=== PATIENT | male | born 1965 | race Caucasian/White ===

== ENCOUNTER → 2018-01-21 07:54 | Outpatient (CLI) | payer MEDICAID, SELFPAY ==
[2018-01-21 09:21] LABS: AST(SGOT) 16 U/L (15-37); Alanine Aminotransfer ALT/SGPT 36 U/L (16-61); Albumin, Serum 3.8 g/dL (3.2-5.0); Alkaline Phosphatase 75 U/L (45-117); Bilirubin, Direct 0.13 mg/dL (0.00-0.30); Globulin 2.8 g/dL (2.2-4.2); PSA,Total - Annual Screen 4.11 ng/mL (0.00-4.00); Protein, Total 6.6 g/dL (6.4-8.2)
== END ==
PROVIDERS: Family Provider Family Medicine; PCP Family Medicine; Visit Provider Family Medicine
DX: N40.0 Benign prostatic hyperplasia without lower urinary tract symptoms (principal); B35.1 Tinea unguium; Z12.5 Encounter for screening for malignant neoplasm of prostate
CPT/HCPCS: 36415; 80076; 84153; G0103

== ENCOUNTER → 2018-10-16 06:02 | Outpatient (CLI) | payer MEDICAID, SELFPAY ==
[2018-10-16 07:51] LABS: Absolute Lymphocyte Count 2.22 X10^3/ul (0.83-4.51); Absolute Neutrophil Count 4.8 X10^3/uL (2.0-7.7); Basophil# 0.03 X10^3/uL; Basophil% 0.4 % (0-1); Eosinophil# 0.17 X10^3/uL; Eosinophils% 2.1 % (0-5); Hematocrit 47.6 % (40-54); Hemoglobin 15.8 g/dl (13.0-16.5); Lymphocyte # 2.22 X10^3/ul (4.0); Lymphocyte % 27.9 % (19-41); Mean Corp Hgb Conc 33.2 g/gl (32-36); Mean Corpuscular Hgb 30.7 pg (27.0-32.0); Mean Corpuscular Volume 92.4 fL (80-94); Mean Platelet Vol. 9.1 fl (6.2-12.0); Monocyte# 0.76 X10^3/uL; Monocyte% 9.6 % (0-10); Neutrophil # 4.76 X10^3/uL (2.7-7.7); Neutrophil % 59.9 % (47-70); Platelet Count 217 K/mm3 (150-450); RBC Distribution Width CV 12.5 % (11.6-14.6); RBC Distribution Width SD 41.9 fl (35.1-43.9); Red Blood Count 5.15 M/mm3 (4.6-6.2)
[2018-10-16 07:53] LABS: POSITIVE COUNT NO; POSITIVE DIFFERENTIAL NO; POSITIVE MORPHOLOGY NO
[2018-10-16 08:05] LABS: Erythrocyte Sedimentation Rate < 1 mm/hr (0-20)
[2018-10-16 08:22] LABS: ALB/GLOB Ratio 1.3 RATIO (0.9-2.4); AST(SGOT) 16 U/L (15-37); Alanine Aminotransfer ALT/SGPT 35 U/L (16-61); Albumin, Serum 4.2 g/dL (3.2-5.0); Alkaline Phosphatase 76 U/L (45-117); Anion Gap 8 (5-15); BUN 14 mg/dL (7-18); BUN/Creat Ratio 18.5 RATIO (10-20); Calcium,Total 8.6 mg/dL (8.5-10.1); Chloride 105 mmol/L (98-107); Cholesterol 172 mg/dL (200); Creatinine, Serum 0.76 mg/dL (0.70-1.30); EST Glomerular Filtration Rate 114 mL/min (>60); Est Glom Filt Rate - Afr Amer 138 mL/min (>60); Globulin 3.3 g/dL (2.2-4.2); Glucose 82 mg/dL (74-106); High Density Lipoprotein 50 mg/dL; Iron 83 ug/dL (65-175); Protein, Total 7.5 g/dL (6.4-8.2); Sodium Level 143 mmol/L (136-145); Thyroid Stim Hormone (TSH) 1.58 uIU/mL (0.358-3.74); Triglycerides 206 mg/dL; Very Low Density Lipoprotein 41 mg/dL (5-40)
[2018-10-16 10:29] LABS: Vitamin B12 486 pg/mL (211-911); Vitamin D,25 Hydroxy 46.6 ng/mL (29.95-100.01)
[2018-10-18 16:36] LABS: PSA, Free 0.59 ng/mL; PSA, Free % 11.8 % (.)
--- OUTSIDE RECORDS SUMMARY | 2018-12-18 14:19 | XMS RPT_ITS ---
:1965 Author Organization OHIP Care Team Providers Name Role Phone Cloby Watkins Attending Unavailable Colby Watkins Referring Unavailable Colby Watkins Primary Care Unavailable Colby Watkins Attending Unavailable Colby Watkins Referring Unavailable Colby Watkins Primary Care Unavailable Jorge Bermudez Attending Unavailable Jorge Bermudez Attending Unavailable Jorge Bermudez Attending Unavailable Colby Watkins Kaylee Primary Care Unavailable Bernabe Harrison Attending Unavailable [facility] PROBLEMS PROBLEMS DATE TYPE CONDITION / CODE ATTENDING STATUS SOURCE 01/21/2018 Unknown N40.0 - Benign Sona Waktins prostatic [facility] without lower Repository urinary tract symptoms / N40.0(ICD-10) 01/12/2018 Admitting Raine / Jorge Bermudez Active [facility] Medical diagnosis UNK(Unknown) [facility] Repository PROCEDURES PROCEDURES No Procedure Records FoundRESULTS RESULTS CBC W/DIFF, AUTOMATED Collected: 10/16/2018 Status: F Source: [place] 6[place] [place] [facility] [place] CODE TESTS RESULT OUT OF RANGE REFERENCE UNITS LAB L100.1000 4.4-11.0 K/mm3 Normal WBC 8.0 LAB L100.1200 4.6-6.2 M/mm3 Normal RBC 5.15 LAB L100.1300 13.0-16.5 g/dl Normal HGB 15.8 LAB L100.1400 40-54 % Normal HCT 47.6 LAB L100.1500 80-94 fL Normal MCV 92.4 LAB L100.1600 27.0-32.0 pg Normal MCH 30.7 LAB L100.1700 32-36 g/gl Normal MCHC 33.2 LAB L100.1810 11.6-14.6 % Normal RDW CV 12.5 LAB L100.1820 35.1-43.9 fl Normal RDW SD 41.9 LAB L100.1900 150-450 K/mm3 Normal PLT 217 LAB L100.2000 6.2-12.0 fl Normal MPV 9.1 LAB L100.2100 47-70 % Normal NEUT% 59.9 LAB L100.2200 19-41 % Normal LY% 27.9 LAB L100.2300 0-10 % Normal MONO% 9.6 LAB L100.2400 0-5 % Normal EO% 2.1 LAB L100.2500 0-1 % Normal BASO% 0.4 LAB L100.2550 0.0-0.9 % Normal IM GRAN % 0.100 Result Comment: IG% - Immature Granulocytes (promyelocytes, myelocytes and metamyelocytes) > 1% indicates that a LEFT SHIFT is Present. LAB L100.2620 2.0-7.7 X10 3/uL Normal Absolute Neut 4.8 LAB L100.2720 0.83-4.51 X10 3/ul Normal Absolute Lymph 2.22 Performed By: #### L100.0100, L101.9900, L500.4050, L500.4100, L501.9520, L503.6150, L503.0105, L506.1000, L509.3000 #### [facility] [address] [place] [address]. [place], [address] #### L3110.0500 #### [facility] (refer to report for specific site) refer to report for address and phone number ERYTHROCYTE SED RATE Collected: 10/16/2018 Status: F Source: [place] 6:06 [place] [facility] [place] CODE TESTS RESULT OUT OF RANGE REFERENCE UNITS LAB L102.0000 0-20 mm/hr Normal SED RATE < 1 Performed By: #### L100.0100, L101.9900, L500.4050, L500.4100, L501.9520, L503.6150, L503.0105, L506.1000, L509.3000 #### [facility] [address] [place], [address] #### L3110.0500 #### [facility] (refer to report for specific site) refer to report for address and phone number COMPREHENSIVE METABOLIC Collected: 10/16/2018 Status: F Source: [facility] 6:06 [place] [facility] [place] CODE TESTS RESULT OUT OF RANGE REFERENCE UNITS LAB L501.0100 74-106 mg/dL Normal GLU 82 Result Comment: Please note revised GLUCOSE reference range effective 2017. LAB L501.1000 7-18 mg/dL Normal BUN 14 LAB L501.1100 0.70-1.30 mg/dL Normal CREAT,SERUM 0.76 Result Comment: The validity of the calculated GFR AND GFRAA in patients over 70 years has not been determined. Clinical correlation is essential. LAB L501.1110 >60 mL/min Normal EST GFR 114 Result Comment: Non- GFR Calc LAB L501.1115 >60 mL/min Normal EST GFR - AA 138 Result Comment: GFR Calc LAB L501.1300 10-20 RATIO Normal BUN/CRE 18.5 LAB L501.1500 6.4-8.2 g/dL T Normal PROT 7.5 LAB L501.1800 3.2-5.0 g/dL Normal ALB 4.2 LAB L501.1950 2.2-4.2 g/dL Normal GLOB 3.3 LAB L501.2000 0.9-2.4 RATIO Normal A/G 1.3 LAB L501.2200 8.5-10.1 mg/dL CA Normal 8.6 LAB L501.4100 15-37 U/L Normal AST 16 LAB L501.4305 45-117 U/L Normal ALK P 76 LAB L501.4405 16-61 U/L Normal ALT 35 LAB L501.4600 0.20-1.00 mg/dL T Normal BILI 0.50 LAB L501.5300 136-145 mmol/L NA Normal 143 LAB L501.5600 3.5-5.1 mmol/L K Normal 4.0 LAB L501.5900 98-107 mmol/L CL Normal 105 LAB L501.6100 21.0-32.0 mmol/L Normal CO2 30.0 LAB L501.6200 5-15 Normal GAP 8 Performed By: #### L100.0100, L101.9900, L500.4050, L500.4100, L501.9520, L503.6150, L503.0105, L506.1000, L509.3000 #### [facility] [address] [place], [address] #### L3110.0500 #### [facility] (refer to report for specific site) refer to report for address and phone number LIPID PROFILE Collected: 10/16/2018 Status: F Source: [place] 6:[facility] [place] [facility] [place] CODE TESTS RESULT OUT OF RANGE REFERENCE UNITS LAB L501.4900 200 mg/dL Normal CHOL 172 Result Comment: <200 mg/dL Desirable 200-240 mg/dL Borderline >240 mg/dL High Risk LAB L501.5000 mg/dL High TRIG 206 Result Comment: The drugs N-Acetylcysteine and Metamizole may falsely depress this assay. Serum Triglycerides Reference Interval Normal <150 mg/dL Borderline high 150 - 199 mg/dL High 200 - 499 mg/dL Very High > or = 500 mg/dL LAB L501.6400 mg/dL Normal HDL 50 Result Comment: The drugs N-Acetylcysteine and Metamizole may falsely depress this assay. Reference Range HDL <40 mg/dL Low HDL Cholesterol HDL >or= 60 mg/dL High HDL Cholesterol LAB L501.6500 0-130 mg/dL Normal LDL 81 LAB L501.6600 5-40 mg/dL High VLDL 41 Performed By: #### L100.0100, L101.9900, L500.4050, L500.4100, L501.9520, L503.6150, L503.0105, L506.1000, L509.3000 #### [facility] [address] [place], [address] #### L3110.0500 #### [facility] (refer to report for specific site) refer to report for address and phone number THYROID STIM HORMONE Collected: 10/16/2018 Status: F Source: [place] ([facility]) 6:06 AM [facility] [place] CODE TESTS RESULT OUT OF RANGE REFERENCE UNITS LAB L501.9520 0.358-3.74 uIU/mL Normal TSH 1.58 Performed By: #### L100.0100, L101.9900, L500.4050, L500.4100, L501.9520, L503.6150, L503.0105, L506.1000, L509.3000 #### [facility] [address] [place], [place], [id number] #### L3110.0500 #### [facility] (refer to report for specific site) refer to report for address and phone number IRON Collected: 10/16/2018 Status: F Source: [place] 6:06 AM [facility] [place] CODE TESTS RESULT OUT OF RANGE REFERENCE UNITS LAB L503.6150 65-175 ug/dL Normal IRON 83 Performed By: #### L100.0100, L101.9900, L500.4050, L500.4100, L501.9520, L503.6150, L503.0105, L506.1000, L509.3000 #### [facility] [place], [place], [id number] #### L3110.0500 #### [facility] (refer to report for specific site) refer to report for address and phone number VITAMIN B12 Collected: 10/16/2018 Status: F Source: [place] 6:06 AM [facility] [place] CODE TESTS RESULT OUT OF RANGE REFERENCE UNITS LAB L503.0105 211-911 pg/mL Normal Vitamin B12 486 Performed By: #### L100.0100, L101.9900, L500.4050, L500.4100, L501.9520, L503.6150, L503.0105, L506.1000, L509.3000 #### [facility] [place], [place], [id number] #### L3110.0500 #### [facility] (refer to report for specific site) refer to report for address and phone number VITAMIN D,25 HYDROXY Collected: 10/16/2018 Status: F Source: [place] 6:06 AM [facility] [place] CODE TESTS RESULT OUT OF RANGE REFERENCE UNITS LAB L506.1000 29.95-100.01 ng/mL Normal Vitamin D 46.6 25-OH Result Comment: Vitamin D 25(OH) Status Range Deficiency <20 ng/mL (50nmol/L) Insuffciency 20 - 30 ng/mL (50 - 75 nmol/L) Sufficiency 30 - 100 ng/mL (75 - 250 nmol/L) Toxicity >100 ng/mL (>250 nmol/L) Performed By: #### L100.0100, L101.9900, L500.4050, L500.4100, L501.9520, L503.6150, L503.0105, L506.1000, L509.3000 #### [facility] [address] [facility]. [place], [place], [id number] #### L3110.0500 #### [facility] (refer to report for specific site) refer to report for address and phone number TESTOSTERONE, SERUM TOTAL Collected: 10/16/2018 Status: F Source: [place] 6:06 AM [facility] [place] CODE TESTS RESULT OUT OF REFERENCE UNITS RANGE LAB L509.3000 ng/dL Testosterone Normal 360.14 Result Comment: NORMAL REFERENCE RANGES MALE AGE <50 123.06 - 813.86 ng/dL MALE AGE >50 89.98 - 780.10 ng/dL FEMALE PREMENOPAUSE AGE 21 - 60 9.01 - 47.94 ng/dL FEMALE POSTMENOPAUSE AGE 45 - 89 <7.00 - 45.62 ng/dL REFERENCE RANGE AND METHODOLOGY CHANGED 09/14/2017 Performed By: #### L100.0100, L101.9900, L500.4050, L500.4100, L501.9520, L503.6150, L503.0105, L506.1000, L509.3000 #### [facility] [address] [facility]. [place], [place], [id number] #### L3110.0500 #### [facility] (refer to report for specific site) refer to report for address and phone number PSA TOTAL+%FREE Collected: 10/16/2018 Status: F Source: [place] 6:06 AM [facility] [place] CODE TESTS RESULT OUT OF RANGE REFERENCE UNITS LAB L3110.0700 0.0-4.0 ng/mL High PSA, 5.0 TOTAL Result Comment: Olga ECLIA methodology. According to the [place] [employer], Serum PSA should decrease and remain at undetectable levels after radical prostatectomy. The AUA defines biochemical recurrence as an initial PSA value 0.2 ng/mL or greater followed by a subsequent confirmatory PSA value 0.2 ng/mL or greater. Values obtained with different assay methods or kits cannot be used interchangeably. Results cannot be interpreted as absolute evidence of the presence or absence of malignant disease. LAB L3110.0800 N/A ng/mL Normal PSA, 0.59 FREE Result Comment: Olga ECLIA methodology. LAB L3110.0900 . % Normal PSA, FREE 11.8 % Result Comment: The table below lists the probability of prostate cancer for men with non-suspicious LYDIA results and total PSA between 4 and 10 ng/mL, by patient age (Ernesto et al, RAMÍREZ 1998, 279:1542). % Free PSA 50-64 yr 65-75 yr 0.00-10.00% 56% 55% 10.01-15.00% 24% 35% 15.01-20.00% 17% 23% 20.01-25.00% 10% 20% >25.00% 5% 9% Please note: Ernesto et al did not make specific recommendations regarding the use of percent free PSA for any other population of men. Performed at: - [facility] [address] [id number] Client Services Representative: Hever Lake PhD, Phone: [phone] Performed By: #### L100.0100, L101.9900, L500.4050, L500.4100, L501.9520, L503.6150, L503.0105, L506.1000, L509.3000 #### [facility] [address] [place], [address] #### L3110.0500 #### [facility] (refer to report for specific site) refer to report for address and phone number JINMARGARETTEANNETTA ESTEPHANIE Collected: 10/04/2018 Status: F Source: [facility] 3:35 [facility] [place] REPOSITORY TYPE CODE TESTS RESULT OUT OF RANGE REFERENCE UNITS LAB L600.46411 () Normal TOXASSURE COMPR FINAL Result Comment: TOXASSURE COMP DRUG ANALYSIS,UR Test Result Flag Units Drug Present and Declared for Prescription Verification Oxycodone 1376 EXPECTED ng/mg creat Oxymorphone 573 EXPECTED ng/mg creat Noroxycodone 1822 EXPECTED ng/mg creat Noroxymorphone 133 EXPECTED ng/mg creat Sources of oxycodone are scheduled prescription medications. Oxymorphone, noroxycodone, and noroxymorphone are expected metabolites of oxycodone. Oxymorphone is also available as a scheduled prescription medication. Gabapentin PRESENT EXPECTED Acetaminophen PRESENT EXPECTED Drug Present not Declared for Prescription Verification Ephedrine/Pseudoephedrine PRESENT UNEXPECTED Phenylpropanolamine PRESENT UNEXPECTED Source of ephedrine/pseudoephedrine is most commonly pseudoephedrine in [id number] or prescription cold and allergy medications. Phenylpropanolamine is an expected metabolite of ephedrine/pseudoephedrine. Drug Absent but Declared for Prescription Verification Cyclobenzaprine Not Detected UNEXPECTED Test Result Flag Units Ref Range Creatinine 45 mg/dL >=20 Declared Medications: The flagging and interpretation on this report are based on the following declared medications. Unexpected results may arise from inaccuracies in the declared medications. Note: The testing scope of this panel includes these medications: Cyclobenzaprine Gabapentin Oxycodone (Percocet) Note: The testing scope of this panel does not include small to moderate amounts of these reported medications: Acetaminophen (Percocet) For clinical consultation, please call . Performed At: [facility] [address] [place] [id number] Rod Palacios [id number] Performed By: #### L600.43574 #### [facility] [address] [place] [id number] # [phone] LIVER PROFILE Collected: 01/21/2018 Status: F Source: [place] 8:[facility] [place] Order Comment: Order Date: 01/17/18 Order Info: 0788-1 - LIVER TYPE CODE TESTS RESULT OUT OF RANGE REFERENCE UNITS LAB L501.1500 6.4-8.2 g/dL Normal T PROT 6.6 LAB L501.1800 3.2-5.0 g/dL Normal ALB 3.8 LAB L501.1950 2.2-4.2 g/dL Normal GLOB 2.8 LAB L501.4100 15-37 U/L Normal AST 16 LAB L501.4305 45-117 U/L Normal ALK P 75 LAB L501.4405 16-61 U/L Normal ALT 36 LAB L501.4600 0.20-1.00 mg/dL Normal T BILI 0.40 LAB L501.4700 0.00-0.30 mg/dL Normal D BILI 0.13 Performed By: #### L500.3400 #### [facility] [address] [place], [address] PSA,TOTAL - ANNUAL Collected: 01/21/2018 Status: F Source: [place] S[place] 8:30 AM [facility] [place] Order Comment: Order Date: 01/17/18 Order Info: 0788-1 - LIVER TYPE CODE TESTS RESULT OUT OF REFERENCE UNITS RANGE LAB L501.9910 0.00-4.00 ng/mL High PSA,TOT 4.11 SCREEN Result Comment: This test was performed using the TPSA assay method for the Callision chemistry system. Values obtained with different assay methods cannot be used interchangably. When changing PSA assays in the course of monitoring a patient, additional sequential testing should be carried out to confirm baseline values. Performed By: #### L501.9910 #### [facility] [address] [place], [address] ALLERGIES ALLERGIES DATE TYPE / CODE NAME / CODE REACTION SEVERITY SOURCE 07/29/2016 Drug Tetracyclines/F00 Rash Unknown Duncan Allergy/284 5919958(RXNORM) [facility] 004919([facility] ED CT) Repository 11/12/2014 Drug cephalexin Rash Unknown Lissa Allergy/416 monohydrate/F0000 [facility] 183171([facility] 35136(RXNO) [facility] ED CT) Repository 11/12/2014 Drug Penicillins/F0010 Rash Unknown Duncan Allergy/416 75039(RXNORM) [facility] 141291([facility] ED CT) Repository ENCOUNTERS ENCOUNTERS ADMIT/DISCHARGE ACCOUNT ADMITTING ENCOUNTER LOCATION SOURCE NUMBER CLASS 10/16/[id number] ing:LAB Repository 10/04/[id number] [place] g:H.PMJ Repository 07/10/2018 [id number] [facility] [place] [facility] Repository 04/10/2018 [id number] [facility] Repository 01/21/2018 [id number] Ambulatory Duncan Lissa 7 [facility] ing:LAB.FUTUR Repository E 01/12/2018 [id number] Ambulatory [facility] 9 [facility] g:H.PMJ Repository PAYERS PAYERS ENCOUNTER GUARANTOR PAYER SUBSCRIBER SOURCE 10/16/2018 ALBINO Smith Primary ALBINO [id number] E [facility] Number: [id number] [id number] Repository [address]Tne: [phone]) Date:2018-10-16P O [phone] (HP) [address]ATTN: [place] [address]NZ: 10/16/2018 Secondary NOT GIVENUNK Duncan Insurance:SELF PAY [facility] Number: Effective Repository Date:2018-10-16 10/04/2018 ALBINO LAST [place] [address] Insurance:[facility] Number: Repository [place], [place] [id number] [phone]: [phone]) Date:[phone] (HP) [address], [place] [address]PD: 07/10/2018 ALBINO Primary ALBINO LAST [place] [address] Insurance:SELF PAY [place], [place] Number: Effective [id number]: (248) Date:SEE [phone] (HP) PATIENT/GUARANTORSEE PT/[place], [place] [address]RP: 04/10/2018 ALBINO LAST [place] [address] Insurance:SELF PAY [place] Number: Effective [id number]: (248) Date:SEE [phone] (HP) [place] [address]ZV: 01/21/2018 Albino Smith Primary Albino Saenz[address] E Insurance[facility] Number: [id number] [id number] Repository [address]Fca: (248) Date:2017-10-28P O [phone] () [address]ATTN: [place] [address]JT: 01/21/2018 Secondary NOT GIVENSALEEM Alcaraz Insurance:SELF PAY [facility] Number: Effective Repository Date:2017-10-28 01/12/2018 ALBINO LAST [facility] [id number] Insurance:[facility] Number: Repository [place], [place] [id number] [address]Ykf: (248) Date:[phone] () [address], [place] [address]TD:
== END ==
PROVIDERS: Family Provider Family Medicine; PCP Family Medicine; Referring Provider Family Medicine; Visit Provider Family Medicine
DX: Z00.00 Encounter for general adult medical examination without abnormal findings (principal); R53.83 Other fatigue; E53.8 Deficiency of other specified B group vitamins; R97.20 Elevated prostate specific antigen [PSA]
CPT/HCPCS: 36415; 80053; 80061; 82306; 82607; 83540; 84153; 84154; 84403; 84443; 85025; 85652

== ENCOUNTER → 2019-02-16 | Outpatient (CLI) | payer MEDICAID, SELFPAY ==
--- NOTE | 2019-02-16 10:58 | RAD_ITS ---
HISTORY: PBack PainRAD Spine EXAM/TECHNIQUE: XR Spine Lumbar Min 4 Views: COMPARISON: 06/25/14 radiographs. FINDINGS: # of images incl. paperwork: 5 No fracture or dislocation or osseous destruction. Alignment anatomic. Posterior fusion and discectomy L4-5, implanted device with a lead extending into the thoracic spinal canal, partially visible, intact hardware all similar to prior. Prominent facet degeneration lower lumbar spine. No acute findings in the soft tissues. RAD/L/S Spine Min 4 Views IMPRESSION: No acute findings. Postsurgical and degenerative changes similar to prior. at 1108 Reported and signed by: Junior Rodas MD Electronically Signed: Junior Rodas, at 23:17 EDT Tel , Service support ,
== END | disposition home or self-care (01) ==
LOC: HPRAD 10:53
PROVIDERS: Family Provider Family Medicine; PCP Family Medicine; Referring Provider Physician Assistant; Visit Provider Physician Assistant
DX: M96.1 Postlaminectomy syndrome, not elsewhere classified (principal)
CPT/HCPCS: 72110

== ENCOUNTER 2019-03-21 13:00 | Outpatient (RCR) | payer MEDICAID, SELFPAY ==
--- NOTE | 2019-02-27 10:33 | HP.PTEVAL_ITS ---
Patient's Visit Information ELENA SAENZ is a 54 year old M referred to Physical Therapy by FLORY Floyd with a diagnosis of POST LUMBAR LAMINECTOMY SYNDROME, MYOFASCIAL PAIN SYNDROME, LEFT KNEE PAIN.. Date of Evaluation: 02/27/19 Physical Therapist: Marisela Jerry PT, Cert MDT - Visit Plan Frequency: 2-3x /Week Duration: 4-6 Weeks Plan: AQUATIC THERAPY FOR PAIN RELEIF, POSTURE CORRECTION/STRENGTHENING, INSTRUCTION IN APPROPRIATE BODY MECHANICS AND ACTIVITY MODIFICATIONS. DLS STARTING WITH A NEUTRAL SPINE PROGRESSING ROM TOLERATED. KEVIN LE ROM, STRETCHING AND STRENGTHENING. HEP INSTRUCTION. - Subjective Findings: Work/Leisure: SELF EMPLOYEED - [employer]. HOURS ARE SPORATIC - LAST WEEK 30 HOURS. 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 HAS BEEN GOING TO [employer] TO WORK SOME. HAS BEEN WORKING AROUND THE HOUSE. TILED THE KITCHEN FLOOR. Disability: NO. Present symptoms: PATIENT REPORTS THAT HE IS MAILY HERE FOR THE LOW BACK. PATIENT REPORTS HE REALLY IS HERE TO HAVE HIS LOW BACK ADDRESSED. HE STATES HE DOES STILL HAVE MID BACK PAIN AND HIS LEFT KNEE IS GIVING HIM SOME TROUBLE BUT WANTS HIS LOW BACK LOOKED AT. KEVIN LE PAIN, NUMBNESS AND TINGLING TO THE TOPS OF THE FEET. SOMETIMES RIGHT > LEFT. PATIENT REPORTS THAT HIS SPINE TOP TO BOTTOM ALWAYS HURTS. Present since: PATIENT STATES HE CAN'T REMEMBER WHEN HE HAD SURGERY BUT IT HAS HURT SINCE BEFORE THE SURGERY. PATIENT REPORTS MUCH WORSE PAIN SINCE SURGERY THAN BEFORE SURGERY. Pain Scale: WORST 9/10, LEAST 4/10. Currently: 5/10. Commenced as a result of: NO APPARENT REASON. Symptoms at onset: LOW BACK. BEFORE LOW BACK STARTED HURTING WAS HIT IN THE BACK BY A TREE IN APPROX 1999 AND HURT MID BACK. Worse: STANDING, BENDING AND LIFTING. PHYSICALLY WORKING. Better: PAIN MEDICINE AND RECLINER. Disturbed sleep: YES. Previous history/Previous treatment: PHYSICAL THERAPY - MADE IT WORSE/ DIDN'T HELP. TENS UNIT - DOESN'T HELP, LUMBAR SX, PRESCRIPTION PAIN MEDS, 2 SAM'S - HELPED A LITTLE BIT IN THE LAST FEW MONTHS - [facility]. CONSULT WITH DR. LEMUS 2 MONTHS AGO AND RECOMMENDED MRI BUT INSURANCE DENIED DUE TO NOT HAVING PHYSICAL THERAPY AND INJECTIONS. Coughing/sneezing/straining: POSITIVE. Gait: DIFFICULTY INITIATING GAIT. HURTS TO WALK. CAN'T WALK VERY FAR. SHOOTING PAINS DOWN LEGS. Difficulty initiating urinatin: YES - SEEING DR. RIVAS. Accidents: HIT BY A TREE IIN MID BACK 1999. Unexplained weight loss: NO. Imaging: LUMBAR X-RAYS RECENTLY - MPRESSION: No acute findings. Postsurgical and degenerative changes similar to prior in 2014. PMH: UNREMARKABLE OTHER THAN BLADDER ISSUES. - Objective Sitting/Standing Posture: POOR. IN STANDING LEFT SHOULDER IS SIGNIFICANTLY HIGHER THAN RIGHT. Lordosis: REDUCED. Lateral shift: LEFT. Relevant shift: YES. Active Correction of posture: WORSE. Other Observations: INDEP GAIT INTO PT WITHOUT ANY ASSISTIVE DEVICES OR LOSS OF BALANCE. GAIT IS SLOW AND ANTALGIC WITH LEFT SHIFT. Motor deficit: POOR BACK AND HIP STRENGTH AND TESTING IS DIFFICULT DUE TO PAIN. HOWEVER KEVIN KNEE EXT, KNEE FLEX AND ANKLES ARE STRONG 5/5. Sensory deficit: DECREASED RIGHT LE LIGHT TOUCH SENSATION COMPARED TO THE LEFT. ROM deficit: TIGHT KEVIN FLEXORS, HIP ROTATORS, HAMSTRINGS AND GASTROC SOLEUS COMPLEX'S RIGHT > LEFT. Reflexes: UNABLE TO ELICIT KEVIN LE DTR'S. Dural Signs: POSITIVE KEVIN LE'S. Lumbar mvmt loss: flex - MIN. ext - MAGY. R SG - MAGY. L SG - MOD TO MAGY. PATIENT C/O INCREASED BACK PAIN WITH LUMBAR ROM TESTING ALL PLANES. Core strength: POOR. Palpation: NO ACUTE THORACIC OR LUMBAR TENDERNESS WITH LIGHT PALPATION - Goals Goal 1:: DECREASE C/O BACK AND KEVIN LE SX'S. Goal Time Frame: 4-6 Weeks Goal 2:: IMPROVE PERSONAL CARE, LIFTING, WALKING, SITTING, STANDING, SLEEP, SOCIAL LIFE, TRAVEL AND WORK/HOMEMAKING FUNCTION Goal Time Frame: 4-6 Weeks Goal 3:: INSTRUCT IN PROPHYLAXIS Goal Time Frame: 4-6 Weeks - Rehabilitation Potential Rehabilitation Potential: Fair - Anticipated Interventions Patient/Client Instruction: Educate patient on: Condition, Plan of Care, Risk Factors, Benefits of Fitness Program For the Purpose of:: To improve self management Therapeutic Exercise to Include: Strength training, Body mechanics, Postural training, Flexibilty training, In an aquatic setting, Active ROM, Dynamic Lumbar Stabilization For the Purpose of:: To decrease pain, To increase ROM, To improve muscle performance and motor function, To increase tolerance to activity/condition/position, To improve ability of physical actions for home/community/work/leisure, To improve gait and locomotor functions Thank you for the opportunity to evaluate your patient. For Medicare and Medicare HMO plans, please review the plan of care and approve it. It will need to be FAXED BACK to us at [phone] for Medicare purposes. For Medicare only, by signing this I certify the plan of care. Please let me know if there are questions or concerns regarding this plan of care. Physician Signature: Date:
--- NOTE | 2019-03-21 13:37 | HP.PTDCSUM ---
HP - PT D/C Summary It has been my pleasure to treat ELENA SAENZ under orders from FLORY Floyd, for the diagnosis of POST LUMBAR LAMINECTOMY SYNDROME, MYOFASCIAL PAIN SYNDROME, LEFT KNEE PAIN. for a total of 10 visit(s). Discharge Date: Please see the following information for a summary of their discharge status. - Subjective Subjective: PATIENT REPORTS HE IS THE SAME. PATIENT REPORTS THAT THE PAIN IS THE SAME BUT OVER-ALL PHYSICALLY HE FEELS A LITTLE STRONGER BUT TEMPORARY INCREASED PAIN AFTER THE POOL SESSIONS. - Pain Lumbar Spine Pain Intensity (Out of 10): 6 - Objective Objective/Function: PATIENT IS NOT SHOWING SIGNIFICANT IMRPOVEMENT. INDEP GAIT INTO PT WITHOUT ANY ASSISTIVE DEVICES OR LOSS OF BALANCE. GAIT IS SLOW AND ANTALGIC WITH LEFT SHIFT. Motor deficit: LE STRENGTH TESTING IS EASIER TODAY - RIGHT HIP 4-/5, LEFT HIP 4/5. KEVIN KNEE EXT, KNEE FLEX AND ANKLES ARE STRONG 5/5. Sensory deficit: DECREASED RIGHT LE LIGHT TOUCH SENSATION COMPARED TO THE LEFT. ROM deficit: TIGHT KEVIN FLEXORS, HIP ROTATORS, HAMSTRINGS AND GASTROC SOLEUS COMPLEX'S RIGHT > LEFT. Dural Signs: POSITIVE KEVIN LE'S. Lumbar mvmt loss: flex - MIN. ext - MAGY. R SG - MAGY. L SG - MOD TO MAGY. PATIENT C/O INCREASED BACK PAIN WITH LUMBAR ROM TESTING ALL PLANES. Palpation: NO ACUTE THORACIC OR LUMBAR TENDERNESS WITH LIGHT PALPATION. LUMBAR OSWESTRY SCORE HAS WORSENED FROM 25 TO 29. - Goals Goal 1:: DECREASE C/O BACK AND KEVIN LE SX'S. Goal 2:: IMPROVE PERSONAL CARE, LIFTING, WALKING, SITTING, STANDING, SLEEP, SOCIAL LIFE, TRAVEL AND WORK/HOMEMAKING FUNCTION Goal 3:: INSTRUCT IN PROPHYLAXIS - Plan Plan: D/C DUE TO LACK OF PROGRESS. PATIENT IS INDEP WITH A Water EX PROGRAM NOW AND CAN CONTINUE AT FACILITY OF HIS CHOICE. - D/C Information If there are questions or concerns regarding this patient's physical therapy, please feel free to call me at [phone]. Thank you for the referral of this patient. Sincerely, Marisela Jerry, PT, Cert MDT
== END 2019-03-21 19:00 | disposition home or self-care (01) ==
LOC: PT 13:00
PROVIDERS: Family Provider Family Medicine; PCP Family Medicine; Referring Provider Physician Assistant; Visit Provider Physician Assistant
DX: M25.562 Pain in left knee (principal); M79.10 Myalgia, unspecified site; M96.1 Postlaminectomy syndrome, not elsewhere classified
CPT/HCPCS: 97113; 97162; 97530

== ENCOUNTER → 2019-05-07 | Outpatient (CLI) | payer MEDICAID, SELFPAY ==
[2019-05-07 15:17] LABS: Absolute Lymphocyte Count 2.28 X10^3/uL (0.83-4.51); Absolute Neutrophil Count 4.5 X10^3/uL (2.0-7.7); Basophil# 0.03 X10^3/uL; Basophil% 0.4 % (0-1); Eosinophils% 1.3 % (0-5); Hematocrit 42.5 % (40-54); Hemoglobin 14.6 g/dL (13.0-16.5); Lymphocyte # 2.28 X10^3/ul (4.0); Mean Corp Hgb Conc 34.4 g/dL (32-36); Mean Corpuscular Hgb 30.9 pg (27.0-32.0); Mean Corpuscular Volume 89.9 fL (80-94); Mean Platelet Vol. 9.1 fl (6.2-12.0); Monocyte% 9.2 % (0-10); NRBC Flagged by Analyzer 0 % (0-5); Neutrophil # 4.49 X10^3/uL (2.7-7.7); Platelet Count 215 K/mm3 (150-450); RBC Distribution Width CV 12.3 % (11.6-14.6); RBC Distribution Width SD 40.2 fl (35.1-43.9); Red Blood Count 4.73 M/mm3 (4.6-6.2); White Blood Count 7.6 K/mm3 (4.4-11.0)
[2019-05-07 15:43] LABS: ALB/GLOB Ratio 1.5 RATIO (0.9-2.4); AST(SGOT) 14 U/L (15-37); Alanine Aminotransfer ALT/SGPT 28 U/L (16-61); Albumin, Serum 4.2 g/dL (3.2-5.0); Alkaline Phosphatase 72 U/L (45-117); Anion Gap 4 (5-15); BUN 19 mg/dL (7-18); BUN/Creat Ratio 21.8 RATIO (10-20); Calcium,Total 8.6 mg/dL (8.5-10.1); Chloride 103 mmol/L (98-107); Creatinine, Serum 0.87 mg/dL (0.70-1.30); EST Glomerular Filtration Rate 96 mL/min (>60); Est Glom Filt Rate - Afr Amer 117 mL/min (>60); Globulin 2.8 g/dL (2.2-4.2); Glucose 79 mg/dL (74-106); Potassium 3.7 mmol/L (3.5-5.1); Sodium Level 139 mmol/L (136-145)
[2019-05-07 15:48] LABS: Vitamin B12 542 pg/mL (211-911)
[2019-05-09 15:07] LABS: H. Pylori Antibody (IgG) 0.76 (0.00-0.79)
== END | disposition home or self-care (01) ==
LOC: MFPLAB 14:24
PROVIDERS: Family Provider Family Medicine; PCP Family Medicine; Visit Provider Family Medicine
DX: E34.9 Endocrine disorder, unspecified (principal); E53.8 Deficiency of other specified B group vitamins; K21.9 Gastro-esophageal reflux disease without esophagitis
CPT/HCPCS: 36415; 80053; 82607; 84403; 85025; 86677

== ENCOUNTER → 2019-05-15 | Outpatient (CLI) | payer MEDICAID, SELFPAY ==
--- NOTE | 2019-05-15 07:12 | MRI_ITS ---
STUDY: MRI THORACIC SPINE WITH AND WITHOUT CONTRAST REASON FOR EXAM: Male, 54 years old. Back pain, prior surgery. TECHNIQUE: 17 IV Dotarem was administered for the contrast portion of the examination. COMPARISON: None. FINDINGS: Normal kyphosis of the thoracic spine. There is no substantial scoliosis. T1-2, T2-3, T3-4, T4-5, T5-6, T6-7, T7-8, T8-9, T9-10, T10-11, T11-12: Normal endplates. Normal disc hydration, heights and morphology of the corresponding intervertebral discs. Normal central canal and intervertebral neural foramina at the corresponding levels. Chronic moderate compression fracture of T9 with kyphosis but no retropulsion into the spinal canal. Chronic mild compression fracture of T11 without retropulsion in the spinal canal. Normal visualized thoracic cord. Normal conus medullaris that terminates at the L1.. Metallic susceptibility artifact consistent with dorsal column spinal stimulator. There is no enhancing abnormality. MRI/Spine Thoracic W/WO Contrast IMPRESSION: 1. Dorsal column spinal stimulator. 2. Chronic moderate wedge compression fracture of T9 with kyphosis and chronic mild compression fracture of T11. No retropulsion into the spinal canal. 3. No spinal stenosis or neural foraminal stenosis. Electronically Signed: Edwar Cruz MD at 12:03 EDT Tel , Service support ,
--- NOTE | 2019-05-15 07:12 | MRI_ITS ---
STUDY: MRI LUMBAR SPINE WITH AND WITHOUT CONTRAST REASON FOR EXAM: Male, 54 years old. Back pain, history of prior surgery. TECHNIQUE: Standardized fat and water weighted pulse sequences were obtained in the sagittal and axial planes. 17 IV Dotarem was administered for the contrast portion of the examination. COMPARISON: X-ray 02/16/2019 FINDINGS: T12-L1: Normal endplates. Normal disc height, hydration and morphology. Normal bilateral facet joints. Normal central canal and bilateral lateral recesses. Normal bilateral intervertebral neural foramina. Normal lumbar lordosis. There is no substantial scoliosis. Normal conus medullaris that terminates at the L1/L2. L1-2: Disc desiccation with loss of disc height but no disc protrusion, spinal stenosis, or neural foraminal stenosis. L2-3: Normal endplates. Normal disc height, hydration and morphology. Normal bilateral facet joints. Normal central canal and bilateral lateral recesses. Normal bilateral intervertebral neural foramina. L3-4: Normal endplates. Normal disc height, hydration and morphology. Normal bilateral facet joints. Normal central canal and bilateral lateral recesses. Normal bilateral intervertebral neural foramina. L4-5: Disc desiccation with a mild broad disc protrusion produces mild spinal stenosis with mild bilateral lateral recess stenosis but no neural foraminal stenosis. L5-S1: Status post transpedicular fixation with anatomic alignment and no spinal stenosis or neural foraminal stenosis. Normal visualized sacral ala. Normal visualized paraspinous soft tissue structures. There is no demonstrated abnormal enhancement. MRI/Spine Lumbar W/WO Contrast IMPRESSION: Postsurgical changes at L5/S1 with mild degenerative disc disease at L4/L5. Electronically Signed: Edwar Cruz MD at 12:50 EDT Tel , Service support ,
== END | disposition home or self-care (01) ==
LOC: MRI 07:07
PROVIDERS: Family Provider Family Medicine; PCP Family Medicine; Visit Provider Physician Assistant
DX: M96.1 Postlaminectomy syndrome, not elsewhere classified (principal)
CPT/HCPCS: 72157; 72158; A9575

== ENCOUNTER → 2019-05-18 | Outpatient (CLI) | payer MEDICAID, SELFPAY ==
--- NOTE | 2019-05-18 12:16 | RAD_ITS ---
STUDY: X-RAY - LEFT HAND REASON FOR EXAM: Male, 54 years old. Pain 3rd metacarpophalangeal joint, radiating into the 3rd digit. No injury. TECHNIQUE: 3 view(s) of the hand. COMPARISON: None. FINDINGS: Minimal DJD interphalangeal joints. No apparent DJD of the wrist. 3rd digit unremarkable. Soft tissues unremarkable. RAD/Hand Min 3 Views IMPRESSION: No acute radiographic abnormality. Electronically Signed: Edawr Castrejon MD at 14:12 EDT Tel , Service support ,
[2019-05-18 14:30] LABS: Uric Acid 3.9 mg/dL (3.5-7.2)
== END | disposition home or self-care (01) ==
LOC: MTRAD 12:09
PROVIDERS: Family Provider Family Medicine; PCP Family Medicine; Referring Provider Family Medicine; Visit Provider Family Medicine
DX: M79.645 Pain in left finger(s) (principal)
CPT/HCPCS: 36415; 73130; 84550

== ENCOUNTER → 2019-08-06 11:57 | Outpatient (CLI) | payer MEDICAID, SELFPAY ==
[2019-08-06 15:21] LABS: Vitamin B12 320 pg/mL (211-911)
[2019-08-08 11:41] LABS: PSA, Free % 8.9 % (.); PSA, Total Ultrasensitive 4.5 ng/mL (0.0-4.0)
== END ==
PROVIDERS: Family Provider Family Medicine; PCP Family Medicine; Referring Provider Family Medicine; Visit Provider Family Medicine
DX: E53.8 Deficiency of other specified B group vitamins (principal); R97.20 Elevated prostate specific antigen [PSA]
CPT/HCPCS: 36415; 82607; 84153; 84154

== ENCOUNTER → 2019-11-29 11:55 | Outpatient (CLI) | payer OTHER, MEDICAID, SELFPAY ==
[2019-12-03 06:16] LABS: Testosterone, Free 2.91 ng/dL (5.00-21.00)
[2019-12-03 11:52] LABS: Testosterone, % Free 2.09 % (1.50-4.20); Testosterone, Total 139 ng/dL (264-916)
== END ==
PROVIDERS: PCP Family Medicine; Referring Provider Urology; Visit Provider Urology
DX: E29.1 Testicular hypofunction (principal)
CPT/HCPCS: 36415; 84402; 84403

== ENCOUNTER → 2019-12-20 06:03 | Outpatient (CLI) | payer OTHER, MEDICAID, SELFPAY ==
[2019-12-20 07:51] LABS: ALB/GLOB Ratio 1.4 RATIO (0.9-2.4); AST(SGOT) 24 U/L (15-37); Alanine Aminotransfer ALT/SGPT 34 U/L (16-61); Albumin, Serum 4.1 g/dL (3.2-5.0); Alkaline Phosphatase 70 U/L (45-117); Anion Gap 6 (5-15); BUN 20 mg/dL (7-18); Calcium,Total 8.7 mg/dL (8.5-10.1); Chloride 107 mmol/L (98-107); Cholesterol 157 mg/dL (200); Creatinine, Serum 0.74 mg/dL (0.70-1.30); EST Glomerular Filtration Rate 116 mL/min (>60); Est Glom Filt Rate - Afr Amer 140 mL/min (>60); Globulin 2.9 g/dL (2.2-4.2); Glucose 82 mg/dL (74-106); High Density Lipoprotein 42 mg/dL; Potassium 3.8 mmol/L (3.5-5.1); Sodium Level 144 mmol/L (136-145); Triglycerides 164 mg/dL; Very Low Density Lipoprotein 33 mg/dL (5-40)
[2019-12-20 08:20] LABS: Vitamin B12 1509 pg/mL (211-911)
== END ==
LOC: LAB.FUTURE 06:05 → LAB 12-21 07:07
PROVIDERS: PCP Family Medicine; Referring Provider Family Medicine; Visit Provider Family Medicine
DX: Z00.00 Encounter for general adult medical examination without abnormal findings (principal); R79.89 Other specified abnormal findings of blood chemistry; E53.8 Deficiency of other specified B group vitamins
CPT/HCPCS: 36415; 80053; 80061; 82607; 84403

== ENCOUNTER → 2020-01-23 11:35 | Outpatient (CLI) | payer OTHER, MEDICAID, SELFPAY ==
[2020-01-23 15:58] LABS: PSA,Total - Annual Screen 3.61 ng/mL (0.00-4.00)
[2020-01-29 14:21] LABS: Testosterone, Total 205
== END ==
PROVIDERS: PCP Family Medicine; Referring Provider Family Medicine; Visit Provider Family Medicine
DX: N40.0 Benign prostatic hyperplasia without lower urinary tract symptoms (principal); R79.89 Other specified abnormal findings of blood chemistry
CPT/HCPCS: 36415; 84153; 84402; 84403; G0103

== ENCOUNTER → 2020-02-06 14:58 | Outpatient (CLI) | payer OTHER, MEDICAID, SELFPAY ==
[2020-02-09 12:04] LABS: Testosterone Free 5.2 pg/mL (7.2-24.0)
== END ==
PROVIDERS: PCP Family Medicine; Visit Provider Family Medicine
DX: R79.89 Other specified abnormal findings of blood chemistry (principal)
CPT/HCPCS: 84402

== ENCOUNTER → 2020-04-22 11:00 | Outpatient (CLI) | payer OTHER, MEDICAID, SELFPAY ==
[2020-04-22 12:25] LABS: Hematocrit 42.9 % (40-54); Hemoglobin 14.6 g/dL (13.0-16.5); Mean Corpuscular Volume 91.1 fL (80-94); Mean Platelet Vol. 9.3 fl (6.2-12.0); Platelet Count 198 K/mm3 (150-450); RBC Distribution Width CV 12.1 % (11.6-14.6); Red Blood Count 4.71 M/mm3 (4.6-6.2); White Blood Count 5.8 K/mm3 (4.4-11.0)
[2020-04-22 12:27] LABS: Erythrocyte Sedimentation Rate < 1 mm/hr (0-20)
[2020-04-22 12:51] LABS: Vitamin D,25 Hydroxy 77.2 ng/mL
[2020-04-22 12:58] LABS: ALB/GLOB Ratio 1.5 RATIO (0.9-2.4); AST(SGOT) 17 U/L (15-37); Alanine Aminotransfer ALT/SGPT 29 U/L (16-61); Albumin, Serum 4.2 g/dL (3.2-5.0); Alkaline Phosphatase 63 U/L (45-117); Anion Gap 3 (5-15); BUN 23 mg/dL (7-18); CRP < 2.90 mg/L (0.0-3.0); Calcium,Total 8.7 mg/dL (8.5-10.1); Chloride 105 mmol/L (98-107); Creatinine, Serum 0.89 mg/dL (0.70-1.30); EST Glomerular Filtration Rate 94 mL/min (>60); Est Glom Filt Rate - Afr Amer 114 mL/min (>60); Globulin 2.8 g/dL (2.2-4.2); Glucose 105 mg/dL (74-106); Potassium 3.9 mmol/L (3.5-5.1); Rheumatoid Factor < 10.0 IU/mL (<15); Sodium Level 138 mmol/L (136-145)
[2020-04-23 15:22] LABS: ANTINUCLEAR ANTIBODIES DIRECT Negative (Negative)
[2020-04-25 15:31] LABS: Testosterone, % Free 3.36 % (1.50-4.20); Testosterone, Total 247 ng/dL (264-916)
== END ==
PROVIDERS: PCP Family Medicine; Referring Provider Family Medicine; Visit Provider Family Medicine
DX: R79.89 Other specified abnormal findings of blood chemistry (principal); M25.50 Pain in unspecified joint; M51.36 Other intervertebral disc degeneration, lumbar region
CPT/HCPCS: 36415; 80053; 82306; 84402; 84403; 85027; 85652; 86038; 86140; 86431

== ENCOUNTER → 2020-08-18 08:40 | Outpatient (CLI) | payer OTHER, MEDICAID, SELFPAY ==
[2020-08-18 10:28] LABS: Vitamin B12 550 pg/mL (211-911)
[2020-08-18 10:38] LABS: ALB/GLOB Ratio 1.3 RATIO (0.9-2.4); AST(SGOT) 28 U/L (15-37); Alanine Aminotransfer ALT/SGPT 51 U/L (16-61); Alkaline Phosphatase 71 U/L (45-117); Anion Gap 6 (5-15); BUN 15 mg/dL (7-18); BUN/Creat Ratio 17.2 RATIO (10-20); Calcium,Total 8.8 mg/dL (8.5-10.1); Chloride 107 mmol/L (98-107); Cholesterol 168 mg/dL (200); Creatinine, Serum 0.87 mg/dL (0.70-1.30); EST Glomerular Filtration Rate 96 mL/min (>60); Est Glom Filt Rate - Afr Amer 116 mL/min (>60); Glucose 59 mg/dL (74-106); High Density Lipoprotein 46 mg/dL; PSA,Total- Diagnostic 4.27 ng/mL (0.0-4.0); Sodium Level 141 mmol/L (136-145); Triglycerides 197 mg/dL; Very Low Density Lipoprotein 39 mg/dL (5-40)
== END ==
PROVIDERS: PCP Family Medicine; Visit Provider Family Medicine
DX: E53.8 Deficiency of other specified B group vitamins (principal); R79.89 Other specified abnormal findings of blood chemistry
CPT/HCPCS: 36415; 80053; 80061; 82607; 84153; 84403

== ENCOUNTER → 2020-11-25 12:22 | Outpatient (CLI) | payer OTHER, MEDICAID, SELFPAY | PROVIDERS: PCP Family Medicine; Referring Provider Family Medicine; Visit Provider Family Medicine | DX: R79.89 Other specified abnormal findings of blood chemistry (principal) | CPT/HCPCS: 36415; 84403 ==

== ENCOUNTER 2021-03-27 10:11 | Day surgery (SDC) | payer OTHER, MEDICAID, SELFPAY ==
[2021-03-27] VITALS (9 sets, daily range): BP systolic 124–140; BP diastolic 83–97; PULSE 86–106; RESP 16–18; TEMP 36.2–36.9; O2SAT 93–99; BMI 24.7
[2021-03-27] MEDS: Lactated Ringers 1,000 ML 100 ML IV (10:35)
[2021-03-27] MEDS: 0.9% Normal Saline (Pres. free 10 ML Vial (13:50)
--- NOTE | 2021-03-27 14:35 | RAD_ITS ---
PROCEDURE: Pain pump insertion. DATE OF EXAMINATION: 03/27/2021. INDICATION: Male, 56 years old. Chronic back pain. FLUOROSCOPY TIME (if supplied): (125 seconds) minutes/seconds. One intraoperative view was submitted. Intraoperative imaging provided for pain pump insertion. RAD/Spine 1 View Any Level IMPRESSION: Intraoperative imaging provided for epidural pain pump insertion. Electronically Signed: David Sparrow MD at 15:02 EDT , Service support ,
[2021-03-27] MEDS: Bupivacaine 0.25%-Epi/Pf 1:200,000 10 ML (15:25)
== END 2021-03-27 18:03 | disposition home or self-care (01) ==
LOC: SDC 10:11 → AC 10:12
PROVIDERS: PCP Family Medicine; Referring Provider Anesthesiology Pain Medicine; Visit Provider Anesthesiology Pain Medicine
PROC: (CPT 62362; principal; 2021-03-27 11:35)
DX: G89.4 Chronic pain syndrome (principal); M19.90 Unspecified osteoarthritis, unspecified site; K21.9 Gastro-esophageal reflux disease without esophagitis
CPT/HCPCS: 62362; 72020; 76000; 87426; J7120; J2274; J2405; J3490

== ENCOUNTER → 2021-05-01 | Outpatient (CLI) | payer OTHER, MEDICAID, SELFPAY ==
[2021-03-27 10:45] VITALS: BMI 24.7
[2021-05-01 13:48] LABS: Bacteria 0 SEEN /hpf (None Seen); Mucous, Urine 0 SEEN /hpf (<or=2+); Red Blood Cells-Urine 0 SEEN /hpf (0-5)
[2021-05-01 15:31] LABS: Color, Urine Yellow (Yellow); Glucose, Dipstick Normal (Normal); Ketone-Dipstick Negative (Negative); Leukocyte Esterase-Dipstick 25 /ul (Negative); Nitrite-Dipstick Negative (Negative); Occult Blood-Urine Negative /ul (Negative); Protein-Dipstick 15 mg/dl (Negative); Specific Gravity, Urine 1.015 (1.002-1.030); Urine Bilirubin Dipstick Negative (Negative); Urine Clarity Sl. Cloudy (Clear); Urine Urobilinogen Normal (Normal)
[2021-05-01 15:42] LABS: Squamous Epithelial Cells - UA 0-5 SEEN /hpf (0-5); White Blood Cells 0-5 SEEN /hpf (0-5)
== END | disposition home or self-care (01) ==
LOC: LABSPEC 13:40
PROVIDERS: PCP Family Medicine; Referring Provider Family Medicine; Visit Provider Family Medicine
DX: R31.9 Hematuria, unspecified (principal)
CPT/HCPCS: 81001; 87086

== ENCOUNTER → 2021-05-19 05:53 | Outpatient (CLI) | payer OTHER, MEDICAID, SELFPAY ==
[2021-05-19 07:12] LABS: Hematocrit 39.5 % (40-54); Hemoglobin 12.9 g/dL (13.0-16.5); Mean Corp Hgb Conc 32.7 g/dL (32-36); Mean Corpuscular Hgb 29.7 pg (27.0-32.0); Mean Corpuscular Volume 90.8 fL (80-94); Mean Platelet Vol. 9.1 fl (6.2-12.0); Platelet Count 177 K/mm3 (150-450); RBC Distribution Width CV 12.4 % (11.6-14.6); RBC Distribution Width SD 41.1 fl (35.1-43.9); Red Blood Count 4.35 M/mm3 (4.6-6.2)
[2021-05-19 07:48] LABS: ALB/GLOB Ratio 1.3 RATIO (0.9-2.4); AST(SGOT) 21 U/L (15-37); Alanine Aminotransfer ALT/SGPT 34 U/L (16-61); Albumin, Serum 3.7 g/dL (3.2-5.0); Alkaline Phosphatase 88 U/L (45-117); Anion Gap 2 (5-15); BUN 19 mg/dL (7-18); BUN/Creat Ratio 23.4 RATIO (10-20); Calcium,Total 8.3 mg/dL (8.5-10.1); Chloride 104 mmol/L (98-107); Cholesterol 166 mg/dL (200); Creatinine, Serum 0.81 mg/dL (0.70-1.30); EST Glomerular Filtration Rate 104 mL/min (>60); Est Glom Filt Rate - Afr Amer 125 mL/min (>60); Globulin 2.9 g/dL (2.2-4.2); Glucose 78 mg/dL (74-106); High Density Lipoprotein 38 mg/dL; Protein, Total 6.6 g/dL (6.4-8.2); Sodium Level 141 mmol/L (136-145); Triglycerides 206 mg/dL; Very Low Density Lipoprotein 41 mg/dL (5-40)
[2021-05-19 09:39] LABS: Vitamin B12 423 pg/mL (211-911); Vitamin D,25 Hydroxy 47.3 ng/mL
== END ==
PROVIDERS: PCP Family Medicine; Referring Provider Family Medicine; Visit Provider Family Medicine
DX: K21.9 Gastro-esophageal reflux disease without esophagitis (principal); E53.8 Deficiency of other specified B group vitamins; E55.9 Vitamin D deficiency, unspecified; R79.89 Other specified abnormal findings of blood chemistry
CPT/HCPCS: 36415; 80053; 80061; 82306; 82607; 84403; 85027

== ENCOUNTER → 2021-09-22 08:32 | Outpatient (CLI) | payer OTHER, MEDICAID, SELFPAY ==
[2021-09-22 09:46] LABS: Hematocrit 39.7 % (40-54); Hemoglobin 12.9 g/dL (13.0-16.5); Mean Corp Hgb Conc 32.5 g/dL (32-36); Mean Corpuscular Hgb 29.7 pg (27.0-32.0); Mean Corpuscular Volume 91.5 fL (80-94); Mean Platelet Vol. 9.4 fl (6.2-12.0); Platelet Count 238 K/mm3 (150-450); RBC Distribution Width CV 12.3 % (11.6-14.6); RBC Distribution Width SD 41.2 fl (35.1-43.9); Red Blood Count 4.34 M/mm3 (4.6-6.2); White Blood Count 5.8 K/mm3 (4.4-11.0)
[2021-09-22 10:01] LABS: Vitamin D,25 Hydroxy 37.4 ng/mL
[2021-09-22 10:22] LABS: AST(SGOT) 26 U/L (15-37); Alanine Aminotransfer ALT/SGPT 50 U/L (16-61); Albumin, Serum 3.4 g/dL (3.2-5.0); Alkaline Phosphatase 83 U/L (45-117); Anion Gap 6 (5-15); BUN 14 mg/dL (7-18); BUN/Creat Ratio 19.7 RATIO (10-20); Calcium,Total 8.7 mg/dL (8.5-10.1); Chloride 103 mmol/L (98-107); Creatinine, Serum 0.71 mg/dL (0.70-1.30); EST Glomerular Filtration Rate 121 mL/min (>60); Est Glom Filt Rate - Afr Amer 147 mL/min (>60); Globulin 3.3 g/dL (2.2-4.2); Glucose 62 mg/dL (74-106); Potassium 4.2 mmol/L (3.5-5.1); Protein, Total 6.7 g/dL (6.4-8.2); Sodium Level 140 mmol/L (136-145)
== END ==
PROVIDERS: PCP Family Medicine; Visit Provider Family Medicine
DX: K21.9 Gastro-esophageal reflux disease without esophagitis (principal); E55.9 Vitamin D deficiency, unspecified; E34.9 Endocrine disorder, unspecified; R97.20 Elevated prostate specific antigen [PSA]
CPT/HCPCS: 36415; 80053; 82306; 84153; 84403; 85027

== ENCOUNTER → 2022-02-19 | Outpatient (CLI) | payer OTHER, MEDICAID, SELFPAY ==
[2022-02-19 16:21] LABS: Absolute Lymphocyte Count 2.36 X10^3/uL (0.83-4.51); Absolute Neutrophil Count 4.3 X10^3/uL (2.0-7.7); Basophil# 0.04 X10^3/uL; Basophil% 0.5 % (0-1); Eosinophil# 0.25 X10^3/uL; Eosinophils% 3.3 % (0-5); Hemoglobin 13.1 g/dL (13.0-16.5); Lymphocyte # 2.36 X10^3/ul (0.83-4.51); Lymphocyte % 30.8 % (19-41); Mean Corp Hgb Conc 32.8 g/dL (32-36); Mean Corpuscular Hgb 29.6 pg (27.0-32.0); Mean Corpuscular Volume 90.3 fL (80-94); Mean Platelet Vol. 9.2 fl (6.2-12.0); Monocyte# 0.72 X10^3/uL; Monocyte% 9.4 % (0-10); NRBC Flagged by Analyzer 0 % (0-5); Neutrophil # 4.27 X10^3/uL (2.7-7.7); Neutrophil % 55.9 % (47-70); Platelet Count 217 K/mm3 (150-450); RBC Distribution Width CV 12.7 % (11.6-14.6); RBC Distribution Width SD 41.8 fl (35.1-43.9); Red Blood Count 4.43 M/mm3 (4.6-6.2); White Blood Count 7.7 K/mm3 (4.4-11.0)
[2022-02-19 17:40] LABS: ALB/GLOB Ratio 1.4 RATIO (0.9-2.4); AST(SGOT) 22 U/L (15-37); Alanine Aminotransfer ALT/SGPT 35 U/L (16-61); Albumin, Serum 4.2 g/dL (3.2-5.0); Alkaline Phosphatase 87 U/L (45-117); Anion Gap 6 (5-15); BUN 22 mg/dL (7-18); BUN/Creat Ratio 25.1 RATIO (10-20); CRP, High Sensitivity Cardiac 4.43 mg/L; Chloride 104 mmol/L (98-107); Creatinine, Serum 0.88 mg/dL (0.70-1.30); EST Glomerular Filtration Rate 95 mL/min (>60); Est Glom Filt Rate - Afr Amer 115 mL/min (>60); Globulin 3.1 g/dL (2.2-4.2); Glucose 93 mg/dL (74-106); Potassium 4.2 mmol/L (3.5-5.1); Protein, Total 7.3 g/dL (6.4-8.2); Rheumatoid Factor < 10.0 IU/mL (<15); Sodium Level 139 mmol/L (136-145)
[2022-02-19 23:25] LABS: Erythrocyte Sedimentation Rate < 1 mm/hr (0-20)
[2022-02-24 11:24] LABS: ANTINUCLEAR ANTIBODIES DIRECT Negative (Negative)
[2022-03-02 21:07] LABS: PROEL- A/G Ratio 1.7 (0.7-1.7); PROEL- Albumin 4.3 g/dL (2.9-4.4); PROEL- Alpha-1 Globulin 0.2 g/dL (0.0-0.4); PROEL- Alpha-2 Globulin 0.5 g/dL (0.4-1.0); PROEL- Beta Globulin 0.9 g/dL (0.7-1.3); PROEL- Globulin, Total 2.6 g/dL (2.2-3.9); PROEL- TOTAL PROTEIN 6.9 g/dL (6.0-8.5)
[2022-03-02 21:33] LABS: CCP IgG Antibodies 6 units (0-19); HLA B27 Negative (.)
== END | disposition home or self-care (01) ==
LOC: LAB 15:38
PROVIDERS: PCP Family Medicine; Referring Provider Registered Nurse; Visit Provider Registered Nurse
DX: M13.0 Polyarthritis, unspecified (principal)
CPT/HCPCS: 36415; 80053; 81374; 84165; 85025; 85652; 86038; 86141; 86200; 86431

== ENCOUNTER → 2022-02-25 | Outpatient (CLI) | payer OTHER, MEDICAID, SELFPAY ==
--- NOTE | 2022-02-25 17:26 | RAD_ITS ---
STUDY: X-RAY - CERVICAL SPINE REASON FOR EXAM: Male, 56 years old. PAIN TECHNIQUE: 8 view(s) of the cervical spine were obtained. COMPARISON: None FINDINGS: The cervical vertebrae demonstrate normal curvature and alignment. No subluxation is noted. No malalignment is noted on the flexion or extension views. Alignment at the cervicothoracic junction is anatomic. The odontoid is intact. There is degenerative narrowing of the predental distance with surrounding osteophytes. C4/5 disc space shows minimal degenerative narrowing. The remaining cervical disc spaces are preserved. Cervical facet and uncinate hypertrophy are noted with mild narrowing of both neural foramina at C3/4 and moderate narrowing of the right neural foramen at C4/5. No precervical soft tissue swelling is identified. The lung apices are clear. Visualized upper ribs are intact. Neurostimulator lead projected over the upper thoracic spine. The visualized mastoid air cells are clear. RAD/Cerv Spine Obl/Flex/Ext Comp IMPRESSION: Minimal degenerative narrowing seen of the C4/5 disc space. Cervical and uncinate hypertrophy with mid-cervical neural foraminal encroachment. No acute fracture or subluxation. Electronically Signed: Min Mcdaniel MD at 6:54 EDT ,
--- NOTE | 2022-02-25 17:26 | RAD_ITS ---
STUDY: X-RAY - RIGHT HAND REASON FOR EXAM: Male, 56 years old. NUMBNESS AND TINGLING TECHNIQUE: 3 view(s) of the right hand. COMPARISON: Right wrist radiographs of this date.. FINDINGS: Normal radiocarpal articulation. Normal distal radioulnar joint. Normal visualized carpal bones. Normal carpal articulations Normal carpometacarpal articulation of the thumb. Normal second through fifth carpometacarpal joints. Normal metacarpi. Normal metacarpophalangeal joint of the thumb. Normal interphalangeal joint of the thumb. Normal proximal and distal phalanges of the thumb. Normal metacarpophalangeal joints of the second through fifth fingers. Normal proximal and distal interphalangeal joints of the second through fifth fingers. Normal phalanges of the second through fifth fingers. The soft tissue structures are unremarkable. RAD/Hand Min 3 Views IMPRESSION: Negative x-ray examination of the hand. Electronically Signed: Min Mcdaniel MD at 6:37 EDT ,
--- NOTE | 2022-02-25 17:26 | RAD_ITS ---
STUDY: X-RAY - RIGHT WRIST REASON FOR EXAM: Male, 56 years old. NUMBNESS AND TINGLING TECHNIQUE: 3 view(s) of the wrist were obtained. COMPARISON: Right hand radiographs of this date. FINDINGS: Normal visualized distal radius and ulna. Normal radiocarpal articulation. Normal distal radioulnar articulation. Normal carpal bones. Normal carpal articulations. Normal carpometacarpal articulation of the thumb. Normal second through fifth carpometacarpal articulations. Normal visualized metacarpal bones. The soft tissue structures are unremarkable. RAD/Wrist min 3 Views IMPRESSION: Negative x-ray examination of the wrist. Electronically Signed: Min Mcdaniel MD at 6:36 EDT ,
== END | disposition home or self-care (01) ==
LOC: MTRAD 17:23
PROVIDERS: PCP Family Medicine; Referring Provider Family Medicine; Visit Provider Family Medicine
DX: R20.0 Anesthesia of skin (principal); R20.2 Paresthesia of skin
CPT/HCPCS: 72052; 73110; 73130

== ENCOUNTER → 2022-02-26 | Outpatient (CLI) | payer OTHER, MEDICAID, SELFPAY ==
[2022-02-26 12:17] LABS: Vitamin B12 428 pg/mL (211-911)
[2022-02-26 12:26] LABS: Thyroid Stim Hormone (TSH) 0.56 uIU/mL (0.358-3.74)
[2022-02-26 15:15] LABS: PSA,Total - Annual Screen 1.91 ng/mL (0.00-4.00)
[2022-02-27 07:35] LABS: H. Pylori Antibody (IgG) 0.54 (0.00-0.79)
== END | disposition home or self-care (01) ==
LOC: LAB 10:41
PROVIDERS: PCP Family Medicine; Referring Provider Family Medicine; Visit Provider Family Medicine
DX: R97.20 Elevated prostate specific antigen [PSA] (principal); R53.83 Other fatigue; K21.9 Gastro-esophageal reflux disease without esophagitis; E34.9 Endocrine disorder, unspecified; E53.8 Deficiency of other specified B group vitamins
CPT/HCPCS: 36415; 82607; 84153; 84403; 84443; 86677; G0103

== ENCOUNTER → 2022-04-02 | Outpatient (CLI) | payer OTHER, MEDICAID, SELFPAY ==
--- NOTE | 2022-04-02 13:22 | NEURO ---
NCS and/or EMG Patient Report Ordering Doctor: Yasmany Koch DATE OF SERVICE: 04/02/22 Indication: Bilateral hand, pain, numbness and weakness. Symptoms are exacerbated by typing, using tools and playing guitar. Evaluate for entrapment neuropathy. Findings: Nerve conduction studies were performed in the right and left upper extremities. The right median motor study recording the abductor pollicis brevis showed a normal amplitude, prolonged distal latency and slowed conduction velocity. The right ulnar motor study recording the abductor digiti minimi showed a normal amplitude, normal distal latency and normal conduction velocity. No conduction block or focal slowing was present across the elbow. The right median sensory response recording digit two was absent. The right ulnar sensory response recording digit five showed a normal amplitude, latency and conduction velocity. The right radial sensory response recording over the extensor snuff box showed a normal amplitude, latency and conduction velocity. The left median motor study recording the abductor pollicis brevis showed a normal amplitude, prolonged distal latency and slowed conduction velocity. The left ulnar motor study recording the abductor digiti minimi showed a normal amplitude, normal distal latency and normal conduction velocity. No conduction block or focal slowing was present across the elbow. The left median sensory response recording digit two showed a normal amplitude, prolonged latency and slowed conduction velocity. The left ulnar sensory response recording digit five showed a normal amplitude, latency and conduction velocity. The left radial sensory response recording over the extensor snuff box showed a normal amplitude, latency and conduction velocity. Needle EMG of the right upper extremity muscles was performed. Sparse active denervation was seen in the abductor pollicis brevis. Motor units in the abductor pollicis brevis were large amplitude, long duration and mildly polyphasic with slightly reduced recruitment. All other motor unit morphology, activation and recruitment patterns were normal. Needle EMG of the left abductor pollicis brevis was performed. No denervation was seen. Motor units in the abductor pollicis brevis were slightly polyphasic, but otherwise unremarkable. Impression: This is an abnormal study. There is electrophysiologic evidence of median neuropathy across the wrist on both sides (moderate on the left, moderate to severe on the right). These findings are compatible with the clinical diagnosis of carpal tunnel syndrome. In addition, there is no electrophysiologic evidence of a superimposed cervical radiculopathy or other entrapment neuropathy in the right upper extremity. Colby Wright D.O. Multi Select Codes Neurology Neurology Interp Codes: 28090-46 [facility] [place]/nerv tst [place] (interp) (59), 00792-85 [facility] [place] w/n test comp (interp) and 12025-79 Nrv cndj test 9-10 studies (interp)
== END | disposition home or self-care (01) ==
LOC: PSN 11:51
PROVIDERS: PCP Family Medicine; Referring Provider Physician Assistant; Visit Provider Physician Assistant
DX: R20.2 Paresthesia of skin (principal)
CPT/HCPCS: 95885; 95886; 95911

== ENCOUNTER 2022-09-06 06:05 | Day surgery (SDC) | payer OTHER, MEDICAID, SELFPAY ==
[2022-09-06 06:43] VITALS: BP 122/84; PULSE 83; RESP 16; TEMP 37.2; O2SAT 97; BMI 27.1
[2022-09-06] MEDS: Lactated Ringers 1,000 ML 15 ML IV (06:54)
--- NOTE | 2022-09-06 07:27 | HP.PCM_ITS ---
History and Physical Date of Admission: 09/06/22 [facility] [address] [place] [address] OFFICE VISIT Date of Service:? 08/09/22 MR#: [id number] Acct: [id number] Name:ELENA GRANT Rep #: [id number] : 1965 ? ? Provider: Dr. Memo Null, DO Age/Sex:? 57/M ? ? Location: [facility] [place] Status: Signed Intake Vital Signs ? 03/27/2110:45 Height 6 ft Intake Visit Reasons:?bilat hands Chief Complaint: BL hands Is patient in pain?: Yes Allergies cephalexin monohydrate [From Keflex] Allergy (Verified 08/09/22 13:43) RashPenicillins Allergy (Verified 08/09/22 13:43) RashTetracyclines Allergy (Verified 08/09/22 13:43) Rash Medications lansoprazole 30 mg capsule,delayed release (Prevacid) 30 mg PO BID 11/12/14 [History Confirmed 08/09/22] pregabalin 150 mg capsule (Lyrica) 100 mg PO TID 07/29/16 [History Confirmed 08/09/22] cyclobenzaprine 10 mg tablet 10 mg PO DAILY 03/25/21 [History Confirmed 08/09/22] meloxicam 15 mg tablet 15 mg PO DAILY 03/25/21 [History Confirmed 08/09/22] morphine 15 mg tablet,extended release 15 mg PO BID 03/25/21 [History Confirmed 08/09/22] pantoprazole 40 mg tablet,delayed release 40 mg PO 03/08/22 [History Confirmed 08/09/22] terbinafine HCl 250 mg tablet ea PO 03/08/22 [History Confirmed 08/09/22] PFSH Medical History?(Updated 08/09/22 @ 13:56 by Natividad Hall) Arthritis Bilateral carpal tunnel syndrome Gastric reflux Surgical History?(Updated 03/25/21 @ 14:58 by Kati Shrestha) History of back surgery Hx of shoulder surgery Social History Smoking Status:? Never smoker HPI bilat hands Details: Parts of this documentation were recorded by a scribe, this documentation accurately reflects the service provided and the decisions made by me, Dr. Memo Null, DO 08/09/22 0900. ELENA SAENZ is a 57 year old M here today for bilateral hand pain, right worse than left. Patient notes that he has had bilateral hand numbness for many years, since he was in his 20s. He states that he has been using his hands to work for his life. His symptoms have worsened over the last year. Patient is unable to make a fist. He has numbness of most of his hand, he is unable to tell where the numbness is. His numbness is from the wrist into his hand. Patient is dropping items more frequently. Patient had an EMG which is here for review. He has a referral to a plater barrel but he doesnt have an appointment scheduled.? Patient is waking up at night due to his numbness, which goes away when he dangles his hands. He is right hand dominant. He had surgery over his left elbow on his radial head. Ortho Exam General General: Yes no acute distress Neurologic: Yes alert and Yes oriented x3 Psychologic: Yes reasonable and appropriate Right Wrist/Hand Skin/Wound: Yes CDI, No Swelling and No Ecchymosis Right Wrist: Yes Tinel's and Phalen's; No Thenar Atrophy or Hypothenar Atrophy WRIST: 88 supination, flexion [id number] tip to palm index and middle finger. Left Wrist/Hand Skin/Wound: No Swelling, No Ecchymosis, Yes capillary refill normal and No erythema Left Wrist: Yes Tinel's and Yes Phalen's; No Thenar Atrophy and No Hypothenar Atrophy WRIST: 60 supination,70 pronation, 45 extension, 70 flexion Supplemental Info 04/02/2022 EMG/NCV b/l upper extremity: This is an abnormal study. There is electrophysiologic evidence of median neuropathy across the wrist on both sides (moderate on the left, moderate to severe on the right). These findings are compatible with the clinical diagnosis of carpal tunnel syndrome. In addition, there is no electrophysiologic evidence of a superimposed cervical radiculopathy or other entrapment neuropathy in the right upper extremity. Coding Level of Care Code Off vis,est,level 3 Diagnoses Bilateral carpal tunnel syndrome? G56.03 Assessment and Plan Assessment and Plan (1) Bilateral carpal tunnel syndrome: ?Status:?Acute Plan Educated the patient about the anatomy of the hand and etiology of his pain. Spoke with him about carpal tunnel syndrome. Spoke with him about his options and discussed carpal tunnel release.? Explained the surgery is to release the pressure on the nerve it is up to the body to heal and symptoms although usually improve may take a prolonged period of time or never improved completely and more severe and chronic cases. He will not be able to lift greater than half a pound for the first 2 weeks and then 2 pounds for an additional week. Spoke with the patient about the surgery procedure and recovery. Explained that the surgery will not help with the multiple joint pain and hand swelling. Spoke with the patient about possibly needing therapy post of due to his current stiffness. He should continue with the referral to a plater barrel. Reviewed the pre-operative plans with the patient. Risks and benefits of the procedure were fully explained, including but not limited to infection, neurovascular injury, continued pain/symptoms, incisional hypersensitivity and pillar pain stiffness, need for further surgery, re-injury, DVT, PE, general risks of anesthesia. The patient understands all the risks and does wish to proceed with written consent. Tentative surgery date for right carpal tunnel release September 06, 2022 Follow up for 2 week post op or sooner if pain, swelling, numbness or associated symptoms, or concerns develop.? All questions answered. Patient in agreement of plan. 08/09/22 1417 <Electronically signed by Memo Null DO> Date Memo Null DO Cosigner Signature: Date (if applicable) ? CC:? Dr. Carlos Watkins MD ~ I have examined the patient the following changes are noted:
[2022-09-06] MEDS: Clindamycin 900 MG/50 ML BAG 75 MG IV (07:31)
[2022-09-06] MEDS: Lidocaine 2% /Epi 1:100 (20ml) 20 ML VIAL (07:52)
--- NOTE | 2022-09-06 08:03 | PCM.OP.BLANK ---
Operative Report Date of Procedure: 09/06/22 Preoperative diagnosis; left carpal tunnel syndrome Postoperative diagnosis; same Procedure: Left open carpal tunnel release Anesthesia: Local with MAC Tourniquet time; 10 minutes 250 mm Hg Complications: None Indication for procedure; This is a 57-year-old male with long-standing symptoms consistent with carpal tunnel syndrome the patient did have electrodiagnostic evidence of this and has failed conservative treatment. Risks benefits and alternatives were reviewed including risks of bleeding infection nerve artery tissue damage need for further surgery and continued pain and symptoms, hypersensitivity to scar and Pillar pain. Procedure; The patient was met in the preoperative holding area the operative extremity was identified by both patient and physician and was marked the patient was met by anesthesia and brought back to the operating room and transferred to the operating table in the supine position. Anesthesia was started. A well-padded tourniquet was placed on the operative upper extremity. The patient was prepped and draped in the usual sterile fashion. A timeout was called to ensure the proper patient procedure and extremity were being contemplated. 0.5 percent lidocaine with epinephrine was injected into the incisional area. An Esmarch was used to exsanguinate the extremity. The tourniquet was inflated to 250 mmHg. A midline incision was made with a 15 blade scalpel between the thenar and hypothenar eminence. This was carried down through the skin and subcutaneous tissue. Nader retractors were then used, a deep blade scalpel was used to make a deep incision in the palmar aponeurosis. The nader retractors were then placed deep to this and the transverse carpal ligament was identified a perforation was made with a scalpel and a Littler scissors were used to complete the release of the transverse carpal ligament distally under direct visualization with the tips facing ulnarly until the perivascular fat was reached. Then turning our attention proximally using a tension slide technique the proximal extent of the transverse carpal ligament was released . There was noted to be hourglass configuration to the median nerve and hypertrophy of the transverse carpal ligament without other findings. The wound was thoroughly irrigated and was closed with 4-0 nylon vertical mattress stitches. Dressing was applied in the form of xeroform 4 x 4, web roll and an cecelia wrap. Tourniquet was let down there is no intraoperative complications patient tolerated the procedure well and was transferred to the PACU. All counts were correct.
[2022-09-06 08:05] VITALS: BP 119/82; BP 122/84; PULSE 82; RESP 18; O2SAT 99
[2022-09-06 08:07] VITALS: BP 121/82; BP 122/84; PULSE 85; RESP 18; TEMP 36.8; O2SAT 99
--- NOTE | 2022-09-06 08:09 | DCINST_ITS ---
Discharge Instructions Activity Additional Activity Instructions:: Ice and elevate operative extremity next 72 hours. Keep dressing on clean and dry for 48 hours then may remove and allow warm soapy water to rinse over incision but do not submerge until sutures are out. Then apply bandaid over incision and change daily. encourage finger range of motion. Not lift more than 1/2 pound. Minimize narcotic use only as needed and directed, may use OTC NSAID and Tylenol to supplement/substitute for pain control. Dressing / Incision Call your doctor if you observe: Shortness of breath and Chest pain Follow Up Care Please Follow Up With: Memo Null DO When: 2 weeks Test Results: Test results from this visit will be discussed in further detail at your follow- up appointment, if applicable. Discharge Plan Admission Attending Provider: Memo Null Primary Care Provider: Carlos Watkins Discharge Orders/Prescriptions Prescriptions: New oxycodone 5 mg tablet 5 - 10 mg PO Q4H PRN (Reason: pain) 4 Days Qty: 15 0RF No Action terbinafine HCl 250 mg tablet 1 ea PO DAILY Label Comments: TAKE 1 TABLET BY MOUTH EVERY DAY pantoprazole 40 mg tablet,delayed release (DR/EC) 40 mg PO BID pregabalin [Lyrica] 150 MG capsule 100 mg PO TID meloxicam 15 mg tablet 15 mg PO DAILY Label Comments: TAKE 1 TABLET BY MOUTH ONCE DAILY tizanidine 4 mg capsule 4 mg PO BID Label Comments: TAKE 1 CAPSULE BY MOUTH TWICE A DAY NEEDED FOR 28 DAYS Referrals / Follow Up: Carlos Watkins MD [Primary Care Provider] -
[2022-09-06 08:10] VITALS: BP 119/82; BP 122/84; PULSE 86; RESP 18; O2SAT 100
[2022-09-06 08:16] VITALS: BP 122/84; BP 151/77; PULSE 78; RESP 18; TEMP 36.9; O2SAT 99
[2022-09-06 08:41] VITALS: BP 122/84; BP 135/90; PULSE 70; RESP 16; TEMP 36.4; O2SAT 97
== END 2022-09-06 08:56 | disposition home or self-care (01) ==
LOC: SDC 06:06 → AC 06:06
PROVIDERS: PCP Family Medicine; Referring Provider Orthopaedic Surgery; Visit Provider Orthopaedic Surgery
PROC: (CPT 64721; principal; 2022-09-06 07:15)
DX: G56.03 Carpal tunnel syndrome, bilateral upper limbs (principal); K21.9 Gastro-esophageal reflux disease without esophagitis; M19.90 Unspecified osteoarthritis, unspecified site; Z79.1 Long term (current) use of non-steroidal anti-inflammatories (NSAID); Z79.899 Other long term (current) drug therapy
CPT/HCPCS: 64721; 01810; J7120; J2405

== ENCOUNTER → 2022-09-23 | Outpatient (CLI) | payer OTHER, MEDICAID, SELFPAY ==
[2022-09-23 15:36] LABS: Absolute Lymphocyte Count 2.08 X10^3/uL (0.83-4.51); Absolute Neutrophil Count 2.9 X10^3/uL (2.0-7.7); Basophil# 0.03 X10^3/uL; Basophil% 0.5 % (0-1); Eosinophil# 0.17 X10^3/uL; Hematocrit 38.9 % (40-54); Hemoglobin 13.4 g/dL (13.0-16.5); Lymphocyte # 2.08 X10^3/ul (0.83-4.51); Lymphocyte % 36.4 % (19-41); Mean Corp Hgb Conc 34.4 g/dL (32-36); Mean Corpuscular Hgb 31.2 pg (27.0-32.0); Mean Corpuscular Volume 90.7 fL (80-94); Mean Platelet Vol. 9.6 fl (6.2-12.0); Monocyte# 0.52 X10^3/uL; Monocyte% 9.1 % (0-10); NRBC Flagged by Analyzer 0 % (0-5); Neutrophil # 2.89 X10^3/uL (2.7-7.7); Neutrophil % 50.6 % (47-70); Platelet Count 225 K/mm3 (150-450); RBC Distribution Width CV 12.4 % (11.6-14.6); RBC Distribution Width SD 40.9 fl (35.1-43.9); Red Blood Count 4.29 M/mm3 (4.6-6.2); White Blood Count 5.7 K/mm3 (4.4-11.0)
[2022-09-23 16:16] LABS: CRP < 2.90 mg/L (0.0-3.0); Rheumatoid Factor < 10.0 IU/mL (<15); Thyroid Stim Hormone (TSH) 1.11 uIU/mL (0.358-3.74); Uric Acid 4.3 mg/dL (3.5-7.2)
[2022-09-23 16:19] LABS: Erythrocyte Sedimentation Rate < 1 mm/hr (0-20)
[2022-09-28 14:08] LABS: PROEL- A/G Ratio 1.6 (0.7-1.7); PROEL- Albumin 3.9 g/dL (2.9-4.4); PROEL- Alpha-1 Globulin 0.2 g/dL (0.0-0.4); PROEL- Alpha-2 Globulin 0.5 g/dL (0.4-1.0); PROEL- Beta Globulin 0.7 g/dL (0.7-1.3); PROEL- Globulin, Total 2.5 g/dL (2.2-3.9); PROEL- TOTAL PROTEIN 6.4 g/dL (6.0-8.5)
[2022-09-28 16:31] LABS: ANTINUCLEAR ANTIBODIES DIRECT Negative (Negative)
== END | disposition home or self-care (01) ==
LOC: MFPLAB 12:18
PROVIDERS: PCP Family Medicine; Referring Provider Family Medicine; Visit Provider Family Medicine
DX: M13.0 Polyarthritis, unspecified (principal)
CPT/HCPCS: 36415; 84165; 84443; 84550; 85025; 85652; 86038; 86140; 86431

== ENCOUNTER → 2022-12-18 | Outpatient (CLI) | payer OTHER, MEDICAID, SELFPAY ==
[2022-12-18 10:35] LABS: Absolute Lymphocyte Count 1.68 X10^3/uL (0.83-4.51); Absolute Neutrophil Count 3.9 X10^3/uL (2.0-7.7); Basophil# 0.05 X10^3/uL; Basophil% 0.8 % (0-1); Eosinophil# 0.11 X10^3/uL; Eosinophils% 1.8 % (0-5); Hematocrit 39.9 % (40-54); Hemoglobin 13.9 g/dL (13.0-16.5); Lymphocyte # 1.68 X10^3/ul (0.83-4.51); Lymphocyte % 26.9 % (19-41); Mean Corp Hgb Conc 34.8 g/dL (32-36); Mean Corpuscular Hgb 31.4 pg (27.0-32.0); Mean Corpuscular Volume 90.3 fL (80-94); Mean Platelet Vol. 9.2 fl (6.2-12.0); Monocyte# 0.51 X10^3/uL; Monocyte% 8.2 % (0-10); NRBC Flagged by Analyzer 0 % (0-5); Neutrophil # 3.88 X10^3/uL (2.7-7.7); Neutrophil % 62.1 % (47-70); Platelet Count 216 K/mm3 (150-450); RBC Distribution Width CV 12.3 % (11.6-14.6); RBC Distribution Width SD 40.8 fl (35.1-43.9); Red Blood Count 4.42 M/mm3 (4.6-6.2); White Blood Count 6.2 K/mm3 (4.4-11.0)
[2022-12-18 10:37] LABS: Erythrocyte Sedimentation Rate < 1 mm/hr (0-20)
[2022-12-18 11:08] LABS: ALB/GLOB Ratio 1.2 RATIO (0.9-2.4); AST(SGOT) 21 U/L (15-37); Alanine Aminotransfer ALT/SGPT 37 U/L (16-61); Albumin, Serum 3.8 g/dL (3.2-5.0); Alkaline Phosphatase 98 U/L (45-117); Anion Gap 1 (5-15); BUN 18 mg/dL (7-18); BUN/Creat Ratio 23.4 RATIO (10-20); CPK Total, Creatine Kinase 121 U/L (39-308); CRP < 2.90 mg/L (0.0-3.0); Calcium,Total 8.8 mg/dL (8.5-10.1); Chloride 106 mmol/L (98-107); Creatinine, Serum 0.77 mg/dL (0.70-1.30); EST Glomerular Filtration Rate 110 mL/min (>60); Est Glom Filt Rate - Afr Amer 133 mL/min (>60); Ferritin 16 ng/mL (26-388); Globulin 3.1 g/dL (2.2-4.2); Glucose 92 mg/dL (74-106); Iron 86 ug/dL (65-175); Protein, Total 6.9 g/dL (6.4-8.2); Sodium Level 139 mmol/L (136-145)
[2022-12-20 09:37] LABS: Vitamin B12 451 pg/mL (211-911); Vitamin D,25 Hydroxy 61.8 ng/mL
== END | disposition home or self-care (01) ==
LOC: LAB 09:25
PROVIDERS: PCP Family Medicine; Visit Provider Family Medicine
DX: R53.1 Weakness (principal); M13.0 Polyarthritis, unspecified; E53.8 Deficiency of other specified B group vitamins; R53.83 Other fatigue
CPT/HCPCS: 80053; 82306; 82550; 82607; 82728; 82746; 83540; 84403; 84443; 85025; 85652; 86140

== ENCOUNTER → 2023-01-13 | Outpatient (CLI) | payer OTHER, MEDICAID, SELFPAY ==
[2023-01-13 15:14] LABS: PSA,Total - Annual Screen 1.62 ng/mL (0.00-4.00)
[2023-01-14 09:47] LABS: PSA,Total- Diagnostic 1.62 ng/mL (0.0-4.0)
== END | disposition home or self-care (01) ==
LOC: LAB 14:02
PROVIDERS: PCP Family Medicine; Visit Provider Urology
DX: R39.12 Poor urinary stream (principal)
CPT/HCPCS: 36415; 84153; G0103

== ENCOUNTER → 2023-06-08 | Outpatient (CLI) | payer OTHER, MEDICAID, SELFPAY ==
--- NOTE | 2023-06-08 15:08 | RAD_ITS ---
INDICATION: COUGH EXAMINATION/TECHNIQUE: X-RAY - XR Chest 2 Views COMPARISON: Prior study dated: May 21, 2014 FINDINGS: LINES/DEVICES: There is an electrode projecting over the thoracic spinal canal terminating at T3-T4. LUNGS: No consolidation, edema or effusion. No pneumothorax. MEDIASTINUM AND CARDIOVASCULAR STRUCTURES: Cardiac silhouette not enlarged. Central airways and mediastinal contour are unremarkable. BONES AND SOFT TISSUES: There is a stable mid thoracic compression deformity. RAD/Chest PA and Lateral IMPRESSION: No radiographic evidence of acute cardiopulmonary disease. Electronically Signed: Debby Harden MD at 17:14 EDT ,
[2023-06-08 18:43] LABS: Hepatitis C Antibody Non-Reactive (Nonreactive)
== END | disposition home or self-care (01) ==
PROVIDERS: PCP Family Medicine; Referring Provider Family Medicine; Visit Provider Family Medicine
DX: R05.9 Cough, unspecified (principal); M13.0 Polyarthritis, unspecified
CPT/HCPCS: 36415; 71046; 86803

== ENCOUNTER → 2023-06-16 | Outpatient (CLI) | payer OTHER, MEDICAID, SELFPAY ==
[2023-06-16 14:32] LABS: Bacteria 0 SEEN /hpf (None Seen); Mucous, Urine 0 SEEN /hpf (<or=2+); Red Blood Cells-Urine 0 SEEN /hpf (0-5); Squamous Epithelial Cells - UA 0 SEEN /hpf (0-5); White Blood Cells 0 SEEN /hpf (0-5)
[2023-06-16 17:56] LABS: Color, Urine Yellow (Yellow); Glucose, Dipstick Normal (Normal); Ketone-Dipstick Negative (Negative); Leukocyte Esterase-Dipstick 25 /ul (Negative); Nitrite-Dipstick Negative (Negative); Occult Blood-Urine Negative /ul (Negative); Protein-Dipstick Negative (Negative); Urine Bilirubin Dipstick Negative (Negative); Urine Clarity Clear (Clear); Urine Urobilinogen Normal (Normal)
[2023-06-16 18:21] LABS: ALB/GLOB Ratio 1.2 RATIO (0.9-2.4); AST(SGOT) 17 U/L (15-37); Alanine Aminotransfer ALT/SGPT 28 U/L (16-61); Albumin, Serum 3.8 g/dL (3.2-5.0); Alkaline Phosphatase 95 U/L (45-117); Anion Gap 4 (5-15); BUN 12 mg/dL (7-18); BUN/Creat Ratio 15.3 RATIO (10-20); Calcium,Total 8.2 mg/dL (8.5-10.1); Chloride 101 mmol/L (98-107); Creatinine, Serum 0.78 mg/dL (0.70-1.30); EST Glomerular Filtration Rate 107 mL/min (>60); Est Glom Filt Rate - Afr Amer 130 mL/min (>60); Globulin 3.1 g/dL (2.2-4.2); Glucose 86 mg/dL (74-106); PSA,Total- Diagnostic 3.92 ng/mL (0.0-4.0); Potassium 3.8 mmol/L (3.5-5.1); Protein, Total 6.9 g/dL (6.4-8.2); Sodium Level 136 mmol/L (136-145)
[2023-06-16 18:23] LABS: Absolute Lymphocyte Count 1.37 X10^3/uL (0.83-4.51); Absolute Neutrophil Count 4.1 X10^3/uL (2.0-7.7); Basophil# 0.03 X10^3/uL; Basophil% 0.5 % (0-1); Eosinophil# 0.07 X10^3/uL; Eosinophils% 1.2 % (0-5); Hematocrit 44.1 % (40-54); Lymphocyte # 1.37 X10^3/ul (0.83-4.51); Lymphocyte % 22.6 % (19-41); Mean Corp Hgb Conc 31.7 g/dL (32-36); Mean Corpuscular Hgb 28.3 pg (27.0-32.0); Mean Corpuscular Volume 89.1 fL (80-94); Monocyte# 0.49 X10^3/uL; Monocyte% 8.1 % (0-10); NRBC Flagged by Analyzer 0 % (0-5); Neutrophil # 4.08 X10^3/uL (2.7-7.7); Neutrophil % 67.4 % (47-70); Platelet Count 218 K/mm3 (150-450); RBC Distribution Width CV 15.4 % (11.6-14.6); RBC Distribution Width SD 50.4 fl (35.1-43.9); Red Blood Count 4.95 M/mm3 (4.6-6.2); White Blood Count 6.1 K/mm3 (4.4-11.0)
[2023-06-16 18:46] LABS: Erythrocyte Sedimentation Rate 3 mm/hr (0-20)
[2023-06-16 19:31] LABS: HIV - WCH Non-Reactive (Nonreactive); Vitamin D,25 Hydroxy 64.5 ng/mL
[2023-06-18 08:10] LABS: Lyme Scn Total Ab w/Rflx Negative (Negative)
[2023-06-22 17:32] LABS: Hepatitis C Antibody Non-Reactive (Nonreactive)
== END | disposition home or self-care (01) ==
LOC: MFPLAB 14:27
PROVIDERS: PCP Family Medicine; Visit Provider Family Medicine
DX: R50.9 Fever, unspecified (principal); E34.9 Endocrine disorder, unspecified; N41.1 Chronic prostatitis; E55.9 Vitamin D deficiency, unspecified; M13.0 Polyarthritis, unspecified
CPT/HCPCS: 80053; 81001; 82306; 84153; 84403; 85025; 85652; 86140; 86618; 86703; 86803; 87086

== ENCOUNTER → 2023-07-16 | Outpatient (CLI) | payer OTHER, MEDICAID, SELFPAY ==
[2023-07-16 11:20] LABS: PSA,Total - Annual Screen 3.56 ng/mL (0.00-4.00)
== END | disposition home or self-care (01) ==
LOC: LAB 09:50
PROVIDERS: PCP Family Medicine; Visit Provider Urology
DX: R97.20 Elevated prostate specific antigen [PSA] (principal); N52.9 Male erectile dysfunction, unspecified
CPT/HCPCS: 36415; 84153; 84403; G0103

== ENCOUNTER → 2023-09-08 | Outpatient (CLI) | payer OTHER, MEDICAID, SELFPAY ==
[2023-09-08 12:24] LABS: Absolute Lymphocyte Count 1.49 X10^3/uL (0.83-4.51); Absolute Neutrophil Count 4.5 X10^3/uL (2.0-7.7); Basophil# 0.03 X10^3/uL; Basophil% 0.4 % (0-1); Eosinophil# 0.19 X10^3/uL; Eosinophils% 2.8 % (0-5); Hemoglobin 14.8 g/dL (13.0-16.5); Lymphocyte # 1.49 X10^3/ul (0.83-4.51); Lymphocyte % 21.8 % (19-41); Mean Corp Hgb Conc 32.2 g/dL (32-36); Mean Corpuscular Hgb 29.5 pg (27.0-32.0); Mean Corpuscular Volume 91.6 fL (80-94); Mean Platelet Vol. 9.2 fl (6.2-12.0); Monocyte# 0.67 X10^3/uL; Monocyte% 9.8 % (0-10); NRBC Flagged by Analyzer 0 % (0-5); Neutrophil # 4.45 X10^3/uL (2.7-7.7); Neutrophil % 64.9 % (47-70); Platelet Count 219 K/mm3 (150-450); RBC Distribution Width CV 13.1 % (11.6-14.6); RBC Distribution Width SD 43.7 fl (35.1-43.9); Red Blood Count 5.02 M/mm3 (4.6-6.2); White Blood Count 6.9 K/mm3 (4.4-11.0)
[2023-09-08 13:14] LABS: AST(SGOT) 18 U/L (15-37); Alanine Aminotransfer ALT/SGPT 28 U/L (16-61); Albumin, Serum 3.8 g/dL (3.2-5.0); Alkaline Phosphatase 93 U/L (45-117); Anion Gap 2 (5-15); BUN 12 mg/dL (7-18); BUN/Creat Ratio 15.9 RATIO (10-20); Calcium,Total 9.6 mg/dL (8.5-10.1); Chloride 102 mmol/L (98-107); Creatinine, Serum 0.76 mg/dL (0.70-1.30); EST Glomerular Filtration Rate 112 mL/min (>60); Est Glom Filt Rate - Afr Amer 135 mL/min (>60); Globulin 3.7 g/dL (2.2-4.2); Glucose 73 mg/dL (74-106); Potassium 4.2 mmol/L (3.5-5.1); Protein, Total 7.5 g/dL (6.4-8.2); Sodium Level 137 mmol/L (136-145)
== END | disposition home or self-care (01) ==
LOC: MFPLAB 10:55
PROVIDERS: PCP Family Medicine; Visit Provider Family Medicine
DX: M13.0 Polyarthritis, unspecified (principal); E34.9 Endocrine disorder, unspecified
CPT/HCPCS: 36415; 80053; 84403; 85025; 86140

== ENCOUNTER → 2024-01-09 | Outpatient (CLI) | payer OTHER, SELFPAY ==
[2024-01-09 10:47] LABS: PSA,Total- Diagnostic 2.76 ng/mL (0.0-4.0)
== END | disposition home or self-care (01) ==
LOC: LAB 09:41
PROVIDERS: PCP Family Medicine; Referring Provider Urology; Visit Provider Urology
DX: N40.1 Benign prostatic hyperplasia with lower urinary tract symptoms (principal); E29.1 Testicular hypofunction
CPT/HCPCS: 36415; 84153; 84403

== ENCOUNTER → 2024-03-07 | Outpatient (CLI) | payer OTHER, SELFPAY ==
[2024-03-07 10:24] LABS: Absolute Lymphocyte Count 1.37 X10^3/uL (0.83-4.51); Basophil# 0.04 X10^3/uL; Basophil% 0.5 % (0-1); Eosinophil# 0.04 X10^3/uL; Eosinophils% 0.5 % (0-5); Hematocrit 43.9 % (40-54); Hemoglobin 14.7 g/dL (13.0-16.5); Lymphocyte # 1.37 X10^3/ul (0.83-4.51); Lymphocyte % 17.3 % (19-41); Mean Corp Hgb Conc 33.5 g/dL (32-36); Mean Corpuscular Hgb 30.2 pg (27.0-32.0); Mean Corpuscular Volume 90.3 fL (80-94); Mean Platelet Vol. 9.1 fl (6.2-12.0); Monocyte# 0.49 X10^3/uL; Monocyte% 6.2 % (0-10); NRBC Flagged by Analyzer 0 % (0-5); Neutrophil # 5.95 X10^3/uL (2.7-7.7); Neutrophil % 75.4 % (47-70); Platelet Count 218 K/mm3 (150-450); RBC Distribution Width CV 12.2 % (11.6-14.6); RBC Distribution Width SD 40.2 fl (35.1-43.9); Red Blood Count 4.86 M/mm3 (4.6-6.2); White Blood Count 7.9 K/mm3 (4.4-11.0)
[2024-03-07 11:51] LABS: PSA,Total- Diagnostic 4.24 ng/mL (0.0-4.0)
== END | disposition home or self-care (01) ==
LOC: LAB 09:52
PROVIDERS: PCP Family Medicine
DX: E29.1 Testicular hypofunction (principal)
CPT/HCPCS: 36415; 84153; 84403; 85025

== ENCOUNTER → 2024-07-06 | Outpatient (CLI) | payer OTHER, SELFPAY ==
[2024-07-06 11:25] LABS: PSA,Total- Diagnostic 3.07 ng/mL (0.0-4.0)
== END | disposition home or self-care (01) ==
LOC: LAB 09:29
PROVIDERS: PCP Family Medicine; Referring Provider Physician Assistant; Visit Provider Physician Assistant
DX: E29.1 Testicular hypofunction (principal)
CPT/HCPCS: 36415; 84153

== ENCOUNTER → 2024-07-09 | Outpatient (CLI) | payer OTHER, SELFPAY ==
[2024-07-09 17:48] LABS: PSA,Total- Diagnostic 3.48 ng/mL (0.0-4.0)
== END | disposition home or self-care (01) ==
LOC: LAB 17:11
PROVIDERS: PCP Family Medicine; Referring Provider Physician Assistant; Visit Provider Physician Assistant
DX: E29.1 Testicular hypofunction (principal)
CPT/HCPCS: 36415; 84153

== ENCOUNTER → 2024-08-07 | Outpatient (CLI) | payer OTHER, SELFPAY | END | disposition home or self-care (01) | LOC: MTLAB 08:46 | PROVIDERS: PCP Family Medicine; Referring Provider Physician Assistant; Visit Provider Physician Assistant | DX: N40.1 Benign prostatic hyperplasia with lower urinary tract symptoms (principal) | CPT/HCPCS: 36415; 84153; 84402; 84403; G0103 ==

== ENCOUNTER → 2025-01-16 | Outpatient (CLI) | payer OTHER, SELFPAY ==
[2025-01-16 15:30] LABS: Absolute Lymphocyte Count 1.41 X10^3/uL (0.83-4.51); Absolute Neutrophil Count 4.4 X10^3/uL (2.0-7.7); Basophil# 0.03 X10^3/uL; Basophil% 0.5 % (0-1); Eosinophil# 0.09 X10^3/uL; Eosinophils% 1.4 % (0-5); Hematocrit 42.4 % (40-54); Hemoglobin 14.2 g/dL (13.0-16.5); Lymphocyte # 1.41 X10^3/ul (0.83-4.51); Lymphocyte % 21.5 % (19-41); Mean Corp Hgb Conc 33.5 g/dL (32-36); Mean Corpuscular Hgb 30.2 pg (27.0-32.0); Mean Corpuscular Volume 90.2 fL (80-94); Mean Platelet Vol. 9.3 fl (6.2-12.0); Monocyte# 0.59 X10^3/uL; NRBC Flagged by Analyzer 0 % (0-5); Neutrophil # 4.42 X10^3/uL (2.7-7.7); Neutrophil % 67.3 % (47-70); Platelet Count 208 K/mm3 (150-450); RBC Distribution Width CV 12.2 % (11.6-14.6); RBC Distribution Width SD 40.7 fl (35.1-43.9); White Blood Count 6.6 K/mm3 (4.4-11.0)
[2025-01-16 17:34] LABS: PSA,Total- Diagnostic 1.72 ng/mL (0.00-4.00)
== END | disposition home or self-care (01) ==
LOC: MFPLAB 10:50
PROVIDERS: PCP Family Medicine; Referring Provider Physician Assistant; Visit Provider Physician Assistant
DX: E29.1 Testicular hypofunction (principal)
CPT/HCPCS: 36415; 84153; 84402; 84403; 85025

== ENCOUNTER → 2025-01-28 | Outpatient (CLI) | payer OTHER, SELFPAY | END | disposition home or self-care (01) | LOC: LABSPEC 09:14 | PROVIDERS: PCP Family Medicine; Referring Provider Family Medicine; Visit Provider Family Medicine | DX: R19.7 Diarrhea, unspecified (principal) | CPT/HCPCS: 82274; 87177; 87209; 87506 ==

== ENCOUNTER → 2025-03-04 | Outpatient (CLI) | payer OTHER, SELFPAY ==
[2025-03-04 09:13] LABS: Erythrocyte Sedimentation Rate < 1 mm/hr (0-20)
[2025-03-04 09:15] LABS: Absolute Lymphocyte Count 1.29 X10^3/uL (0.83-4.51); Absolute Neutrophil Count 3.5 X10^3/uL (2.0-7.7); Basophil# 0.04 X10^3/uL; Basophil% 0.7 % (0-1); Eosinophil# 0.07 X10^3/uL; Eosinophils% 1.3 % (0-5); Hematocrit 42.2 % (40-54); Hemoglobin 14.2 g/dL (13.0-16.5); Lymphocyte # 1.29 X10^3/ul (0.83-4.51); Lymphocyte % 23.8 % (19-41); Mean Corp Hgb Conc 33.6 g/dL (32-36); Mean Corpuscular Hgb 30.3 pg (27.0-32.0); Mean Corpuscular Volume 90.2 fL (80-94); Mean Platelet Vol. 9.3 fl (6.2-12.0); Monocyte# 0.47 X10^3/uL; Monocyte% 8.7 % (0-10); NRBC Flagged by Analyzer 0 % (0-5); Neutrophil # 3.53 X10^3/uL (2.7-7.7); Neutrophil % 65.1 % (47-70); Platelet Count 196 K/mm3 (150-450); RBC Distribution Width CV 12.7 % (11.6-14.6); RBC Distribution Width SD 41.7 fl (35.1-43.9); Red Blood Count 4.68 M/mm3 (4.6-6.2); White Blood Count 5.4 K/mm3 (4.4-11.0)
[2025-03-04 10:00] LABS: ALB/GLOB Ratio 1.9 RATIO (0.9-2.4); AST(SGOT) 22 U/L (<=37); Alanine Aminotransfer ALT/SGPT 18 U/L (<=46); Albumin, Serum 4.2 g/dL (3.4-4.8); Alkaline Phosphatase 94 U/L (40-129); Anion Gap 9 (5-15); BUN 16 mg/dL (4-19); BUN/Creat Ratio 20.8 RATIO (10-20); Carbon Dioxide 27.8 mmol/L (21.0-32.0); Chloride 102 mmol/L (98-108); Creatinine, Serum 0.75 mg/dL (0.70-1.20); EST Glomerular Filtration Rate 102 (>60); Ferritin 75 ng/mL (37-417); Globulin 2.2 g/dL (2.2-4.2); Glucose 88 mg/dL (70-99); PSA,Total- Diagnostic 2.04 ng/mL (0.00-4.00); Potassium 4.2 mmol/L (3.3-5.1); Protein, Total 6.4 g/dL (5.9-8.4); Sodium Level 139 mmol/L (133-145); Thyroid Stim Hormone (TSH) 0.445 uIU/mL (0.300-4.200); Total Bilirubin 0.56 mg/dL (0.00-1.30); Vitamin D,25 Hydroxy 33.5 ng/mL (30-100)
[2025-03-04 12:00] LABS: Amylase 131 U/L (28-100); Lipase 99 U/L (13-75); Rheumatoid Factor < 10.0 IU/mL (<15)
[2025-03-05 12:08] LABS: ANTINUCLEAR ANTIBODIES DIRECT Negative (Negative)
[2025-03-06 17:07] LABS: PROEL- A/G Ratio 1.6 (0.7-1.7); PROEL- Albumin 3.9 g/dL (2.9-4.4); PROEL- Alpha-1 Globulin 0.2 g/dL (0.0-0.4); PROEL- Alpha-2 Globulin 0.5 g/dL (0.4-1.0); PROEL- Beta Globulin 0.8 g/dL (0.7-1.3); PROEL- Gamma Globulin 0.9 g/dL (0.4-1.8); PROEL- Globulin, Total 2.4 g/dL (2.2-3.9); PROEL- TOTAL PROTEIN 6.3 g/dL (6.0-8.5); PROEL-M-Spike Not Observed g/dL (Not Observed); Pancreatic Elastase, Fecal > 800 (>200)
== END | disposition home or self-care (01) ==
PROVIDERS: PCP Family Medicine; Referring Provider Family Medicine; Visit Provider Family Medicine
DX: R19.7 Diarrhea, unspecified (principal); M13.0 Polyarthritis, unspecified; R53.1 Weakness; E34.9 Endocrine disorder, unspecified
CPT/HCPCS: 36415; 80053; 82150; 82306; 82653; 82728; 83690; 84153; 84165; 84403; 84443; 85025; 85652; 86038; 86431

== ENCOUNTER → 2025-03-26 | Outpatient (CLI) | payer OTHER, SELFPAY ==
--- NOTE | 2025-03-26 13:32 | CT_ITS ---
PROCEDURE: CT ABD/PELVIS W/WO CONTRAST 03/26/2025 REASON FOR EXAM: Pancreatitis TECHNIQUE: CT ABD/PELVIS W/WO CONTRAST Coronal and Sagittal reconstruction series were provided. CONTRAST: Isovue-300 VOLUME: 100 mL One or more dose reduction techniques were used (e.g., Automated exposure control, adjustment of the mA and/or kV according to patient size, use of iterative reconstruction technique. RADIATION DOSE SUMMARY: CTDlvol: 35.3 mGy DLP: 970.03 mGycm COMPARISON: None FINDINGS: Lung bases: The lung bases are clear. There are no pleural effusions. The heart size is normal. There is no pericardial effusion. Liver: There are 5 mm cysts in the liver dome and in the left hepatic lobe. Otherwise unremarkable. Gallbladder: Surgically absent. Spleen: Normal. Pancreas: The pancreas enhances normally and homogeneously. There are no abnormal intra or peripancreatic fluid collections. There is no stranding of the peripancreatic fat. Adrenals: Normal. Kidneys: There are small cortical cysts in the left kidney. Suspect multiple peripelvic cysts in both kidneys. Bladder: Partially evacuated. Normal unenhanced appearance. Reproductive Organs: The prostate gland measures 5.0 cm in transverse dimension. There are bilateral seminal vesicle cysts. There is no free fluid in the pelvis. There is no inguinal lymphadenopathy. Bowel: There is sigmoid diverticulosis without diverticulitis. Appendix: There is a normal appendix demonstrated. Lymph nodes: There is no significant retroperitoneal, mesenteric or pelvic lymphadenopathy. Vasculature: There is minimal calcific vascular disease of the abdominal aorta. The inferior vena cava and portal venous system are normal. Peritoneum / Retroperitoneum: There are no abnormal intra or retroperitoneal masses or fluid collections. There is a pain pump in the subcutaneous tissues of the left lower anterior abdominal wall. The tube enters the spinal canal at the L2 level. Bones: Status post PLIF, L5-S1. CT/CT Abd/Pelvis W/WO Contrast IMPRESSION: 1. No evidence of pancreatitis. 2. Prostatomegaly. 3. Other findings as noted. Reading Location: [facility]
== END | disposition home or self-care (01) ==
LOC: CT 13:24
PROVIDERS: PCP Family Medicine; Referring Provider Family Medicine; Visit Provider Family Medicine
DX: K85.90 Acute pancreatitis without necrosis or infection, unspecified (principal)
CPT/HCPCS: 74178; Q9967

== ENCOUNTER → 2025-04-01 | Outpatient (CLI) | payer OTHER, SELFPAY ==
[2025-04-01 16:23] LABS: Amylase 119 U/L (28-100); Lipase 68 U/L (13-75)
== END | disposition home or self-care (01) ==
LOC: LAB 13:40
PROVIDERS: PCP Family Medicine; Referring Provider Family Medicine; Visit Provider Family Medicine
DX: R10.9 Unspecified abdominal pain (principal)
CPT/HCPCS: 36415; 82150; 83690

== ENCOUNTER 2025-06-20 05:55 | Outpatient (CLI) | payer OTHER, SELFPAY ==
--- OUTSIDE RECORDS SUMMARY | 2025-06-20 05:59 | XMS RPT_ITS | CCD ---
Author Organization [facility] Care Team Providers Care Admissions Rn Name Role Phone LESLY LEMUS Attending Unavailable HENOK WATKINS Primary Care Unavailabl e IMCA Referring Unavailable Henok Watkins MD Primary Care Provider Dr. Carlos Watkins Primary Care Provider Dr. Carlos Watkins Referring Provider FLORY Garcia Attending Provider FLORY Garcia Referring Provider FLORY Garcia Other Provider Dr. Carlos Wright Attending Provider Dr. Carlos Watkins Primary Care Provider [phone] Dr. Carlos Watkins Referring Provider FLORY Garcia Attending Provider Dr. Memo Null Attending Provider Dr. Memo Null Referring Provider Dr. Memo Null Other Provider Henok Watkins MD Primary Care Provider Henok Watkins MD Primary Care Provider Autumn Raza Unavailable Autumn Raza MD Unavailable Autumn Raza MD Unavailable Unavaila ble Henok Watkins MD Primary Care Provider Henok Watkins MD Primary Care Provider HENOK WATKINS Primary Care Unavailabl e UNGPRASERT, PATOMPONG Attending Unavailabl e UNGPRASERT, PATOMPONG Referring Unavailabl e UNGPRASERT, PATOMPONG Referring Unavailabl e HENOK WATKINS Primary Care Unavailabl e HENOK WATKINS Primary Care Unavailabl e UNGPRASERT, PATOMPONG Attending Unavailabl e MONFARED, RADHA Attending Unavailable HENOK WATKINS Primary Care Unavailabl e MONFARED, RADHA Attending Unavailable HENOK WATKINS Referring Unavailabl e HENOK WATKINS Primary Care Unavailabl e June MÁRQUEZ, Dr. Bowman Primary Care Provider Tami Sandoval PA-C Attending Provider [phone] Tami Sandoval PA-C Referring Provider [phone] June MÁRQUEZ, Dr. Bowman Attending Provider Dr. Henok Watkins MD Referring Provider Liban Knight Attending Provider Nick Maldonado Attending Unavailable Henok Watkins Referring Unavailable [place] [place] Unavailable Henok Watkins Attending Unavailable Henok Watkins Referring Unavailable [place] Unavailable RanHenok braxton Attending Unavailable Henok Watkins Referring Unavailable [place] Unavailable Henok Watkins Attending Unavailable Henok Watkins Referring Unavailable [place] Unavailable Henok Watkins Attending Unavailable Ranfox Christchrystal Referring Unavailable [place] Unavailable Henok Watkins Attending Unavailable Henok Watkins Referring Unavailable SandovalTami Referring Unavailable Sandoval, Tami Attending Unavailable [place] Unavailable SandovalTami Referring Unavailable Sandoval, Tami Attending Unavailable [place] Unavailable Sandoval, Tami Attending Unavailable SandovalTami Referring Unavailable [place] Unavailable Sandoval, Tami Referring Unavailable Sandoval, Tami Attending Unavailable [place] Unavailable Ranfox, Henok Primary Care Unavailable Liban Saini NP Attending Unavailable Henok Watkins Referring Unavailable Henok Watkins Referring Unavailable Liban Saini NP Attending Unavailable Henok Watkins Primary Care Unavailable Allergies Allergy Classification Reported Allergen(s) Allergy Type Date of Onset Reaction(s) Facility (20 sources) Cephalexin; Translations: [CEPHALEXIN MONOHYDRATE] Drug Allergy 9 Unknown [facility] Repository (20 sources) Cephalexin; Translations: [CEPHALEXIN] Drug Allergy 2 Rash [facility] Repository (20 sources) Penicillins; Translations: [PENICILLINS] Propensity to adverse reactions (disorder) 2 [facility] Repository (20 sources) Tetracycline; Translations: [TETRACYCLINE] Drug Allergy 2 Rash [facility] Repository (18 sources) Tetracyclines; Translations: [Tetracyclines] Allergy to substance [facility] Medications Current Medications Medication Drug Class(es) Dates Sig (Normalized) Sig (Original) Acetaminophen (20 sources) acetaminophen (T YLENOL ARTHRITIS ORAL) Take by mouth as needed. Active acetaminophen (T YLENOL ARTHRITIS ORAL) Take by mouth as needed. 0 Active acetaminophen (T YLENOL ARTHRITIS ORAL) Take by mouth as needed. 0 Suspended acetaminophen (T YLENOL ARTHRITIS ORAL) Take by mouth. 0 Active Comment on above: Take by mouth. Take by mouth as nee ded. celecoxib 200 mg oral capsule (11 sources) Nonsteroidal Anti-inflammatory Drug Start: 09-16-2024 End: 03-22-2025 take 1 capsule by mouth once daily Celecoxib 200 mg capsule Active 200 mg PO daily September 16, 2024 1:00am Start: 08-14-2024 take 1 capsule by mo [facility] once daily celecoxib (CELEBREX) 200 mg capsule Indications: Long COVID TAKE 1 CAPSULE BY MOUTH EVERY DAY 30 capsule 2 08/14/2024 Active Start: 05-04-2024 End: 08-02-2024 take 1 capsule by mouth once daily celecoxib (CELEBREX) 200 mg capsule Indications: Long COVID Take 1 capsule by mouth once daily. 30 capsule 2 05/04/2024 08/02/2024 Active cyclobenzaprine hydrochloride 10 mg oral tablet (5 sources) Muscle Relaxant Start: 03-25-2021 take 10 mg by mouth once daily Cyclobenzaprine Active 10 MG PO DAILY March 25, 2021 2:51pm End: 03-09-2022 take 1 tablet by mouth every eight hours as needed cyclobenzaprine (FLEXERIL) 10 mg tablet Take 10 mg by mouth three times daily as needed. 0 03/09/2022 Discontinued Comment on above: Take 10 mg by mouth three times daily as needed. lansoprazole 30 mg delayed release oral capsule (4 sources) Proton Pump Inhibitor Start: 5 take 1 capsule by mouth twice daily Lansoprazole (Prevacid) 30 MG capsule Active 30 MG PO TWICE A DAY November 12, 2014 10:11am morphine sulfate 15 mg extended release oral tablet (4 sources) Opioid Agonist Start: 1 take 15 mg by mouth twice daily Morphine Active 15 MG PO TWICE A DAY March 25, 2021 2:51pm ondansetron 8 mg oral tablet (5 sources) Serotonin-3 Receptor Antagonist Start: 4 End: 4 take 1 tablet by mouth twice daily ondansetron (ZOFRAN) 8 mg tablet Indications: Long COVID Take 1 tablet by mouth two times a day. 60 tablet 2 05/04/2024 08/02/2024 Active Start: 08-03-2023 End: 08-13-2023 take 1 tablet by mouth every eight hours as needed ondansetron (ZOFRAN) 4 mg tablet Take 1 tablet by mouth every 8 hours as needed for nausea/vomiting for up to 10 days. 30 tablet 0 08/03/2023 08/13/2023 Active Comment on above: Take 1 tablet by [facility] every 8 hours as needed for nausea/vomiting for up to 10 days. raNITIdine 75 mg oral tablet (1 source) Histamine-2 Receptor Antagonist End: 03-09-20 22 take 1 tablet by mouth twice daily ranitidine (ZANTAC) 75 mg tablet Take 75 mg by mouth twice daily. 0 03/09/2022 Discontinued Comment on above: Take 75 mg by mouth twice daily. testosterone undecanoate 158 mg oral capsule (20 sources) Androgen Start: 05-06-20 24 take 1 capsule by mouth twice daily at mealtime Testosterone Undecanoate (Jatenzo) 158 mg capsule Active 158 mg PO TWICE A DAY May 06, 2024 12:00am must administer with a meal/food Start: 12-26-2023 JATENZO 237 mg capsule 12/26/2023 Active Start: 01-14-2023 End: 04-19-2024 testosterone cypionate (DEPO -TESTOSTERONE) 200 mg/mL injection INJECT 1 ML (200MG) INTRAMUSCULARLY EVERY 2 WEEKS 0 01/14/2023 04/19/2024 Discontinued End: 02-09-2023 testosterone 1.62 % (20.25 m g/1.25 gram) glpk Apply as directed. 0 02/09/2023 Discontinued Comment on above: Apply as directed. INJECT 1 ML (200MG) INTRAMUSCULARLY EVERY 2 WEEKS tiZANidine 4 mg oral tablet (20 sources) Central alpha-2 Adrenergic Agonist Start: take 1 tablet by mouth twice daily Tizanidine 4 mg tablet Active 4 mg PO TWICE A DAY September 16, 2024 1:00am Start: 02-16-2022 End: 05-06-2024 take 1 capsule by mouth twice daily Tizanidine 4 mg capsule Discontinued 4 mg PO TWICE A DAY August 30, 2022 1:00am May 06, 2024 9:42am MUSCLE RELAXANT Comment on above: TAKE 1 CAPSULE BY [facility] TWICE A DAY NEEDED traMADol hydrochloride 50 mg oral tablet (1 source) Opioid Agonist Start: 3 End: 3 take 1 tablet by mouth every eight hours as needed for pain traMADol (ULTRAM) 50 mg tablet Indications: Paraesophageal hernia Take 1 tablet by mouth every 8 hours as needed for pain for up to 5 days. 15 tablet 0 08/03/2023 08/08/2023 Active Comment on above: Take 1 tablet by shawn every 8 hours as needed for pain for up to 5 days. Completed/Discontinued Medications Medication Drug Class(es) Dates Sig (Normalized) Sig (Original) acetaminophen 325 mg / oxyCODONE hydrochloride 5 mg oral tablet (20 sources) Opioid Agonist Start: 03-25-2021 End: 03-08-2022 Oxycodone-Acetamino phen 1 TABLET tablet Discontinued 1 - 2 {tbl} PO TWICE A DAY March 25, 2021 2:53pm March 08, 2022 9:22am Start: 03-25-2021 End: 03-08-2022 take 1 tablet by mouth twice daily Oxycodone-Acetaminophen Discontinued 1 - 2 TABLET PO TWICE A DAY March 25, 2021 2:53pm March 08, 2022 9:22am Start: 11-20-2014 End: 03-25-2021 Oxycodone-Acetaminophen 1 TA BLET tablet Discontinued 1 - 2 {tbl} PO EVERY 6 HOURS NEEDED as needed for Pain 60 November 20, 2014 1:00am March 25, 2021 2:54pm Start: 11-20-2014 End: 03-25-2021 take 1 tablet by mouth every six hours as needed Oxycodone-Acetaminophen Discontinued 1 - 2 TABLET PO EVERY 6 HOURS NEEDED 60 November 20, 2014 1:00am March 25, 2021 2:54pm End: 02-09-2023 take 1 tablet by mouth three times daily oxyCODONE-acetaminophen (PERCOCET) 7.5-3 25 mg tablet Take 1 tablet by mouth three times daily. 0 02/09/2023 Discontinued Comment on above: Take 1 tablet by shawn three times daily. azithromycin 250 mg oral tablet (12 sources) Macrolide Antimicrobial Start: 09-16-2024 End: 02-24-2025 Azithromycin (Zithromax Z-Otoniel) 250 mg tablet Discontinued 0 PO .COMPLEX 6 0 September 16, 2024 1:00am February 24, 2025 10:00am For 250 mg dose pack: take 500 mg today (day 1), then 250 mg for 4 days (days 2-5) PO Start: 08-07-2024 End: 09-16-2024 Azithromycin 250 mg tablet D iscontinued 250 mg PO .COMPLEX 12 0 August 07, 2024 1:00am September 16, 2024 11:43am 2 tablets (500 mg) on day 1, then 1 tablet daily on days 2 through 11 BD LUER-TRUNG SYRINGE 3 mL 22 x 1 1/2 (15 sources) Start: 01-15-2023 End: 04-19-2024 BD LUER-TRUNG SYRINGE 3 mL 22 x 1 1/2 as directed. 0 01/15/2023 04/19/2024 Discontinued Start: 01-15-2023 BD LUER-TRUNG SY RINGE 3 mL 22 x 1 1/2 as directed. 0 01/15/2023 Suspended Start: 01-15-2023 BD LUER-TRUNG SY RINGE 3 mL 22 x 1 09/27 as directed. 0 01/15/2023 Active Comment on above: as directed. busPIRone hydrochloride 10 mg oral tablet (6 sources) Start: 03-09-20 End: 02-10-20 take 1 tablet by mouth three times daily, then take 2 tablets by mouth three times daily busPIRone (BUSPAR) 10 mg tablet TAKE 1 TABLET BY MOUTH 3 TIMES A DAY INCREASE TO 2 TABLETS BY MOUTH 3 TIMES A DAY AFTER TWO WEEKS 180 tablet 0 03/16/2022 02/09/2023 Discontinued Comment on above: Take 1 tablet by shawn th three times daily. Increase to 20mg TID Take 1 tablet by shawn th three times daily. Increase to 20mg TID after 2 weeks TAKE 1 TABLET BY SHAWN TH 3 TIMES A DAY INCREASE TO 2 TABLETS BY MOUTH 3 TIMES A DAY AFTER TWO WEEKS famotidine 20 mg oral tablet (17 sources) Histamine-2 Receptor Antagonist End: 11-14-19 famotidine (PEPCID) 20 mg tablet Take 20 mg by mouth as needed. 0 11/14/2023 Discontinued Comment on above: Take 20 mg by mouth twice daily. Take 20 mg by mouth as needed. hydrocortisone 10 mg/ml / neomycin 3.5 mg/ml / polymyxin b [id number] unt/ml otic solution (6 sources) Aminoglycoside Antibacterial, Polymyxin-class Antibacterial, Corticosteroid Start: 09-16-20 End: 09-26-19 25 Neomycin-Polymyxin- Hc 3.5-10,000-1 mg/mL-unit/mL-% solution Discontinued 4 NMA OTIC Q8H 10 10 0 September 16, 2024 1:00am September 25, 2024 1:00am September 26, 2024 1:09am ivermectin 3 mg oral tablet (12 sources) Antiparasitic, Pediculicide Start: 09-17-20 End: 05-06-20 24 Ivermectin 3 mg tablet Discontinued PO September 17, 2022 1:00am May 06, 2024 9:41am Start: 09-17-2022 Ivermectin Act rajesh PO September 17, 2022 1:00am levoFLOXacin 750 mg oral tablet (10 sources) Quinolone Antimicrobial Start: 02-24-2025 End: 03-03-2025 take 1 tablet by mouth once daily Levofloxacin 750 mg tablet Discontinued 750 mg PO DAILY 7 7 0 February 24, 2025 10:08am March 02, 2025 12:00am March 03, 2025 12:08am Start: 05-06-2024 End: 05-13-2024 take 1 tablet by mouth once daily Levofloxacin 750 mg tablet Discontinued 750 mg PO DAILY 7 7 0 May 06, 2024 12:00am May 12, 2024 12:00am May 13, 2024 12:04am meloxicam 15 mg oral tablet (20 sources) Nonsteroidal Anti-inflammatory Drug Start: 12-11-2018 End: 05-06-2024 take 1 tablet by mouth once daily Meloxicam 15 mg tablet Discontinued 15 mg PO DAILY March 25, 2021 12:00am May 06, 2024 9:41am Comment on above: Take 1 tablet by shawn th once daily. oxyCODONE hydrochloride 5 mg oral tablet (13 sources) Opioid Agonist Start: 09-06-2022 End: 05-06-2024 take 5-10 mg by mouth every four hours as needed for pain Oxycodone 5 mg tablet Discontinued 5 - 10 mg PO Q4H as needed for pain 15 4 0 September 06, 2022 May 06, 2024 9:41am Other acute postprocedural pain Other acute postprocedural pain pantoprazole 40 mg delayed release oral tablet (20 sources) Proton Pump Inhibitor Start: 10-18-2016 End: 05-06-2024 take 1 tablet by mouth twice daily Pantoprazole 40 mg tablet,delayed release (DR/EC) Discontinued 40 mg PO TWICE A DAY March 08, 2022 12:00am May 06, 2024 9:42am GERD Comment on above: Take 1 tablet by shawn th twice daily. pregabalin 100 mg oral capsule (20 sources) Start: 01-19-2023 End: 04-19-2024 take 1 capsule by mouth three times daily pregabalin (LYRICA) 100 mg capsule TAKE 1 ORAL THREE TIMES A DAY FOR 28 DAYS 0 01/19/2023 04/19/2024 Discontinued Start: 07-29-2016 Pregabalin (Ly mya) 150 MG capsule Active 100 mg PO THREE TIMES A DAY July 29, 2016 12:00am End: 02-09-2023 pregabalin (LYRICA) 50 mg ca psule Take 50 mg by mouth. 0 02/09/2023 Discontinued Comment on above: Take 50 mg by mouth. TAKE 1 ORAL THREE TI MES A DAY FOR 28 DAYS sucralfate 1000 mg oral tablet (20 sources) Aluminum Complex Start: 3 End: 4 take 1 tablet by mouth four times daily sucralfate (CARAFATE) 1 gram tablet Indications: Gastroesophageal reflux disease, unspecified whether esophagitis present Take 1 tablet by mouth four times daily. 120 tablet 2 08/03/2023 11/14/2023 Discontinued Start: 02-09-2023 End: 03-07-2023 take 1 tablet by mouth four times daily sucralfate (CARAFATE) 1 gram tablet Indications: Gastroesophageal reflux disease, unspecified whether esophagitis present TAKE 1 TABLET BY MOUTH 4 TIMES A DAY 120 tablet 2 03/07/2023 Suspended Comment on above: Take 1 tablet by shawn th four times daily. TAKE 1 TABLET BY SHAWN TH 4 TIMES A DAY terbinafine 250 mg oral tablet (16 sources) Allylamine Antifungal Start: 4 End: 4 take 1 tablet by mouth once terbinafine HCl (LAMISIL) 250 mg tablet Take 1 tablet by mouth every afternoon. 0 10/25/2023 04/19/2024 Discontinued Start: 03-08-2022 End: 05-06-2024 Terbinafine Hcl 250 mg table t Discontinued 1 NMA PO DAILY March 08, 2022 12:00am May 06, 2024 9:42am TOE FUNGAL INFECTION Comment on above: Take 1 tablet by shawn th every afternoon. Problems Active Problems Problem Classification Problem Date Documented Da te Episodic/Chronic Abdominal pain (2 sources) Generalized abdominal pain; Translations: [Generalized abdominal pain] Onset: 5 Episodic Biliary tract disease (20 sources) Biliary calculus; Translations: [Calculus of gallbladder without cholecystitis without obstruction] 07-30-2016 Episodic Diverticulosis and diverticulitis (1 source) Diverticular disease; Translations: [Diverticulosis of intestine, part unspecified, without perforation or abscess without bleeding] Chronic Esophageal disorders (20 sources) Gastroesophageal reflux disease; Translations: [Gastro-esophageal reflux disease without esophagitis] Onset: 3 Chronic Gastroduodenal ulcer (except hemorrhage) (17 sources) Gastric ulcer; Translations: [Gastric ulcer, unspecified as acute or chronic, without hemorrhage or perforation] Onset: 3 04-08-2023 Chronic Hyperplasia of prostate (1 source) Benign prostatic hyperplasia with lower urinary tract symptoms; Translations: [Benign prostatic hyperplasia with lower urinary tract symptoms] Onset: 4 Chronic Nausea and vomiting (2 sources) Nausea; Translations: [Nausea] Episodic Other aftercare (12 sources) Follow-up status; Translations: [Encounter for other orthopedic aftercare] 09-17-2022 Episodic Comment on above: Please see signed no te also dated today for full exam. Other connective tissue disease (1 source) Muscle pain; Translations: [Myalgia, unspecified site] 04-19-2024 Episodic Other ear and sense organ disorders (6 sources) Otitis externa; Translations: [Unspecified otitis externa, unspecified ear] 09-16-2024 Chronic Other ear and sense organ disorders (6 sources) Otitis externa; Translations: [Cellulitis of left external ear] 08-07-2024 Episodic Other endocrine disorders (1 source) Testicular hypofunction; Translations: [Testicular hypofunction] Onset: 5 Chronic Other gastrointestinal disorders (1 source) Abdominal bloating; Translations: [Abdominal distension (gaseous)] Episodic Other gastrointestinal disorders (1 source) Diarrhea, unspecified; Translations: [Diarrhea, unspecified] Onset: 5 Episodic Other infections; including parasitic (3 sources) Late effects of other and unspecified infectious and parasitic diseases; 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] 05-04-2024 Chronic Other infections; including parasitic (1 source) History of bacterial infection; Translations: [Personal history of other infectious and parasitic diseases] Episodic Other nervous system disorders (13 sources) Carpal tunnel syndrome; Translations: [Carpal tunnel syndrome, bilateral upper limbs] 08-09-2022 Chronic Other nervous system disorders (2 sources) Carpal tunnel syndrome, bilateral upper limbs; Translations: [Carpal tunnel syndrome] Chronic Other nervous system disorders (14 sources) Paresthesia of right upper limb; Translations: [Paresthesia of skin] 03-08-2022 Episodic Other nervous system disorders (14 sources) Paresthesia of left upper limb; Translations: [Paresthesia of skin] 03-08-2022 Episodic Other nervous system disorders (2 sources) Paresthesia of skin; Translations: [Disturbance of skin sensation] Episodic Other nervous system disorders (13 sources) Acute postoperative pain; Translations: [Other acute postprocedural pain] 09-06-2022 Episodic Other non-traumatic joint disorders (1 source) Multiple joint pain; Translations: [Pain in unspecified joint] 04-19-2024 Episodic Other non-traumatic joint disorders (1 source) Pain in unspecified joint; Translations: [Polyarthralgia] Onset: Episodic Other upper respiratory infections (10 sources) Maxillary sinusitis; Translations: [Chronic maxillary sinusitis] 05-06-2024 Chronic Other upper respiratory infections (6 sources) Upper respiratory infection; Translations: [Acute upper respiratory infection, unspecified] 09-16-2024 Episodic Pancreatic disorders (not diabetes) (2 sources) Acute pancreatitis without necrosis or infection, unspecified; Translations: [Acute pancreatitis without necrosis or infection, unspecified] Onset: Episodic Substance-related disorders (1 source) Narcotic drug user; Translations: [Opioid use, unspecified, uncomplicated] Episodic Viral infection (1 source) Disease caused by 2019-nCoV; Translations: [COVID-19] 04-19-2024 Episodic Past or Other Problems Problem Classification Problem Date Documented Da te Episodic/Chronic Abdominal hernia (20 sources) Hiatal hernia; Translations: [Diaphragmatic hernia without obstruction or gangrene] Onset: 02-17-2023 02-17-2023 Episodic Other gastrointestinal disorders (5 sources) Dysphagia; Translations: [Dysphagia, unspecified] Resolved: 11-14-2015 09-21-2021 Episodic Spondylosis; intervertebral disc disorders; other back problems (20 sources) Radiculopathy, lumbar region; Translations: [Lumbar radiculopathy] Onset: 12-13-2018 12-13-2018 Episodic Results Test Name Value Interpretation Reference Range Facility Basic Metabolic Profile (BMP )on 05-28-2025 BUN Normal 01-12 [facility] Comment on above: Order Comment: Order Date: 05/21/25 Order Info: 666-09 - BMP Order Info: 1798-04 - RADHA Order Info: 3040-3 - LIPASE Result Comment: WYATT OT FIND SPECIMEN-EMAIL SENT Performed By: #### L [id number] #### [facility] [address] [place], [address] BUN/CRE Normal 10-20 [facility] Comment on above: Order Comment: Order Date: 05/21/25 Order Info: 666-09 - BMP Order Info: 1798-04 - RADHA Order Info: 3040-3 - LIPASE Result Comment: WYATT OT FIND SPECIMEN-EMAIL SENT Performed By: #### L [id number] #### [facility] [address] [place], [address] Calcium Normal 7.6-11.0 [facility] Comment on above: Order Comment: Order Date: 05/21/25 Order Info: 666-09 - BMP Order Info: 1798-04 - RADHA Order Info: 3040-3 - LIPASE Result Comment: WYATT OT FIND SPECIMEN-EMAIL SENT Performed By: #### L [id number] #### [facility] [address] [place], [address] CL Normal 98-108 [facility] Comment on above: Order Comment: Order Date: 05/21/25 Order Info: 666-09 - BMP Order Info: 1798-04 - RADHA Order Info: 3040-3 - LIPASE Result Comment: WYATT OT FIND SPECIMEN-EMAIL SENT Performed By: #### L [id number] #### [facility] [address] [place], [address] CO2 Normal 21.0-32.0 [facility] Comment on above: Order Comment: Order Date: 05/21/25 Order Info: 666-09 - BMP Order Info: 1798-04 - RADHA Order Info: 3040-3 - LIPASE Result Comment: WYATT OT FIND SPECIMEN-EMAIL SENT Performed By: #### L [id number] #### [facility] [address] [place], [address] CREAT,SERUM Normal 0.70-1.20 [facility] Comment on above: Order Comment: Order Date: 05/21/25 Order Info: 666-09 - BMP Order Info: 8 - RADHA Order Info: 3040-3 - LIPASE Result Comment: WYATT OT FIND SPECIMEN-EMAIL SENT Performed By: #### L [id number] #### [facility] [address] [place], [address] eGFR Normal >60 [facility] Comment on above: Order Comment: Order Date: 05/21/25 Order Info: 666-09 - BMP Order Info: 8 - RADHA Order Info: 3040-3 - LIPASE Result Comment: WYATT OT FIND SPECIMEN-EMAIL SENT Performed By: #### L [id number] #### [facility] [address] [place], [address] GAP Normal 5-15 [facility] Comment on above: Order Comment: Order Date: 05/21/25 Order Info: 666-09 - BMP Order Info: 8 - RADHA Order Info: 3040-3 - LIPASE Result Comment: WYATT OT FIND SPECIMEN-EMAIL SENT Performed By: #### L [id number] #### [facility] [address] [place], [address] GLU Normal 70-99 [facility] Comment on above: Order Comment: Order Date: 05/21/25 Order Info: 666-09 - BMP Order Info: 8 - RADHA Order Info: 3040-3 - LIPASE Result Comment: WYATT OT FIND SPECIMEN-EMAIL SENT Performed By: #### L [id number] #### [facility] [address] [place], [address] Potassium Normal 3.3-5.1 [facility] Comment on above: Order Comment: Order Date: 05/21/25 Order Info: 666-09 - BMP Order Info: 1797-8 - RADHA Order Info: 3040-3 - LIPASE Result Comment: WYATT OT FIND SPECIMEN-EMAIL SENT Performed By: #### L [id number] #### [facility] [address] [place], [place], [address] Basic Metabolic Profile (BMP) Normal 133-145 [facility] Comment on above: Order Comment: Order Date: 05/21/25 Order Info: 0667-1 - BMP Order Info: 1798-8 - RADHA Order Info: 3040-3 - LIPASE Result Comment: WYATT OT FIND SPECIMEN-EMAIL SENT Performed By: #### L 500.2500 #### [facility] [address] [place], [address] Amylaseon 04-01-2025 RADHA 119 U/L High 28-100 [facility] Comment on above: Performed By: #### L 501.2450, L501.2400 ####[facility] [address] [place], [place], [address] Lipaseon 04-01-2025 Lipase [Catalytic activity/Vol] 68 U/L Normal 13-75 [facility] Comment on above: Result Comment: Mary hutchins note: LIPASE revised reference range effective 23. New Lipase methodology. Expected to produce lower values than the previous assay method. NEW Reference Range: 13 - 75 U/L Performed By: #### L 501.2450, L501.2400 ####[facility] [address] [place], [place], [address] Lipase measurementOrdered By : Henok Watkins on 04-01-2025 Lipase [Catalytic activity/Vol] 68 U/L 13-75 [facility] Comment on above: Please note:LIPASE r evised reference range effective 23. New Lipase methodology. Expected to produce lower values than the previous assay method. NEW Reference Range: 13 - 75 U/L Serum or plasma amylase jhoan urement (enzymatic activity/volume)Ordered By: Henok Watkins on 04-01-2025 Amylase [Catalytic activity/Vol] 119 U/L High 28-100 [facility] CT Abd/Pelvis W/WO Contrasto n 03-26-2025 CT Abd/Pelvis W/WO Contrast [facility] Imaging Services [address] [place] [address] CT Abd/Pelvis W/WO Contrast MR#: [id number] Acct: [id number] Name: ALBINO WASHBURN Rep #: [id number] : 1965 M 60 From: Aleksey Chang MD PCP: Dr. Henok Watkins MD Status: REG CLI Study: CT Abd/Pelvis W/WO Contrast Date of Exam: 10/20 Exam# [id number] Ordering Dr: Henok Watkins PROCEDURE: CT ABD/PELVIS W/WO CONTRAST 03/26/2025 REASON FOR EXAM: Pancreatitis TECHNIQUE: CT ABD/PELVIS W/WO CONTRAST Coronal and Sagittal reconstruction series were provided. CONTRAST: Isovue-300 VOLUME: 100 mL One or more dose reduction techniques were used (e.g., Automated exposure control, adjustment of the mA and/or kV according to patient size, use of iterative reconstruction technique. RADIATION DOSE SUMMARY: CTDlvol: 35.3 mGy DLP: 970.03 mGycm COMPARISON: None FINDINGS: Lung bases: The lung bases are clear. There are no pleural effusions. The heart size is normal. There is no pericardial effusion. Liver: There are 5 mm cysts in the liver dome and in the left hepatic lobe. Otherwise unremarkable. Gallbladder: Surgically absent. Spleen: Normal. Pancreas: The pancreas enhances normally and homogeneously. There are no abnormal intra or peripancreatic fluid collections. There is no stranding of the peripancreatic fat. Adrenals: Normal. Kidneys: There are small cortical cysts in the left kidney. Suspect multiple peripelvic cysts in both kidneys. Bladder: Partially evacuated. Normal unenhanced appearance. Reproductive Organs: The prostate gland measures 5.0 cm in transverse dimension. There are bilateral seminal vesicle cysts. There is no free fluid in the pelvis. There is no inguinal lymphadenopathy. Bowel: There is sigmoid diverticulosis without diverticulitis. Appendix: There is a normal appendix demonstrated. Lymph nodes: There is no significant retroperitoneal, mesenteric or pelvic lymphadenopathy. Vasculature: There is minimal calcific vascular disease of the abdominal aorta. The inferior vena cava and portal venous system are normal. Peritoneum / Retroperitoneum: There are no abnormal intra or retroperitoneal masses or fluid collections. There is a pain pump in the subcutaneous tissues of the left lower anterior abdominal wall. The tube enters the spinal canal at the L2 level. Bones: Status post PLIF, L5-S1. CT/CT Abd/Pelvis W/WO Contrast IMPRESSION: 1. No evidence of pancreatitis. 2. Prostatomegaly. 3. Other findings as noted. Reading Location: [id number] CC: Dr. Henok Watkins MD Supervisor [place]: Signed Normal [facility] L7000.0750on 03-06-2025 P ELASTASE,FECA > 800 Normal >200 [facility] Comment on above: Order Comment: Order Date: 01/16/25 Order Info: 0060-1 - PROEL Result Comment: Resu lt Units: ug Elast./g Severe Pancreatic Insufficiency: <100 Moderate Pancreatic Insufficiency: 100 - 200 Normal: >200 Performed at: [facility] [address] [id number] Power System Engineer: Hever Lake PhD, Phone: [phone] Performed at: [facility] [address] [id number] Power System Engineer: Cordelia Painting MD, Phone: [phone] Performed By: #### L 509.3001, L7000.0750, L506.1001 #### [facility] [address] [facility]. [place], [place], [address] Protein Electroph, Son 03-06 Albumin [Mass/Vol] 3.9 g/dL Normal 2.9-4.4 [facility] Comment on above: Order Comment: Order Date: 01/16/25Order Info: 0060-1 - PROEL Performed By: #### M 100.637, M600.5000 #### [facility] [address] [facility] [place], [address] Albumin/Globulin [Mass ratio] 1.6 {ratio} Normal 0.7-1.7 [facility] Comment on above: Order Comment: Order Date: 01/16/25Order Info: 0060-1 - PROEL Performed By: #### M 100.637, M600.5000 #### [facility] [address] [place], [address] ALPHA-1 GLOBUL 0.2 g/dL Normal 0.0-0.4 [facility] Comment on above: Order Comment: Order Date: 01/16/25Order Info: 0060-1 - PROEL Performed By: #### M 100.637, M600.5000 #### [facility] [address] [place], [address] ALPHA-2 GLOBUL 0.5 g/dL Normal 0.4-1.0 [facility] Comment on above: Order Comment: Order Date: 01/16/25Order Info: 0060-1 - PROEL Performed By: #### M 100.637, M600.5000 #### [facility] [address] [place], [address] BETA GLOBULIN 0.8 g/dL Normal 0.7-1.3 [facility] Comment on above: Order Comment: Order Date: 01/16/25Order Info: 0060-1 - PROEL Performed By: #### M 100.637, M600.5000 #### [facility] [address] [place], [address] GAMMA GLOBULIN 0.9 g/dL Normal 0.4-1.8 [facility] Comment on above: Order Comment: Order Date: 01/16/25Order Info: 0060-1 - PROEL Performed By: #### M 100.637, M600.5000 #### [facility] [address] [place], [address] Globulin (S) [Mass/Vol] 2.4 g/dL Normal 2.2-3.9 [facility] Comment on above: Order Comment: Order Date: 01/16/25Order Info: 0060-1 - PROEL Performed By: #### M 100.637, M600.5000 #### [facility] [address] [place], [address] INTERPRETATION Comment Normal . [facility] Comment on above: Order Comment: Order Date: 01/16/25Order Info: 0060-1 - PROEL Result Comment: Prot ein electrophoresis scan will follow via computer, mail, or interpreter deaf delivery. Performed By: #### M 100.637, M600.5000 #### [facility] [address] [place], [address] M-SPIKE Not Observed Normal Not Observed [facility] Comment on above: Order Comment: Order Date: 01/16/25Order Info: 0-1 - PROEL Performed By: #### M 100.637, M600.5000 #### [facility] [address] [place], [address] NOTE: Comment Normal . [facility] Comment on above: Order Comment: Order Date: 01/16/25Order Info: 59- - PROEL Result Comment: The SPE pattern appears unremarkable. Evidence of monoclonal protein is not apparent. Performed By: #### M 100.637, M600.5000 #### [facility] [address] [place], [address] Protein [Mass/Vol] 6.3 g/dL Normal 6.0-8.5 [facility] Comment on above: Order Comment: Order Date: 01/16/25Order Info: 59- - PROEL Performed By: #### M 100.637, M600.5000 #### [facility] [address] [place], [address] ANTINUCLEAR ANTIBODIES DIREC Ton 03-05-2025 BHARATHI,DIRECT Negative Normal Negative [facility] Comment on above: Order Comment: Order Date: 01/16/25Order Info: 0270-1 - BHARATHI Result Comment: Perf ormed at: [facility] [address] [id number] Power System Engineer: Hever Lake PhD, Phone: [phone] Performed By: #### M 100.637, M600.5000 #### [facility] [address] [place], [place], [address] Absolute lymphocyte countOrd ered By: Henok Watkins on 03-04-2025 Lymphocytes Auto (Unsp spec) [#/Vol] 1.29 10*3/uL 0.83-4.51 [facility] Absolute neutrophil countOrd ered By: Henok Watkins on 03-04-2025 Neutrophils (Bld) [#/Vol] 3.5 10*3/uL 2.0-7.7 [facility] Albumin Elph [Mass/Vol]Order ed By: Henok Watkins on 03-04-2025 Albumin [Mass/Vol] 3.9 g/dL 2.9-4.4 [facility] Amylaseon 03-04-2025 RADHA 131 U/L High 28-100 [facility] Comment on above: Order Comment: Order Date: 01/16/25Order Info: 0786-1 - CMPOrder Info: 1798-8 - AMYOrder Info: 3040-3 - LIPASEOrder Info: 3016-3 - TSHOrder Info: 0783-1 - PSADOrder Info: 2276-4 - FEROrder Info: 67860-3 - RA Performed By: #### M 100.637, M600.5000 #### [facility] [address] [place], [address] Anion gap in Serum or Plasma Ordered By: Henok Watkins on 03-04-2025 Anion gap [Moles/Vol] 9 mmol/L 5-15 [facility] Automated lymphocyte count a s percentage of total leukocytesOrdered By: Henok Watkins on 03-04-2025 Lymphocytes/100 WBC Auto (Unsp spec) 23.8 % 19-41 [facility] BUN/creatinine ratioOrdered By: Henok Watkins on 03-04-2025 Urea nitrogen/Creatinine [Mass ratio] 20.8 mg/mg High 10-20 [facility] Basophil percentageOrdered B y: Henok Watkins on 03-04-2025 Basophils/100 WBC (Bld) 0.7 % 0-[address] [facility] Bilirubin, totalOrdered By: Henok Watkins on 03-04-2025 Bilirubin [Mass/Vol] 0.56 mg/dL Normal 0.00-1.30 [facility] Comment on above: Order Comment: Order Date: 01/16/25 Order Info: 0786-1 - CMP Order Info: 1798-8 - RADHA Order Info: 3040-3 - LIPASE Order Info: 3016-3 - TSH Order Info: 0783-1 - PSAD Order Info: 2276-4 - ROBE Order Info: 36449-0 - RA Performed By: #### L 501.2400, L3100.5475, L101.9900, L100.0100, L503.6550, L3100.3450, L500.4050, L505.7010, L501.9520, L501.2450 #### [facility] [address] [place], [place], [address] CBC W/Diff, Automatedon 06-0 Absolute Lymph 1.29 X10 3/uL Normal 0.83-4.51 [facility] Comment on above: Order Comment: Order Date: 01/16/25 Order Info: 0184-1 - CBCD Order Info: 00650-5 - SED Performed By: #### L 501.2400, L3100.5475, L101.9900, L100.0100, L503.6550, L3100.3450, L500.4050, L505.7010, L501.9520, L501.2450 #### [facility] [address] [place], [place], [address] [phone] Absolute Neut 3.5 X10 3/uL Normal 2.0-7.7 [facility] Comment on above: Order Comment: Order Date: 01/16/25 Order Info: 0184-1 - CBCD Order Info: 89863-9 - SED Performed By: #### L 501.2400, L3100.5475, L101.9900, L100.0100, L503.6550, L3100.3450, L500.4050, L505.7010, L501.9520, L501.2450 #### [facility] [address] [place], [address] Basophils/100 WBC (Bld) 0.7 % Normal 0-[address] [facility] Comment on above: Order Comment: Order Date: 01/16/25 Order Info: 018-1 - CBCD Order Info: 84610-2 - SED Performed By: #### L 501.2400, L3100.5475, L101.9900, L100.0100, L503.6550, L3100.3450, L500.4050, L505.7010, L501.9520, L501.2450 #### [facility] [address] [place], [address] Eosinophils/100 WBC (Bld) 1.3 % Normal 0-5 [facility] Comment on above: Order Comment: Order Date: 01/16/25 Order Info: 018- - CBCD Order Info: 89097-6 - SED Performed By: #### L 501.2400, L3100.5475, L101.9900, L100.0100, L503.6550, L3100.3450, L500.4050, L505.7010, L501.9520, L501.2450 #### [facility] [address] [place], [place], [id number] Erythrocyte distribution width (RBC) [Ratio] 12.7 % Normal 11.6-14.6 [facility] Comment on above: Order Comment: Order Date: 01/16/25 Order Info: 018- - CBCD Order Info: 37470-1 - SED Performed By: #### L 501.2400, L3100.5475, L101.9900, L100.0100, L503.6550, L3100.3450, L500.4050, L505.7010, L501.9520, L501.2450 #### [facility] [address] [place], [address] Hematocrit (Bld) [Volume fraction] 42.2 % Normal 40-54 [facility] Comment on above: Order Comment: Order Date: 01/16/25 Order Info: 01812-25 - CBCD Order Info: 10752-8 - SED Performed By: #### L 501.2400, L3100.5475, L101.9900, L100.0100, L503.6550, L3100.3450, L500.4050, L505.7010, L501.9520, L501.2450 #### [facility] [address] [place], [address] Hemoglobin (Bld) [Mass/Vol] 14.2 g/dL Normal 13.0-16.5 [facility] Comment on above: Order Comment: Order Date: 01/16/25 Order Info: 183-09 - CBCD Order Info: 72823-6 - SED Performed By: #### L 501.2400, L3100.5475, L101.9900, L100.0100, L503.6550, L3100.3450, L500.4050, L505.7010, L501.9520, L501.2450 #### [facility] [address] [place], [place], [address] ([address] IG% 0.400 Normal 0.0-0.9 [facility] Comment on above: Order Comment: Order Date: 01/16/25 Order Info: 01812-25 - CBCD Order Info: 67301-6 - SED Result Comment: IG% - Immature Granulocytes (promyelocytes, myelocytes and metamyelocytes) > 1% indicates that a LEFT SHIFT is Present. Performed By: #### L 501.2400, L3100.5475, L101.9900, L100.0100, L503.6550, L3100.3450, L500.4050, L505.7010, L501.9520, L501.2450 #### [facility] [address] [place], [address] Lymphocytes/100 WBC (Bld) 23.8 % Normal 19-41 [facility] Comment on above: Order Comment: Order Date: 01/16/25 Order Info: 0184- - CBCD Order Info: 42135-8 - SED Performed By: #### L 501.2400, L3100.5475, L101.9900, L100.0100, L503.6550, L3100.3450, L500.4050, L505.7010, L501.9520, L501.2450 #### [facility] [address] [place], [address] MCH (RBC) [Entitic mass] 30.3 pg Normal 27.0-32.0 [facility] Comment on above: Order Comment: Order Date: 01/16/25 Order Info: 01812-25 - CBCD Order Info: 75682-8 - SED Performed By: #### L 501.2400, L3100.5475, L101.9900, L100.0100, L503.6550, L3100.3450, L500.4050, L505.7010, L501.9520, L501.2450 #### [facility] [address] [place], [address] MCHC (RBC) [Mass/Vol] 33.6 g/dL Normal 32-36 [facility] Comment on above: Order Comment: Order Date: 01/16/25 Order Info: 0184- - CBCD Order Info: 09821-7 - SED Performed By: #### L 501.2400, L3100.5475, L101.9900, L100.0100, L503.6550, L3100.3450, L500.4050, L505.7010, L501.9520, L501.2450 #### [facility] [address] [place], [address] MCV (RBC) [Entitic vol] 90.2 fL Normal 80-[address] [facility] Comment on above: Order Comment: Order Date: 01/16/25 Order Info: 0184-1 - CBCD Order Info: 01412-2 - SED Performed By: #### L 501.2400, L3100.5475, L101.9900, L100.0100, L503.6550, L3100.3450, L500.4050, L505.7010, L501.9520, L501.2450 #### [facility] [address] [place], [address] Monocytes/100 WBC (Bld) 8.7 % Normal 0-[address] [facility] Comment on above: Order Comment: Order Date: 01/16/25 Order Info: 01812-25 - CBCD Order Info: 45307-1 - SED Performed By: #### L 501.2400, L3100.5475, L101.9900, L100.0100, L503.6550, L3100.3450, L500.4050, L505.7010, L501.9520, L501.2450 #### [facility] [address] [place], [address] Neutrophils/100 WBC (Bld) 65.1 % Normal 47-70 [facility] Comment on above: Order Comment: Order Date: 01/16/25 Order Info: 01812-25 - CBCD Order Info: 20892-6 - SED Performed By: #### L 501.2400, L3100.5475, L101.9900, L100.0100, L503.6550, L3100.3450, L500.4050, L505.7010, L501.9520, L501.2450 #### [facility] [address] [place], [address] Nucleated RBC (Bld) [#/Vol] 0 10*3/uL Normal 0-5 [facility] Comment on above: Order Comment: Order Date: 01/16/25 Order Info: 01812-25 - CBCD Order Info: 57916-2 - SED Performed By: #### L 501.2400, L3100.5475, L101.9900, L100.0100, L503.6550, L3100.3450, L500.4050, L505.7010, L501.9520, L501.2450 #### [facility] [address] [place], [address] Platelet mean volume (Bld) [Entitic vol] 9.3 fL Normal 6.2-12.0 [facility] Comment on above: Order Comment: Order Date: 01/16/25 Order Info: 0184- - CBCD Order Info: 43901-5 - SED Performed By: #### L 501.2400, L3100.5475, L101.9900, L100.0100, L503.6550, L3100.3450, L500.4050, L505.7010, L501.9520, L501.2450 #### [facility] [address] [place], [address] Platelets (Bld) [#/Vol] 196 10*3/uL Normal 150-450 [facility] Comment on above: Order Comment: Order Date: 01/16/25 Order Info: 0184- - CBCD Order Info: 19621-9 - SED Performed By: #### L 501.2400, L3100.5475, L101.9900, L100.0100, L503.6550, L3100.3450, L500.4050, L505.7010, L501.9520, L501.2450 #### [facility] [address] [place], [address] RBC (Bld) [#/Vol] 4.68 10*6/uL Normal 4.6-6.2 [facility] Comment on above: Order Comment: Order Date: 01/16/25 Order Info: 0184- - CBCD Order Info: 45492-7 - SED Performed By: #### L 501.2400, L3100.5475, L101.9900, L100.0100, L503.6550, L3100.3450, L500.4050, L505.7010, L501.9520, L501.2450 #### [facility] [address] [place], [place], [address] RDW SD 41.7 fl Normal 35.1-43.9 [facility] Comment on above: Order Comment: Order Date: 01/16/25 Order Info: 0184- - CBCD Order Info: 22395-8 - SED Performed By: #### L 501.2400, L3100.5475, L101.9900, L100.0100, L503.6550, L3100.3450, L500.4050, L505.7010, L501.9520, L501.2450 #### [facility] [address] [place], [place], [address] WBC (Bld) [#/Vol] 5.4 10*3/uL Normal 4.4-11.0 [facility] Comment on above: Order Comment: Order Date: 01/16/25 Order Info: 01812-25 - CBCD Order Info: 67803-3 - SED Performed By: #### L 501.2400, L3100.5475, L101.9900, L100.0100, L503.6550, L3100.3450, L500.4050, L505.7010, L501.9520, L501.2450 #### [facility] [address] [place], [place], [address] Carbon dioxide, total [Moles /volume] in Central venous bloodOrdered By: Henok Watkins on 03-04-2025 CO2 [Moles/Vol] 27.8 mmol/L Normal 21.0-32.0 [facility] Comment on above: Order Comment: Order Date: 01/16/25 Order Info: 0786-1 - CMP Order Info: 1798-8 - RADHA Order Info: 3040-3 - LIPASE Order Info: 3016-3 - TSH Order Info: 0783-1 - PSAD Order Info: 2276-4 - ROBE Order Info: 04140-9 - RA Performed By: #### L 501.2400, L3100.5475, L101.9900, L100.0100, L503.6550, L3100.3450, L500.4050, L505.7010, L501.9520, L501.2450 #### [facility] [address] [place], [place], [address] Chloride assayOrdered By: Stephanie Watkins on 03-04-2025 Chloride [Moles/Vol] 102 mmol/L Normal 98-108 [facility] Comment on above: Order Comment: Order Date: 01/16/25 Order Info: 07-1 - CMP Order Info: 1798-04 - RADHA Order Info: 3040-3 - LIPASE Order Info: 3015-11 - TSH Order Info: 782-09 - PSAD Order Info: 2275-12 - ROBE Order Info: 07303-0 - RA Performed By: #### L 501.2400, L3100.5475, L101.9900, L100.0100, L503.6550, L3100.3450, L500.4050, L505.7010, L501.9520, L501.2450 #### [facility] [address] [place], [place], [id number] [phone] Comprehensive Metabolic Prof ilon 03-04-2025 ALK PHOS 94 U/L Normal 40-129 [facility] Comment on above: Order Comment: Order Date: 01/16/25 Order Info: 86-1 - CMP Order Info: 1798-04 - RADHA Order Info: 3040-3 - LIPASE Order Info: 3 - TSH Order Info: 782-09 - PSAD Order Info: 4 - ROBE Order Info: 60023-1 - RA Performed By: #### L 501.2400, L3100.5475, L101.9900, L100.0100, L503.6550, L3100.3450, L500.4050, L505.7010, L501.9520, L501.2450 #### [facility] [address] [place], [address] BUN/CRE 20.8 RATIO High 10-20 [facility] Comment on above: Order Comment: Order Date: 01/16/25 Order Info: 785-1 - CMP Order Info: 1798-04 - RADHA Order Info: 0-3 - LIPASE Order Info: 3015-11 - TSH Order Info: 782-09 - PSAD Order Info: 2275-12 - ROBE Order Info: 19373-3 - RA Performed By: #### L 501.2400, L3100.5475, L101.9900, L100.0100, L503.6550, L3100.3450, L500.4050, L505.7010, L501.9520, L501.2450 #### [facility] [address] [place], [address] GAP 9 Normal 5-15 [facility] Comment on above: Order Comment: Order Date: 01/16/25 Order Info: 785- - CMP Order Info: 1798-04 - RADHA Order Info: 03 - LIPASE Order Info: 3015-11 - TSH Order Info: 782-09 - PSAD Order Info: 2275-12 ROBE Order Info: 35569-0 - RA Performed By: #### L 501.2400, L3100.5475, L101.9900, L100.0100, L503.6550, L3100.3450, L500.4050, L505.7010, L501.9520, L501.2450 #### [facility] [address] [place], [address] Potassium [Moles/Vol] 4.2 mmol/L Normal 3.3-5.1 [facility] Comment on above: Order Comment: Order Date: 01/16/25 Order Info: 785- - CMP Order Info: 1798-04 - RADHA Order Info: 3040-3 - LIPASE Order Info: 3015-11 - TSH Order Info: 782-09 - PSAD Order Info: 2275-12 - ROBE Order Info: 18663-7 - RA Performed By: #### L 501.2400, L3100.5475, L101.9900, L100.0100, L503.6550, L3100.3450, L500.4050, L505.7010, L501.9520, L501.2450 #### [facility] [address] [place], [place], [address] T PROT 6.4 g/dL Normal 5.9-8.4 [facility] Comment on above: Order Comment: Order Date: 01/16/25 Order Info: 785- - CMP Order Info: 1798-04 - RADHA Order Info: 0-3 - LIPASE Order Info: 3015-11 - TSH Order Info: 782-09 - PSAD Order Info: 2275-12 - ROBE Order Info: [id number] - RA Performed By: #### L 501.2400, L3100.5475, L101.9900, L100.0100, L503.6550, L3100.3450, L500.4050, L505.7010, L501.9520, L501.2450 #### [facility] [address] [place], [address] Comprehensive Metabolic Prof ilOrdered By: Henok Watkins on 03-04-2025 AST [Catalytic activity/Vol] 22 U/L Normal <=37 [facility] Comment on above: Order Comment: Order Date: 01/16/25 Order Info: 785- - CMP Order Info: 1798-04 RADHA Order Info: 3040-3 - LIPASE Order Info: 3015-11 - TSH Order Info: 782-09 - PSAD Order Info: 2275-12 - ROBE Order Info: 73282-5 - RA Performed By: #### L 501.2400, L3100.5475, L101.9900, L100.0100, L503.6550, L3100.3450, L500.4050, L505.7010, L501.9520, L501.2450 #### [facility] [address] [place], [place], [address] Eosinophil percentageOrdered By: Henok Watkins on 03-04-2025 Eosinophils/100 WBC (Bld) 1.3 % 0-5 [facility] Erythrocyte Sed Rateon 03-04 SED RATE < 1 Normal 0-20 [facility] Comment on above: Order Comment: Order Date: 01/16/25 Order Info: 0184-1 - CBCD Order Info: 84358-5 - SED Performed By: #### L 501.2400, L3100.5475, L101.9900, L100.0100, L503.6550, L3100.3450, L500.4050, L505.7010, L501.9520, L501.2450 #### [facility] [address] [place], [place], [address] Erythrocyte distribution wid th ratioOrdered By: Henok Watkins on 03-04-2025 Erythrocyte distribution width (RBC) [Ratio] 12.7 % 11.6-14.6 [facility] Erythrocyte distribution wid th standard deviationOrdered By: Henok Watkins on 03-04-2025 Erythrocyte distribution width (RBC) [Ratio] 41.7 fl 35.1-43.9 [facility] Erythrocyte sedimentation ra teOrdered By: Henok Watkins on 03-04-2025 ESR (Bld) [Velocity] mm/h 0-20 [facility] Glomerular filtration rate ( GFR) estimation/1.73 sq m using serum, plasma, or whole bOrdered By: Henok Watkins on 03-04-2025 GFR/1.73 sq M.predicted among non-blacks MDRD (S/P/Bld) [Vol rate/Area] 102 mL/min/{1.73_m2} Normal >60 [facility] Comment on above: mL/min/1.73m2 CKD-EP I Creatinine Equation (2020) Order Comment: Order Date: 01/16/25 Order Info: 0786-1 - CMP Order Info: 1798-8 - RADHA Order Info: 3040-3 - LIPASE Order Info: 3016-3 - TSH Order Info: 0783-1 - PSAD Order Info: 2276-4 - ROBE Order Info: 85849-0 - RA Result Comment: mL/m in/1.73m2 CKD-EPI Creatinine Equation (2020) Performed By: #### L 501.2400, L3100.5475, L101.9900, L100.0100, L503.6550, L3100.3450, L500.4050, L505.7010, L501.9520, L501.2450 #### [facility] [address] [place], [place], [address] Hematocrit Auto (Bld) [Volum e fraction]Ordered By: Henok Watkins on 03-04-2025 Hematocrit (Bld) [Volume fraction] 42.2 % 40-54 [facility] Hemoglobin measurementOrdere d By: Henok Watkins on 03-04-2025 Hemoglobin (Bld) [Mass/Vol] 14.2 g/dL 13.0-16.5 [facility] Immature granulocytes/100 WB C Auto (Bld)Ordered By: Henok Watkins on 03-04-2025 Immature granulocytes/100 WBC (Bld) 0.400 % 0.0-0.9 [facility] Comment on above: IG% - Immature Granu locytes (promyelocytes, myelocytes and metamyelocytes) > 1% indicates that a LEFT SHIFT is Present. L509.3001Ordered By: Bimal Watkins on 03-04-2025 Testosterone [Mass/Vol] 83.10 ng/dL Low 300-720 [facility] Comment on above: Order Comment: Order Date: 01/16/25 Order Info: 0786-1 - CMP Order Info: 1798-8 - RADHA Order Info: 3040-3 - LIPASE Order Info: 3016-3 - TSH Order Info: 0783-1 - PSAD Order Info: 2276-4 - ROBE Order Info: 21964-2 - RA Performed By: #### L 509.3001, L7000.0750, L506.1001 #### [facility] [address] [place], [place], [address] Lipase measurementOrdered By : Henok Watkins on 03-04-2025 Lipase [Catalytic activity/Vol] 99 U/L High 13-75 [facility] Comment on above: Please note:LIPASE r evised reference range effective 23. New Lipase methodology. Expected to produce lower values than the previous assay method. NEW Reference Range: 13 - 75 U/L Order Comment: Order Date: 01/16/25Order Info: 0786-1 - CMPOrder Info: 1798-8 - AMYOrder Info: 3040-3 - LIPASEOrder Info: 3016-3 - TSHOrder Info: 0783-1 - PSADOrder Info: 2276-4 - FEROrder Info: [id number] - RA Result Comment: Plea se note: LIPASE revised reference range effective 23. New Lipase methodology. Expected to produce lower values than the previous assay method. NEW Reference Range: 13 - 75 U/L Performed By: #### M 100.637, M600.5000 #### [facility] [address] [place], [address] MCV (mean corpuscular volume ) determinationOrdered By: Henok Watkins on 03-04-2025 MCV (RBC) [Entitic vol] 90.2 fL 80-[address] [facility] Mean corpuscular hemoglobin (MCH) determinationOrdered By: Henok Watkins on 03-04-2025 MCH (RBC) [Entitic mass] 30.3 pg 27.0-32.0 [facility] Mean corpuscular hemoglobin concentration (MCHC) determinationOrdered By: Henok Watkins on 03-04-2025 MCHC (RBC) [Mass/Vol] 33.6 g/dL 32-36 [facility] Mean platelet volume determi nationOrdered By: Henok Watkins on 03-04-2025 Platelet mean volume (Bld) [Entitic vol] 9.3 fL 6.2-12.0 [facility] Monocyte percentageOrdered B y: Henok Watkins on 03-04-2025 Monocytes/100 WBC (Bld) 8.7 % 0-[address] [facility] Neutrophil percentageOrdered By: Henok Watkins on 03-04-2025 Neutrophils/100 WBC (Bld) 65.1 % 47-70 [facility] No Panel InformationOrdered By: Henok Watkins on 03-04-2025 Addendum Document Comment . [facility] Comment on above: The SPE pattern appe ars unremarkable. Evidence ofmonoclonal protein is not apparent. Nucleated red blood cell per centageOrdered By: Henok Watkins on 03-04-2025 Nucleated RBC/100 WBC (Bld) [Ratio] 0 % 0-5 [facility] PSA,Total- Diagnosticon 06-0 PSA, DIAGNOSTIC 2.04 ng/mL Normal 0.00-4.00 [facility] Comment on above: Order Comment: Order Date: 01/16/25Order Info: 0786-1 - CMPOrder Info: 1798-8 - AMYOrder Info: 3040-3 - LIPASEOrder Info: 3016-3 - TSHOrder Info: 0783-1 - PSADOrder Info: 2276-4 - FEROrder Info: [id number] - RA Result Comment: This test was performed using the [employer] tPSA method. Measured values of a patient??sample can vary depending on the testing procedure used. PSA values determined on patient samples by different testing procedures cannot be used interchangeably. If there is a change in PSA assays while monitoring therapy, sequential testing should be performed to confirm baseline values. Performed By: #### L 501.9940 ####[facility] [address] [place], [address] Platelet countOrdered By: Stephanie Watkins on 03-04-2025 Platelets (Bld) [#/Vol] 196 10*3/uL 150-450 [facility] Potassium measurement (mass/ volume)Ordered By: Henok Watkins on 03-04-2025 Potassium (Unsp spec) [Mass/Vol] 4.2 mmol/L 3.3-5.1 [facility] Protein Fractions Elph [Inte rp]Ordered By: Henok Watkins on 03-04-2025 Protein Fractions [Interp] Comment . [facility] Comment on above: Protein electrophore sis scan will follow via computer,mail, or interpreter deaf delivery. RBC Auto (Bld) [#/Vol]Ordere d By: Henok Watkins on 03-04-2025 RBC (Bld) [#/Vol] 4.68 10*6/uL 4.6-6.2 [facility] Rheumatoid Factoron 03-04-20 25 RHEUMATOID FAC < 10.0 Normal <15 [facility] Comment on above: Order Comment: Order Date: 01/16/25Order Info: 0786-1 - CMPOrder Info: 1798-04 - AMYOrder Info: 0-3 - LIPASEOrder Info: 3 - TSHOrder Info: 782-09 - PSADOrder Info: 2275-12 - FEROrder Info: [id number] - RA Performed By: #### M 100.637, M600.5000 #### [facility] [address] [place], [address] Serum albumin to globulin ra anupama by protein electrophoresisOrdered By: Henok Watkins on 03-04-2025 Albumin/Globulin Elph [Mass ratio] 1.6 0.7-1.7 [facility] Serum creatinine measurement (mass/volume)Ordered By: Henok Watkins on 03-04-2025 Creatinine [Mass/Vol] 0.75 mg/dL Normal 0.70-1.20 [facility] Comment on above: Order Comment: Order Date: 01/16/25 Order Info: 0786-1 - CMP Order Info: 1798-04 - RADHA Order Info: 3 - LIPASE Order Info: 3015-11 - TSH Order Info: 07- - PSAD Order Info: 2275-12 - ROBE Order Info: 07540-6 - RA Performed By: #### L 501.2400, L3100.5475, L101.9900, L100.0100, L503.6550, L3100.3450, L500.4050, L505.7010, L501.9520, L501.2450 #### [facility] [address] [place], [address] Serum globulin measurementOr dered By: Henok Watkins on 03-04-2025 Globulin (S) [Mass/Vol] 2.2 g/dL Normal 2.2-4.[address] [facility] Comment on above: Order Comment: Order Date: 01/16/25 Order Info: 0786-1 - CMP Order Info: 8 - RADHA Order Info: 3040-3 - LIPASE Order Info: 3 - TSH Order Info: 782-09 - PSAD Order Info: 2275-12 - ROBE Order Info: 49023-2 - RA Performed By: #### L 501.2400, L3100.5475, L101.9900, L100.0100, L503.6550, L3100.3450, L500.4050, L505.7010, L501.9520, L501.2450 #### [facility] [address] [place], [address] Serum globulin measurement ( mass/volume)Ordered By: Henok Watkins on 03-04-2025 Globulin (S) [Mass/Vol] 2.4 g/dL 2.2-3.[address] [facility] Serum glucose measurement (m ass/volume)Ordered By: Henok Watkins on 03-04-2025 Glucose [Mass/Vol] 88 mg/dL Normal 70-99 [facility] Comment on above: Order Comment: Order Date: 01/16/25 Order Info: 0786-1 - CMP Order Info: 1798-04 - RADHA Order Info: 3040-3 - LIPASE Order Info: 3015-11 - TSH Order Info: 07 - PSAD Order Info: 2275-12 - ROBE Order Info: 07804-4 - RA Performed By: #### L 501.2400, L3100.5475, L101.9900, L100.0100, L503.6550, L3100.3450, L500.4050, L505.7010, L501.9520, L501.2450 #### [facility] [address] [place], [address] Serum or plasma alanine torres otransferase (ALT) measurementOrdered By: Henok Watkins on 03-04-2025 ALT [Catalytic activity/Vol] 18 U/L Normal <=46 [facility] Comment on above: Order Comment: Order Date: 01/16/25 Order Info: 0786- - CMP Order Info: 1798-04 - RADHA Order Info: 0-3 - LIPASE Order Info: 3015-11 - TSH Order Info: 782-09 - PSAD Order Info: 2275-12 - ROBE Order Info: 74685-4 - RA Performed By: #### L 501.2400, L3100.5475, L101.9900, L100.0100, L503.6550, L3100.3450, L500.4050, L505.7010, L501.9520, L501.2450 #### [facility] [address] [place], [place], [address] Serum or plasma albumin jhoan urement (mass/volume)Ordered By: Henok Watkins on 03-04-2025 Albumin [Mass/Vol] 4.2 g/dL Normal 3.4-4.8 [facility] Comment on above: Order Comment: Order Date: 01/16/25 Order Info: 07 - CMP Order Info: 1798-04 RADHA Order Info: 03 - LIPASE Order Info: 3015-11 - TSH Order Info: 782-09 - PSAD Order Info: 2275-12 - ROBE Order Info: [id number] - RA Performed By: #### L 501.2400, L3100.5475, L101.9900, L100.0100, L503.6550, L3100.3450, L500.4050, L505.7010, L501.9520, L501.2450 #### [facility] [address] [place], [place], [address] Serum or plasma albumin/glob ulin mass ratioOrdered By: Henok Watkins on 03-04-2025 Albumin/Globulin [Mass ratio] 1.9 {ratio} Normal 0.9-2.4 [facility] Comment on above: Order Comment: Order Date: 01/16/25 Order Info: 0786-1 - CMP Order Info: 1798-04 - RADHA Order Info: 3040-3 - LIPASE Order Info: 3015-11 - TSH Order Info: 782-09 - PSAD Order Info: 2275-12 - ROBE Order Info: 82730-7 - RA Performed By: #### L 501.2400, L3100.5475, L101.9900, L100.0100, L503.6550, L3100.3450, L500.4050, L505.7010, L501.9520, L501.2450 #### [facility] [address] [place], [address] Serum or plasma alkaline delonte sphatase measurementOrdered By: Henok Watkins on 03-04-2025 ALP [Catalytic activity/Vol] 94 U/L 40-129 [facility] Serum or plasma amylase jhoan urement (enzymatic activity/volume)Ordered By: Henok Watkins on 03-04-2025 Amylase [Catalytic activity/Vol] 131 U/L High 28-100 [facility] Serum or plasma beta globuli n measurement by electrophoresis (mass/volume)Ordered By: Henok Watkins on 03-04-2025 Beta globulin Elph [Mass/Vol] 0.8 g/dL 0.7-1.3 [facility] Serum or plasma calcium jhoan urement (mass/volume)Ordered By: Henok Watkins on 03-04-2025 Calcium [Mass/Vol] 9.0 mg/dL Normal 7.6-11.0 [facility] Comment on above: Order Comment: Order Date: 01/16/25 Order Info: 0786-1 - CMP Order Info: 1798-8 - RADHA Order Info: 3040-3 - LIPASE Order Info: 3016-3 - TSH Order Info: 0783-1 - PSAD Order Info: 2276-4 - ROBE Order Info: 57875-7 - RA Performed By: #### L 501.2400, L3100.5475, L101.9900, L100.0100, L503.6550, L3100.3450, L500.4050, L505.7010, L501.9520, L501.2450 #### [facility] [address] [place], [place], [address] Serum or plasma ferritin eron surement (mass/volume)Ordered By: Henok Watkins on 03-04-2025 Ferritin [Mass/Vol] 75 ng/mL Normal 37-417 [facility] Comment on above: Order Comment: Order Date: 01/16/25Order Info: 0786-1 - CMPOrder Info: 1798-04 - AMYOrder Info: 0-3 - LIPASEOrder Info: 3 - TSHOrder Info: 782- - PSADOrder Info: 2275-12 - FEROrder Info: 00805-1 - RA Performed By: #### M 100.637, M600.5000 #### [facility] [address] [place], [place], [address] Serum or plasma protein jhoan urement (mass/volume)Ordered By: Henok Watkins on 03-04-2025 Protein [Mass/Vol] 6.3 g/dL 6.0-8.5 [facility] Serum or plasma protein mono clonal measurement by electrophoresis (mass/volume)Ordered By: Henok Watkins on 03-04-2025 Protein.monoclonal Elph [Mass/Vol] Not Observed g/dL Not Observed [facility] Serum or plasma urea nitroge n measurement (mass/volume)Ordered By: Henok Watkins on 03-04-2025 Urea nitrogen [Mass/Vol] 16 mg/dL Normal 4-19 [facility] Comment on above: Order Comment: Order Date: 01/16/25 Order Info: 0786-1 - CMP Order Info: 1798-04 - RADHA Order Info: 0-3 - LIPASE Order Info: 3 - TSH Order Info: 782- - PSAD Order Info: 2275-12 - ROBE Order Info: 20248-9 - RA Performed By: #### L 501.2400, L3100.5475, L101.9900, L100.0100, L503.6550, L3100.3450, L500.4050, L505.7010, L501.9520, L501.2450 #### [facility] [address] [place], [place], [address] Serum rheumatoid factor dete ctionOrdered By: Henok Watkins on 03-04-2025 Rheumatoid factor Ql (S) < 10.0 IU/mL <15 [facility] Sodium levelOrdered By: Crow silke June on 03-04-2025 Sodium [Moles/Vol] 139 mmol/L Normal 133-145 [facility] Comment on above: Order Comment: Order Date: 01/16/25 Order Info: 0786-1 - CMP Order Info: 1798-8 - RADHA Order Info: 3040-3 - LIPASE Order Info: 3016-3 - TSH Order Info: 0783-1 - PSAD Order Info: 2276-4 - ROBE Order Info: 33692-1 - RA Performed By: #### L 501.2400, L3100.5475, L101.9900, L100.0100, L503.6550, L3100.3450, L500.4050, L505.7010, L501.9520, L501.2450 #### [facility] [address] [place] [address], [address] Stool pancreatic elastase me asurement (mass/mass)Ordered By: Henok Watkins on 03-04-2025 Elastase.pancreatic (Stl) [Mass/Mass] > 800 >200 [facility] Comment on above: Result Units: ug Gloria st./g Severe Pancreatic Insufficiency: <100 Moderate Pancreatic Insufficiency: 100 - 200 Normal: >200Performed at: - [facility] [address] [id number] Director: Hever Lake PhD, Phone: [phone] at: - [facility] [address] [id number] Director: Cordelia Painting MD, Phone: [phone] TSH DL <= 0.005 mIU/L QnOrde red By: Henok Watkins on 03-04-2025 TSH Qn 0.445 uIU/mL 0.300-4.200 [facility] Thyroid Stim Hormone (TSH)on 03-04-2025 TSH 0.445 uIU/mL Normal 0.300-4.200 [facility] Comment on above: Order Comment: Order Date: 04/23/25Order Info: 785- - CMPOrder Info: 1798-04 - AMYOrder Info: 0-3 - LIPASEOrder Info: 3 - TSHOrder Info: 782- - PSADOrder Info: 2275-12 - FEROrder Info: [id number] - RA Performed By: #### M 100.637, M600.5000 #### [facility] [address] [place], [place], [address] Total proteinOrdered By: Inocente Watkins on 03-04-2025 Protein [Mass/Vol] 6.4 g/dL 5.9-8.4 [facility] Vitamin D,25 Hydroxyon 03-04 Vitamin D 25-OH 33.5 ng/mL Normal 30-100 [facility] Comment on above: Order Comment: Order Date: 01/16/25 Order Info: 785- - CMP Order Info: 1798-04 - RADHA Order Info: 3 - LIPASE Order Info: 3 - TSH Order Info: 782- - PSAD Order Info: 2275-12 - ROBE Order Info: [id number] - RA Result Comment: Dori min D Status Deficiency: <20 ng/mL (50nmol/L) Insufficiency: 20-30 ng/mL (50-75 nmol/L) Sufficiency: 30-100 ng/mL (75-250 nmol/L) Toxicity: >100 ng/mL (>250 nmol/L) Performed By: #### L 509.3001, L7000.0750, L506.1001 #### [facility] [address] [place], [place], [address] White blood cell (WBC) count Ordered By: Henok Watkins on 03-04-2025 WBC (Bld) [#/Vol] 5.4 10*3/uL 4.4-11.0 [facility] Urgent Care Visit Reporton 0 02-24-2025 Urgent Care Visit Report [facility] [address], [address] [place], [place] [address] OFFICE VISIT Date of Service: 02/24/25 MR#: [id number] Acct: [id number] Name: ALBINO WASHBURN Rep #: [id number] : 1965 Provider: SAMARIA cain Age/Sex: 59/M Location: [facility] Status: Signed Intake Vital Signs 09/16/24 09:05 02/24/25 10:00 Height 6 ft BP 118/70 112/70 Blood Pressure Location Rt brachial Lt brachial Position Sitting Sitting Respiration 12 14 Pulse 68 Pulse Source NIBP Temp 98.2 F 98.7 F Temp Source Oral Oral Pulse Oximetry (%) 98 96 Oxygen Delivery Method room air room air Intake Visit Reasons: HEADACHE, EAR PAIN Chief Complaint: BARTLETT, face/ear pain Corporate Associate Required: No Is patient in pain?: Yes Allergies cephalexin monohydrate (From Keflex) Allergy (Verified 02/24/25 10:00) Rash Penicillins Allergy (Verified 02/24/25 10:00) Rash Tetracyclines Allergy (Verified 02/24/25 10:00) Rash Medications ???Medication ???Instructions ???Recorded ???Confirmed ???Type pregabalin 150 mg capsule (Lyrica) 100 mg PO TID 07/29/16 09/17/22 History testosterone undecanoate 158 mg 158 mg PO BID 05/06/24 05/06/24 Hi story capsule (Jatenzo) celecoxib 200 mg capsule 200 mg PO QDAY 09/16/24 09/16/24 H istory tizanidine 4 mg tablet 4 mg PO BID 09/16/24 09/16/24 Hist ory levofloxacin 750 mg tablet 750 mg PO DAILY 7 days #7 tabs 10/2002/24/25 Rx Have you fallen in the past year?: No Nurse's Note: BARTLETT, face/ear pain for over 1 week without resolve. denies cough, fever. [facility] Medical History (Updated 09/16/24 @ 11:[address] ATTENDANT, SAMARIA) Injury of back PONV (postoperative nausea and vomiting) Back pain Difficulty swallowing History of IBS Non-smoker Leg cramps History of edema Bilateral carpal tunnel syndrome Arthritis Gastric reflux Surgical History (Updated 08/07/24 @ 09:03 by Ofe Francis) History of sinus surgery History of elbow surgery History of left knee surgery History of colonoscopy History of selective injection of anesthetic agent around lumbar nerve root Hx of shoulder surgery History of back surgery Family History (Updated 05/06/24 @ 09:30 by Romelia Malagon) Other Prostate cancer Social History Smoking Status: Never smoker HPI HPI Chief Complaint: BARTLETT, face/ear pain Details: ALBINO WASHBURN, is a 59 M who presents to the office today for concerns regarding headache, face pain, and sinus pressure for 1 week. He denies cough or fever. ROS Const Constitutional: Positive for headache(s); No body ache, chills, fatigue, fever(s) or change in appetite Eyes Eyes: No blurry vision, change in vision, double vision, irritation, discharge, vision loss, dry eyes, bulging eyes, floaters, visual disturbances, eye pain, Light sensitivity, spots in vision, tunnel vision or other ENT ENT: Positive for sinus pressure, sinus pain, headache(s) and facial pain; No ear or mastoid pain, ear discharge, ear pressure, tinnitus, dizziness/vertigo, nosebleed/epistaxis, nasal congestion, nose pain, nasal discharge, post nasal drip, dental pain, difficulty swallowing, bad breath, hoarseness, lip swelling, mouth lesions, mouth pain, neck pain, sore throat, tongue swelling or throat swelling Resp Respiratory: No cough, change in phlegm color, chest congestion, hemoptysis, pain on inspiration, shortness of breath, pain with cough, stridor or wheezing Cardio Cardiology: No chest pain at rest, chest pain with exertion, shortness of breath, dyspnea on exertion or lightheadedness Gastro GI: No abdominal pain, change in bowel habits or difficulty swallowing Genitourinary Male: No burning urination or urinary frequency Musc Musculoskeletal: No joint pain or neck pain Skin Skin: No rash Neuro Neurology: Positive for headache(s); No visual disturbances Psych Psychiatric: No change in appetite Endo Endocrine: No fatigue Aller/Imm Allergy/Immunologic: No lip swelling, throat swelling, tongue swelling or wheezing Exam Const General: cooperative, healthy appearing, comfortable and no acute distress Orientation: alert, awake and oriented x3 HENMT Head: normal to inspection and normocephalic Ears: hearing grossly normal bilaterally, external ears normal and TM's normal bilaterally Nose: external nose normal, nares normal and no nasal discharge Face and sinus: normal facial exam and sinus tenderness frontal, ethmoid and maxillary Mouth: oral mucosae normal, lip normal, tongue normal, oropharynx normal and moist mucous membranes Throat: posterior oropharynx normal, tonsils normal, uvula midline and no postnasal drainage Eyes General: appearance normal, both eyes and all related structures Neck Ne (more content not included)... Normal [facility] Ova and Parasites 8623on OP Order Date: 01/16/25 Order Info: [id number] - OP OVA AND PARASITES EXAM, ROUTINE These results were obtained using wet preparation(s) and trichrome stained smear. This test does not include testing for Crytosporidium parvum, Cyclospora, or Microsporidia. One negative specimen does not rule out the possibility of a parasitic infection. TESTING PERFORMED AT [facility]. ORIGINAL REPORT ON FILE IN LAB CONTAINS ADDITIONAL TEST SITE INFORMATION. Ova/Parasite Exam NO OVA, CYSTS, OR PARASITES FOUND. Normal [facility] Comment on above: Performed By: #### M 100.637, M600.5000 #### [facility] Laboratory [facility] [address] [place], [address] ENTERIC PATHOGEN PANEL STOOL on 01-28-2025 EP PANEL Order Date: 01/16/25 Order Info: 625-4 - CUST Order Info: 2335-8 - GASTOC Normal Reference Range = Not Detected Nucleic acid amplification test method Not detected for Campylobacter group, Salmonella species, Shigella species, Vibrio Group, Yersinia enterocolitica, EHEC (Shiga Toxin 1, Shiga Toxin 2), Norovirus Gl/Gll, and Rotavirus A. Other common stool pathogens are not detected on this panel include: Aeromonas/Plesiomonas or parasites. Order testing for these organisms separately if suspected. This is an amplified DNA test which makes it both specific and sensitive. CAMPYLOBACTER Not Detected Norovirus Not Detected Rotavirus Not Detected Salmonella Not Detected Shiga Toxin Not Detected Shigella sp. Not Detected VIBRIO Not Detected Yersinia Not Detected Normal [facility] Comment on above: Performed By: #### M 100.637, M600.5000 #### [facility] Laboratory [address] [place], [place], [address] Stool Occult Blood iFOBon STOB Order Date: 01/16/25 Order Info: [id number] - CUST Order Info: [id number] - GASTOC Occult Blood Negative Normal [facility] Comment on above: Performed By: #### L 500.2500 #### [facility] Laboratory [address] [facility]. [place], [place], [address] Stool gastrointestinal hemog lobin detection by immunologic methodOrdered By: Henok Watkins on 01-28-2025 Lower GI hemoglobin IA Ql (Stl) [facility] Absolute lymphocyte countOrd ered By: GinnyBintaLiban Lori on 01-16-2025 Lymphocytes Auto (Unsp spec) [#/Vol] 1.41 10*3/uL 0.83-4.51 [facility] Absolute neutrophil countOrd ered By: GinnyBintaLiban Beauchamput on 01-16-2025 Neutrophils (Bld) [#/Vol] 4.4 10*3/uL 2.0-7.7 [facility] Automated lymphocyte count a s percentage of total leukocytesOrdered By: Tami Sandoval on 01-16-2025 Lymphocytes/100 WBC Auto (Unsp spec) 21.5 % - [facility] Basophil percentageOrdered B y: GinnyBintaLiban Lori on 01-16-2025 Basophils/100 WBC (Bld) 0.5 % 0-[address] [facility] CBC W/Diff, Automatedon 12-26 Absolute Lymph 1.41 X10 3/uL Normal 0.83-4.51 [facility] Comment on above: Performed By: #### L 501.9940, L3100.5310, L509.3001, L100.0100 ####[facility] [address] [place], [address] Absolute Neut 4.4 X10 3/uL Normal 2.0-7.7 [facility] Comment on above: Performed By: #### L 501.9940, L3100.5310, L509.3001, L100.0100 ####[facility] [address] [place], [address] Basophils/100 WBC (Bld) 0.5 % Normal 0-[address] [facility] Comment on above: Performed By: #### L 501.9940, L3100.5310, L509.3001, L100.0100 ####[facility] [address] [place], [address] Eosinophils/100 WBC (Bld) 1.4 % Normal 0-5 [facility] Comment on above: Performed By: #### L 501.9940, L3100.5310, L509.3001, L100.0100 ####[facility] [address] [place], [address] Erythrocyte distribution width (RBC) [Ratio] 12.2 % Normal 11.6-14.6 [facility] Comment on above: Performed By: #### L 501.9940, L3100.5310, L509.3001, L100.0100 ####[facility] [address] [place], [address] Hematocrit (Bld) [Volume fraction] 42.4 % Normal 40-54 [facility] Comment on above: Performed By: #### L 501.9940, L3100.5310, L509.3001, L100.0100 ####[facility] [address] [place], [address] Hemoglobin (Bld) [Mass/Vol] 14.2 g/dL Normal 13.0-16.5 [facility] Comment on above: Performed By: #### L 501.9940, L3100.5310, L509.3001, L100.0100 ####[facility] [address] [place], [address] IG% 0.300 Normal 0.0-0.9 [facility] Comment on above: Result Comment: IG% - Immature Granulocytes (promyelocytes, myelocytes and metamyelocytes) > 1% indicates that a LEFT SHIFT is Present. Performed By: #### L 501.9940, L3100.5310, L509.3001, L100.0100 ####[facility] [address] [place], [address] Lymphocytes/100 WBC (Bld) 21.5 % Normal 19-41 [facility] Comment on above: Performed By: #### L 501.9940, L3100.5310, L509.3001, L100.0100 ####[facility] [address] [place], [address] MCH (RBC) [Entitic mass] 30.2 pg Normal 27.0-32.0 [facility] Comment on above: Performed By: #### L 501.9940, L3100.5310, L509.3001, L100.0100 ####[facility] [address] [place], [address] MCHC (RBC) [Mass/Vol] 33.5 g/dL Normal 32-36 [facility] Comment on above: Performed By: #### L 501.9940, L3100.5310, L509.3001, L100.0100 ####[facility] [address] [place], [address] MCV (RBC) [Entitic vol] 90.2 fL Normal 80-[address] [facility] Comment on above: Performed By: #### L 501.9940, L3100.5310, L509.3001, L100.0100 ####[facility] [address] [place], [address] Monocytes/100 WBC (Bld) 9.0 % Normal 0-[address] [facility] Comment on above: Performed By: #### L 501.9940, L3100.5310, L509.3001, L100.0100 ####[facility] [address] [place], [address] Neutrophils/100 WBC (Bld) 67.3 % Normal 47-70 [facility] Comment on above: Performed By: #### L 501.9940, L3100.5310, L509.3001, L100.0100 ####[facility] [address] [place], [address] Nucleated RBC (Bld) [#/Vol] 0 10*3/uL Normal 0-5 [facility] Comment on above: Performed By: #### L 501.9940, L3100.5310, L509.3001, L100.0100 ####[facility] [address] [place], [address] Platelet mean volume (Bld) [Entitic vol] 9.3 fL Normal 6.2-12.0 [facility] Comment on above: Performed By: #### L 501.9940, L3100.5310, L509.3001, L100.0100 ####[facility] [address] [place], [address] Platelets (Bld) [#/Vol] 208 10*3/uL Normal 150-450 [facility] Comment on above: Performed By: #### L 501.9940, L3100.5310, L509.3001, L100.0100 ####[facility] [address] [place], [address] RBC (Bld) [#/Vol] 4.70 10*6/uL Normal 4.6-6.2 [facility] Comment on above: Performed By: #### L 501.9940, L3100.5310, L509.3001, L100.0100 ####[facility] [address] [place], [address] RDW SD 40.7 fl Normal 35.1-43.9 [facility] Comment on above: Performed By: #### L 501.9940, L3100.5310, L509.3001, L100.0100 ####[facility] [address] [place], [address] WBC (Bld) [#/Vol] 6.6 10*3/uL Normal 4.4-11.0 [facility] Comment on above: Performed By: #### L 501.9940, L3100.5310, L509.3001, L100.0100 ####[facility] [address] [facility] [facility] [address] [place], [address] Diagnostic total prostate sp ecific antigen (PSA) measurementOrdered By: Tami Sandoval on 01-16-2025 Prostate Specific Antigen Total 1.72 ng/mL 0.00-4.00 [facility] Comment on above: This test was perfor med using the [employer] tPSA method. Measured values of a patient sample can vary depending on the testing procedure used. PSA values determined on patient samples by different testing procedures cannot be used interchangeably. If there is a change in PSA assays while monitoring therapy, sequential testing should be performed to confirm baseline values. Eosinophil percentageOrdered By: Tami Sandoval on 01-16-2025 Eosinophils/100 WBC (Bld) 1.4 % 0-5 [facility] Erythrocyte distribution wid th (RBC) [Ratio]Ordered By: Tami Sandoval on 01-16-2025 Erythrocyte distribution width (RBC) [Entitic vol] 40.7 fL 35.1-43.9 [facility] Erythrocyte distribution wid th ratioOrdered By: Tami Sandoval on 01-16-2025 Erythrocyte distribution width (RBC) [Ratio] 12.2 % 11.6-14.6 [facility] Erythrocyte distribution wid th standard deviationOrdered By: Tami Sandoval on 01-16-2025 Erythrocyte distribution width (RBC) [Ratio] 40.7 fl 35.1-43.9 [facility] Hematocrit Auto (Bld) [Volum e fraction]Ordered By: Tami Sandoval on 01-16-2025 Hematocrit (Bld) [Volume fraction] 42.4 % 40-54 [facility] Hemoglobin measurementOrdere d By: Tami Sandoval on 01-16-2025 Hemoglobin (Bld) [Mass/Vol] 14.2 g/dL 13.0-16.5 [facility] Immature granulocytes/100 WB C Auto (Bld)Ordered By: Tami Sandoval on 01-16-2025 Immature granulocytes/100 WBC (Bld) 0.300 % 0.0-0.9 [facility] Comment on above: IG% - Immature Granu locytes (promyelocytes, myelocytes and metamyelocytes) > 1% indicates that a LEFT SHIFT is Present. L509.3001on 01-16-2025 Testosterone [Mass/Vol] 123.00 ng/dL Low 300-720 [facility] Comment on above: Order Comment: RAMY Hackett TESTOTERONE Performed By: #### L 501.9940, L3100.5310, L509.3001, L100.0100 ####[facility] [address] [place], [address] Laboratory - Chemistry and C hemistry - challengeOrdered By: Tami Sandoval on 01-16-2025 Testosterone [Mass/Vol] 123.00 ng/dL Low 300-720 [facility] Lymphocytes Auto (Unsp spec) [#/Vol]Ordered By: Tami Sandoval on 01-16-2025 Lymphocytes (Bld) [#/Vol] 1.41 10*3/uL 0.83-4.51 [facility] Lymphocytes/100 WBC Auto (Un sp spec)Ordered By: Tami Sandoval on 01-16-2025 Lymphocytes/100 WBC (Bld) 21.5 % 19-41 [facility] MCV (mean corpuscular volume ) determinationOrdered By: Tami Sandoval on 01-16-2025 MCV (RBC) [Entitic vol] 90.2 fL 80-94 [facility] Mean corpuscular hemoglobin (MCH) determinationOrdered By: Tami Sandoval on 01-16-2025 MCH (RBC) [Entitic mass] 30.2 pg 27.0-32.0 [facility] Mean corpuscular hemoglobin concentration (MCHC) determinationOrdered By: Tami Sandoval on 01-16-2025 MCHC (RBC) [Mass/Vol] 33.5 g/dL 32-36 [facility] Mean platelet volume determi nationOrdered By: Tami Sandoval on 01-16-2025 Platelet mean volume (Bld) [Entitic vol] 9.3 fL 6.2-12.0 [facility] Monocyte percentageOrdered B y: Tami Sandoval on 01-16-2025 Monocytes/100 WBC (Bld) 9.0 % 0-10 [facility] Neutrophil percentageOrdered By: Tami Sandoval on 01-16-2025 Neutrophils/100 WBC (Bld) 67.3 % 47-70 [facility] Nucleated red blood cell per centageOrdered By: Tami Sandoval on 01-16-2025 Nucleated RBC/100 WBC (Bld) [Ratio] 0 % 0-5 [facility] PSA,Total- Diagnosticon 12-26 PSA, DIAGNOSTIC 1.72 ng/mL Normal 0.00-4.00 [facility] Comment on above: Order Comment: RAMY Hackett TESTOTERONE Result Comment: This test was performed using the [employer] tPSA method. Measured values of a patient??sample can vary depending on the testing procedure used. PSA values determined on patient samples by different testing procedures cannot be used interchangeably. If there is a change in PSA assays while monitoring therapy, sequential testing should be performed to confirm baseline values. Performed By: #### L 501.9940, L3100.5310, L509.3001, L100.0100 ####[facility] [address] [place], [address] Platelet countOrdered By: Oswaldo Sandoval on 01-16-2025 Platelets (Bld) [#/Vol] 208 10*3/uL 150-450 [facility] RBC Auto (Bld) [#/Vol]Ordere d By: Tami Sandoval on 01-16-2025 RBC (Bld) [#/Vol] 4.70 10*6/uL 4.6-6.2 [facility] Testosterone, Total / Freeon 01-16-2025 TESTOSTER,FREE Normal [facility] Comment on above: Order Comment: N Result Comment: ERRO R WRONG TEST Performed By: #### L 501.9940, L3100.5310, L509.3001, L100.0100 ####[facility] [address] [place], [address] TESTOSTER,TOTAL Normal [facility] Comment on above: Order Comment: N Result Comment: ERRO R WRONG TEST Performed By: #### L 501.9940, L3100.5310, L509.3001, L100.0100 ####[facility] [address] [place], [address] TESTOSTERONE,%F Normal 1.0-2.70 [facility] Comment on above: Order Comment: N Result Comment: ERRO R WRONG TEST Performed By: #### L 501.9940, L3100.5310, L509.3001, L100.0100 ####[facility] [address] [place], [address] White blood cell (WBC) count Ordered By: Tami Sandoval on 01-16-2025 WBC (Bld) [#/Vol] 6.6 10*3/uL 4.4-11.0 [facility] Urgent Care Visit Reporton 1 11-17-2023 Urgent Care Visit Report [facility] [address], [address] [place], [place] [address] OFFICE VISIT Date of Service: 09/16/24 MR#: [id number] Acct: [id number] Name: ALBINO WASHBURN Rep #: [id number] : 1965 Provider: COURT ATTENDANT-C Liban H Lakisha f Age/Sex: 59/M Location: [facility] Status: Signed Intake Vital Signs 05/06/24 09:42 09/16/24 09:05 Height 6 ft 6 ft BP 118/70 Blood Pressure Location Rt brachial Position Sitting Respiration 12 Temp 98.2 F Temp Source Oral Pulse Oximetry (%) 98 Oxygen Delivery Method room air Intake Visit Reasons: EAR PAIN Chief Complaint: bilateral ear pain, left ear swollen Corporate Associate Required: No Is patient in pain?: No Allergies cephalexin monohydrate (From Keflex) Allergy (Verified 09/16/24 10:43) Rash Penicillins Allergy (Verified 09/16/24 10:43) Rash Tetracyclines Allergy (Verified 09/16/24 10:43) Rash Medications ???Medication ???Instructions ???Recorded ???Confirmed ???Type pregabalin 150 mg capsule (Lyrica) 100 mg PO TID 07/29/16 09/17/22 History testosterone undecanoate 158 mg 158 mg PO BID 05/06/24 05/06/24 History capsule (Jatenzo) azithromycin 250 mg tablet See Rx Instructions PO .COMPLEX #6 09/16/24 09/16/24 Rx (Zithromax Z-Otoniel) tabs celecoxib 200 mg capsule 200 mg PO QDAY 09/16/24 09/16/24 History eelwsaqj-qqkliujfq-yyewwe ort 3.5 4 drp otic (ear) Q8H 10 days #10 mL 09/16/24 09/16/24 Rx mg/mL-10,000 unit/mL-1 % ear solution tizanidine 4 mg tablet 4 mg PO BID 09/16/24 09/16/24 History PFSH Medical History (Updated 09/16/24 @ 11:[address] ATTENDANT, COURT ATTENDANT-C) Injury of back PONV (postoperative nausea and vomiting) Back pain Difficulty swallowing History of IBS Non-smoker Leg cramps History of edema Bilateral carpal tunnel syndrome Arthritis Gastric reflux Surgical History (Updated 08/07/24 @ 09:03 by Ofe Francis) History of sinus surgery History of elbow surgery History of left knee surgery History of colonoscopy History of selective injection of anesthetic agent around lumbar nerve root Hx of shoulder surgery History of back surgery Family History (Updated 05/06/24 @ 09:30 by Romelia Malagon) Other Prostate cancer Social History Smoking Status: Never smoker HPI HPI Chief Complaint: bilateral ear pain, left ear swollen Details: ALBINO WASHBURN, is a 59 M who presents to the office today for bilat ear pain, left ear swollen x1 week. He states yesterday he noted left ear swollen and redness. He denies known sick contacts. ROS Const Constitutional: Positive for body ache, chills, headache(s) and sleep problems (not great); No fatigue, fever(s) or change in appetite Eyes Eyes: Positive for Light sensitivity and other (redness); No blurry vision, change in vision, double vision, irritation, discharge, vision loss, dry eyes, bulging eyes, floaters, visual disturbances, eye pain, spots in vision or tunnel vision ENT ENT: Positive for abnormal hearing (less than usual), ear or mastoid pain, ear pressure, tinnitus, balance problems, nasal congestion, sinus pressure, sinus pain, nasal discharge, headache(s), hoarseness and sore throat; No ear discharge, hearing loss, dizziness/vertigo, nosebleed/epistaxis, nose pain, post nasal drip, facial pain, dental pain, difficulty swallowing, bad breath, lip swelling, mouth lesions, mouth pain, neck pain, tongue swelling or throat swelling Resp Respiratory: No cough, change in phlegm color, chest congestion, hemoptysis, pain on inspiration, shortness of breath, pain with cough, stridor or wheezing Cardio Cardiology: Positive for chest pain at rest (constant); No chest pain with exertion, shortness of breath, dyspnea on exertion or lightheadedness Gastro GI: No abdominal pain, change in bowel habits, constipation, diarrhea, difficulty swallowing, nausea/dyspepsia or vomiting Genitourinary Male: No burning urination or urinary frequency Musc Musculoskeletal: No joint pain or neck pain Skin Skin: No rash Neuro Neurology: Positive for abnormal hearing (less than usual) and headache(s); No visual disturbances Psych Psychiatric: No change in appetite Endo Endocrine: No fatigue Aller/Imm Allergy/Immunologic: No lip swelling, throat swelling, tongue swelling or wheezing Exam Const General: cooperative, healthy appearing, comfortable and no acute distress Orientation: alert, awake and oriented x3 HENMT Head: normal to inspection and normocephalic Ears: hearing grossly normal bilaterally, TM's normal bilaterally and external ear abnormal auricular tenderness and other (Left-redness, swelling) Nose: external nose normal, nares normal and no nasal discharge Face and sinus: normal facial exam and sinuses nontender Mo (more content not included)... Normal [facility] PSA,Total - Annual Screenon 08-07-2024 PSA,TOT SCREEN 2.20 ng/mL Normal 0.00-4.00 [facility] Comment on above: Result Comment: This test was performed using the TPSA assay method for the [employer] chemistry system. Values obtained with different assay methods cannot be used interchangably. When changing PSA assays in the course of monitoring a patient, additional sequential testing should be carried out to confirm baseline values. Performed By: #### M 100.637, M600.5000 #### [facility] Laboratory [address] [place], [place], [address] Testosterone, Serum Totalon 08-07-2024 Testosterone [Mass/Vol] 76.58 ng/dL Normal [facility] Comment on above: Result Comment: CENT RAL 90% REFERENCE RANGES MALE AGE <50 197.44 - 669.58 ng/dL MALE AGE > or = 50 187.72 - 684.19 ng/dL FEMALE AGE <50 8.38 - 35.01 ng/dL FEMALE AGE > or = 50 <7.00 - 35.92 ng/dL Effective as of 04/21/21 Performed By: #### M 100.637, M600.5000 #### [facility] Laboratory [address] [place], [place], [address] Urgent Care Visit Reporton 1 10-07-2023 Urgent Care Visit Report [facility] [address], [address] [place], [place] [address] OFFICE VISIT Date of Service: 08/07/24 MR#: [id number] Acct: [id number] Name: ALBINO WASHBURN Rep #: [id number] : 1965 Provider: FLORY Brewster Age/Sex: 59/M Location: [facility] Status: Signed Intake Vital Signs 05/06/24 09:42 08/07/24 09:01 Height 6 ft Weight: 177 lb 6 oz BMI 24.0 BP 132/70 H 132/68 H Blood Pressure Location Lt brachial Rt brachial Position Sitting Sitting Respiration 16 16 Pulse 68 75 Pulse Source Monitor NIBP Temp 99.8 F H 98.5 F Temp Source Temporal Oral Pulse Oximetry (%) 97 100 Oxygen Delivery Method room air room air Intake Visit Reasons: BILAT EAR PAIN Chief Complaint: bilateral ear pain Corporate Associate Required: No Is patient in pain?: Yes Allergies cephalexin monohydrate (From Keflex) Allergy (Verified 08/07/24 09:02) Rash Penicillins Allergy (Verified 08/07/24 09:02) Rash Tetracyclines Allergy (Verified 08/07/24 09:02) Rash Have you fallen in the past year?: No Nurse's Note: bilateral ear pain LT>RT x10 days without resolve. swelling and redness to external left ear noted. denies blood/drainage, fever. hx chronic infections which resolved after sinus surgery many years ago. [facility] Medical History (Updated 08/07/24 @ 09:52 by Nick RUTH, PA) Injury of back PONV (postoperative nausea and vomiting) Back pain Difficulty swallowing History of IBS Non-smoker Leg cramps History of edema Bilateral carpal tunnel syndrome Arthritis Gastric reflux Surgical History (Updated 08/07/24 @ 09:03 by Ofe Francis) History of sinus surgery History of elbow surgery History of left knee surgery History of colonoscopy History of selective injection of anesthetic agent around lumbar nerve root Hx of shoulder surgery History of back surgery Family History (Updated 05/06/24 @ 09:30 by Romelia Malagon) Other Prostate cancer Social History Smoking Status: Never smoker HPI HPI Chief Complaint: bilateral ear pain Details: ALBINO WASHBURN, is a 59 M who presents to the office today [facility] for approximately 2-week history of progressively worsening facial pressure/congestion with purulent postnasal drip/cough. Also new left external ear erythema, swelling, warmth after picking at white comedone like lesion to the same approximately 3 days ago. No complaints of fever, chills, myalgias, fatigue, runny nose, or nausea/vomiting/diarrhea. No complaints of chest pain/shortness of breath/dyspnea on exertion. No close contacts with similar complaints. No other associated symptoms and no other alleviating/aggravating factors. ROS Const Constitutional: No other (as above) Exam Const General: cooperative, healthy appearing and no acute distress Nutritional Appearance: average body habitus Orientation: alert, awake and oriented x3 [facility] Head: normal to inspection Ears: hearing grossly normal bilaterally, external ear right is normal - though left erythema/ demea/ warm/ tender to touch w/ pinpoint open wound to same (bacitracin applied), TM's normal bilaterally and EAC's normal Nose: external nose normal, nares normal, septum normal and no nasal discharge Face and sinus: normal facial exam, sinuses nontender (Though bilateral maxillary fullness to palpation) and face symmetric Mouth: oral mucosae normal, lip normal, tongue normal and oropharynx normal Throat: posterior oropharynx normal, tonsils normal, uvula midline and postnasal drainage (Purulent) Eyes General: appearance normal, both eyes and all related structures Neck Neck: normal visual inspection, full ROM, no meningeal signs, supple and lymphadenopathy (Bilateral anterior cervical lymph node swelling/tender to palpation) Neck mass: No Thyroid: thyroid normal Chest Chest palpation inspection: normal inspection of the chest Resp Effort Inspection: normal respiratory effort and able to speak in complete sentences Auscultation: Bilateral: Clear to Auscultation Cardio Palpation: normal PMI Rate: regular rate Rhythm: regular rhythm Heart Sounds: S1 normal, S2 normal, no gallops, no murmurs and no rubs Pulses: radial pulses present GI Inspection: normal to inspection Skin General: no rashes or lesions noted Neuro General: patient alert, patient awake and patient oriented x3 Cognition: normal cognition Speech: speech normal Psych Appearance: grossly normal Mental Status: mental status grossly normal Mood: congruent mood Affect: normal affect Speech and Movement: speech and movement normal Attitude: cooperative Diagnoses Acute maxillary sinusitis, unspecified J01.00 Cellulitis of left external ear H60.12 As (more content not included)... Normal [facility] 08-02-2024 [facility] [place] Telephone ([id number]) ----- ALBINO WASHBURN ([id number]) 1965 M T Date Time Provider Department 08/02/24 RADHA JOHNSON ZITA4 During your visit today, we recorded the following information about you: Weight 79.8 kg Fidelina Olvera RN 08/02/2024 1:21 PM Signed I noticed patient cancelled his 1 year follow up appointment for 08/06/24 so I called him. Patient stated he is doing well and maybe has heartburn 2-3% of the time. I'm so much better than before surgery. I know what my trigger foods are: Gatorade, pizza, eating too fast or eating a big meal. Patient states he chooses to sleep upright so nothing happens. Patient's GERD QOL score =2. Patient stated he is very happy he had the surgery. I thanked him for his feedback. Fidelina Olvera RN Allergies As of Date: 08/02/2024 Noted Allergy Reaction CEPHALEXIN MONOHYDRATE 11/28/2018 16 - Unknown Comments: Keflex KEFLEX (CEPHALEXIN) 07/18/2012 2 - Rash PENICILLINS 07/18/2012 2 - Rash TETRACYCLINE 07/18/2012 2 - Rash Date Reviewed: 04/19/2024 Reviewed by: Singh Oneal OCCA - Fully Assessed Reason for Visit: Follow Up [171] Prescriptions as of 08/02/2024 - ondansetron (ZOFRAN) 8 mg tablet Take 1 tablet by mouth two times a day. - celecoxib (CELEBREX) 200 mg capsule Take 1 capsule by mouth once daily. - JATENZO 237 mg capsule - tiZANidine HCl (ZANAFLEX) 4 mg capsule TAKE 1 CAPSULE BY MOUTH TWICE A DAY NEEDED - acetaminophen (TYLENOL ARTHRITIS ORAL) Take by mouth as needed. Problem List As Of Date 08/02/2024 Noted Resolved Dysphagia [R13.10] 11/14/2015 Radiculopathy, lumbar region [M54.16] 12/13/2018 GERD (gastroesophageal reflux disease) [K21.9] 02/17/2023 Paraesophageal hernia [K44.9] 02/17/2023 Pre-op examination [Z01.818] 04/08/2023 Stomach ulcer [K25.9] 04/08/2023 ----- Questionnaire: AG GERD HEALTH RELATED QUALITY OF LIFE Surgery/Baclofen dose -> Off PPI'S: How long -> JORDYN: DATE 1. How bad is the heartburn? -> 1 Noticeable/not bothersome 2. Heartburn when lying down? -> 0 No Symptoms 3. Heartburn when standing up? -> 0 No Symptoms 4. Heartburn after meals? -> 1 Noticeable/not bothersome 5. Does heartburn change your diet? -> 0 No Symptoms 6. Does heartburn wake you from sleep? -> 0 No Symptoms 7. Do you have difficulty swallowing -> 0 No Symptoms 8. Do you have pain with swallowing? -> 0 No Symptoms 9. If you take medication, does this affect your daily life? -> 0 No Symptoms 10. How bad is the regurgitation? -> 0 No Symptoms 11. Regurgitation when lying down? -> 0 No Symptoms 12. Regurgitation when standing up? -> 0 No Symptoms 13. Regurgitation after meals? -> 0 No Symptoms 14. Does regurgitation change your diet? -> 0 No Symptoms 15. Does regurgitation wake you from sleep? -> 0 No Symptoms TOTAL - HEARTBURN 1-9 -> 2 TOTAL - REGURG 10-15 -> 0 Total -> 2 16. How satisfied are you with your present condition -> Satisfied Encounter Status:Closed by FIDELINA OLVERA on 08/02/24 Normal [facility] PSA,Total- Diagnosticon 10- PSA, DIAGNOSTIC 3.48 ng/mL Normal 0.0-4.0 [facility] Comment on above: Result Comment: This test was performed using the TPSA assay method for the [employer] system. Values obtained with different assay methods cannot be used interchangably. When changing PSA assays in the course of monitoring a patient, additional sequential testing should be carried out to confirm baseline values. Performed By: #### L 501.9940 ####[facility] [address] [place], [address] PSA,Total- Diagnosticon 06-26 PSA, DIAGNOSTIC 3.07 ng/mL Normal 0.0-4.0 [facility] Comment on above: Result Comment: This test was performed using the TPSA assay method for the [employer] chemistry system. Values obtained with different assay methods cannot be used interchangably. When changing PSA assays in the course of monitoring a patient, additional sequential testing should be carried out to confirm baseline values. Performed By: #### M 100.637, M600.5000 #### [facility] [address] [place], [address] ALDOLASE BLDon 04-19-2024 Aldolase [Catalytic activity/Vol] 5.4 mU/mL 1.5 - 8.1 U/L [facility] Comment on above: This test was develo ped and its performance characteristics determined by [facility]'s [employer] Pathology and Laboratory [facility] [place] ([facility]). It has not been cleared or approved by the FDA. [facility] is regulated under CLIA as qualified to perform high-complexity testing. This test is used for clinical purposes. It should not be regarded as investigational or for research. ALT SerPl-cCncon 04-19-2024 ALT [Catalytic activity/Vol] 20 U/L Normal 10-54 [facility] Comment on above: Order Comment: Speci men Type: BLOOD SPECIMEN Ordering Facility: [facility] Address: [address] [place] [address] Performed By: #### 1 920-8, 4485-9, 1988-5, 4498-2, 1742-6 #### [facility] CLIA [id number] [address] [place] [address] [place] ANTI NEUTRO CYTO ABon 2023 INTERPRETATION (ANCA) Normal [facility] Comment on above: Order Comment: Speci men Type: BLOOD SPECIMEN Ordering Facility: [facility] Address: [address] [place] [address] Result Comment: Nega tive for C-ANCA and P-ANCA by indirect immunofluorescence. A negative result cannot reliably rule out ANCA-associated vaculitides especially when in remission. Clinical correlation is required. Performed By: #### 4 537-7, 98627-7 #### [facility] CLIA [id number] [address] [place] [address] [place] Neutrophil cytoplasmic Ab.classic IF Ql (S) Negative Normal Negative [facility] Comment on above: Order Comment: Speci men Type: BLOOD SPECIMEN Ordering Facility: [facility] Address: [address] [place] [address] Performed By: #### 4 537-7, 87464-4 #### [facility] CLIA [id number] [address] [place] [address] [place] Neutrophil cytoplasmic Ab.perinuclear IF Ql (S) Negative Normal Negative [facility] Comment on above: Order Comment: Speci men Type: BLOOD SPECIMEN Ordering Facility: [facility] Address: [address] [place] [address] Performed By: #### 4 537-7, 25658-0 #### [facility] CLIA [id number] [address] [place] [address] [place] STAFF REVIEW (ANCA) No review performed. Normal [facility] Comment on above: Order Comment: Speci men Type: BLOOD SPECIMEN Ordering Facility: [facility] Address: [address] [place] [address] Performed By: #### 4 537-7, 32497-1 #### [facility] CLIA [id number] [address] [place] [address] [place] AST SerPl-cCncon 04-19-2024 AST [Catalytic activity/Vol] 24 U/L Normal 14-40 [facility] Comment on above: Order Comment: Speci men Type: BLOOD SPECIMEN Ordering Facility: [facility] Address: [address] [place] [address] Performed By: #### 1 920-8, 4485-9, 1988-01, 449-2, 174-6 #### [facility] CLIA [id number] [address] [place] [address] [place] Aldolase SerPl-cCncon 2023 Aldolase [Catalytic activity/Vol] 5.4 mU/mL Normal 1.5-8.1 [facility] Comment on above: Order Comment: Speci mauricio Type: BLOOD SPECIMEN Ordering Facility: [facility] Address: [address] [place] [address] Result Comment: This test was developed and its performance characteristics determined by [facility]'s [facility] Pathology and Laboratory Medicine [place] ([facility]). It has not been cleared or approved by the FDA. [facility] is regulated under CLIA as qualified to perform high-complexity testing. This test is used for clinical purposes. It should not be regarded as investigational or for research. Performed By: #### 4 537-7, 72883-5 #### [facility] CLIA [id number] [address] [place] [address] [place] Aldolase [Catalytic activity /Vol]on 04-19-2024 Interpretation and review of laboratory results Normal [facility] BUN SerPl-mCncon 04-19-2024 Urea nitrogen [Mass/Vol] 13 mg/dL Normal 9-24 [facility] Comment on above: Order Comment: Katelin martínez Type: BLOOD SPECIMEN Ordering Facility: [facility] Address: [address] [place] [address] Performed By: #### 1 920-8, 4485-9, 1988-01, 44904-27, 174-6 #### [facility] CLIA [id number] [address] [place], [place] [id number] [place] C3 SerPl-mCncon 04-19-2024 Complement C3 [Mass/Vol] 120 mg/dL Normal 86-166 [facility] Comment on above: Order Comment: Speci men Type: BLOOD SPECIMEN Ordering Facility: [facility] Address: [address] [place] [address] [place] [address] Performed By: #### 1 920-8, 4485-9, 1988-01, 2, 6 #### [facility] CLIA [id number] [address] [place] [address] [place] C4 SerPl-mCncon 04-19-2024 Complement C4 [Mass/Vol] 36 mg/dL Normal 13-46 [facility] Comment on above: Order Comment: Speci men Type: BLOOD SPECIMEN Ordering Facility: [facility] Address: [address] [place], [place] [address] [address] Performed By: #### 1 920-8, 4485-9, 1988-01, 4497-10, 1742-02 #### [facility] CLIA [id number] [address] [place] [address] [place] CBC W Auto Differential pane l (Bld)on 04-19-2024 Basophils (Bld) [#/Vol] 0.03 10*3/uL [facility] Basophils/100 WBC (Bld) 0.5 % [facility] Differential cell count method Nom (Bld) Auto [facility] Eosinophils (Bld) [#/Vol] 0.04 10*3/uL [facility] Eosinophils/100 WBC (Bld) 0.6 % [facility] Erythrocyte distribution width (RBC) [Ratio] 12.3 % 11.5 - 15.0 % [facility] Hematocrit (Bld) [Volume fraction] 46.1 % 39.0 - 51.0 % [facility] Hemoglobin (Bld) [Mass/Vol] 15.4 g/dL 13.0 - 17.0 g/dL [facility] Immature granulocytes (Bld) [#/Vol] [facility] Immature granulocytes/100 WBC (Bld) 0.2 % [facility] Lymphocytes (Bld) [#/Vol] 1.44 10*3/uL [facility] Lymphocytes/100 WBC (Bld) 22.0 % [facility] MCH (RBC) [Entitic mass] 30.5 pg 26.0 - 34.0 pg [facility] MCHC (RBC) [Mass/Vol] 33.4 g/dL 30.5 - 36.0 g/dL [facility] MCV (RBC) [Entitic vol] 91.3 fL 80.0 - 100.0 fL [facility] Monocytes (Bld) [#/Vol] 0.45 10*3/uL [facility] Monocytes/100 WBC (Bld) 6.9 % C [facility] Neutrophils (Bld) [#/Vol] 4.59 10*3/uL [facility] Neutrophils/100 WBC (Bld) 69.8 % [facility] Nucleated RBC (Bld) [#/Vol] NINF [facility] Nucleated RBC/100 WBC (Bld) [Ratio] 0.0 % /100 WBC [facility] Platelet mean volume (Bld) [Entitic vol] 9.1 fL 9.0 - 12.7 fL [facility] Platelets (Bld) [#/Vol] 209 10*3/uL [facility] RBC (Bld) [#/Vol] 5.05 10*6/uL 4.20 - 6.0 0 m/uL [facility] WBC (Bld) [#/Vol] 6.56 10*3/uL [facility] Basophils (Bld) [#/Vol] 0.03 10*3/uL Normal <0.11 [facility] Comment on above: Order Comment: Speci men Type: BLOOD SPECIMEN Ordering Facility: [facility] Address: [address] [place] [address] Performed By: #### 4 537-7, 33991-8 #### [facility] CLIA [id number] [address] [place] [address] [place] Basophils/100 WBC (Bld) 0.5 % Normal C [facility] Comment on above: Order Comment: Speci men Type: BLOOD SPECIMEN Ordering Facility: [facility] Address: [address] [place] [address] Performed By: #### 4 537-7, 25571-8 #### [facility] CLIA [id number] [address] [place] [address] [place] Differential cell count method Nom (Bld) Auto Normal [facility] Comment on above: Order Comment: Speci men Type: BLOOD SPECIMEN Ordering Facility: [facility] Address: [address] [place] [address] Performed By: #### 4 537-7, 55055-6 #### [facility] CLIA [id number] [address] [place] [address] [place] Eosinophils (Bld) [#/Vol] 0.04 10*3/uL Normal <0.46 [facility] Comment on above: Order Comment: Speci men Type: BLOOD SPECIMEN Ordering Facility: [facility] Address: [address] [place] [address] Performed By: #### 4 537-7, 67085-7 #### [facility] CLIA [id number] [address] [place] [address] [place] Eosinophils/100 WBC (Bld) 0.6 % Normal [facility] Comment on above: Order Comment: Speci men Type: BLOOD SPECIMEN Ordering Facility: [facility] Address: [address] [place] [address] Performed By: #### 4 537-7, 00356-5 #### [facility] CLIA [id number] [address] [place] [address] [place] Erythrocyte distribution width (RBC) [Ratio] 12.3 % Normal 11.5-15.0 [facility] Comment on above: Order Comment: Speci men Type: BLOOD SPECIMEN Ordering Facility: [facility] Address: [address] [place] [address] Performed By: #### 4 537-7, 38540-3 #### [facility] CLIA [id number] [address] [place] [address] [place] Hematocrit (Bld) [Volume fraction] 46.1 % Normal 39.0-51.0 [facility] Comment on above: Order Comment: Speci men Type: BLOOD SPECIMEN Ordering Facility: [facility] Address: [address] [place] [address] Performed By: #### 4 537-7, 22836-5 #### [facility] CLIA [id number] [address] [place] [address] [place] Hemoglobin (Bld) [Mass/Vol] 15.4 g/dL Normal 13.0-17.0 [facility] Comment on above: Order Comment: Speci men Type: BLOOD SPECIMEN Ordering Facility: [facility] Address: [address] [place] [address] Performed By: #### 4 537-7, 24885-0 #### [facility] CLIA [id number] [address] [place] [address] [place] Immature granulocytes (Bld) [#/Vol] 10*3/uL Normal <0.10 [facility] Comment on above: Order Comment: Speci men Type: BLOOD SPECIMEN Ordering Facility: [facility] Address: [address] [place] [address] Performed By: #### 4 537-7, 92755-7 #### [facility] CLIA [id number] [address] [place] [address] [place] Immature granulocytes/100 WBC (Bld) 0.2 % Normal [facility] Comment on above: Order Comment: Speci men Type: BLOOD SPECIMEN Ordering Facility: [facility] Address: [address] [place] [address] Performed By: #### 4 537-7, 39773-5 #### [facility] CLIA [id number] [address] [place] [address] [place] Lymphocytes (Bld) [#/Vol] 1.44 10*3/uL Normal 1.00-4.00 [facility] Comment on above: Order Comment: Speci men Type: BLOOD SPECIMEN Ordering Facility: [facility] Address: [address] [place] [address] Performed By: #### 4 537-7, 49627-2 #### [facility] CLIA [id number] [address] [place] [address] [place] Lymphocytes/100 WBC (Bld) 22.0 % Normal [facility] Comment on above: Order Comment: Speci men Type: BLOOD SPECIMEN Ordering Facility: [facility] Address: [address] [place] [address] Performed By: #### 4 537-7, 67943-2 #### [facility] CLIA [id number] [address] [place] [address] [place] MCH (RBC) [Entitic mass] 30.5 pg Normal 26.0-34.0 [facility] Comment on above: Order Comment: Speci men Type: BLOOD SPECIMEN Ordering Facility: [facility] Address: [address] [place] [address] Performed By: #### 4 537-7, 49954-9 #### [facility] CLIA [id number] [address] [place] [address] [place] MCHC (RBC) [Mass/Vol] 33.4 g/dL Normal 30.5-36.0 [facility] Comment on above: Order Comment: Speci men Type: BLOOD SPECIMEN Ordering Facility: [facility] Address: [address] [place] [address] Performed By: #### 4 537-7, 60518-4 #### [facility] CLIA [id number] [address] [place] [address] [place] MCV (RBC) [Entitic vol] 91.3 fL Normal 80.0-100.0 C [facility] Comment on above: Order Comment: Speci men Type: BLOOD SPECIMEN Ordering Facility: [facility] Address: [address] [place] [address] Performed By: #### 4 537-7, 40912-6 #### [facility] CLIA [id number] [address] [place] [address] [place] Monocytes (Bld) [#/Vol] 0.45 10*3/uL Normal <0.87 [facility] Comment on above: Order Comment: Speci men Type: BLOOD SPECIMEN Ordering Facility: [facility] Address: [address] [place] [address] Performed By: #### 4 537-7, 09494-8 #### [facility] CLIA [id number] [address] [place] [address] [place] Monocytes/100 WBC (Bld) 6.9 % Normal [facility] Comment on above: Order Comment: Speci men Type: BLOOD SPECIMEN Ordering Facility: [facility] Address: [address] [place] [address] Performed By: #### 4 537-7, 69641-8 #### [facility] CLIA [id number] [address] [place] [address] [place] Neutrophils (Bld) [#/Vol] 4.59 10*3/uL Normal 1.45-7.50 [facility] Comment on above: Order Comment: Speci men Type: BLOOD SPECIMEN Ordering Facility: [facility] Address: [address] [place] [address] Performed By: #### 4 537-7, 62431-5 #### [facility] CLIA [id number] [address] [place] [address] [place] Neutrophils/100 WBC (Bld) 69.8 % Normal [facility] Comment on above: Order Comment: Speci men Type: BLOOD SPECIMEN Ordering Facility: [facility] Address: [address] [place] [address] Performed By: #### 4 537-7, 42373-9 #### [facility] CLIA [id number] [address] [place] [address] [place] Nucleated RBC (Bld) [#/Vol] 10*3/uL Normal <0.01 [facility] Comment on above: Order Comment: Speci men Type: BLOOD SPECIMEN Ordering Facility: [facility] Address: [address] [place] [address] Performed By: #### 4 537-7, 83021-8 #### [facility] CLIA [id number] [address] [place] [address] [place] Nucleated RBC/100 WBC (Bld) [Ratio] 0.0 /100 WBC Normal [facility] Comment on above: Order Comment: Speci men Type: BLOOD SPECIMEN Ordering Facility: [facility] Address: [address] [place] [address] Performed By: #### 4 537-7, 34256-6 #### [facility] CLIA [id number] [address] [place] [address] [place] Platelet mean volume (Bld) [Entitic vol] 9.1 fL Normal 9.0-12.7 [facility] Comment on above: Order Comment: Speci men Type: BLOOD SPECIMEN Ordering Facility: [facility] Address: [address] [place] [address] Performed By: #### 4 537-7, 73343-5 #### [facility] CLIA [id number] [address] [place] [address] [place] Platelets (Bld) [#/Vol] 209 10*3/uL Normal 150-400 [facility] Comment on above: Order Comment: Speci men Type: BLOOD SPECIMEN Ordering Facility: [facility] Address: [address] [place] [address] Performed By: #### 4 537-7, 85448-0 #### [facility] CLIA [id number] [address] [place] [address] [place] RBC (Bld) [#/Vol] 5.05 10*6/uL Normal 4.20-6.00 [facility] Comment on above: Order Comment: Speci men Type: BLOOD SPECIMEN Ordering Facility: [facility] Address: [address] [place] [address] Performed By: #### 4 537-7, 66660-7 #### [facility] CLIA [id number] [address] [place] [address] [place] WBC (Bld) [#/Vol] 6.56 10*3/uL Normal 3.70-11.00 [facility] Comment on above: Order Comment: Speci men Type: BLOOD SPECIMEN Ordering Facility: [facility] Address: [address] [place] [address] Performed By: #### 4 537-7, 64093-8 #### [facility] CLIA [id number] [address] [place] [address] [place] CK SerPl-cCncon 04-19-2024 CK [Catalytic activity/Vol] 168 U/L Normal 51-298 [facility] Comment on above: Order Comment: Speci men Type: BLOOD SPECIMEN Ordering Facility: [facility] Address: [address] [place] [address] Performed By: #### 1 920-8, 4485-9, 1988-5, 4498-2, 1742-6 #### [facility] CLIA [id number] [address] [place] [address] [place] CNOVon 04-19-2024 CNOV Office Visit ([facility] ) ----- ALBINO WASHBURN ([id number]) 1965 M T Date Time Provider Department 04/19/24 1:00 PM CHEYANNE OROZCO [facility] During your visit today, we recorded the following information about you: Temperature Pulse Respiration Blood pressure 97.9 degrees 61/minute 16/minute 143/80 Weight 80.6 kg Cheyanne Orozco MD 04/19/2024 2:46 PM Signed Cheyanne Orozco MD Albino Washburn April 18, 2024 Referring Provider: PCP: Henok Watkins MD Chief Complaint: Patient presents with: New HPI:Albino Washburn is a 59 year old male who comes here today for joint pain and flu-like symptoms. He has been dealing with diffuse joint pain, myalgia, nausea and flulike symptoms since his COVID infection in April 2022. This is the third time that he had COVID. The first 2 times did not cause persistent symptoms. His infection was quite severe with high-grade fever and he was out for about a week. He was not hospitalized or required oxygen though. He also lost his taste and smell they are gradually coming back. His main concern is nausea that is usually at the worst in the morning. It is difficult for him to eat or drink anything in the morning. Better with lunch and dinner. Muscle and joint pain are also worse in the morning. Light physical activity can be helpful but too much activities can also make the pain worse again. He also describes swelling of his throat and ears in the morning. No rash, photosensitivity, recurrent oral ulcer, pleurisy, sicca or other CTD symptoms. He has a background history of chronic back pain as a result of injury years ago. He is status post multiple surgeries. He is using pain pump. PAST MEDICAL HISTORY Diagnosis Date Abdominal pain Arthritis back Dysphagia feeling food get stuck Fibromyalgia GERD (gastroesophageal reflux disease) Hiatal hernia 04/08/2023 approx 5 cm History of angina Paraesophageal hernia with gastroesophageal reflux surgically repaired 08/02/23 Snoring Stomach ulcer PAST SURGICAL HISTORY Procedure Laterality Date 48 HOUR PH STUDY 04/08/2023 Dr. Johnson BACK SURGERY HX spinal fusion with ORIF and second surgery to remove hardware. x 2 BACK SURGERY HX 2002 Fusion at T9 BACK SURGERY HX 2013 L5-S1 transforaminal Lumbar Interbody fusion BLADDER SURGERY HX 2013 CHOLECYSTECTOMY 07/30/2016 COLONOSCOPY FLX DX W/COLLJ SPEC WHEN PFRMD 11/14/2015 Colonoscopy with mac CYSTOSCOPY,DIL BLADDER,LOCAL ANESTH 2013 EGD 01/30/2013 EGD 11/14/2015 EGD 11/14/2015 EGD WITH BIOPSY(S) 04/08/2023 5 cm hiatal hernia; Dr. Johnson ELBOW SURGERY HX Left 2013 ESOPHAGEAL MANOMETRY 11/21/2015 ESOPHAGEAL MANOMETRY 04/08/2023 Dr. Carbone HAND SURGERY HX Left 2002 KNEE SURGERY HX Left 1979 LAMINECTOMY,LUMBAR 2001 LAPS RPR PARAESPHGL HRNA INCL FUNDPLSTY W/O MESH N/A 08/02/2023 Robotic Toupet; Dr. Johnson S SPINAL CORD STIMULATOR, 2015 SHOULDER SURGERY HX Right 2010 SINUS SURGERY HX 2013 Social History Tobacco Use Smoking status: Never Smokeless tobacco: Never Vaping Use Vaping Use: Never used Substance Use Topics Alcohol use: No Drug use: Never Health Maintenance: Depression Screening Never done Anxiety Screening Never done Hepatitis C Screening Never done HIV Screening Never done Lipid Screening Never done Shingrix Vaccine(1 of 2) Never done Prostate Cancer Screening Discussion Never done Colorectal Cancer Screening due on 11/14/2020 RSV Vaccine(1 - 1-dose 60+ series) Never done Covid-19 Vaccine(2022- season) Never done Immunization History Administered Date(s) Administered tetanus diphtheria pertussis (Tdap) vaccine, age 7+ yr (ADACEL, BOOSTRIX) 12/12/2019 Current Outpatient Medications Medication Sig Dispense Refill JATENZO 237 mg capsule tiZANidine HCl (ZANAFLEX) 4 mg capsule TAKE 1 CAPSULE BY MOUTH TWICE A DAY NEEDED acetaminophen (TYLENOL ARTHRITIS ORAL) Take by mouth as needed. No current facility-administered medications for this visit. ALLERGIES Allergen Reactions Cephalexin Monohydr* Unknown Keflex Keflex [Cephalexin] Rash Penicillins Rash Tetracycline Rash Physical Exam: BP 143/80 Pulse 61 Temp (Src) 97.9 (Temporal) Resp 16 Wt 177 lb 11.2 oz (80.6kg) SpO2 97% General: Not pale, no jaundice, not in acute distress Head: Normocephalic, atraumatic Eyes: No redeye, no discharge ENT: No oral/nasal ulcer Neck: No lymphadenopathy Lungs: Normal breath sound, no adventitious sound Abdomen: Soft, not tender CV: Normal S1 S2, no murmur, no rub, pulse regular Skin: No rash, no malar rash, no telangiectasia, no pitting nail/onycholysis, no gross periungual telangiectasia Neuro: Grossly intact, motor power 5 all Joints Heberden and Missy nodes observed on both hands but no active synovitis Labs: Serology: CRP: N (more content not included)... Normal [facility] CREATININE BLDon 04-19-2024 Creatinine [Mass/Vol] 0.75 mg/dL Normal 0.73-1.22 [facility] Comment on above: Order Comment: Katelin martínez Type: BLOOD SPECIMEN Ordering Facility: [facility] Address: [address] [place] [address] Performed By: #### 1 920-8, 4485-9, 1988-01, 4497-10, 1742-02 #### [facility] CLIA [id number] [address] [place] [address] [place] Creatinine and Glomerular filtration rate.predicted panel (S/P/Bld) 103 mL/min/1.73m??? Normal >=60 [facility] Comment on above: Order Comment: Katelin martínez Type: BLOOD SPECIMEN Ordering Facility: [facility] Address: [address] [place] [address] Result Comment: Sophia mated Glomerular Filtration Rate (eGFR) is calculated using the 2020 CKD-EPI creatinine equation. This equation utilizes serum creatinine, sex, and age as parameters. The creatinine assay has traceable calibration to isotope dilution-mass spectrometry. Refer to KDIGO guidelines for clinical interpretation. In patients with unstable renal function, e.g. those with acute kidney injury, the eGFR may not accurately reflect actual GFR. Performed By: #### 1 920-8, 4489, 1988-01, 4497-10, 1742-02 #### [facility] CLIA [id number] [address] [place] [address] [place] CRP SerPl-mCncon 04-19-2024 CRP [Mass/Vol] 0.6 mg/dL Normal <0.9 [facility] Comment on above: Order Comment: Katelin martínez Type: BLOOD SPECIMEN Ordering Facility: [facility] Address: [address] [place] [address] Performed By: #### 1 920-8, 4485-9, 1988-01, 4497-2, 1742-02 #### [facility] CLIA [id number] [address] [place] [address] [place] Centromere Ab IF Ql (S)on Centromere Ab Qn (S) <0.2 Normal <1.0 [facility] Comment on above: Order Comment: Speci men Type: BLOOD SPECIMEN Ordering Facility: [facility] Address: [address] [place] [address] Result Comment: Anti -centromere antibody is used as in aid in diagnosis of systemic sclerosis. Clinical correlation is required. Test Methodology: Multiplex flow immunoassay. Performed By: #### 1 7791-5, 05473-8, 96962-6, 55806-7, 45748-2, 53525-1 #### [facility] CLIA [id number] [address] [place] [address] [place] CENTROMERE AB QUAL Negative Normal Negative [facility] Comment on above: Order Comment: Speci men Type: BLOOD SPECIMEN Ordering Facility: [facility] Address: [address] [place] [address] Performed By: #### 1 7791-5, 45251-1, 83493-8, 23227-5, 03601-7, 16818-9 #### [facility] CLIA [id number] [address] [place] [address] [place] Chromatin Ab Qnon 04-19-2024 CHROMATIN AB QUAL Negative Normal Negative [facility] Comment on above: Order Comment: Speci men Type: BLOOD SPECIMEN Ordering Facility: [facility] Address: [address] [place] [address] Performed By: #### 1 920-8, 448-9, 1988-01, 4497-10, 6 #### [facility] CLIA [id number] [address] [place] [address] [place] Chromatin Ab SerPl-aCncon Chromatin Ab Qn <0.2 Normal <1.0 [facility] Comment on above: Order Comment: Speci men Type: BLOOD SPECIMEN Ordering Facility: [facility] Address: [address] [place] [address] Result Comment: Test Methodology: Multiplex flow immunoassay. Performed By: #### 1 920-8, 4485-9, 1988-5, 4498-2, 1742-6 #### [facility] CLIA [id number] [address] [place] [address] [place] Cyclic citrullinated peptide IgG Qnon 04-19-2024 CCP ANTIBODY IGG QUALITATIVE Negative Normal Negative [facility] Comment on above: Order Comment: Speci men Type: BLOOD SPECIMEN Ordering Facility: [facility] Address: [address] [place] [address] Performed By: #### 4 537-7, 83916-8 #### [facility] CLIA [id number] [address] [place] [address] [place] DNA double strand Ab IA Qn ( S)on 04-19-2024 DNA ANTIBODY 129 IU/mL Normal <=200 [facility] Comment on above: Order Comment: Speci men Type: BLOOD SPECIMEN Ordering Facility: [facility] Address: [address] [place] [address] Result Comment: Nega tive: <200 IU/mL Equivocal: 201-300 IU/mL Moderate Positive: 301-800 IU/mL Strong Positive: >801 IU/mL Performed By: #### 4 537-7, 90631-5 #### [facility] CLIA [id number] [address] [place] [address] [place] DNA ANTIBODY QUALITATIVE INTERPRETATION Negative Normal Negative [facility] Comment on above: Order Comment: Speci men Type: BLOOD SPECIMEN Ordering Facility: [facility] Address: [address] [place] [address] Performed By: #### 4 537-7, 86452-8 #### [facility] CLIA [id number] [address] [place] [address] [place] CLARK Jo1 Ab Ser-aCncon 2023 Lucinda-1 extractable nuclear Ab Qn (S) <0.2 Normal <1.0 [facility] Comment on above: Order Comment: Speci men Type: BLOOD SPECIMEN Ordering Facility: [facility] Address: [address] [place] [address] Performed By: #### 4 537-7, 15787-4 #### [facility] CLIA [id number] [address] [place] [address] [place] CLARK SPECIAL AGENT SECRET SERVICE Ab Ser-aCncon 2023 Ribonucleoprotein extractable nuclear Ab Qn (S) <0.2 Normal <1.0 [facility] Comment on above: Order Comment: Speci men Type: BLOOD SPECIMEN Ordering Facility: [facility] Address: [address] [place] [address] Performed By: #### 1 920-8, 4485-9, 1988-01, 4497-10, 6 #### [facility] IA [id number] [address] [place] [address] [place] Ribonucleoprotein extractable nuclear Ab Qn (S) 0.2 AI Normal <1.0 [facility] Comment on above: Order Comment: Speci men Type: BLOOD SPECIMEN Ordering Facility: [facility] Address: [address] [place] [address] Performed By: #### 1 920-8, 4485-9, 1988-01, 4497-10, 1742-02 #### [facility] CLIA [id number] [address] [place] [address] [place] CLARK SM IgG Ser-aCncon 2023 Paul extractable nuclear IgG Qn (S) <0.2 Normal <1.0 [facility] Comment on above: Order Comment: Speci men Type: BLOOD SPECIMEN Ordering Facility: [facility] Address: [address] [place] [address] Performed By: #### 1 7791-5, 71034-0, 85698-2, 64907-2, 64812-0, 40441-4 #### [facility] CLIA [id number] [address] [place] [address] [place] CLARK SS-A Ab Ser-aCncon 04-19 Sjogrens syndrome-A extractable nuclear Ab Qn (S) <0.2 Normal <1.0 [facility] Comment on above: Order Comment: Speci men Type: BLOOD SPECIMEN Ordering Facility: [facility] Address: [address] [place] [address] Result Comment: Test Methodology: Multiplex flow immunoassay. Performed By: #### 1 920-8, 4485-9, 1987-, 4498-2, 1742-6 #### [facility] CLIA [id number] [address] [place] [address] [place] CLARK SS-B Ab Ser-aCncon 04-19 Sjogrens syndrome-B extractable nuclear Ab Qn (S) <0.2 Normal <1.0 [facility] Comment on above: Order Comment: Speci men Type: BLOOD SPECIMEN Ordering Facility: [facility] Address: [address] [place] [address] Result Comment: Anti -SSB (anti-La) antibody is used as an aid in diagnosis of a variety of systemic autoimmune diseases, especially for Sjogren's syndrome and systemic lupus erythematosus. Clinical correlation is required. Test Methodology: Multiplex flow immunoassay. Performed By: #### 1 7791-5, 95678-3, 50875-6, 25465-7, 55605-1, 97906-1 #### [facility] CLIA [id number] [address] [place] [address] [place] ESR Westergren method (Bld) [Velocity]on 04-19-2024 ESR (Bld) [Velocity] 2 mm/h [facility] Interpretation and review of laboratory results Normal [facility] ESR (Bld) [Velocity] 2 mm/h Normal 0-15 [facility] Comment on above: Order Comment: Katelin martínez Type: BLOOD SPECIMEN Ordering Facility: [facility] Address: [address] [place] [address] Performed By: #### 4 537-7, 05537-8 #### [facility] CLIA [id number] [address] [place] [address] [place] Lucinda-1 extractable nuclear Ab Qn (S)on 04-19-2024 LUCINDA 1 ANTIBODY QUAL Negative Normal Negative [facility] Comment on above: Order Comment: Katelin martínez Type: BLOOD SPECIMEN Ordering Facility: [facility] Address: [address] [place] [address] Result Comment: Anti -LUCINDA-1 antibody is used as an aid in diagnosis of polymyositis and dermatomyositis especially with pulmonary involvement. A negative result cannot rule out polymyositis or dermatomyositis. Clinical correlation is required. Test Methodology: Multiplex flow immunoassay. Performed By: #### 4 537-7, 15148-4 #### [facility] CLIA [id number] [address] [place] [address] [place] Nuclear Ab IA Ql (S)on 04-19 BHARATHI SCR QUAL Negative Normal Negative [facility] Comment on above: Order Comment: Katelin martínez Type: BLOOD SPECIMEN Ordering Facility: [facility] Address: [address] [place] [address] Result Comment: The qualitative antinuclear antibody screen test performed using the following antigens: dsDNA, Chromatin, Ribosomal P, SS-A 60, SS-A 52, SS-B, Sm, SmRNP, SPECIAL AGENT SECRET SERVICE A, SPECIAL AGENT SECRET SERVICE 68, Scl-70, Lucinda-1, and Centromere B. Methodology: Multiplex flow immunoassay. Performed By: #### 4 537-7, 29544-3 #### [facility] CLIA [id number] [address] [place] [address] [place] Prot/Creat Uron 04-19-2024 Protein/Creatinine (U) [Mass ratio] 0.11 mg/mg Normal <0.15 [facility] Comment on above: Order Comment: Katelin martínez Type: BLOOD SPECIMEN Ordering Facility: [facility] Address: [address] [place] [address] Result Comment: Adul t Proteinuria Categories: <0.15 mg/mg is considered normal to mildly increased 0.15 - 0.50 mg/mg is considered moderately increased >0.50 mg/mg is considered severely increased KDIGO. (2013). KDIGO 2012 Clinical Practice Guideline for the Evaluation and Management of Chronic Kidney Disease. Official Journal of the International Society of Nephrology, 3(1), 1-150. Performed By: #### 4 537-7, 17307-2 #### [facility] CLIA [id number] [address] [place] [address] [place] Protein/Creatinine (U) [Mass ratio]on 04-19-2024 Creatinine (U) [Mass/Vol] 54.9 mg/dL Normal 20.0-300.0 [facility] Comment on above: Order Comment: Katelin martínez Type: BLOOD SPECIMEN Ordering Facility: [facility] Address: [address] [place] [address] Performed By: #### 4 537-7, 89536-9 #### [facility] CLIA [id number] [address] [place] [address] [place] Protein (U) [Mass/Vol] 6 mg/dL Normal 0-20 [facility] Comment on above: Order Comment: Katelin martínez Type: BLOOD SPECIMEN Ordering Facility: [facility] Address: [address] [place] [address] Performed By: #### 4 537-7, 35345-0 #### [facility] CLIA [id number] [address] [place] [address] [place] Rheumatoid fact SerPl-aCncon 04-19-2024 Rheumatoid factor Qn [IU]/mL Normal <16 [facility] Comment on above: Order Comment: Speci men Type: BLOOD SPECIMEN Ordering Facility: [facility] Address: [address] [place] [address] Performed By: #### 1 920-8, 4489, 1988-01, 4497-10, 1742-02 #### [facility] CLIA [id number] [address] [place] [address] [place] Ribonucleoprotein extractabl e nuclear Ab Qn (S)on 04-19-2024 ANTI-SPECIAL AGENT SECRET SERVICE QUAL Negative Normal Negative [facility] Comment on above: Order Comment: Katelin martínez Type: BLOOD SPECIMEN Ordering Facility: [facility] Address: [address] [place] [address] Performed By: #### 1 92-8, 4489, 1988-01, 4497-10, 1742-02 #### [facility] IA [id number] [address] [place] [address] [place] RIBOSOMAL SPECIAL AGENT SECRET SERVICE QUAL Negative Normal Negative [facility] Comment on above: Order Comment: Katelin martínez Type: BLOOD SPECIMEN Ordering Facility: [facility] Address: [address] [place] [address] Result Comment: Anti -Ribosomal RNA (Ribosomal P) antibody is used as an aid in diagnosis of systemic autoimmune diseases especially systemic lupus erythematosus and mixed connective tissue disease. Cross-reactivity with Anti-paul antibody is not uncommon. Clinical correlation is required. Test Methodology: Multiplex flow immunoassay. Performed By: #### 1 920-8, 4489, 1988-01, 4497-10, 1742-02 #### [facility] CLIA [id number] [address] [place], [place] [address] [place] SCL-70 extractable nuclear I gG IA Qn (S)on 04-19-2024 SCLERODERMA AB QUAL Negative Normal Negative [facility] Comment on above: Order Comment: Katelin martínez Type: BLOOD SPECIMEN Ordering Facility: [facility] Address: [address] [place] [address] Performed By: #### 4 537-7, 29989-0 #### [facility] CLIA [id number] [address] [place] [address] [place] SCLERODERMA IGG AB <0.2 Normal <1.0 [facility] Comment on above: Order Comment: Speci men Type: BLOOD SPECIMEN Ordering Facility: [facility] Address: [address] [place] [address] Result Comment: Scl- 70/Scleroderma antibody test is used as an aid in diagnosis of systemic sclerosis especially the diffuse cutaneous form. A negative result cannot rule out systemic sclerosis. The final interpretation should consider clinical picture and other test results such as anti-centromere antibody. Test Methodology: Multiplex flow immunoassay. Performed By: #### 4 537-7, 23298-7 #### [facility] CLIA [id number] [address] [place] [address] [place] Sjogrens syndrome-A extracta ble nuclear Ab Qn (S)on 04-19-2024 SSA ANTIBODY QUAL Negative Normal Negative [facility] Comment on above: Order Comment: Speci men Type: BLOOD SPECIMEN Ordering Facility: [facility] Address: [address] [place] [address] Performed By: #### 1 920-8, 4485-9, 1988-5, 4498-2, 1742-6 #### [facility] IA [id number] [address] [place] [address] [place] Sjogrens syndrome-B extracta ble nuclear Ab Qn (S)on 04-19-2024 SSB ANTIBODY QUAL Negative Normal Negative [facility] Comment on above: Order Comment: Speci men Type: BLOOD SPECIMEN Ordering Facility: [facility] Address: [address] [place] [address] Performed By: #### 1 7791-5, 74305-4, 23012-3, 09050-7, 10325-3, 03262-1 #### [facility] CLIA [id number] [address] [place] [address] [place] Paul extractable nuclear Ig G Qn (S)on 04-19-2024 SM ANTIBODY QUAL Negative Normal Negative [facility] Comment on above: Order Comment: Speci men Type: BLOOD SPECIMEN Ordering Facility: [facility] Address: [address] [place] [address] Result Comment: Anti -Sm (Paul) antibody is used as an aid in diagnosis of systemic lupus erythematosus and its presence is associated with renal disease. A negative result cannot rule out systemic lupus erythematosus. Clinical correlation is required. Test Methodology: Multiplex flow immunoassay. Performed By: #### 1 7791-5, 37853-0, 23732-1, 90015-7, 61755-3, 05776-5 #### [facility] CLIA [id number] [address] [place] [address] [place] Urinalysis complete panel (U )on 04-19-2024 Bacteria LM.HPF (Urine sed) [#/Area] Negative Normal Negative [facility] Comment on above: Order Comment: Speci men Type: BLOOD SPECIMEN Ordering Facility: [facility] Address: [address] [place] [address] Performed By: #### 4 537-7, 46927-9 #### [facility] CLIA [id number] [address] [place] [address] [place] Bilirubin Ql (U) Negative Normal Negative [facility] Comment on above: Order Comment: Speci men Type: BLOOD SPECIMEN Ordering Facility: [facility] Address: [address] [place] [address] Performed By: #### 4 537-7, 55718-5 #### [facility] CLIA [id number] [address] [place] [address] [place] Clarity (Unsp spec) Clear Normal Clear [facility] Comment on above: Order Comment: Speci men Type: BLOOD SPECIMEN Ordering Facility: [facility] Address: [address] [place] [address] Performed By: #### 4 537-7, 29643-5 #### [facility] CLIA [id number] [address] [place] [address] [place] Color (U) Yellow Normal Yellow [facility] Comment on above: Order Comment: Speci men Type: BLOOD SPECIMEN Ordering Facility: [facility] Address: [address] [place] [address] Performed By: #### 4 537-7, 82538-7 #### [facility] CLIA [id number] [address] [place] [address] [place] Epithelial cells LM.HPF (Urine sed) [#/Area] None Seen Normal [facility] Comment on above: Order Comment: Speci men Type: BLOOD SPECIMEN Ordering Facility: [facility] Address: [address] [place] [address] Performed By: #### 4 537-7, 25868-6 #### [facility] CLIA [id number] [address] [place] [address] [place] Glucose Test strip (U) [Mass/Vol] Negative Normal Negative [facility] Comment on above: Order Comment: Speci men Type: BLOOD SPECIMEN Ordering Facility: [facility] Address: [address] [place] [address] Performed By: #### 4 537-7, 70161-1 #### [facility] CLIA [id number] [address] [place] [address] [place] Hemoglobin Ql (U) Negative Normal Negative [facility] Comment on above: Order Comment: Speci men Type: BLOOD SPECIMEN Ordering Facility: [facility] Address: [address] [place] [address] Performed By: #### 4 537-7, 40770-3 #### [facility] CLIA [id number] [address] [place] [address] [place] Hyaline casts (Urine sed) [#/Area] 0 /[LPF] Normal 0 /LPF [facility] Comment on above: Order Comment: Speci men Type: BLOOD SPECIMEN Ordering Facility: [facility] Address: [address] [place] [address] Performed By: #### 4 537-7, 38133-4 #### [facility] CLIA [id number] [address] [place] [address] [place] Ketones Ql (U) Negative Normal Negative [facility] Comment on above: Order Comment: Speci men Type: BLOOD SPECIMEN Ordering Facility: [facility] Address: [address] [place] [address] Performed By: #### 4 537-7, 31364-4 #### [facility] CLIA [id number] [address] [place] [address] [place] Leukocyte esterase Test strip Ql (U) Negative Normal Negative [facility] Comment on above: Order Comment: Speci men Type: BLOOD SPECIMEN Ordering Facility: [facility] Address: [address] [place] [address] Performed By: #### 4 537-7, 92769-4 #### [facility] [facility] CLIA [id number] [address] [place] [address] [place] Nitrite Ql (U) Negative Normal Negative [facility] Comment on above: Order Comment: Speci men Type: BLOOD SPECIMEN Ordering Facility: [facility] Address: [address] [place] [address] Performed By: #### 4 537-7, 13101-4 #### [facility] CLIA [id number] [address] [place] [address] [place] pH (U) 7.5 [pH] Normal <8.5 [facility] Comment on above: Order Comment: Speci men Type: BLOOD SPECIMEN Ordering Facility: [facility] Address: [address] [place] [address] Performed By: #### 4 537-7, 46260-1 #### [facility] CLIA [id number] [address] [place] [address] [place] Protein (U) [Mass/Vol] Negative Normal Negative [facility] Comment on above: Order Comment: Speci men Type: BLOOD SPECIMEN Ordering Facility: [facility] Address: [address] [place] [address] Performed By: #### 4 537-7, 95703-2 #### [facility] CLIA [id number] [address] [place] [address] [place] RBC LM.HPF (Urine sed) [#/Area] 0-2 /HPF Normal 0-2 /HPF [facility] Comment on above: Order Comment: Speci men Type: BLOOD SPECIMEN Ordering Facility: [facility] Address: [address] [place] [address] Performed By: #### 4 537-7, 58595-3 #### [facility] CLIA [id number] [address] [place] [address] [place] Specific gravity (U) [Rel density] 1.013 Normal 1.005-1.030 [facility] Comment on above: Order Comment: Speci men Type: BLOOD SPECIMEN Ordering Facility: [facility] Address: [address] [place] [address] Performed By: #### 4 537-7, 27308-5 #### [facility] CLIA [id number] [address] [place] [address] [place] Urobilinogen Ql (U) 0.2 EU/dL Normal 0.2-1.0 EU/dL [facility] Comment on above: Order Comment: Speci men Type: BLOOD SPECIMEN Ordering Facility: [facility] Address: [address] [place] [address] Performed By: #### 4 537-7, 50932-0 #### [facility] CLIA [id number] [address] [place] [address] [place] WBC LM.HPF (Urine sed) [#/Area] 0-5 /HPF Normal 0-5 /HPF [facility] Comment on above: Order Comment: Speci men Type: BLOOD SPECIMEN Ordering Facility: [facility] Address: [address] [place] [address] Performed By: #### 4 537-7, 44123-8 #### [facility] CLIA [id number] [address] [place] [address] [place] cCP IgG SerPl-aCncon 07-25-2 024 Cyclic citrullinated peptide IgG Qn <15 Normal <20 [facility] Comment on above: Order Comment: Speci men Type: BLOOD SPECIMEN Ordering Facility: [facility] Address: [address] [place] [address] Performed By: #### 4 537-7, 24682-3 #### [facility] CLIA [id number] [address] [place] [address] [place] Basophil percentageOrdered B y: Ramiro Marks on 01-09-2024 Basophil percentage 2.76 ng/mL 0.0-4.0 [facility] Comment on above: This test was perfor med using the TPSA assay method for [employer] chemistry system. Values obtained with differentassay methods cannot be used interchangably.When changing PSA assays in the course of monitoring apatient, additional sequential testing should be carriedout to confirm baseline values. Testosterone [Mass/Vol] 281.71 ng/dL [facility] Comment on above: CENTRAL 90% REFERENC E RANGES MALE AGE <50 197.44 - 669.58 ng/dL MALE AGE > or = 50 187.72 - 684.19 ng/dL FEMALE AGE <50 8.38 - 35.01 ng/dL FEMALE AGE > or = 50 <7.00 - 35.92 ng/dL Effective as of 04/21/21 CNOVon 11-14-2023 CNOV Office Visit (AGGENS 4) ----- ALBINO WASHBURN ([id number]) 1965 M [facility] Date Time Provider Department 11/14/23 9:30 AM RADHA JOHNSON4 During your visit today, we recorded the following information about you: Pulse Blood pressure Weight Height 94/minute 124/74 82.3 kg 1.784 m Radha Johnson MD 11/14/2023 10:19 AM Signed Patient presents with: Follow Up HPI: Patient is a 58 year old male who presents to general surgery clinic for follow up after robotic paraesophageal hernia repair with toupet fundoplication on 08/02/23. Having small amount of heartburn after coffee but otherwise doing well and does not have severe heartburn. Sleeps at an incline if he eats too late in the evening. Believes some of his abdominal discomforts are due to food allergies. Stopped taking PPI and pepcid a month or so ago. PAST MEDICAL HISTORY Diagnosis Date Abdominal pain Arthritis back Dysphagia feeling food get stuck Fibromyalgia GERD (gastroesophageal reflux disease) Hiatal hernia 04/08/2023 approx 5 cm History of angina Paraesophageal hernia with gastroesophageal reflux surgically repaired 08/02/23 Snoring Stomach ulcer PAST SURGICAL HISTORY Procedure Laterality Date 48 HOUR PH STUDY 04/08/2023 Dr. Johnson BACK SURGERY HX spinal fusion with ORIF and second surgery to remove hardware. x 2 BACK SURGERY HX 2002 Fusion at T9 BACK SURGERY HX 2013 L5-S1 transforaminal Lumbar Interbody fusion BLADDER SURGERY HX 2013 CHOLECYSTECTOMY 07/30/2016 COLONOSCOPY FLX DX W/COLLJ SPEC WHEN PFRMD 11/14/2015 Colonoscopy with mac CYSTOSCOPY,DIL BLADDER,LOCAL ANESTH 2012 EGD 01/30/2013 EGD 11/14/2015 EGD 11/14/2015 EGD WITH BIOPSY(S) 04/08/2023 5 cm hiatal hernia; Dr. Johnson ELBOW SURGERY HX Left 2014 ESOPHAGEAL MANOMETRY 11/21/2015 ESOPHAGEAL MANOMETRY 04/08/2023 Dr. Carbone HAND SURGERY HX Left 2002 KNEE SURGERY HX Left 1978 LAMINECTOMY,LUMBAR 2000 LAPS RPR PARAESPHGL HRNA INCL FUNDPLSTY W/O MESH N/A 08/02/2023 Robotic Toupet; Dr. Syed Michelle SPINAL CORD STIMULATOR, 2015 SHOULDER SURGERY HX Right 2011 SINUS SURGERY HX 2013 FAMILY HISTORY Problem Relation Age of Onset Arthritis Mother rheumatoid other (spinal problems) Mother hep c other (scarlet fever) Mother Prostate Cancer Father other (heart mumur) Brother other (food allergies) Other children Colon Cancer No Family History Social History Tobacco Use Smoking status: Never Smokeless tobacco: Never Vaping Use Vaping Use: Never used Substance Use Topics Alcohol use: No Drug use: Never Current Outpatient Medications Medication Sig terbinafine HCl (LAMISIL) 250 mg tablet Take 1 tablet by mouth every afternoon. BD LUER-TRUNG SYRINGE 3 mL 22 x 1 1/2 as directed. testosterone cypionate (DEPO-TESTOSTERONE) 200 mg/mL injection INJECT 1 ML (200MG) INTRAMUSCULARLY EVERY 2 WEEKS tiZANidine HCl (ZANAFLEX) 4 mg capsule TAKE 1 CAPSULE BY MOUTH TWICE A DAY NEEDED acetaminophen (TYLENOL ARTHRITIS ORAL) Take by mouth as needed. sucralfate (CARAFATE) 1 gram tablet Take 1 tablet by mouth four times daily. (Patient not taking: Reported on 08/15/2023) pregabalin (LYRICA) 100 mg capsule TAKE 1 ORAL THREE TIMES A DAY FOR 28 DAYS (Patient not taking: Reported on 08/15/2023) famotidine (PEPCID) 20 mg tablet Take 20 mg by mouth as needed. (Patient not taking: Reported on 11/14/2023) pantoprazole DR (PROTONIX) 40 mg tablet Take 1 tablet by mouth twice daily. (Patient not taking: Reported on 08/15/2023) No current facility-administered medications for this visit. ALLERGIES Allergen Reactions Cephalexin Monohydr* Unknown Keflex Keflex [Cephalexin] Rash Penicillins Rash Tetracycline Rash REVIEW OF SYSTEMS: GENERAL: No weight loss, malaise or fevers GI: Negative for abdominal pain, nausea , vomiting, diarrhea, and constipation Positive for none PHYSICAL EXAM: BP 124/74 Pulse 94 Ht 5' 10.25 (1.78m) Wt 181 lb 6.4 oz (82.3kg) BMI 25.85 kg/(m2). GENERAL APPEARANCE: Well appearing, alert, in no acute distress, well-hydrated, well nourished.. ABDOMEN: Normal abdominal exam NEURO: Alert, oriented x3, no asterixis, and speech clear and articulate DATA: Diagnostic tests reviewed for today's visit: No new labs ASSESSMENT / PLAN ASSESSMENT/PLAN: 1. Paraesophageal hernia - ICD9: 553.3, ICD10: K44.9 (primary diagnosis) robotic paraesophageal hernia repair with toupet fundoplication on 08/02/23 Had a discussion about trigger foods for heartburn Recommended not eating within 4 hours of sleeping Recommend limiting gum chewing as it can introduce more air into the stomach and cause discomfort 2. Gastroesophageal reflux disease without esophagitis - ICD9: 530.81, ICD10: K21.9 Dc PPI and H2 michael Take H 2blocker prn heartburn or carafate Radha Johnson MD MS Advanced Minimally (more content not included)... Normal [facility] CNPDeonna 09-29-2023 CNPN Telephone (AGGENS4) ----- ALBINO WASHBURN ([id number]) 1965 M T Date Time Provider Department 09/29/23 RADHA JOHNSON During your visit today, we recorded the following information about you: Weight 77.6 kg Fidelina Olvera, OSWALDO 09/29/2023 10:57 AM Signed Six week follow up phone call after lap Toupet and PEHR procedure on 08/02/23: Swallowing: struggles with beef, but otherwise OK 24 hour diet recall: Breakfast: pop-tart, cereal, toast, milk Lunch: turkey sandwich Dinner: hoagie sandwich with water to get bun down. Moving bowels: daily Proton pump inhibitor: still taking because of my food sensitivities. I will probably wean myself off soon. Pain rating/use of medications: denies any abdominal pain. Inspection of incisions: healed Physical activity: has returned to work Follow up appt confirmation: 11/14/23 I briefed the patient on what to do if food feels like it is stuck in his esophagus: stand up and hold hands overhead to release any food/medications that feel stuck. We discussed the need to return to a liquid diet for 48 hours if something gets stuck to allow time for any swelling at the EG junction to resolve. Patient acknowledged understanding. I reviewed expanding the diet to include meat, bread and trigger foods. We discussed starting with soft, tender meat, like a roast in a crockpot or a moist meatloaf or dark meat turkey. I also reviewed to avoid eating meat and bread together, like a hamburger or hot dog on a bun. I reminded patient to try new foods one at a time. I also reminded the patient that trigger foods remain trigger foods, but he may be able to tolerate them in small amounts. Patient denied any questions and I reinforced we are available if he has any questions. Patient has my contact information if he has any questions or concerns before their next appointment. Patient thanked me for the call. Fidelina Olvera RN Allergies As of Date: 09/29/2023 Noted Allergy Reaction CEPHALEXIN MONOHYDRATE 11/28/2018 16 - Unknown Comments: Keflex KEFLEX (CEPHALEXIN) 07/18/2012 2 - Rash PENICILLINS 07/18/2012 2 - Rash TETRACYCLINE 07/18/2012 2 - Rash Date Reviewed: 08/15/2023 Reviewed by: Therese BLANDON, Etelvina Wheatley - Fully Assessed Reason for Visit: Follow Up [171] Prescriptions as of 09/29/2023 - sucralfate (CARAFATE) 1 gram tablet Take 1 tablet by mouth four times daily. - BD LUER-TRUNG SYRINGE 3 mL 22 x 1 1/2 as directed. - testosterone cypionate (DEPO-TESTOSTERONE) 200 mg/mL injection INJECT 1 ML (200MG) INTRAMUSCULARLY EVERY 2 WEEKS - pregabalin (LYRICA) 100 mg capsule TAKE 1 ORAL THREE TIMES A DAY FOR 28 DAYS - tiZANidine HCl (ZANAFLEX) 4 mg capsule TAKE 1 CAPSULE BY MOUTH TWICE A DAY NEEDED - famotidine (PEPCID) 20 mg tablet Take 20 mg by mouth as needed. - acetaminophen (TYLENOL ARTHRITIS ORAL) Take by mouth as needed. - pantoprazole DR (PROTONIX) 40 mg tablet Take 1 tablet by mouth twice daily. Problem List As Of Date 09/29/2023 Noted Resolved Dysphagia [R13.10] 11/14/2015 Radiculopathy, lumbar region [M54.16] 12/13/2018 GERD (gastroesophageal reflux disease) [K21.9] 02/17/2023 Paraesophageal hernia [K44.9] 02/17/2023 Pre-op examination [Z01.818] 04/08/2023 Stomach ulcer [K25.9] 04/08/2023 ----- Questionnaire: AG GERD HEALTH RELATED QUALITY OF LIFE Surgery/Baclofen dose -> On PPI'S -> JORDYN: DATE 1. How bad is the heartburn? -> 0 No Symptoms 2. Heartburn when lying down? -> 0 No Symptoms 3. Heartburn when standing up? -> 0 No Symptoms 4. Heartburn after meals? -> 0 No Symptoms 5. Does heartburn change your diet? -> 0 No Symptoms 6. Does heartburn wake you from sleep? -> 0 No Symptoms 7. Do you have difficulty swallowing -> 1 Noticeable/not bothersome 8. Do you have pain with swallowing? -> 0 No Symptoms 9. If you take medication, does this affect your daily life? -> 0 No Symptoms 10. How bad is the regurgitation? -> 0 No Symptoms 11. Regurgitation when lying down? -> 0 No Symptoms 12. Regurgitation when standing up? -> 0 No Symptoms 13. Regurgitation after meals? -> 0 No Symptoms 14. Does regurgitation change your diet? -> 0 No Symptoms 15. Does regurgitation wake you from sleep? -> 0 No Symptoms TOTAL - HEARTBURN 1-9 -> 1 TOTAL - REGURG 10-15 -> 0 Total -> 1 16. How satisfied are you with your present condition -> Satisfied Encounter Status:Closed by FIDELINA OLVERA on 09/29/23 [facility] Absolute lymphocyte countOrd ered By: Carlos Watkins on 09-08-2023 Lymphocytes Auto (Unsp spec) [#/Vol] 1.49 10*3/uL 0.83-4.51 [facility] Basophil percentageOrdered B y: Carlos Watkins on 09-08-2023 Basophils/100 WBC (Bld) 0.4 % 0-[address] [facility] Bilirubin [Mass/Vol] 0.70 mg/dL 0.20-1.00 [facility] Comment on above: For patients on eltr ombopag therapy, use of Dimension [place] TBIL is not recommended. Chloride [Moles/Vol] 102 mmol/L 98-107 [facility] Eosinophils/100 WBC (Bld) 2.8 % 0-5 [facility] Glucose [Mass/Vol] 73 mg/dL 74-106 [facility] Neutrophils (Bld) [#/Vol] 4.5 10*3/uL 2.0-7.7 [facility] Neutrophils/100 WBC (Bld) 64.9 % 47-70 [facility] Potassium [Moles/Vol] 4.2 mmol/L 3.5-5.1 [facility] Protein [Mass/Vol] 7.5 g/dL 6.4-8.2 [facility] Sodium [Moles/Vol] 137 mmol/L 136-145 [facility] Testosterone [Mass/Vol] 269.86 ng/dL [facility] Comment on above: CENTRAL 90% REFERENC E RANGES MALE AGE <50 197.44 - 669.58 ng/dL MALE AGE > or = 50 187.72 - 684.19 ng/dL FEMALE AGE <50 8.38 - 35.01 ng/dL FEMALE AGE > or = 50 <7.00 - 35.92 ng/dL Effective as of 04/21/21 WBC (Bld) [#/Vol] 6.9 10*3/uL 4.4-11.0 [facility] Blood erythrocytes count (nu mber/volume)Ordered By: Carlos Watkins on 09-08-2023 RBC (Bld) [#/Vol] 5.02 10*6/uL 4.6-6.2 [facility] Blood hemoglobin measurement (mass/volume)Ordered By: Carlos Watkins on 09-08-2023 Hemoglobin (Bld) [Mass/Vol] 14.8 g/dL 13.0-16.5 [facility] Blood lymphocytes/100 leukoc ytesOrdered By: Carlos Watkins on 09-08-2023 Lymphocytes/100 WBC (Bld) 21.8 % 19-41 [facility] Blood monocytes/100 leukocyt esOrdered By: Carlos Watkins on 09-08-2023 Monocytes/100 WBC (Bld) 9.8 % 0-[address] [facility] Blood platelet mean volumeOr dered By: Carlos Watkins on 09-08-2023 Platelet mean volume (Bld) [Entitic vol] 9.2 fL 6.2-12.0 [facility] Determination of erythrocyte mean corpuscular volume (MCV)Ordered By: Carlos Watkins on 09-08-2023 MCV (RBC) [Entitic vol] 91.6 fL 80-[address] [facility] Hematocrit Auto (Bld) [Volum e fraction]Ordered By: Carlos Watkins on 09-08-2023 Hematocrit (Bld) [Volume fraction] 46.0 % 40-54 [facility] Laboratory - Chemistry and C hemistry - challengeOrdered By: Carlos Watkins on 09-08-2023 ALP [Catalytic activity/Vol] 93 U/L 45-117 [facility] ALT [Catalytic activity/Vol] 28 U/L 16-61 [facility] CO2 [Moles/Vol] 33.0 mmol/L 21.0-32.0 [facility] Globulin (S) [Mass/Vol] 3.7 g/dL 2.2-4.[address] [facility] Urea nitrogen/Creatinine [Mass ratio] 15.9 mg/mg 10-20 [facility] Laboratory - Hematology and Cell countsOrdered By: Carlos Watkins on 09-08-2023 Erythrocyte distribution width (RBC) [Entitic vol] 43.7 fL 35.1-43.9 [facility] Erythrocyte distribution width (RBC) [Ratio] 13.1 % 11.6-14.6 [facility] Immature granulocytes/100 WBC (Bld) 0.300 % 0.0-0.9 [facility] Comment on above: IG% - Immature Granu locytes (promyelocytes, myelocytes and metamyelocytes) > 1% indicates that a LEFT SHIFT is Present. MCH (RBC) [Entitic mass] 29.5 pg 27.0-32.0 [facility] Nucleated RBC/100 WBC (Bld) [Ratio] 0 % 0-5 [facility] MCHC Auto (RBC) [Mass/Vol]Or dered By: Carlos Watkins on 09-08-2023 MCHC (RBC) [Mass/Vol] 32.2 g/dL 32-36 [facility] No Panel InformationOrdered By: Carlos Watkins on 09-08-2023 Estimated GFR (MDRD) Amer 135 mL/min >60 [facility] Comment on above: GFR Calc Estimated GFR (MDRD) Non-Af Amer 112 mL/min >60 [facility] Comment on above: Non- GFR Calc Platelets bldOrdered By: Inocente Watkins on 09-08-2023 Platelets (Bld) [#/Vol] 219 10*3/uL 150-450 [facility] Serum or plasma C reactive p rotein measurement (mass/volume)Ordered By: Carlos Watkins on 09-08-2023 CRP [Mass/Vol] 12.30 mg/L 0.0-3.0 [facility] Comment on above: C-Reactive Protein ( CRP) provides useful information for thediagnosis, therapy and monitoring of inflammatory processesand associated diseases. For the evaluation of Relative Riskfor Cardiovascular Disease, a High Sensitivity CRP (HSCRP)should be ordered. Serum or plasma albumin jhoan urement (mass/volume)Ordered By: Carlos Watkins on 09-08-2023 Albumin [Mass/Vol] 3.8 g/dL 3.2-5.0 [facility] Serum or plasma albumin/glob ulin mass ratioOrdered By: Carlos Watkins on 09-08-2023 Albumin/Globulin [Mass ratio] 1.0 {ratio} 0.9-2.4 [facility] Serum or plasma calcium jhoan urement (mass/volume)Ordered By: Carlos Watkins on 09-08-2023 Calcium [Mass/Vol] 9.6 mg/dL 8.5-10.1 [facility] Serum or plasma creatinine m easurement (mass/volume)Ordered By: Carlos Watkins on 09-08-2023 Creatinine [Mass/Vol] 0.76 mg/dL 0.70-1.30 [facility] Comment on above: The validity of the calculated GFR & GFRAA in patients over 70 years has not been determined. Clinical correlation is essential. Serum or plasma urea nitroge n measurement (mass/volume)Ordered By: Carlos Watkins on 09-08-2023 Urea nitrogen [Mass/Vol] 12 mg/dL 7-18 [facility] Thin prep Papanicolaou smear with manual screeningOrdered By: Carlos Watkins on 09-08-2023 Thin prep Papanicolaou smear with manual screening 18 U/L 15-37 [facility] Thin prep Papanicolaou smear with manual screening 2 5-15 [facility] CNPNon 08-26-2023 CNPN Telephone (AGGENS4) ----- ALBINO WASHBURN ([id number]) 1965 M [facility] Date Time Provider Department 08/26/23 RADHA JOHNSON4 During your visit today, we recorded the following information about you: Fidelina Olvera RN 08/26/2023 9:40 AM Signed Patient called with a question about how physically active he can be. Albino will be 4 weeks post op next week (Toupet 08/02/23). 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 I told Albino I would recommend lifting more than 20 lbs at this point and he should check how he feels the day after his activity. I recommended that he wait until at least 6 weeks post op for heavy lifting/equipment use. Patient agreed with the plan. Fidelina Olvera RN Allergies As of Date: 08/26/2023 Noted Allergy Reaction CEPHALEXIN MONOHYDRATE 11/28/2018 16 - Unknown Comments: Keflex KEFLEX (CEPHALEXIN) 07/18/2012 2 - Rash PENICILLINS 07/18/2012 2 - Rash TETRACYCLINE 07/18/2012 2 - Rash Date Reviewed: 08/15/2023 Reviewed by: Etelvina Saleh MA - Fully Assessed Reason for Visit: Patient Question [5337] Prescriptions as of 08/26/2023 - sucralfate (CARAFATE) 1 gram tablet Take 1 tablet by mouth four times daily. - sucralfate (CARAFATE) 1 gram tablet Take 1 tablet by mouth four times daily. - BD LUER-TRUNG SYRINGE 3 mL 22 x 1 1/2 as directed. - testosterone cypionate (DEPO-TESTOSTERONE) 200 mg/mL injection INJECT 1 ML (200MG) INTRAMUSCULARLY EVERY 2 WEEKS - pregabalin (LYRICA) 100 mg capsule TAKE 1 ORAL THREE TIMES A DAY FOR 28 DAYS - tiZANidine HCl (ZANAFLEX) 4 mg capsule TAKE 1 CAPSULE BY MOUTH TWICE A DAY NEEDED - famotidine (PEPCID) 20 mg tablet Take 20 mg by mouth as needed. - acetaminophen (TYLENOL ARTHRITIS ORAL) Take by mouth as needed. - pantoprazole DR (PROTONIX) 40 mg tablet Take 1 tablet by mouth twice daily. Problem List As Of Date 08/26/2023 Noted Resolved Dysphagia [R13.10] 11/14/2015 Radiculopathy, lumbar region [M54.16] 12/13/2018 GERD (gastroesophageal reflux disease) [K21.9] 02/17/2023 Paraesophageal hernia [K44.9] 02/17/2023 Pre-op examination [Z01.818] 04/08/2023 Stomach ulcer [K25.9] 04/08/2023 Encounter Status:Closed by FIDELINA OLVERA on 08/26/23 [facility] Marilyn 08-15-2023 CNOV Office Visit (AGGENS 4) ----- ALBINO WASHBURN ([id number]) 1965 M [facility] Date Time Provider Department 08/15/23 8:00 AM RADHA JOHNSON4 During your visit today, we recorded the following information about you: Pulse Blood pressure Weight Height 88/minute 124/76 75.8 kg 1.784 m Radha Johnson MD 08/15/2023 8:41 AM Signed Patient presents with: Post Op Follow Up HPI: Patient is a 58 year old male who presents to general surgery clinic for follow up after robotic paraesophageal hernia repair with toupet fundoplication on 08/02/23. Itching by incision due to the skin glue that has improved since removing the skin glue. Otherwise doing well, tolerating diet, denies heartburn or regurg. Some dysphagia that is improving. Stopped taking PPI as he could not swallow pills and did not have heartburn. PAST MEDICAL HISTORY Diagnosis Date Abdominal pain Arthritis back Dysphagia feeling food get stuck Fibromyalgia GERD (gastroesophageal reflux disease) Hiatal hernia 04/08/2023 approx 5 cm History of angina Paraesophageal hernia with gastroesophageal reflux Snoring Stomach ulcer PAST SURGICAL HISTORY Procedure Laterality Date 48 HOUR PH STUDY 04/08/2023 Dr. Johnson BACK SURGERY HX spinal fusion with ORIF and second surgery to remove hardware. x 2 BACK SURGERY HX 2014 L5-S1 transforaminal Lumbar Interbody fusion BLADDER SURGERY HX 2013 CHOLECYSTECTOMY 07/30/2016 Cholecystectomy COLONOSCOPY FLX DX W/COLLJ SPEC WHEN PFRMD 05/18/2013 Colonoscopy COLONOSCOPY FLX DX W/COLLJ SPEC WHEN PFRMD 11/14/2015 Colonoscopy with mac CYSTOSCOPY,DIL BLADDER,LOCAL ANESTH 2012 EGD 01/30/2013 EGD 11/14/2015 EGD 11/14/2015 EGD WITH BIOPSY(S) 04/08/2023 5 cm hiatal hernia; Dr. Johnson ELBOW SURGERY HX Left 2014 ESOPHAGEAL MANOMETRY 11/21/2015 ESOPHAGEAL MANOMETRY 04/08/2023 Dr. Carbone HAND SURGERY HX Left 2002 HERNIA REPAIR HX N/A 08/02/2023 ROBOTIC LAPAROSCOPIC REPAIR PARAESOPHAGEAL HERNIA W/FUNDOPLASTY W/O IMPLANTATION OF MESH KNEE SURGERY HX Left 1978 LAMINECTOMY,LUMBAR 2000 PAST SURGICAL HISTORY OF 2002 Fusion at T9 S SPINAL CORD STIMULATOR, 2015 SHOULDER SURGERY HX Right 2010 SINUS SURGERY HX 2012 FAMILY HISTORY Problem Relation Age of Onset Arthritis Mother rheumatoid other (spinal problems) Mother hep c other (scarlet fever) Mother Prostate Cancer Father other (heart mumur) Brother other (food allergies) Other children Colon Cancer No Family History Social History Tobacco Use Smoking status: Never Smokeless tobacco: Never Vaping Use Vaping Use: Never used Substance Use Topics Alcohol use: No Drug use: Never Current Outpatient Medications Medication Sig sucralfate (CARAFATE) 1 gram tablet Take 1 tablet by mouth four times daily. (Patient taking differently: Take 1 g by mouth as needed.) BD LUER-TRUNG SYRINGE 3 mL 22 x 1 1/2 as directed. testosterone cypionate (DEPO-TESTOSTERONE) 200 mg/mL injection INJECT 1 ML (200MG) INTRAMUSCULARLY EVERY 2 WEEKS tiZANidine HCl (ZANAFLEX) 4 mg capsule TAKE 1 CAPSULE BY MOUTH TWICE A DAY NEEDED famotidine (PEPCID) 20 mg tablet Take 20 mg by mouth as needed. acetaminophen (TYLENOL ARTHRITIS ORAL) Take by mouth as needed. sucralfate (CARAFATE) 1 gram tablet Take 1 tablet by mouth four times daily. (Patient not taking: Reported on 08/15/2023) pregabalin (LYRICA) 100 mg capsule TAKE 1 ORAL THREE TIMES A DAY FOR 28 DAYS (Patient not taking: Reported on 08/15/2023) pantoprazole DR (PROTONIX) 40 mg tablet Take 1 tablet by mouth twice daily. (Patient not taking: Reported on 08/15/2023) No current facility-administered medications for this visit. ALLERGIES Allergen Reactions Cephalexin Monohydr* Unknown Keflex Keflex [Cephalexin] Rash Penicillins Rash Tetracycline Rash REVIEW OF SYSTEMS: GENERAL: No weight loss, malaise or fevers GI: Negative for abdominal pain, nausea , vomiting, diarrhea, constipation, and signs of jaundice Positive for none PHYSICAL EXAM: BP 124/76 Pulse 88 Ht 5' 10.25 (1.78m) Wt 167 lb 3.2 oz (75.8kg) BMI 23.83 kg/(m2). GENERAL APPEARANCE: Well appearing, alert, in no acute distress, well-hydrated, well nourished.. ABDOMEN: Normal abdominal exam, incision c/d/I, mild rash NEURO: Alert, oriented x3, no asterixis, speech clear and articulate, and THORPE DATA: Diagnostic tests reviewed for today's visit: No new labs ASSESSMENT / PLAN ASSESSMENT/PLAN: 1. Paraesophageal hernia - ICD9: 553.3, ICD10: K44.9 S/p Robotic PEHR with toupet Restart PPI daily Motrin as needed only for itching Ok for benadryl and hydrocortisone cream for itching, skin glue is removed so rash will improve Follow forgut diet Follow up 3 months Radha Johnson MD MS [facility] Fidelina Olvera RN 08/15/2023 10:01 AM Signed (more content not included)... Normal [facility] 08-11-2023 [facility] (AGGENS4) ----- ALBINO WASHBURN ([id number]) 1965 M [facility] [place] Date Time Provider Department 08/11/23 RADHA JOHNSON4 During your visit today, we recorded the following information about you: Fidelina Olvera RN 08/11/2023 9:21 AM Addendum I called Albino this morning to follow up on his rash around his incisions. Patient stated I forgot I've had this problem before. When they put the pain pump in I had the same problem around that dressing. Patient states it is red and itching around all the incisions. He started taking OTC Benadryl at night 2 nights ago. He did purchase extra strength Benadryl cream yesterday and reports that the rash is not as red today. I recommended that he continue using the Benadryl cream at least twice a day and continue taking the Benadryl at night. I reminded patient about his follow up appointment on 08/15/23. Patient thanked me for the call. Fidelina Olvera RN I called patient back to instruct him to remove the glue over the incisions and apply the benadryl cream to the rash where the skin glue was. Patient did not pharmacy picking technician the call x 2. I called patient's and gave her the instructions on removal of skin glue and applying Benadryl cream. Christi said she will make sure he gets that message. He's really trying to do everything by the book. I told her we appreciate that and we just want to make him comfortable. She thanked me for taking the extra step to contact her. Fidelina Olvera RN Allergies As of Date: 08/11/2023 Noted Allergy Reaction CEPHALEXIN MONOHYDRATE 11/28/2018 16 - Unknown Comments: Keflex KEFLEX (CEPHALEXIN) 07/18/2012 2 - Rash PENICILLINS 07/18/2012 2 - Rash TETRACYCLINE 07/18/2012 2 - Rash Date Reviewed: 08/02/2023 Reviewed by: Ivett Barrios, OSWALDO - Fully Assessed Reason for Visit: Follow Up [171] Prescriptions as of 08/11/2023 - sucralfate (CARAFATE) 1 gram tablet Take 1 tablet by mouth four times daily. - sucralfate (CARAFATE) 1 gram tablet Take 1 tablet by mouth four times daily. - ondansetron (ZOFRAN) 4 mg tablet Take 1 tablet by mouth every 8 hours as needed for nausea/vomiting for up to 10 days. - BD LUER-TRUNG SYRINGE 3 mL 22 x 1 1/2 as directed. - testosterone cypionate (DEPO-TESTOSTERONE) 200 mg/mL injection INJECT 1 ML (200MG) INTRAMUSCULARLY EVERY 2 WEEKS - pregabalin (LYRICA) 100 mg capsule TAKE 1 ORAL THREE TIMES A DAY FOR 28 DAYS - tiZANidine HCl (ZANAFLEX) 4 mg capsule TAKE 1 CAPSULE BY MOUTH TWICE A DAY NEEDED - famotidine (PEPCID) 20 mg tablet Take 20 mg by mouth as needed. - acetaminophen (TYLENOL ARTHRITIS ORAL) Take by mouth as needed. - pantoprazole DR (PROTONIX) 40 mg tablet Take 1 tablet by mouth twice daily. Problem List As Of Date 08/11/2023 Noted Resolved Dysphagia [R13.10] 11/14/2015 Radiculopathy, lumbar region [M54.16] 12/13/2018 GERD (gastroesophageal reflux disease) [K21.9] 02/17/2023 Paraesophageal hernia [K44.9] 02/17/2023 Pre-op examination [Z01.818] 04/08/2023 Stomach ulcer [K25.9] 04/08/2023 Encounter Status:Closed by FIDELINA OLVERA on 08/11/23 [facility] 08-10-2023 [facility] Tele[facility] (AGGENS4) ----- ALBINO WASHBURN ([id number]) 1965 [facility] Date Time Provider Department 08/10/23 RADHA JOHNSON AGGENS4 During your visit today, we recorded the following information about you: Mercy Dong MA 08/10/2023 3:42 PM Signed Phone call from patient stating that he feels that the surgical glue that was used for his surgery is giving him a red rash. He states he has had it for a few days but that it is getting worse. He denies any other symptoms but is requesting that a cream be sent to his pharmacy to help. JAMIA Quiros Cathleen, OSWALDO 08/10/2023 4:39 PM Signed I called the patient but was only able to leave him a message stating he could use some topical benadryl cream around the skin glue or he could take oral, OTC benadryl. I asked the patient to return my call tomorrow. Fidelina Olvera RN Allergies As of Date: 08/10/2023 Noted Allergy Reaction CEPHALEXIN MONOHYDRATE 11/28/2018 16 - Unknown Comments: Keflex KEFLEX (CEPHALEXIN) 07/18/2012 2 - Rash PENICILLINS 07/18/2012 2 - Rash TETRACYCLINE 07/18/2012 2 - Rash Date Reviewed: 08/02/2023 Reviewed by: Ivett Barrios, OSWALDO - Fully Assessed Reason for Visit: Patient Update [1234] Cmt: Rash Prescriptions as of 08/10/2023 - sucralfate (CARAFATE) 1 gram tablet Take 1 tablet by mouth four times daily. - sucralfate (CARAFATE) 1 gram tablet Take 1 tablet by mouth four times daily. - ondansetron (ZOFRAN) 4 mg tablet Take 1 tablet by mouth every 8 hours as needed for nausea/vomiting for up to 10 days. - BD LUER-TRUNG SYRINGE 3 mL 22 x 1 1/2 as directed. - testosterone cypionate (DEPO-TESTOSTERONE) 200 mg/mL injection INJECT 1 ML (200MG) INTRAMUSCULARLY EVERY 2 WEEKS - pregabalin (LYRICA) 100 mg capsule TAKE 1 ORAL THREE TIMES A DAY FOR 28 DAYS - tiZANidine HCl (ZANAFLEX) 4 mg capsule TAKE 1 CAPSULE BY MOUTH TWICE A DAY NEEDED - famotidine (PEPCID) 20 mg tablet Take 20 mg by mouth as needed. - acetaminophen (TYLENOL ARTHRITIS ORAL) Take by mouth as needed. - pantoprazole DR (PROTONIX) 40 mg tablet Take 1 tablet by mouth twice daily. Problem List As Of Date 08/10/2023 Noted Resolved Dysphagia [R13.10] 11/14/2015 Radiculopathy, lumbar region [M54.16] 12/13/2018 GERD (gastroesophageal reflux disease) [K21.9] 02/17/2023 Paraesophageal hernia [K44.9] 02/17/2023 Pre-op examination [Z01.818] 04/08/2023 Stomach ulcer [K25.9] 04/08/2023 Encounter Status:Closed by FIDELINA OLVERA on 08/10/23 [facility] Basophil percentageOrdered B y: Ramiro Marks on 07-16-2023 Testosterone [Mass/Vol] 435.46 ng/dL [facility] Comment on above: CENTRAL 90% REFERENC E RANGES MALE AGE <50 197.44 - 669.58 ng/dL MALE AGE > or = 50 187.72 - 684.19 ng/dL FEMALE AGE <50 8.38 - 35.01 ng/dL FEMALE AGE > or = 50 <7.00 - 35.92 ng/dL Effective as of 04/21/21 No Panel InformationOrdered By: Ramiro Marks on 07-16-2023 Prostate Specific Antigen Screen 3.56 ng/mL 0.00-4.00 [facility] Comment on above: This test was perfor med using the TPSA assay method for the[employer] chemistry system. Values obtained with differentassay methods cannot be used interchangably.When changing PSA assays in the course of monitoring apatient, additional sequential testing should be carriedout to confirm baseline values. Absolute lymphocyte countOrd ered By: Carlos Watkins on 06-16-2023 Lymphocytes Auto (Unsp spec) [#/Vol] 1.37 10*3/uL 0.83-4.51 [facility] Basophil percentageOrdered B y: Carlos Hernandezfox on 06-16-2023 Basophil percentage 0 SEEN /hpf 0-5 [facility] Basophils/100 WBC (Bld) 0.5 % 0-[address] [facility] Bilirubin [Mass/Vol] 0.60 mg/dL 0.20-1.00 [facility] Comment on above: For patients on eltr ombopag therapy, use of Dimension [place] TBIL is not recommended. Chloride [Moles/Vol] 101 mmol/L 98-107 [facility] Eosinophils/100 WBC (Bld) 1.2 % 0-5 [facility] Glucose [Mass/Vol] 86 mg/dL 74-106 [facility] Neutrophils (Bld) [#/Vol] 4.1 10*3/uL 2.0-7.7 [facility] Neutrophils/100 WBC (Bld) 67.4 % 47-70 [facility] Potassium [Moles/Vol] 3.8 mmol/L 3.5-5.1 [facility] Protein [Mass/Vol] 6.9 g/dL 6.4-8.2 [facility] Sodium [Moles/Vol] 136 mmol/L 136-145 [facility] Testosterone [Mass/Vol] 813.80 ng/dL [facility] Comment on above: CENTRAL 90% REFERENC E RANGES MALE AGE <50 197.44 - 669.58 ng/dL MALE AGE > or = 50 187.72 - 684.19 ng/dL FEMALE AGE <50 8.38 - 35.01 ng/dL FEMALE AGE > or = 50 <7.00 - 35.92 ng/dL Effective as of 04/21/21 WBC (Bld) [#/Vol] 6.1 10*3/uL 4.4-11.0 [facility] Bilirubin Test strip Ql (U)O rdered By: Carlos Hernandezfox on 09-21-2023 Bilirubin Ql (U) Negative Negative [facility] Blood erythrocytes count (nu mber/volume)Ordered By: Carlos Watkins on 06-16-2023 RBC (Bld) [#/Vol] 4.95 10*6/uL 4.6-6.2 [facility] Blood hemoglobin measurement (mass/volume)Ordered By: Carlos Watkins on 06-16-2023 Hemoglobin (Bld) [Mass/Vol] 14.0 g/dL 13.0-16.5 [facility] Blood lymphocytes/100 leukoc ytesOrdered By: Carlos Watkins on 06-16-2023 Lymphocytes/100 WBC (Bld) 22.6 % 19-41 [facility] Blood monocytes/100 leukocyt esOrdered By: Carlos Watkins on 06-16-2023 Monocytes/100 WBC (Bld) 8.1 % 0-[address] [facility] Blood platelet mean volumeOr dered By: Carlos Watkins on 06-16-2023 Platelet mean volume (Bld) [Entitic vol] 10.0 fL 6.2-12.0 [facility] Culture, urineOrdered By: Stephanie Watkins on 06-16-2023 Bacteria identified Cx Nom (U) Culture exhibits no growth. [facility] Bacteria identified Cx Nom (U) Culture exhibits no growth. [facility] Determination of erythrocyte mean corpuscular volume (MCV)Ordered By: Carlos Watkins on 06-16-2023 MCV (RBC) [Entitic vol] 89.1 fL 80-[address] [facility] Erythrocyte sedimentation ra teOrdered By: Carlos Watkins on 06-16-2023 ESR (Bld) [Velocity] 3 mm/h 0-20 [facility] HIV 1 and HIV-2 antibody ass ay with HIV-1 p24 antigen detectionOrdered By: Carlos Watkins on 06-16-2023 HIV 1+2 Ab+HIV1 p24 Ag IA Ql Non-Reactive Nonreactive [facility] Hematocrit Auto (Bld) [Volum e fraction]Ordered By: Carlos Watkins on 06-16-2023 Hematocrit (Bld) [Volume fraction] 44.1 % 40-54 [facility] Ketones Test strip Ql (U)Ord ered By: Carlos Watkins on 06-16-2023 Ketones Ql (U) Negative Negative [facility] Laboratory - Chemistry and C hemistry - challengeOrdered By: Carlos Watkins on 06-16-2023 ALP [Catalytic activity/Vol] 95 U/L 45-117 [facility] ALT [Catalytic activity/Vol] 28 U/L 16-61 [facility] CO2 [Moles/Vol] 31.0 mmol/L 21.0-32.0 [facility] Globulin (S) [Mass/Vol] 3.1 g/dL 2.2-4.[address] [facility] Urea nitrogen/Creatinine [Mass ratio] 15.3 mg/mg 10-20 [facility] Laboratory - Hematology and Cell countsOrdered By: Carlos Watkins on 06-16-2023 Erythrocyte distribution width (RBC) [Entitic vol] 50.4 fL 35.1-43.9 [facility] Erythrocyte distribution width (RBC) [Ratio] 15.4 % 11.6-14.6 [facility] Immature granulocytes/100 WBC (Bld) 0.200 % 0.0-0.9 [facility] Comment on above: IG% - Immature Granu locytes (promyelocytes, myelocytes and metamyelocytes) > 1% indicates that a LEFT SHIFT is Present. MCH (RBC) [Entitic mass] 28.3 pg 27.0-32.0 [facility] Nucleated RBC/100 WBC (Bld) [Ratio] 0 % 0-5 [facility] MCHC Auto (RBC) [Mass/Vol]Or dered By: Carlos Watkins on 06-16-2023 MCHC (RBC) [Mass/Vol] 31.7 g/dL 32-36 [facility] Mucus LM Ql (Urine sed)Order ed By: Carlos Watkins on 06-16-2023 Mucus Ql (Urine sed) 0 SEEN /hpf [facility] Nitrite Test strip Ql (U)Ord ered By: Carlos Watkins on 06-16-2023 Nitrite Ql (U) Negative Negative [facility] No Panel InformationOrdered By: Carlos Watkins on 06-16-2023 Estimated GFR (MDRD) Amer 130 mL/min >60 [facility] Comment on above: GFR Calc Estimated GFR (MDRD) Non-Af Amer 107 mL/min >60 [facility] Comment on above: Non- GFR Calc Hepatitis C Antibody Non-Reactive Nonreactive [facility] Comment on above: Non Reactive: < 0.8 Equivocal: >/= 0.8 to < 1.0 Reactive: >/= 1.0The CDC recommends that a reactive/equivocal HCV antibody result be followed up by the HCV Nucleic Acid Amplificationtest (418500) Prostate Specific Antigen Total 3.92 ng/mL 0.0-4.0 [facility] Comment on above: This test was perfor med using the TPSA assay method for [email or web address] chemistry system. Values obtained with differentassay methods cannot be used interchangably.When changing PSA assays in the course of monitoring apatient, additional sequential testing should be carriedout to confirm baseline values. Vitamin D 25-Hydroxy 64.5 ng/mL [facility] Comment on above: Vitamin D 25(OH) Sta tus Range Deficiency <20 ng/mL (50nmol/L) Insufficiency 20 - 30 ng/mL (50 - 75 nmol/L) Sufficiency 30 - 100 ng/mL (75 - 250 nmol/L) Toxicity >100 ng/mL (>250 nmol/L) Platelets bldOrdered By: Inocente Watkins on 06-16-2023 Platelets (Bld) [#/Vol] 218 10*3/uL 150-450 [facility] Protein Test strip Ql (U)Ord ered By: Carlos Watkins on 06-16-2023 Protein Ql (U) Negative Negative [facility] Serum or plasma C reactive p rotein measurement (mass/volume)Ordered By: Carlos Watkins on 06-16-2023 CRP [Mass/Vol] 14.70 mg/L 0.0-3.0 [facility] Comment on above: C-Reactive Protein ( CRP) provides useful information for thediagnosis, therapy and monitoring of inflammatory processesand associated diseases. For the evaluation of Relative Riskfor Cardiovascular Disease, a High Sensitivity CRP (HSCRP)should be ordered. Serum or plasma albumin jhoan urement (mass/volume)Ordered By: Carlos Watkins on 06-16-2023 Albumin [Mass/Vol] 3.8 g/dL 3.2-5.0 [facility] Serum or plasma albumin/glob ulin mass ratioOrdered By: Carlos Watkins on 06-16-2023 Albumin/Globulin [Mass ratio] 1.2 {ratio} 0.9-2.4 [facility] Serum or plasma calcium jhoan urement (mass/volume)Ordered By: Carlos Watkins on 06-16-2023 Calcium [Mass/Vol] 8.2 mg/dL 8.5-10.1 [facility] Serum or plasma creatinine m easurement (mass/volume)Ordered By: Carlos Watkins on 06-16-2023 Creatinine [Mass/Vol] 0.78 mg/dL 0.70-1.30 [facility] Comment on above: The validity of the calculated GFR & GFRAA in patients over 70 years has not been determined. Clinical correlation is essential. Serum or plasma urea nitroge n measurement (mass/volume)Ordered By: Carlos Watkins on 06-16-2023 Urea nitrogen [Mass/Vol] 12 mg/dL 7-18 [facility] Squamous epithelial cells de tection in urine sediment by light microscopyOrdered By: Carlos Watkins on 06-16-2023 Epithelial cells.squamous LM Ql (Urine sed) 0 SEEN /hpf 0-5 [facility] Thin prep Papanicolaou smear with manual screeningOrdered By: Carlos Watkins on 06-16-2023 Thin prep Papanicolaou smear with manual screening 17 U/L 15-37 [facility] Thin prep Papanicolaou smear with manual screening 4 5-15 [facility] Thin prep Papanicolaou smear with manual screening Negative Negative [facility] Comment on above: Lyme antibodies not detected. Reflex testing is notindicated.No laboratory evidence of infection with B. burgdorferi(Lyme disease). Negative results may occur in patientsrecently infected (less than or equal to 14 days) with B.burgdorferi. If recent infection is suspected, repeattesting on a new sample collected in 7 to 14 days isrecommended.Performed at: [facility] [id number] Director: Hever Lake PhD, Phone: [phone] Urine blood detectionOrdered By: Carlos Watkins on 06-16-2023 RBC Ql (U) Negative Negative [facility] RBC Ql (U) 0 SEEN /hpf 0-5 [facility] Urine clarityOrdered By: Inocente gerardo June on 06-16-2023 Clarity (U) Clear Clear [facility] Urine color determinationOrd ered By: Carlos Watkins on 06-16-2023 Color (U) Yellow Yellow [facility] Urine glucose detectionOrder ed By: Carlos Watkins on 06-16-2023 Glucose Ql (U) Normal mg/dl Normal [facility] Urine leukocyte esterase det ection by dipstickOrdered By: Carlos Watkins on 06-16-2023 Leukocyte esterase Test strip Ql (U) 25 /ul Negative [facility] Urine pHOrdered By: Tc Watkins on 06-16-2023 pH (U) 5.0 [pH] 5.0 - 8.0 [facility] Urine sediment bacteria coun t by microscopy (number/high power field)Ordered By: Carlos Watkins on 06-16-2023 Bacteria LM.HPF (Urine sed) [#/Area] 0 /[HPF] None Seen [facility] Urine specific gravity measu rementOrdered By: Carlos Watkins on 06-16-2023 Specific gravity (U) [Rel density] 1.020 1.002-1.030 [facility] Urobilinogen Auto test strip Ql (U)Ordered By: Carlos Watkins on 06-16-2023 Urobilinogen Ql (U) Normal mg/dl Normal [facility] No Panel InformationOrdered By: Carlos Watkins on 06-08-2023 Hepatitis C Antibody Non-Reactive Nonreactive [facility] Comment on above: Non Reactive: < 0.8 Equivocal: >/= 0.8 to < 1.0 Reactive: >/= 1.0The CDC recommends that a reactive/equivocal HCV antibody result be followed up by the HCV Nucleic Acid Amplificationtest (535170) Basic metabolic 2000 panelon 05-09-2023 Anion gap [Moles/Vol] 7 mmol/L Low 9 - 18 mmol/L [facility] Calcium [Mass/Vol] 9.0 mg/dL 8.5 - 10. 2 mg/dL [facility] Chloride [Moles/Vol] 100 mmol/L 97 - 10 5 mmol/L [facility] CO2 [Moles/Vol] 31 mmol/L High 22 - 30 mmol/L [facility] Creatinine [Mass/Vol] 0.77 mg/dL 0.73 - 1.22 mg/dL [facility] Estimated Glomerular Filtration Rate 102 mL/min/1.73m >=60 mL/min/1.73m [facility] Glucose [Mass/Vol] 97 mg/dL 74 - 99 mg/dL [facility] Potassium [Moles/Vol] 4.1 mmol/L 3.7 - 5.1 mmol/L [facility] Sodium [Moles/Vol] 138 mmol/L 136 - 144 mmol/L [facility] Urea nitrogen [Mass/Vol] 8 mg/dL Low 9 - 24 mg/dL [facility] HEMOGLOBIN (HGB)on Hemoglobin (Bld) [Mass/Vol] 12.7 g/dL Low 13.0 - 17.0 g/dL [facility] Hematocrit Auto (Bld) [Volum e fraction]on 05-09-2023 Hematocrit (Bld) [Volume fraction] 40.5 % 39.0 - 51.0 % [facility] TYPE AND SCREEN,30 DAYon ABO A [facility] HIstorical Ab Scr Status Negative [facility] Rh Nom (Bld) Negative [facility] No Panel InformationOrdered By: Dr. Marks on 01-13-2023 Prostate Specific Antigen Screen 1.62 ng/mL 0.00-4.00 [facility] Comment on above: This test was perfor med using the TPSA assay method for the[employer] chemistry system. Values obtained with differentassay methods cannot be used interchangably.When changing PSA assays in the course of monitoring apatient, additional sequential testing should be carriedout to confirm baseline values. Prostate Specific Antigen Total 1.62 ng/mL 0.0-4.0 [facility] Comment on above: This test was perfor med using the TPSA assay method for the[employer] chemistry system. Values obtained with differentassay methods cannot be used interchangably.When changing PSA assays in the course of monitoring apatient, additional sequential testing should be carriedout to confirm baseline values. Absolute lymphocyte countOrd ered By: Dr. Watkins on 12-18-2022 Lymphocytes Auto (Unsp spec) [#/Vol] 1.68 10*3/uL 0.83-4.51 [facility] Basophil percentageOrdered B y: Dr. Watkins on 12-18-2022 Testosterone [Mass/Vol] 84.03 ng/dL [facility] Comment on above: CENTRAL 90% REFERENC E RANGES MALE AGE <50 197.44 - 669.58 ng/dL MALE AGE > or = 50 187.72 - 684.19 ng/dL FEMALE AGE <50 8.38 - 35.01 ng/dL FEMALE AGE > or = 50 <7.00 - 35.92 ng/dL Effective as of 04/21/21 Basophils/100 WBC (Bld) 0.8 % 0-1 [facility] Bilirubin [Mass/Vol] 0.50 mg/dL 0.20-1.00 [facility] Comment on above: For patients on eltr ombopag therapy, use of Dimension [place] TBIL is not recommended. Chloride [Moles/Vol] 106 mmol/L 98-107 [facility] Eosinophils/100 WBC (Bld) 1.8 % 0-5 [facility] Glucose [Mass/Vol] 92 mg/dL 74-106 [facility] Neutrophils (Bld) [#/Vol] 3.9 10*3/uL 2.0-7.7 [facility] Neutrophils/100 WBC (Bld) 62.1 % 47-70 [facility] Potassium [Moles/Vol] 4.0 mmol/L 3.5-5.1 [facility] Protein [Mass/Vol] 6.9 g/dL 6.4-8.2 [facility] Sodium [Moles/Vol] 139 mmol/L 136-145 [facility] WBC (Bld) [#/Vol] 6.2 10*3/uL 4.4-11.0 [facility] Blood erythrocytes count (nu mber/volume)Ordered By: Dr. Watkins on 12-18-2022 RBC (Bld) [#/Vol] 4.42 10*6/uL 4.6-6.2 [facility] Blood hemoglobin measurement (mass/volume)Ordered By: Dr. Watkins on 12-18-2022 Hemoglobin (Bld) [Mass/Vol] 13.9 g/dL 13.0-16.5 [facility] Blood lymphocytes/100 leukoc ytesOrdered By: Dr. Watknis on 12-18-2022 Lymphocytes/100 WBC (Bld) 26.9 % 19-41 [facility] - [place] Blood monocytes/100 leukocyt esOrdered By: Dr. Watkins on 12-18-2022 Monocytes/100 WBC (Bld) 8.2 % 0-[address] [facility] Blood platelet mean volumeOr dered By: Dr. Watkins on 12-18-2022 Platelet mean volume (Bld) [Entitic vol] 9.2 fL 6.2-12.0 [facility] [place] Determination of erythrocyte mean corpuscular volume (MCV)Ordered By: Dr. Watkins on 12-18-2022 MCV (RBC) [Entitic vol] 90.3 fL 80-[address] [facility] Erythrocyte sedimentation ra teOrdered By: Dr. Watkins on 12-18-2022 ESR (Bld) [Velocity] mm/h 0-20 [facility] Hematocrit Auto (Bld) [Volum e fraction]Ordered By: Dr. Watkins on 12-18-2022 Hematocrit (Bld) [Volume fraction] 39.9 % 40-54 [facility] [place] Iron measurement (mass/mass) Ordered By: Dr. Watkisn on 12-18-2022 Iron (Unsp spec) [Mass/Mass] 86 ug/dL 65-175 [facility] [place] Laboratory - Chemistry and C hemistry - challengeOrdered By: Dr. Watkins on 12-18-2022 Cobalamin (Vitamin B12) [Mass/Vol] 451 pg/mL 211-911 [facility] [place] ALP [Catalytic activity/Vol] 98 U/L 45-117 [facility] [place] ALT [Catalytic activity/Vol] 37 U/L 16-61 [facility] [place] CK [Catalytic activity/Vol] 121 U/L 39-308 [facility] [place] CO2 [Moles/Vol] 32.0 mmol/L 21.0-32.0 [facility] [place] Globulin (S) [Mass/Vol] 3.1 g/dL 2.2-4.[address] [facility] Urea nitrogen/Creatinine [Mass ratio] 23.4 mg/mg 10-20 [facility] [place] Laboratory - Hematology and Cell countsOrdered By: Dr. Watkins on 12-18-2022 Erythrocyte distribution width (RBC) [Entitic vol] 40.8 fL 35.1-43.9 [facility] [place] Erythrocyte distribution width (RBC) [Ratio] 12.3 % 11.6-14.6 [facility] [place] Immature granulocytes/100 WBC (Bld) 0.200 % 0.0-0.9 [facility] [place] Comment on above: IG% - Immature Granu locytes (promyelocytes, myelocytes and metamyelocytes) > 1% indicates that a LEFT SHIFT is Present. MCH (RBC) [Entitic mass] 31.4 pg 27.0-32.0 [facility] [place] Nucleated RBC/100 WBC (Bld) [Ratio] 0 % 0-5 [facility] [place] MCHC Auto (RBC) [Mass/Vol]Or dered By: Dr. Watkins on 12-18-2022 MCHC (RBC) [Mass/Vol] 34.8 g/dL 32-36 [facility] No Panel InformationOrdered By: Dr. Watkins on 12-18-2022 Vitamin D 25-Hydroxy 61.8 ng/mL [facility] Comment on above: Vitamin D 25(OH) Sta tus Range Deficiency <20 ng/mL (50nmol/L) Insufficiency 20 - 30 ng/mL (50 - 75 nmol/L) Sufficiency 30 - 100 ng/mL (75 - 250 nmol/L) Toxicity >100 ng/mL (>250 nmol/L) Estimated GFR (MDRD) Amer 133 mL/min >60 [facility] [place] Comment on above: GFR Calc Estimated GFR (MDRD) Non-Af Amer 110 mL/min >60 [facility] [place] Comment on above: Non- GFR Calc Thyroid Stimulating Hormone (TSH) 1.00 uIU/mL 0.358-3.74 [facility] [place] Platelets bldOrdered By: Dr. Watkins on 12-18-2022 Platelets (Bld) [#/Vol] 216 10*3/uL 150-450 [facility] [place] Serum or plasma C reactive p rotein measurement (mass/volume)Ordered By: Dr. Watkins on 12-18-2022 CRP [Mass/Vol] mg/L 0.0-3.0 [facility] [place] Comment on above: C-Reactive Protein ( CRP) provides useful information for thediagnosis, therapy and monitoring of inflammatory processesand associated diseases. For the evaluation of Relative Riskfor Cardiovascular Disease, a High Sensitivity CRP (HSCRP)should be ordered. Serum or plasma albumin jhoan urement (mass/volume)Ordered By: Dr. Watkins on 12-18-2022 Albumin [Mass/Vol] 3.8 g/dL 3.2-5.0 [facility] Serum or plasma albumin/glob ulin mass ratioOrdered By: Dr. Watkins on 12-18-2022 Albumin/Globulin [Mass ratio] 1.2 {ratio} 0.9-2.4 [facility] [place] Serum or plasma calcium jhoan urement (mass/volume)Ordered By: Dr. Watkins on 12-18-2022 Calcium [Mass/Vol] 8.8 mg/dL 8.5-10.1 [facility] Serum or plasma creatinine m easurement (mass/volume)Ordered By: Dr. Watkins on 12-18-2022 Creatinine [Mass/Vol] 0.77 mg/dL 0.70-1.30 [facility] Comment on above: The validity of the calculated GFR & GFRAA in patients over 70 years has not been determined. Clinical correlation is essential. Serum or plasma ferritin eron surement (mass/volume)Ordered By: Dr. Watkins on 12-18-2022 Ferritin [Mass/Vol] 16 ng/mL 26-388 [facility] Serum or plasma folate measu rement (mass/volume)Ordered By: Dr. Watkins on 12-18-2022 Folate [Mass/Vol] 31.90 ng/mL 3.1-55.4 [facility] Serum or plasma urea nitroge n measurement (mass/volume)Ordered By: Dr. Watkins on 12-18-2022 Urea nitrogen [Mass/Vol] 18 mg/dL 7-18 [facility] [place] Thin prep Papanicolaou smear with manual screeningOrdered By: Dr. Watkins on 12-18-2022 Thin prep Papanicolaou smear with manual screening 21 U/L 15-37 [facility] [place] Thin prep Papanicolaou smear with manual screening 1 5-15 [facility] [place] Absolute lymphocyte countOrd ered By: Dr. Watkins on 09-23-2022 Lymphocytes Auto (Unsp spec) [#/Vol] 2.08 10*3/uL 0.83-4.51 [facility] [place] Basophil percentageOrdered B y: Dr. Watkins on 09-23-2022 Basophils/100 WBC (Bld) 0.5 % 0-[address] [facility] Eosinophils/100 WBC (Bld) 3.0 % 0-5 [facility] [place] Neutrophils (Bld) [#/Vol] 2.9 10*3/uL 2.0-7.7 [facility] [place] Neutrophils/100 WBC (Bld) 50.6 % 47-70 [facility] [place] WBC (Bld) [#/Vol] 5.7 10*3/uL 4.4-11.0 [facility] Blood erythrocytes count (nu mber/volume)Ordered By: Dr. Watkins on 09-23-2022 RBC (Bld) [#/Vol] 4.29 10*6/uL 4.6-6.2 [facility] Blood hemoglobin measurement (mass/volume)Ordered By: Dr. Watkins on 09-23-2022 Hemoglobin (Bld) [Mass/Vol] 13.4 g/dL 13.0-16.5 [facility] [place] Blood lymphocytes/100 leukoc ytesOrdered By: Dr. Watkins on 09-23-2022 Lymphocytes/100 WBC (Bld) 36.4 % 19-41 [facility] [place] Blood monocytes/100 leukocyt esOrdered By: Dr. Watkins on 09-23-2022 Monocytes/100 WBC (Bld) 9.1 % 0-[address] [facility] Blood platelet mean volumeOr dered By: Dr. Watkins on 09-23-2022 Platelet mean volume (Bld) [Entitic vol] 9.6 fL 6.2-12.0 [facility] [place] Determination of erythrocyte mean corpuscular volume (MCV)Ordered By: Dr. Watkins on 09-23-2022 MCV (RBC) [Entitic vol] 90.7 fL 80-[address] [facility] Erythrocyte sedimentation ra teOrdered By: Dr. Watkins on 09-23-2022 ESR (Bld) [Velocity] mm/h 0-20 [facility] Hematocrit Auto (Bld) [Volum e fraction]Ordered By: Dr. Watkins on 09-23-2022 Hematocrit (Bld) [Volume fraction] 38.9 % 40-54 [facility] [place] Laboratory - Chemistry and C hemistry - challengeOrdered By: Dr. Watkins on 09-23-2022 Albumin [Mass/Vol] 3.9 g/dL 2.9-4.4 [facility] Laboratory - Hematology and Cell countsOrdered By: Dr. Watkins on 09-23-2022 Erythrocyte distribution width (RBC) [Entitic vol] 40.9 fL 35.1-43.9 [facility] [place] Erythrocyte distribution width (RBC) [Ratio] 12.4 % 11.6-14.6 [facility] [place] Immature granulocytes/100 WBC (Bld) 0.400 % 0.0-0.9 [facility] [place] Comment on above: IG% - Immature Granu locytes (promyelocytes, myelocytes and metamyelocytes) > 1% indicates that a LEFT SHIFT is Present. MCH (RBC) [Entitic mass] 31.2 pg 27.0-32.0 [facility] [place] Nucleated RBC/100 WBC (Bld) [Ratio] 0 % 0-5 [facility] [place] MCHC Auto (RBC) [Mass/Vol]Or dered By: Dr. Watkins on 09-23-2022 MCHC (RBC) [Mass/Vol] 34.4 g/dL 32-36 [facility] No Panel InformationOrdered By: Dr. Watkins on 09-23-2022 Addendum Document Comment . [facility] [place] Comment on above: The SPE pattern appe ars unremarkable. Evidence ofmonoclonal protein is not apparent.Performed at: [facility] [place] [id number] Director: Hever Lake PhD, Phone: [phone] Jouwc-2-Ngtcyavpz 0.2 g/dL 0.0-0.4 [facility] [place] Tkzqo-7-Autgekbce 0.5 g/dL 0.4-1.0 [facility] [place] Anti-Nuclear Antibody Screen Negative Negative [facility] [place] Comment on above: Performed at: [place] - [facility] [address] [id number] Director: Hever Lake PhD, Phone: [phone] Gamma Globulins 1.0 g/dL 0.4-1.8 [facility] [place] Thyroid Stimulating Hormone (TSH) 1.11 uIU/mL 0.358-3.74 [facility] [place] Platelets bldOrdered By: Dr. Watkins on 09-23-2022 Platelets (Bld) [#/Vol] 225 10*3/uL 150-450 [facility] [place] Protein Fractions Elph [Inte rp]Ordered By: Dr. Watkins on 09-23-2022 Protein Fractions [Interp] Comment . [facility] [place] Comment on above: Protein electrophore sis scan will follow via computer,mail, or interpreter deaf delivery. Serum albumin to globulin ra anupama by protein electrophoresisOrdered By: Dr. Watkins on 09-23-2022 Albumin/Globulin Elph [Mass ratio] 1.6 0.7-1.7 [facility] [place] Serum globulin measurement ( mass/volume)Ordered By: Dr. Watkins on 09-23-2022 Globulin (S) [Mass/Vol] 2.5 g/dL 2.2-3.[address] [facility] Serum or plasma C reactive p rotein measurement (mass/volume)Ordered By: Dr. Watkins on 09-23-2022 CRP [Mass/Vol] mg/L 0.0-3.0 [facility] [place] Comment on above: C-Reactive Protein ( CRP) provides useful information for thediagnosis, therapy and monitoring of inflammatory processesand associated diseases. For the evaluation of Relative Riskfor Cardiovascular Disease, a High Sensitivity CRP (HSCRP)should be ordered. Serum or plasma beta globuli n measurement by electrophoresis (mass/volume)Ordered By: Dr. Watkins on 09-23-2022 Beta globulin Elph [Mass/Vol] 0.7 g/dL 0.7-1.3 [facility] [place] Serum or plasma uric acid me asurement (mass/volume)Ordered By: Dr. Watkins on 09-23-2022 Urate [Mass/Vol] 4.3 mg/dL 3.5-7.2 [facility] [place] Comment on above: The drugs N-Acetylcy steine and Metamizole may falsely depress this assay. Serum rheumatoid factor dete ctionOrdered By: Dr. Watkins on 09-23-2022 Rheumatoid factor Ql (S) < 10.0 IU/mL <15 [facility] [place] Thin prep Papanicolaou smear with manual screeningOrdered By: Dr. Watkins on 09-23-2022 Thin prep Papanicolaou smear with manual screening See comment [facility] [place] Comment on above: NOT OBSERVED Total protein bloodOrdered B y: Dr. Watkins on 09-23-2022 Protein [Mass/Vol] 6.4 g/dL 6.0-8.5 [facility] Basophil percentageon 2021 Testosterone [Mass/Vol] 112.99 ng/dL [facility] [place] Work Phone: Comment on above: CENTRAL 90% REFERENC E RANGES MALE AGE <50 197.44 - 669.58 ng/dL MALE AGE > or = 50 187.72 - 684.19 ng/dL FEMALE AGE <50 8.38 - 35.01 ng/dL FEMALE AGE > or = 50 <7.00 - 35.92 ng/dL Effective as of 04/21/21 Laboratory - Chemistry and C hemistry - challengeon 02-26-2022 Cobalamin (Vitamin B12) [Mass/Vol] 428 pg/mL 211-911 [facility] [place] Work Phone: No Panel Informationon 02-26 Prostate Specific Antigen Screen 1.91 ng/mL 0.00-4.00 [facility] [place] Work Phone: Comment on above: This test was perfor med using the TPSA assay method for the[facility] system. Values obtained with differentassay methods cannot be used interchangably.When changing PSA assays in the course of monitoring apatient, additional sequential testing should be carriedout to confirm baseline values. Thyroid Stimulating Hormone (TSH) 0.56 uIU/mL 0.358-3.74 [facility] [place] Work Phone: Serum Helicobacter pylori Ig G antibody assay (units/volume)on 02-26-2022 H. pylori IgG Qn (S) 0.54 0.00-0.79 [facility] Work Phone: Comment on above: Result Units: Index Value Negative <0.80 Equivocal 0.80 - 0.89 Positive >0.89Performed at: [facility] [employer] [address] [employer], [place] [id number] Director: Hever Lake PhD, Phone: [phone] Absolute lymphocyte counton 02-19-2022 Lymphocytes Auto (Unsp spec) [#/Vol] 2.36 10*3/uL 0.83-4.51 [facility] [place] Work Phone: [phone] Basophil percentageon 2021 Basophils/100 WBC (Bld) 0.5 % 0-[address] [facility] Work Phone: Bilirubin [Mass/Vol] 0.60 mg/dL 0.20-1.00 [facility] Work Phone: Comment on above: For patients on eltr ombopag therapy, use of Dimension [place] TBIL is not recommended. Chloride [Moles/Vol] 104 mmol/L 98-107 [facility] Work Phone: Eosinophils/100 WBC (Bld) 3.3 % 0-5 [facility] [place] Work Phone: Glucose [Mass/Vol] 93 mg/dL 74-106 [facility] Work Phone: Neutrophils (Bld) [#/Vol] 4.3 10*3/uL 2.0-7.7 [facility] [place] Work Phone: Neutrophils/100 WBC (Bld) 55.9 % 47-70 [facility] [place] Work Phone: Potassium [Moles/Vol] 4.2 mmol/L 3.5-5.1 [facility] Work Phone: Protein [Mass/Vol] 7.3 g/dL 6.4-8.2 [facility] Work Phone: Sodium [Moles/Vol] 139 mmol/L 136-145 [facility] Work Phone: WBC (Bld) [#/Vol] 7.7 10*3/uL 4.4-11.0 [facility] Work Phone: Blood erythrocytes count (nu mber/volume)on 02-19-2022 RBC (Bld) [#/Vol] 4.43 10*6/uL 4.6-6.2 [facility] Work Phone: Blood hemoglobin measurement (mass/volume)on 02-19-2022 Hemoglobin (Bld) [Mass/Vol] 13.1 g/dL 13.0-16.5 [facility] [place] Work Phone: Blood lymphocytes/100 leukoc yteson 02-19-2022 Lymphocytes/100 WBC (Bld) 30.8 % 19-41 [facility] [place] Work Phone: Blood monocytes/100 leukocyt eson 02-19-2022 Monocytes/100 WBC (Bld) 9.4 % 0-[address] [facility] Work Phone: Blood platelet mean volumeon 02-19-2022 Platelet mean volume (Bld) [Entitic vol] 9.2 fL 6.2-12.0 [facility] [place] Work Phone: Determination of erythrocyte mean corpuscular volume (MCV)on 02-19-2022 MCV (RBC) [Entitic vol] 90.3 fL 80-[address] [facility] Work Phone: Erythrocyte sedimentation ra corry 02-19-2022 ESR (Bld) [Velocity] mm/h 0-20 [facility] Work Phone: Comment on above: Previous reported re sult: 1 mm/hrEdited by: SANKET on 02/19/22:2324 AMENDED REPORT 02/19/22 2324 SED RATE previously reported as: 1 mm/hr Hematocrit Auto (Bld) [Volum e fraction]on 02-19-2022 Hematocrit (Bld) [Volume fraction] 40.0 % 40-54 [facility] [place] Work Phone: Laboratory - Chemistry and C hemistry - challengeon 02-19-2022 Albumin [Mass/Vol] 4.3 g/dL 2.9-4.4 [facility] Work Phone: ALP [Catalytic activity/Vol] 87 U/L 45-117 [facility] [place] Work Phone: ALT [Catalytic activity/Vol] 35 U/L 16-61 [facility] [place] Work Phone: CO2 [Moles/Vol] 29.0 mmol/L 21.0-32.0 [facility] [place] Work Phone: Globulin (S) [Mass/Vol] 3.1 g/dL 2.2-4.[address] [facility] Work Phone: Urea nitrogen/Creatinine [Mass ratio] 25.1 mg/mg 10-20 [facility] [place] Work Phone: Laboratory - Hematology and Cell countson 02-19-2022 Erythrocyte distribution width (RBC) [Entitic vol] 41.8 fL 35.1-43.9 [facility] [place] Work Phone: Erythrocyte distribution width (RBC) [Ratio] 12.7 % 11.6-14.6 [facility] [place] Work Phone: Immature granulocytes/100 WBC (Bld) 0.100 % 0.0-0.9 [facility] [place] Work Phone: Comment on above: IG% - Immature Granu locytes (promyelocytes, myelocytes and metamyelocytes) > 1% indicates that a LEFT SHIFT is Present. MCH (RBC) [Entitic mass] 29.6 pg 27.0-32.0 [facility] [place] Work Phone: Nucleated RBC/100 WBC (Bld) [Ratio] 0 % 0-5 [facility] [place] Work Phone: MCHC Auto (RBC) [Mass/Vol]on 02-19-2022 MCHC (RBC) [Mass/Vol] 32.8 g/dL 32-[address] [facility] Work [facility]: No Panel Informationon 02-19 Addendum Document Comment . [facility] [place] Work Phone: Comment on above: The SPE pattern appe ars unremarkable. Evidence ofmonoclonal protein is not apparent. Naoam-2-Eoqrbnsag 0.2 g/dL 0.0-0.4 [facility] [place] Work Phone: Oxnva-6-Nqbxdesaj 0.5 g/dL 0.4-1.0 [facility] [place] Work Phone: Anti-Nuclear Antibody Screen Negative Negative [facility] [place] Work Phone: Comment on above: Performed at: [address] [id number] Director: Hever Lake PhD, Phone: [phone] C-Reactive Protein High Sensitivity 4.43 mg/L <3.00 [facility] [place] Work Phone: Comment on above: Low Relative Risk of CVD <1.0 mg/L Average Relative Risk of CVD 1.0 - 3.0 mg/L High Relative Risk of CVD >3.0 mg/L Estimated GFR (MDRD) Amer 115 mL/min >60 [facility] [place] Work Phone: Comment on above: GFR Calc Estimated GFR (MDRD) Non-Af Amer 95 mL/min >60 [facility] [place] Work Phone: Comment on above: Non- GFR Calc Gamma Globulins 1.0 g/dL 0.4-1.8 [facility] [place] Work Phone: Platelets bldon 02-19-2022 Platelets (Bld) [#/Vol] 217 10*3/uL 150-450 [facility] [place] Work Phone: Protein Fractions Elph [Inte rp]on 02-19-2022 Protein Fractions [Interp] Comment . [facility] [place] Work Phone: Comment on above: Protein electrophore sis scan will follow via computer,mail, or interpreter deaf delivery. Serum albumin to globulin ra anupama by protein electrophoresison 02-19-2022 Albumin/Globulin Elph [Mass ratio] 1.7 0.7-1.7 [facility] [place] Work Phone: Serum cyclic citrullinated p eptide IgG antibody assay (units/volume)on 02-19-2022 Cyclic citrullinated peptide IgG Qn 6 units 0-19 [facility] [place] Work Phone: Comment on above: Negative <20 Weak po sitive 20 - 39 Moderate positive 40 - 59 Strong positive >59Performed at: - [facility] [address] [id number] Director: Hever Lake PhD, Phone: [phone] at: 2Q [facility] [id number] [place], [place] [id number] Director: Jai Villa PhD, Phone: [phone] at: [place] - [facility] [id number] Director: Cordelia Painting MD, Phone: [phone] Serum globulin measurement ( mass/volume)on 02-19-2022 Globulin (S) [Mass/Vol] 2.6 g/dL 2.2-3.[address] [facility] Work Phone: Serum or plasma albumin jhoan urement (mass/volume)on 02-19-2022 Albumin [Mass/Vol] 4.2 g/dL 3.2-5.0 [facility] Work Phone: Serum or plasma albumin/glob ulin mass ratioon 02-19-2022 Albumin/Globulin [Mass ratio] 1.4 {ratio} 0.9-2.4 [facility] [place] Work Phone: Serum or plasma beta globuli n measurement by electrophoresis (mass/volume)on 02-19-2022 Beta globulin Elph [Mass/Vol] 0.9 g/dL 0.7-1.3 [facility] [place] Work Phone: Serum or plasma calcium jhoan urement (mass/volume)on 02-19-2022 Calcium [Mass/Vol] 9.0 mg/dL 8.5-10.1 [facility] Work Phone: Serum or plasma creatinine m easurement (mass/volume)on 02-19-2022 Creatinine [Mass/Vol] 0.88 mg/dL 0.70-1.30 [facility] Work Phone: Comment on above: The validity of the calculated GFR & GFRAA in patients over 70 years has not been determined. Clinical correlation is essential. Serum or plasma urea nitroge n measurement (mass/volume)on 02-19-2022 Urea nitrogen [Mass/Vol] 22 mg/dL 7-18 [facility] [place] Work Phone: Serum rheumatoid factor dete ctionon 02-19-2022 Rheumatoid factor Ql (S) < 10.0 IU/mL <15 [facility] [place] Work Phone: Thin prep Papanicolaou smear with manual screeningon 02-19-2022 Thin prep Papanicolaou smear with manual screening 22 U/L 15-37 [facility] [place] Work Phone: Thin prep Papanicolaou smear with manual screening 6 5-15 [facility] [place] Work Phone: Thin prep Papanicolaou smear with manual screening See comment [facility] [place] Work Phone: Comment on above: NOT OSBERVED Thin prep Papanicolaou smear with manual screening Negative . [facility] [place] Work Phone: Comment on above: HLA-B*27 LophqctjG72 allele interpretation for all loci based on IMGT/HLAdatabase version 3.44This test was developed and its performance characteristicsdetermined by [employer]. It has not been cleared or approvedby the Food and Drug Administration.[facility] CLIA ID Number [id number] test was performed using PCR (Polymerase ChainReaction)/SSOP (Sequence Specific Oligonucleotide Probes)technique. SBT (Sequence Based Typing) and/or SSP(Sequence Specific Primers) may be used as supplementalmethods when necessary. Please contact [facility] CustomerService at if you have any questions. Director of [facility] Dr Jai Villa, PhD Total protein bloodon 2021 Protein [Mass/Vol] 6.9 g/dL 6.0-8.5 [facility] Work Phone: FLUOROSCOPY IN OR/PAIN MGTon 07-17-2020 FLUOROSCOPY IN OR/PAIN MGT FLUOROSCOPY IN OR/PAIN MGT Ordering Physician: Bernabe Harrison MD 07/17/2020 9:10 AM Intraoperative fluoroscopy: Clinical Statement: Pain Comparison: None Findings: Intraoperative fluoroscopy was provided for Bernabe Harrison MD who performed the procedure. Please see the report of that procedure for additional details. A total of 11.3 seconds of fluoroscopy was utilized. Multiple spot films were obtained. IMPRESSION: Use of fluoroscopy in surgery. ---- Electronic Signature on File ---- Signed By: Darrell Ocampo MD [email or web address] Dictated: 07/17/2020 9:35 AM Signed: 07/17/2020 9:36 AM Reported By: DARRELL OCAMPO M.D. Signed By: DARRELL OCAMPO M.D. [facility] FLUOROSCOPY IN OR/PAIN MGTon 07-03-2020 FLUOROSCOPY IN OR/PAIN MGT FLUOROSCOPY IN OR/PAIN MGT Ordering Physician: Bernabe Harrison MD 07/03/2020 9:00 AM FLUOROSCOPY IN OR/PAIN MANAGEMENT Clinical Statement: Lumbar postlaminectomy syndrome Comparison: None FINDINGS: Fluoroscopy was provided to Dr. Harrison who performed the procedure. 2 fluoroscopic images of the lumbar spine demonstrate a needle directed posteriorly at the L4-5 level. Contrast was injected. 9.2 seconds of fluoroscopic time was utilized during the procedure. Patient is status post posterior fusion at L5-S1 with pedicle screws and rods. IMPRESSION: Report generated to document fluoroscopic time utilized in pain management. ---- Electronic Signature on File ---- Signed By: Patricio Breen MD [email or web address] Dictated: 07/03/2020 10:16 AM Signed: 07/03/2020 10:18 AM Reported By: PATRICIO BREEN M.D. Signed By: PATRICIO BREEN M.D. [facility] FLUOROSCOPY IN OR/PAIN MGTon 06-26-2020 FLUOROSCOPY IN OR/PAIN MGT FLUOROSCOPY IN OR/PAIN MGT Ordering Physician: Bernabe Harrison MD 06/26/2020 10:25 AM FLUOROSCOPY Clinical Statement: Postlaminectomy syndrome Comparison: None FINDINGS: Two spot fluoroscopic images were saved demonstrating needle placement at L4-5. A total of 11.6 seconds fluoroscopy time was utilized. Please see the ordering clinicians report for full details. IMPRESSION: Documentation of fluoroscopy. ---- Electronic Signature on File ---- Signed By: Sheila Nava MD [email or web address] Dictated: 06/26/2020 10:53 AM Signed: 06/26/2020 10:54 AM Reported By: SHEILA NAVA M.D. Signed By: SHEILA NAVA M.D. [facility] FLUOROSCOPY IN OR/PAIN MGTon 12-06-2019 FLUOROSCOPY IN OR/PAIN MGT FLUOROSCOPY IN OR/PAIN MGT Ordering Physician: Bernabe Harrison MD 12/06/2019 9:30 AM FLUOROSCOPY AND SPOT RADIOGRAPHS: Clinical Statement: Lumbar pain. Post laminectomy syndrome. Comparison: None. FINDINGS: 10.2 seconds of fluoroscopic time was utilized. Two spot radiographs were obtained. IMPRESSION: 1. Documentation of utilization of 10.2 seconds fluoroscopic time. 2. Two spot radiographs obtained. For details, refer to the procedure note by the physician performing this procedure. This report is for fluoroscopy documentation only. ---- Electronic Signature on File ---- Signed By: Izabella Wheeler MD [email or web address] Dictated: 12/06/2019 9:43 AM Signed: 12/06/2019 9:44 AM Reported By: IZABELLA WHEELER M.D. Signed By: IZABELLA WHEELER M.D. [facility] FLUOROSCOPY IN OR/PAIN MGTon 11-29-2019 FLUOROSCOPY IN OR/PAIN MGT FLUOROSCOPY IN OR/PAIN MGT Ordering Physician: Bernabe Harrison MD 11/29/2019 9:40 AM FLUOROSCOPY AND SPOT RADIOGRAPHS: Clinical Statement: Post laminectomy syndrome. Pain. Comparison: None. FINDINGS: 14.3 seconds of fluoroscopic time was utilized. Two spot radiographs were obtained. IMPRESSION: 1. Documentation of utilization of 14.3 seconds fluoroscopic time. 2. Two spot radiographs obtained. For details, refer to the procedure note by the physician performing this procedure. This report is for fluoroscopy documentation only. ---- Electronic Signature on File ---- Signed By: Izabella Wheeler MD [email or web address] Dictated: 11/29/2019 10:00 AM Signed: 11/29/2019 10:01 AM Reported By: IZABELLA WHEELER M.D. Signed By: IZABELLA WHEELER M.D. [facility] FLUOROSCOPY IN OR/PAIN MGTon 11-22-2019 FLUOROSCOPY IN OR/PAIN MGT FLUOROSCOPY IN OR/PAIN MGT Ordering Physician: Bernabe Harrison MD 11/22/2019 9:25 AM FLUOROSCOPY AND RADIOGRAPHS UTILIZED IN PAIN MANAGEMENT Clinical Statement: Low back pain FINDINGS: 16.2 seconds fluoroscopy time utilized. Two radiographs were obtained demonstrating needle placement contrast injection at the L4-5 level. Postoperative changes are noted. IMPRESSION: Documentation of fluoroscopy and radiographs utilized in pain management. Please see clinician's report for complete details. ---- Electronic Signature on File ---- Signed By: Radha Pollack MD [email or web address] Dictated: 11/22/2019 9:41 AM Signed: 11/22/2019 9:41 AM Reported By: RADHA POLLACK M.D. Signed By: RADHA POLLACK M.D. [facility] Vital Signs Date Time Vital Sign Value Performing Clinician Aisha rose 02-24-2025 10:00-0400 Body temperature 98.7 [degF] Dr. Henok Watkins MD Work Phone: [facility] 02-24-2025 10:00-0400 Diastolic blood pressure 70 mm[Hg] Dr. Henok Watkins MD Work Phone: [facility] 02-24-2025 10:00-0400 Heart rate 68 /min Dr. Henok Watkins MD Work Phone: [facility] 02-24-2025 10:00-0400 Respiratory rate 14 /min Dr. Henok Watkins MD Work Phone: [facility] 02-24-2025 10:00-0400 SaO2% (BldA) [Mass fraction] 96 % Dr. Henok Watkins MD Work Phone: [facility] 02-24-2025 10:00-0400 Systolic blood pressure 112 mm[Hg] Dr. Henok Watkins MD Work Phone: [facility] 08-02-2024 13:12-0500 Body mass index (BMI) [Ratio] 25.07 kg/m2 Radha Johnson MD Work Phone: [facility] 08-02-2024 13:12-0500 Body weight 79.83 kg Radha Johnson MD Work Phone: [facility] Comment on above: pt reported 04-19-2024 12:58-0400 Body mass index (BMI) [Ratio] 25.32 kg/m2 Cheyanne Orozco MD Work Phone: [facility] 04-19-2024 12:58-0400 Body temperature 97.9 [degF] Cheyanne Orozco MD Work Phone: [facility] 04-19-2024 12:58-0400 Body weight 80.6 kg Cheyanne Orozco MD Work Phone: [facility] 04-19-2024 12:58-0400 Diastolic blood pressure 80 mm[Hg] Cheyanne Orozco MD Work Phone: [facility] 04-19-2024 12:58-0400 Heart rate 61 /min Cheyanne Orozco MD Work Phone: [facility] 04-19-2024 12:58-0400 Respiratory rate 16 /min Cheyanne Orozco MD Work Phone: [facility] 04-19-2024 12:58-0400 SaO2% (BldA) [Mass fraction] 97 % Cheyanne Orozco MD Work Phone: [facility] 04-19-2024 12:58-0400 Systolic blood pressure 143 mm[Hg] Cheyanne Orozco MD Work Phone: [facility] 11-14-2023 09:39-0500 Body height 178.4 cm Radha Johnson MD Work Phone: [facility] 11-14-2023 09:39-0500 Body weight 82.28 kg Radha Johnson MD Work Phone: [facility] 11-14-2023 09:39-0500 Diastolic blood pressure 74 mm[Hg] Radha Johnson MD Work Phone: [facility] 11-14-2023 09:39-0500 Heart rate 94 /min Radha Johnson MD Work Phone: [facility] 11-14-2023 09:39-0500 Systolic blood pressure 124 mm[Hg] Radha Johnson MD Work Phone: [facility] 08-15-2023 08:09-0500 Body height 178.4 cm Radha Johnson MD Work Phone: [facility] 08-15-2023 08:09-0500 Body weight 75.84 kg Radha Johnson MD Work Phone: [facility] 08-15-2023 08:09-0500 Diastolic blood pressure 76 mm[Hg] Radha Johnson MD Work Phone: [facility] 08-15-2023 08:09-0500 Heart rate 88 /min Radha Johnson MD Work Phone: [facility] 08-15-2023 08:09-0500 Systolic blood pressure 124 mm[Hg] Radha Johnson MD Work Phone: [facility] 07-26-2023 10:49-0400 Body height 180.3 cm Pst 1 [facility] 07-26-2023 10:49-0400 Body temperature 98.8 [degF] [facility] 07-26-2023 10:49-0400 Body weight 80.29 kg Pst 1 [facility] 07-26-2023 10:49-0400 Diastolic blood pressure 77 mm[Hg] Pst 1 [facility] 07-26-2023 10:49-0400 Heart rate 61 /min Pst 1 [facility] 07-26-2023 10:49-0400 Respiratory rate 16 /min Pst 1 [facility] 07-26-2023 10:49-0400 SaO2% (BldA) [Mass fraction] 97 % Pst 1 [facility] 07-26-2023 10:49-0400 Systolic blood pressure 121 mm[Hg] Pst 1 [facility] 05-09-2023 14:20-0400 Body height 177.8 cm Pst 1 [facility] 05-09-2023 14:20-0400 Body temperature 99.1 [degF] Pst 1 [facility] 05-09-2023 14:20-0400 Body weight 82.1 kg Pst 1 [facility] 05-09-2023 14:20-0400 Diastolic blood pressure 79 mm[Hg] Pst 1 [facility] 05-09-2023 14:20-0400 Heart rate 68 /min Pst 1 [facility] 05-09-2023 14:20-0400 Respiratory rate 18 /min Pst 1 [facility] 05-09-2023 14:20-0400 SaO2% (BldA) [Mass fraction] 99 % Pst 1 [facility] 05-09-2023 14:20-0400 Systolic blood pressure 133 mm[Hg] Pst 1 [facility] 02-09-2023 11:12-0400 Body height 180.3 cm Lauryn Ministerio PA-C Work Phone: [facility] 02-09-2023 11:12-0400 Body weight 91.76 kg Lauryn Ministerio PA-C Work Phone: [facility] 02-09-2023 11:12-0400 Diastolic blood pressure 80 mm[Hg] Lauryn Ministerio PA-C Work Phone: [facility] 02-09-2023 11:12-0400 Heart rate 74 /min Lauryn Ministerio PA-C Work Phone: [facility] 02-09-2023 11:12-0400 Systolic blood pressure 132 mm[Hg] Lauryn Mandel PA-C Work Phone: [facility] 09-06-2022 08:41-0500 Body temperature 97.5 [degF] Dr. Carlos Watkins Work Phone: [facility] Work Phone: 09-06-2022 08:41-0500 Diastolic blood pressure 90 mm[Hg] Dr. Carlos Watkins Work Phone: [facility] Work Phone: 09-06-2022 08:41-0500 Heart rate 70 /min Dr. Carlos Watkins Work Phone: [facility] Work Phone: 09-06-2022 08:41-0500 Respiratory rate 16 /min Dr. Carlos Watkins Work Phone: [facility] Work Phone: 09-06-2022 08:41-0500 SaO2% (BldA) [Mass fraction] 97 % Dr. Carlos Watkins Work Phone: [facility] Work Phone: 09-06-2022 08:41-0500 Systolic blood pressure 135 mm[Hg] Dr. Carlos Watkins Work Phone: [facility] Work Phone: 09-06-2022 06:43-0500 Body height 182.[address] Carlos Watkins Work Phone: [facility] Work Phone: 09-06-2022 06:43-0500 Body mass index (BMI) [Ratio] 27.1 kg/m2 Dr. Carlos Watkins Work Phone: [facility] Work Phone: 09-06-2022 06:43-0500 Body weight 90.[address] Carlos Watkins Work Phone: [facility] Work Phone: 03-09-2022 08:13-0400 Body height 180.3 cm Anna Joseph MD Work Phone: [facility] 03-09-2022 08:13-0400 Body weight 91.63 kg Anna Joseph MD Work Phone: [facility] 03-09-2022 08:13-0400 Diastolic blood pressure 72 mm[Hg] Anna Joseph MD Work Phone: [facility] 03-09-2022 08:13-0400 Heart rate 67 /min Anna Joseph MD Work Phone: [facility] 03-09-2022 08:13-0400 Systolic blood pressure 116 mm[Hg] Anna Joseph MD Work Phone: [facility] Encounters Encounter Date Encounter Type Care Provider Facility Start: 05-29-2025 ambulatory Henok Watkins [facility] lity:[facility] Start: 04-01-2025 End: 04-01-[address] Henok Watkins MD Work Phone: -Laboratory Start: 04-01-2025 End: 04-01-[address] Henok Watkins MD -Laboratory Work Phone: Start: 04-01-2025 End: 04-01-2025 ambulatory Henok Watkins Facility:[facility] Start: 03-26-2025 End: 03-26-[address] Henok Watkins MD Work Phone: -Cat Scan [facility] Start: 03-26-2025 End: 03-26-[address] Henok Watkins MD -Cat Scan [facility] Work Phone: Start: 03-26-2025 End: 03-26-2025 ambulatory Henok Watkins Facility:[facility] Start: 03-22-2025 End: 03-22-2025 Refill Mode Fisher MD Work Phone: Rheumatology Comment on above: Refill Request Start: 03-04-2025 End: 03-04-[address] Henok Watkins MD Work Phone: [facility] Work Phone: Start: 03-04-2025 End: 03-04-[address] Henok Watkins MD -Laboratory Work Phone: Start: 03-04-2025 End: 03-04-2025 ambulatory Henok Watkins Facility:[facility] Start: 02-24-2025 End: 02-24-2025 Patient encounter procedure Liban Saini NP-C [facility] Work Phone: Start: 02-24-2025 End: 02-24-[address] Henok Watkins MD Work Phone: [facility] Work Phone: Start: 01-28-2025 End: 01-28-[address] Henok Watkins MD Work Phone: [facility] Work Phone: Start: 01-28-2025 End: 01-28-[address] Henok Watkins MD -Laboratory, Specimen Work Phone: Start: 01-28-2025 End: 01-28-2025 ambulatory Henok Watkins Facility:[facility] Start: 01-16-2025 End: 01-16-[address] Henok Watkins MD Work Phone: [facility] Work Phone: Start: 01-16-2025 End: 01-16-2025 Patient encounter procedure Tami Sandoval PA-C -Laboratory, [facility] Start: 01-16-2025 End: 01-16-2025 ambulatory Tami Sandoval Facility:[facility] Start: 09-16-2024 End: 09-16-2024 ambulatory Henok Watkins Facility:[facility] Start: 08-12-2024 End: 08-14-2024 Refill Cheyanne Orozco MD Work Phone: Rheumatology Comment on above: Refill Request Start: 08-07-2024 End: 08-07-2024 ambulatory Nick RUTH Facility:[facility] Start: 08-07-2024 End: 08-07-2024 ambulatory Tami Sandoval Facility:[facility] Start: 08-02-2024 End: 08-02-2024 Telephone encounter Radha Johnson MD Work Phone: [facility] Comment on above: Follow Up Start: 07-09-2024 End: 07-09-2024 ambulatory Tami [place] Facility:[facility] Start: 07-06-2024 End: 07-06-2024 ambulatory Liban [place] Facility:[facility] Start: 05-04-2024 End: 05-04-2024 ambulatory Cheyanne Orozco MD Work Phone: Rheumatology Comment on above: Long COVID (Primary Dx) Start: 05-04-2024 End: 05-04-2024 Telemedicine consultation with patient Cheyanne Orozco MD Work Phone: Rheumatology Start: 04-19-2024 End: 04-19-2024 ambulatory CHEYANNE OROZCO Facility:[facility] Start: 04-19-2024 End: 04-19-2024 Patient encounter procedure Cheyanne Orozco MD Work Phone: Rheumatology/Pulmonary Comment on above: Polyarthralgia (Prim rashid Dx); Myalgia; COVID-19 virus infection; Chronic nausea Start: 01-09-2024 End: 01-09-2024 ambulatory [facility] Work Phone: Start: 01-09-2024 End: 01-09-2024 Patient encounter procedure [facility]-Laboratory Work Phone: Start: 11-14-2023 End: 11-14-2023 ambulatory RADHA JOHNSON Facility:[facility] Start: 11-14-2023 End: 11-14-2023 Office outpatient visit 25 minutes Radha Johnson MD Work Phone: [facility] Comment on above: Paraesophageal herni a (Primary Dx); Gastroesophageal reflux disease without esophagitis Start: 09-08-2023 End: 09-08-2023 ambulatory [facility] Work Phone: Start: 09-08-2023 End: 09-08-2023 Patient encounter procedure [facility]-Kenji, Ginger Fuller Start: 08-26-2023 Telephone encounter Radha alonzo MD Work Phone: [facility] Comment on above: Patient Question Start: 08-15-2023 End: 08-15-2023 ambulatory RADHA JOHNSON Facility:[facility] Start: 08-15-2023 End: 08-15-2023 Postop follow up visit related to original px Radha Johnson MD Work Phone: [facility] Comment on above: Paraesophageal herni a (Primary Dx) Start: 08-11-2023 Telephone encounter Radha alonzo MD Work Phone: [facility] Comment on above: Follow Up Start: 08-10-2023 Telephone encounter Radha alonzo MD Work Phone: [facility] Comment on above: Patient Update (Rash ) Start: 08-04-2023 Telephone encounter Radha alonzo MD Work Phone: [facility] Comment on above: Hospital Follow Up Start: 08-01-2023 Telephone encounter Radha alonzo MD Work Phone: [facility] Comment on above: Patient Question Start: 07-26-2023 End: 07-26-2023 Admission [address] Start: 07-26-2023 End: 07-26-2023 ambulatory Pst 1 Pre Surgical Testing Comment on above: Pre-op examination; Gastroesophageal reflux disease without esophagitis; Paraesophageal hernia Start: 07-26-2023 End: 07-26-2023 Preprocedural examination done Pst 1 [facility] Work Phone: Start: 07-16-2023 End: 07-16-2023 ambulatory [facility] Work Phone: Start: 07-16-2023 End: 07-16-2023 [facility] Start: 06-16-2023 End: 06-16-2023 ambulatory [facility] Work Phone: Start: 06-16-2023 End: 06-16-2023 Patient encounter procedure [facility] Start: 06-08-2023 End: 06-08-2023 ambulatory [facility] Work Phone: Start: 06-08-2023 End: 06-08-2023 Patient encounter procedure [facility], [place] Work Phone: Start: 05-16-2023 Telephone encounter Radha alonzo MD Work Phone: [facility] Comment on above: Patient Update Start: 05-09-2023 End: 05-09-2023 Admission to [facility] [address] [facility] Start: 05-09-2023 End: 05-09-2023 ambulatory [facility] 1 Pre Surgical Testing Comment on above: Preop examination (P rimary Dx); Gastroesophageal reflux disease without esophagitis; Pre-op examination; Paraesophageal hernia [K44.9] Start: 05-09-2023 End: 05-09-2023 Preprocedural examination done Pst 1 [facility] Work Phone: Start: 05-03-2023 Orders Only Radha Johnson MD Work Phone: [facility] Comment on above: Gastroesophageal ref lux disease without esophagitis (Primary Dx); Paraesophageal hernia Start: 04-08-2023 Preprocedural examination done Radha Johnson MD Work Phone: [facility] Work Phone: Start: 04-08-2023 Telephone encounter Radha alonzo MD Work Phone: [facility] Comment on above: Patient Question Start: 03-06-2023 Refill Lauryn Nicoalsa caban PA-C Work Phone: [facility] [place] Comment on above: Refill Request Start: 02-09-2023 End: 02-09-2023 Patient encounter procedure Lauryn RUTH-C Work Phone: [facility] [place] Comment on above: Gastroesophageal ref lux disease, unspecified whether esophagitis present (Primary Dx) Start: 01-13-2023 End: 01-13-2023 ambulatory [facility] Work Phone: Start: 01-13-2023 End: 01-13-2023 Patient encounter procedure [facility]-Laboratory Start: 12-18-2022 End: 12-18-2022 Patient encounter procedure [facility]-Labor[facility] Start: 09-23-2022 End: 09-23-2022 Patient encounter procedure [facility]-Laboratory, [facility] Start: 09-06-2022 Non-patient / Non-visit Dr. Stephanie Watkins Work Phone: [facility] Start: 09-06-2022 End: 09-06-2022 Admission to same day surgery center Dr. Carlos Watkins Work Phone: [facility]-Surgical Day Care Start: 09-06-2022 End: 09-06-[address] Carlos Watkins Work Phone: [facility] Work Phone: Start: 08-09-2022 End: 08-09-[address] Carlos Watkins Work Phone: [facility] Start: 08-05-2022 End: 08-05-[address] Carlos Watkins Work Phone: [facility] Start: 04-02-2022 Non-patient / Non-visit Dr. Stephanie Watkins Work Phone: [facility] Start: 04-02-2022 End: 04-02-[address] Carlos Watkins [facility] Start: 03-15-2022 Refill Anna Sotelo i, [facility] Comment on above: Refill Request Start: 03-09-2022 Refill Anna Sotelo i, MD Work Phone: [facility] Comment on above: Refill Request Start: 03-09-2022 End: 03-09-2022 Patient encounter procedure [facility] Joseph [facility] Comment on above: History of Helicobac ter infection (Primary Dx); Generalized abdominal pain; Bloating; Chronic narcotic use; Nausea; Gastroesophageal reflux disease, unspecified whether esophagitis present; Diverticulosis Start: 03-08-2022 End: 03-08-[address] Carlos Watkins Work Phone: [facility] Start: 02-26-2022 End: 02-26-2022 Patient encounter procedure [facility]Labor[facility] Start: 02-25-2022 End: 02-25-2022 [facility] Start: 02-19-2022 End: 02-19-2022 Patient encounter procedure [facility]-Laboratory Start: 12-13-2018 End: 12-13-2018 Patient encounter procedure [facility] Facility:[facility] Procedures Date Procedure Procedure Detail Performing Clinician Start: 03-26-2025 Computed tomography of abdomen and pelvis with contrast Dr. Henok Watkins MD Work Phone: Start: 03-04-[address] Inocente Watkins MD Work Phone: Comment on above: Performed at: [address] [id number] Director: Hever Lake PhD, Phone: [phone] Start: 03-04-2025 Assay of prostate sp ecific antigen total Dr. Henok Watkins MD Work Phone: Comment on above: This test was perfor med using the [employer] tPSA method. Measured values of a patient sample can vary depending on the testing procedure used. PSA values determined on patient samples by different testing procedures cannot be used interchangeably. If there is a change in PSA assays while monitoring therapy, sequential testing should be performed to confirm baseline values. Start: 03-04-2025 Electrophoresis: [id number] Dr. Henok Watkins MD Work Phone: Start: 03-04-2025 Electrophoresis: [id number] Dr. Henok Watkins MD Work Phone: Start: 03-04-2025 Electrophoresis: letha ma globulin Dr. Henok Watkins MD Work Phone: Start: 03-04-2025 Vitamin D, 25-hydrox y measurement Dr. Henok Watkins MD Work Phone: Comment on above: Vitamin D StatusDefi ciency: <20 ng/mL (50nmol/L)Insufficiency: 20-30 ng/mL (50-75 nmol/L)Sufficiency: 30-100 ng/mL (75-250 nmol/L)Toxicity: >100 ng/mL (>250 nmol/L) Start: 01-28-2025 Measurement of occul t blood in gastric fluid specimen Dr. Henok Watkins MD Work Phone: Start: 01-28-2025 Measurement of occul t blood in stool specimen using immunoassay Dr. Henok Watkins MD Work Phone: Start: 01-28-[address] Henok Watkins MD Work Phone: Start: 01-28-20[address] O[address] parasites identification [address] Henok Watkins MD Work Phone: Start: 01-28-2025 Iadna-dna/rna gi pth gn multiplex probe tq 6-11 Dr. Henok Watkins MD Work Phone: Start: 01-16-2025 Assay of prostate sp ecific antigen total Dr. Henok Watkins MD Work Phone: Comment on above: This test was perfor med using the [employer] tPSA method. Measured values of a patient sample can vary depending on the testing procedure used. PSA values determined on patient samples by different testing procedures cannot be used interchangeably. If there is a change in PSA assays while monitoring therapy, sequential testing should be performed to confirm baseline values. Start: 06-16-2023 Urine culture Start: 06-08-2023 Plain chest X-ray Start: 05-09-2023 Antibody screen Pst 1 Start: 09-06-2022 Decompression of med amadou nerve Dr. Carlos Watkins Work Phone: Start: 02-25-2022 Plain x-ray of hand Start: 02-25-2022 Plain x-ray of wrist Start: 02-25-2022 X-ray of cervical spine Start: 12-13-2018 Adult depression scr eening assessment Anna Joseph MD Work Phone: Start: 11-14-2015 Colonoscopy Anna harris MD Work Phone: Plan of Treatment Date Care Activity Detail Author Start: 2038 RSV Vaccine (1 - 1-dose 75+ series) RSV Vaccine (1 - 1-dose 75+ series) [facility] Start: 12-11-2029 Urine microalbumin profile DTaP,Tdap,Td Vaccine (2 - Td or Tdap) [facility] Start: 08-03-2026 Diabetes Screening Diabetes Screening [facility] Start: 05-09-2026 DIABETES SCREEN DIABETES SCREEN [facility] Start: 05-09-2026 Diabetes Screening Diabetes Screening [facility] Start: 05-27-2025 Influenza vaccination Influenza Vaccine (Season Ended) [facility] Start: 01-28-2025 Ova and Parasites Ova and Parasites [facility] Start: 08-06-2024 End: 08-06-2024 Patient encounter procedure 08/06/2024 10:00 AM EST Office Visit [facility] [address] [place], [place] [id number] Radha Johnson MD 1 [facility] [address] [place], [place] [id number] HBC-9 Mo P/O [place] Comment on above: HBC-9 Mo P/O [place] Start: 05-27-2024 Covid-19 Vaccine ( season) Covid-19 Vaccine () [facility] Start: 05-27-2024 Influenza vaccination Influenza Vaccine (#1) [facility] Start: 04-19-2024 End: 07-19-2024 Alanine aminotransferase [Enzymatic activity/volume] in Serum or Plasma [facility] Work Phone: Comment on above: Expected: 04/19/2024 (Approximate), Expi res: 07/19/2024 Start: 04-19-2024 End: 07-19-2024 ANTI NEUTRO CYTO AB [facility] Comment on above: Expected: 04/19/2024 (Approximate), Expi res: 07/19/2024 Start: 04-19-2024 End: 07-19-2024 Aspartate aminotransferase [Enzymatic activity/volume] in Serum or Plasma [facility] Comment on above: Expected: 04/19/2024 (Approximate), Expi res: 07/19/2024 Start: 04-19-2024 End: 07-19-2024 C reactive protein [Mass/volume] in Serum or Plasma [facility] Comment on above: Expected: 04/19/2024 (Approximate), Expi res: 07/19/2024 Start: 04-19-2024 End: 07-19-2024 Complement C3 [Mass/volume] in Serum or Plasma [facility] Comment on above: Expected: 04/19/2024 (Approximate), Expi res: 07/19/2024 Start: 04-19-2024 End: 07-19-2024 Complement C4 [Mass/volume] in Serum or Plasma [facility] Comment on above: Expected: 04/19/2024 (Approximate), Expi res: 07/19/2024 Start: 04-19-2024 End: 07-19-2024 Creatine kinase [Enzymatic activity/volume] in Serum or Plasma [facility] Comment on above: Expected: 04/19/2024 (Approximate), Expi res: 07/19/2024 Start: 04-19-2024 End: 07-19-2024 CREATININE BLD [facility] Comment on above: Expected: 04/19/2024 (Approximate), Expi res: 07/19/2024 Start: 04-19-2024 End: 07-19-2024 Cyclic citrullinated peptide IgG Ab [Units/volume] in Serum or Plasma [facility] Comment on above: Expected: 04/19/2024 (Approximate), Expi res: 07/19/2024 Start: 04-19-2024 End: 07-19-2024 DNA double strand Ab [Units/volume] in Serum by Immunoassay [facility] Comment on above: Expected: 04/19/2024 (Approximate), Expi res: 07/19/2024 Start: 04-19-2024 End: 07-19-2024 Extractable nuclear Ab panel - Serum [facility] Comment on above: Expected: 04/19/2024 (Approximate), Expi res: 07/19/2024 Start: 04-19-2024 End: 07-19-2024 Nuclear Ab [Presence] in Serum by Immunoassay [facility] Comment on above: Expected: 04/19/2024 (Approximate), Expi res: 07/19/2024 Start: 04-19-2024 End: 07-19-2024 Protein/Creatinine [Mass Ratio] in Urine [facility] Comment on above: Expected: 04/19/2024 (Approximate), Expi res: 07/19/2024 Start: 04-19-2024 End: 07-19-2024 Rheumatoid factor [Units/volume] in Serum or Plasma [facility] Comment on above: Expected: 04/19/2024 (Approximate), Expi res: 07/19/2024 Start: 04-19-2024 End: 07-19-2024 Urea nitrogen [Mass/volume] in Serum or Plasma [facility] Comment on above: Expected: 04/19/2024 (Approximate), Expi res: 07/19/2024 Start: 04-19-2024 End: 07-19-2024 Urinalysis complete panel - Urine [facility] Comment on above: Expected: 04/19/2024 (Approximate), Expi res: 07/19/2024 Start: 09-26-2023 Depression Assessment Depression Assessment [facility] Start: 05-27-2023 Covid-19 Vaccine ( season) Covid-19 Vaccine ( season) [facility] Start: 05-27-2023 Influenza vaccination [facility] Start: 2023 RSV Vaccine (1 - 1-dose 60+ series) RSV Vaccine (1 - 1-dose 60+ series) [facility] Start: 2023 RSV Vaccine (1 - Risk 60-74 years 1-dose series) RSV Vaccine (1 - Risk 60-74 years 1-dose series) [facility] Start: 09-26-2022 DEPRESSION ASSESSMENT DEPRESSION ASSESSMENT [facility] Start: 09-06-2022 Application of ice collar, cap or bag [facility] Work Phone: Start: 09-06-[address] [facility] Work Phone: Start: 09-06-2022 Elevation of affected extremity [facility] Work Phone: Start: 09-06-2022 Following clinical pathway protocol [facility] Work Phone: Start: 09-06-2022 Patient discharge [facility] Work Phone: Start: 09-06-2022 Procedure discontinued [facility] Work Phone: Start: 09-06-2022 Taking patient vital signs [facility] Work Phone: Start: 09-06-2022 Vital signs measurements [facility] Work Phone: Start: 09-06-2022 [facility] Work Phone: Start: 09-06-2022 Medication education [facility] Work Phone: Start: 05-27-2022 Influenza vaccination INFLUENZA (Season Ended) [facility] Start: 11-14-2020 Colonoscopy COLONOSCOPY [facility] Start: 11-14-2020 COLORECTAL CANCER SCREENING COLORECTAL CANCER SCREENING [facility] Start: 11-14-2020 Screening for malignant neoplasm of colon [facility] Start: 12-14-2019 Adult depression screening assessment DEPRESSION SCREENING [facility] Start: 2018 PROSTATE CANCER SCREENING DISCUSSION PROSTATE CANCER SCREENING DISCUSSION [facility] Start: 2018 Prostate specific antigen measurement Prostate Cancer Screening Discussion [facility] Start: 12-13-2017 DIABETES SCREEN DIABETES SCREEN [facility] Start: 2013 Pneumococcal Vaccine: 50+ (1 of 1 - PCV) Pneumococcal Vaccine: 50+ (1 of 1 - PCV) [facility] Start: 2013 SHINGRIX VACCINE (1 of 2) SHINGRIX VACCINE (1 of 2) [facility] Start: 02-28-2008 COLOGUARD (FIT-DNA) COLOGUARD (FIT-DNA) [facility] Start: 02-28-[address] COLONOGRAPHY [facility] Start: 02-28-2008 FECAL OCCULT BLOOD FECAL OCCULT BLOOD [facility] Start: 02-28-2008 Prostate specific antigen measurement Prostate Cancer Screening Discussion [facility] Start: 02-28-2008 Screening for malignant neoplasm of colon [facility] Start: 02-28-2008 SIGMOIDOSCOPY SIGMOIDOSCOPY [facility] Start: 1998 Lipid 1996 panel - Serum or Plasma Lipid Screening [facility] Start: 1998 Lipid panel Lipid Screening [facility] Start: 1998 LIPID SCREEN LIPID SCREEN [facility] Start: 1982 Urine microalbumin profile DTAP,TDAP,TD (1 - Tdap) [facility] Start: 1981 Anxiety Screening Anxiety Screening [facility] Start: 1981 Depression Screening Depression Screening [facility] Start: 1981 HEPATITIS C SCREENING HEPATITIS C SCREENING [facility] Start: 1981 Hepatitis C screening Hepatitis C Screening [facility] Start: 1981 HIV SCREENING HIV SCREENING [facility] Start: 1981 HIV screening HIV Screening [facility] Start: 02-28-1968 COVID-19 VACCINE (#1) COVID-19 VACCINE (#1) [facility] Start: 1965 COVID-19 VACCINE (#1) COVID-19 VACCINE (#1) [facility] Albumin/Globulin [Ma ss Ratio] in Serum or Plasma by Electrophoresis [facility] End: 02-10-2024 EGD - THERAPEUTIC, EUS, OR TUBE INTERVENTIONS EGD - THERAPEUTIC, EUS, OR TUBE INTERVENTIONS Endoscopy Routine Gastroesophageal reflux disease, unspecified whether esophagitis present 1 Occurrences starting 02/09/2023 until 02/10/2024 [facility] Work Phone: Comment on above: 1 Occurrences starting 02/09/2023 until 02/10/2024 Elastase.pancreatic [Presence] in Stool [facility] Electrophoresis: albumin [facility] Electrophoresis: [id number] [facility] Electrophoresis: [id number] [facility] Electrophoresis: letha ma globulin [facility] Globulin measurement [facility] Helicobacter pylori Ag [Presence] in Stool by Immunoassay H PYLORI AG BY EIA,STOOL Microbiology Routine History of Helicobacter infection Ordered: 03/09/2022 [facility] Work Phone: Comment on above: Ordered: 03/09/2022 Ova OR parasites identification [facility] Patient referral [facility] Work Phone: End: 02-10-2024 PH NARAYANAN INSERT ON MEDS PH NARAYANAN INSERT ON MEDS Endoscopy Routine Gastroesophageal reflux disease, unspecified whether esophagitis present 1 Occurrences starting 02/09/2023 until 02/10/2024 [facility] Work Phone: Comment on above: 1 Occurrences starting 02/09/2023 until 02/10/2024 Protein electrophore sis panel - Serum or Plasma [facility] Serum protein electrophoresis [facility] Total globulins measurement [facility] Immunizations Immunization Date Immunization Notes Care Provider Fa aguila 12-12-2019 tetanus toxoid, redu sukh diphtheria toxoid, and acellular pertussis vaccine, adsorbed Cheyanne Orozco MD Work Phone: [facility] Payers Date Payer Category Payer Self-pay [id number] 2022 Medicaid [employer] [facility] [id number] 2022-Present [phone] [address] [place] [address] Medicaid [id number] 2019 Private Health Insurance MMO SUP ERMED PPO [id number] 2019 Unknown MMO MMO SUPER[employer] PLUS [id number] 2019-Present [phone] [address] [place] [address] PPO [id number] 2019 Unknown MMO MMO SUPERMED PPO [id number] 2019-Present [phone] [address] [place] [address] PPO [id number] 2019 Unknown [id number] 2016 Medicaid [id number] 2016 Unknown [id number] 2015 Medicaid [employer] [id number] 2015-Present [phone] [address] [place] [address] Medicaid [id number] 1965 Unknown [id number] Unknown [id number] 462 Unknown [id number] 462 Unknown [id number]. 462 Unknown [id number] 462 Unknown [id number] 462 Unknown [id number] 462 Unknown [id number] 462 Unknown [id number]. 462 Unknown [id number] 462 Unknown [id number]. 462 Unknown [id number] 462 Unknown [id number] 462 Social History Date Type Detail Facility Start: 03-25-2021 End: 09-17-2022 Tobacco smoking status NJIS Unknown if ever smoked [facility] Start: 1965 Sex Assigned At Male C [facility] Start: 07-18-2012 End: 09-16-2024 Tobacco smoking status NJIS Never smoked tobacco [facility] Work Phone: Start: 07-18-2012 End: 02-09-2023 Tobacco use and exposure Smokeless tobacco non-user [facility] Work Phone: Start: 03-09-2022 End: 08-02-2024 Alcohol intake Current non-drinker of alcohol (finding) [facility] Start: 2022 End: 03-09-2022 Exposure to SARS-CoV-2 (event) Not sure [facility] Start: 02-09-2023 End: 04-08-2023 History of Social function [facility] Work Phone: Start: 02-09-2023 End: 04-08-2023 Tobacco use panel [facility] Work Phone: Adult Depression Screening Assessment 0 [facility] Work Phone: Start: 03-02-2022 Gender identity Identifies as male gender (finding) [facility] Start: 03-02-2022 Sexual orientation Heterosexual (fin ding) [facility] Start: 01-21-2025 Sex Male (finding) [facility] Medical Equipment Procedure Code Equipment Code Equipment Origin al Text Equipment Identifier Dates Insertion, infusion pump, for analgesia Spinal infusion/drainage catheter [id number] FDA Start: 03-27-2021 Insertion, infusion pump, for analgesia Implantable intrathecal infusion pump, programmable [id number] FDA Start: 03-27-2021 Medtronic Restor e Sensor Neuro Stim system FDA Start: 12-13-2014 Medtronic Restor e Sensor Neuro Stim system FDA Start: 12-13-2014 Medtronic Restor e Sensor Neuro Stim system FDA Start: 12-13-2014 Medtronic Restor e Sensor Neuro Stim system FDA Start: 12-13-2014 Medtronic Restor e Sensor Neuro Stim system FDA Start: 12-13-2014 Medtronic Restor e Sensor Neuro Stim system FDA Start: 12-13-2014 Medtronic Restor e Sensor Neuro Stim system FDA Start: 12-13-2014 Medtronic Restor e Sensor Neuro Stim system FDA Start: 12-13-2014 Medtronic Restor e Sensor Neuro Stim system FDA Start: 12-13-2014 Medtronic Restor e Sensor Neuro Stim system FDA Start: 12-13-2014 Medtronic Restor e Sensor Neuro Stim system FDA Start: 12-13-2014 Medtronic Restor e Sensor Neuro Stim system FDA Start: 12-13-2014 Medtronic Restor e Sensor Neuro Stim system FDA Start: 12-13-2014 Medtronic Restor e Sensor Neuro Stim system FDA Start: 12-13-2014 Medtronic Restor e Sensor Neuro Stim system FDA Start: 12-13-2014 Medtronic Restor e Sensor Neuro Stim system FDA Start: 12-13-2014 Medtronic Restor e Sensor Neuro Stim system FDA Start: 12-13-2014 Goals Date Patient Goal Desired Activity /State Functional Status Date Assessment Result Facility 08-03-2023 Are you deaf, or do you have serious difficulty hearing No 08/03/2023 5:23 PM Whitley Ferrera RN No [facility] 08-03-2023 Are you blind, or do you have serious difficulty seeing, even when wearing glasses No 08/03/2023 5:23 PM Whitley Ferrera RN No [facility] 08-03-2023 Do you have serious difficulty walking or climbing stairs Yes 08/03/2023 5:23 PM Whitley Ferrera RN Yes [facility] 08-03-2023 Do you have difficul ty dressing or bathing Yes 08/03/2023 5:23 PM Whitley Ferrera RN Yes [facility] 08-03-2023 Because of a physica l, mental, or emotional condition, do you have difficulty doing errands alone such as visiting a physician's office or shopping Yes 08/03/2023 5:23 PM Whitley Ferrera RN Yes [facility] Mental Status Date Assessment Result Facility 08-03-2023 Because of a physica l, mental, or emotional condition, do you have serious difficulty concentrating, remembering, or making decisions Yes 08/03/2023 5:23 PM Whitley Ferrera RN Yes [facility] 09-06-2022 Cognitive function Awake;Alert;F ollows Commands [facility] Work Phone: 09-06-2022 Cognitive function Arousable To Voice/Nam e [facility] Work Phone: Clinical Notes 11-14-2015 to 03-27-2025 Telephone Encounter - Santa Yusuf RN - 03/22/2025 11:08 AM EDTTelephone Encounter - Santa Yusuf RN - 03/22/2025 11:08 AM EDT Note Date & Type Note Facility 03-27-2025 Radiology Diagnostic study note [facility] Imaging Services [address] [place] [address] CT Abd/Pelvis W/WO Contrast MR#: [id number] Acct: [id number] Name: ALBINO WASHBURN Rep #: [id number] : [id number] M 60 From: Saywer Chang MD PCP: Dr. Henok Watkins MD Status: REG CLI Study:CT Abd/Pelvis W/WO Contrast Date of Exa m: 03/26/25 Exam# [id number] Ordering Dr: Sanna Watkins MD PROCEDURE: CT ABD/PELVIS W/WO CONTRAST 03/26/2025 REASON FOR EXAM: Pancreatitis TECHNIQUE: CT ABD/PELVIS W/WO CONTRAST Coronal and Sagittal reconstruction series were provided. CONTRAST: Isovue-300 VOLUME: 100 mL One or more dose reduction techniques were used (e.g., Automated exposure control, adjustment of the mA and/or kV according to patient size, use of iterative reconstruction technique. RADIATION DOSE SUMMARY: CTDlvol: 35.3 mGy DLP: 970.03 mGycm COMPARISON: None FINDINGS: Lung bases: The lung bases are clear. There are no pleural effusions. The heart size is normal. There is no pericardial effusion. Liver: There are 5 mm cysts in the liver dome and in the left hepatic lobe. Otherwise unremarkable. Gallbladder: Surgically absent. Spleen: Normal. Pancreas: The pancreas enhances normally and homogeneously. There are no abnormal intra or peripancreatic fluid collections. There is no stranding of the peripancreatic fat. Adrenals: Normal. Kidneys: There are small cortical cysts in the left kidney. Suspect multiple peripelvic cysts in both kidneys. Bladder: Partially evacuated. Normal unenhanced appearance. Reproductive Organs: The prostate gland measures 5.0 cm in transverse dimension. There are bilateral seminal vesicle cysts. There is no free fluid in the pelvis. There is no inguinal lymphadenopathy. Bowel: There is sigmoid diverticulosis without diverticulitis. Appendix: There is a normal appendix demonstrated. Lymph nodes: There is no significant retroperitoneal, mesenteric or pelvic lymphadenopathy. Vasculature: There is minimal calcific vascular disease of the abdominal aorta. The inferior vena cava and portal venous system are normal. Peritoneum / Retroperitoneum: There are no abnormal intra or retroperitoneal masses or fluid collections. There is a pain pump in the subcutaneous tissues of the left lower anterior abdominal wall. The tubeenters the spinal canal at the L2 level. Bones: Status post PLIF, L5-S1. CT/CT Abd/Pelvis W/WO Contrast IMPRESSION: 1. No evidence of pancreatitis. 2. Prostatomegaly. 3. Other findings as noted. Reading Location: [id number] CC: Dr. Henok Watkins MD ~ Supervisor [place]: Signed [facility] Work Phone: 03-22-2025 Telephone encounter Note Most recent Rheumatology visit: 05/04/2024 (with Cheyanne Sawyersertoma) Last Bone Density on file: None on file Rheumatology Care Team: None on file Recent Office Visits - This Specialty 05/04/2024 Cheyanne Sethi MD 04/19/2024 Polyarthralgia Rheumatology/Pulmonary RayshawnpraserCheyanne chua MD Upcoming Rheumatology Appointments - Next 365 Days No appointments to display CBC: None on file in the last 6 months Vitamin D: None on file in the last 6 months LFT: None on file in the last 6 months Hepatic Function: Creatinine: None on file in the last 6 months ESR/CRP: None on file in the last 6 months Uric Acid: None on file in the last 6 months Open Standing (Multiple Instance) Lab Orders None Open Future (Single Instance) Lab Orders None [facility] 03-22-2025 Miscellaneous Notes Most recent Rheumatology visit: 05/04/2024 (with Cheyanne Sawyersertoma) Last Bone Density on file: None on file Rheumatology Care Team: None on file Recent Office Visits - This Specialty 05/04/2024 Cheyanne Sethi MD 04/19/2024 Polyarthralgia Rheumatology/Pulmonary Cheyanne Orozco MD Upcoming Rheumatology Appointments - Next 365 Days No appointments to display CBC: None on file in the last 6 months Vitamin D: None on file in the last 6 months LFT: None on file in the last 6 months Hepatic Function: Creatinine: None on file in the last 6 months ESR/CRP: None on file in the last 6 months Uric Acid: None on file in the last 6 months Open Standing (Multiple Instance) Lab Orders None Open Future (Single Instance) Lab Orders None documented in this encounter [facility] 02-24-2025 Evaluation note Diagnosis Onset Date Resolution Maxillary sinusitis acute February 24, 2025 9:56am [facility] Work Phone: [phone] 833-143911-18-2024 Telephone encounter Note* Telephone Encounter - Anila Badillo RN - 08/13/2024 10:01 AM EST Images from the original note were not included. Requesting refill on Celebrex. Script pended. Thank you. Most recent Rheumatology visit: 05/04/2024 (with Cheyanne Orozco) Last Bone Density on file: None on file Rheumatology Care Team: None on file Recent Office Visits - This Specialty 05/04/2024 Long COVID Rheumatology RayshawnpraserCheyanne chua MD 04/19/2024 Polyarthralgia Rheumatology/Pulmonary UngprasertCheyanne MD Upcoming Rheumatology Appointments - Next 365 Days No appointments to display CBC: Latest Ref Rng & Units 08/03/2023 04/19/2024 CBC WBC 3.70 - 11.00 k/uL 12.97 6.56 Hemoglobin 13.0 - 17.0 g/dL 14.0 15.4 Hematocrit 39.0 - 51.0 % 42.1 46.1 Platelet Count 150 - 400 k/uL 198 209 Abs Neut (ANC) 1.45 - 7.50 k/uL 10.31 4.59 Abs Lymph 1.00 - 4.00 k/uL 1.42 1.44 Vitamin D: None on file in the last 6 months LFT: None on file in the last 6 months Hepatic Function: Creatinine: Latest Ref Rng & Units 08/03/2023 04/19/2024 Creatinine Creatinine 0.73 - 1.22 mg/dL 0.77 0.75 ESR/CRP: Latest Ref Rng & Units 09/17/2013 04/19/2024 ESR, WSR WSR 0 - 15 mm/hr 2 Sed Rate, Westergren 0 - 14 mm/hr 1 Latest Ref Rng & Units 09/17/2013 04/19/2024 CRP CRP <0.9 mg/dL <0.29 0.6 Uric Acid: None on file in the last 6 months Open Standing (Multiple Instance) Lab Orders None Open Future (Single Instance) Lab Orders None [facility]11-18-2024 Miscellaneous Notes* Telephone Encounter - Anila Badillo RN - 08/13/2024 10:01 AM EST Images from the original note were not included. Requesting refill on Celebrex. Script pended. Thank you. Most recent Rheumatology visit: 05/04/2024 (with Cheyanne Orozco) Last Bone Density on file: None on file Rheumatology Care Team: None on file Recent Office Visits - This Specialty 05/04/2024 Long COVID Rheumatology Cheyanne Orozco MD 04/19/2024 Polyarthralgia Rheumatology/Pulmonary Cheyanne Orozco MD Upcoming Rheumatology Appointments - Next 365 Days No appointments to display CBC: Latest Ref Rng & Units 08/03/2023 04/19/2024 CBC WBC 3.70 - 11.00 k/uL 12.97 6.56 Hemoglobin 13.0 - 17.0 g/dL 14.0 15.4 Hematocrit 39.0 - 51.0 % 42.1 46.1 Platelet Count 150 - 400 k/uL 198 209 Abs Neut (ANC) 1.45 - 7.50 k/uL 10.31 4.59 Abs Lymph 1.00 - 4.00 k/uL 1.42 1.44 Vitamin D: None on file in the last 6 months LFT: None on file in the last 6 months Hepatic Function: Creatinine: Latest Ref Rng & Units 08/03/2023 04/19/2024 Creatinine Creatinine 0.73 - 1.22 mg/dL 0.77 0.75 ESR/CRP: Latest Ref Rng & Units 09/17/2013 04/19/2024 ESR, WSR WSR 0 - 15 mm/hr 2 Sed Rate, Westergren 0 - 14 mm/hr 1 Latest Ref Rng & Units 09/17/2013 04/19/2024 CRP CRP <0.9 mg/dL <0.29 0.6 Uric Acid: None on file in the last 6 months Open Standing (Multiple Instance) Lab Orders None Open Future (Single Instance) Lab Orders None documented in this encounter[facility] Telephone encounter Note * Telephone Encounter - Fidelina Olvera RN - 08/02/2024 1:14 PM EST I noticed patient cancelled his 1 year follow up appointment for 08/06/24 so I called him. Patient stated he is doing well and maybe has heartburn 2-3% of the time. I'm so much better than before surgery. I know what my trigger foods are: Gatorade, pizza, eating too fast or eating a big meal. Patient states he chooses to sleep upright so nothing happens. Patient's GERD QOL score =2. Patient stated he is very happy he had the surgery. I thanked him for his feedback. Fidelina Olvera RN [facility]11-07-2024 Miscellaneous Notes* Telephone Encounter - Fidelina Olvera RN - 08/02/2024 1:14 PM EST I noticed patient cancelled his 1 year follow up appointment for 08/06/24 so I called him. Patient stated he is doing well and maybe has heartburn 2-3% of the time. I'm so much better than before surgery. I know what my trigger foods are: Gatorade, pizza, eating too fast or eating a big meal. Patient states he chooses to sleep upright so nothing happens. Patient's GERD QOL score =2. Patient stated he is very happy he had the surgery. I thanked him for his feedback. Fidelina Olvera RN documented in this encounterUniversity [facility]08-09-2024 History of Present illness Narrative* Cheyanne Orozco MD - 05/04/2024 8:20 AM EDT VIRTUAL VISIT PROGRESS NOTE This is a virtual visit using PPT [employer] Zoom Video Visit. It required patient- provider interaction for the medical decision making as documented below. I have communicated my name and active licensure. The patient's identity and physical location wereverified at the time of this visit. Either the patient or their legal shipping services sales representative has been informed of the risks and benefits of -- and alternatives to -- treatment through a remote evaluation andconsents to proceed with the evaluation remotely. MD Albino Wright May 03, 2024 Referring Provider:Cheyanne Orozco PCP: Henok Watkins MD Chief Complaint: Patient presents with: Recheck Background Rheumatologic History: He has been dealing with diffuse joint pain, myalgia, nausea and flulike symptoms since his COVID infection in April 2022. This is the third time that he had COVID. The first 2 times did not cause persistent symptoms. His infection was quite severe with high-grade fever and he was out for about a week. He was not hospitalized or required oxygen though. He also lost his taste and smell they are gradually coming back. His main concern is nausea that is usually at the worst in the morning. It is difficult for him to eat or drink anything in the morning. Better with lunch and dinner. Muscle and joint pain are also worse in the morning. Light physical activity can be helpful but toomuch activities can also make the pain worse again. He also describes swelling of his throat and ears in the morning. No rash, photosensitivity, recurrent oral ulcer, pleurisy, sicca or other CTD symptoms. He has a background history of chronic back pain as a result of injury years ago. He is status postmultiple surgeries. He is using pain pump. I first saw him 04/19/24 Based on the temporal relationship between COVID infection and the onset of his symptoms, I have a concern that he is dealing with long COVID syndrome. However, long COVID syndrome is essentially at diagnosis of exclusion and we need to rule out everything else first. With the persistent polyarthralgia, I think that systemic rheumatic autoimmune diseases/inflammatory arthritis has to be ruled out. I will obtain a complete set of serologies as well as inflammatory markers. Interim History: Patient returns for follow up, last visit Visit date not found. All labs negative including normal sed rate and CRP. PAST MEDICAL HISTORY No date: Abdominal pain No date: Arthritis Comment: back No date: Dysphagia Comment: feeling food get stuck No date: Fibromyalgia No date: GERD (gastroesophageal reflux disease) 04/08/2023: Hiatal hernia Comment: approx 5 cm No date: History of angina No date: Paraesophageal hernia with gastroesophageal reflux Comment: surgically repaired 08/02/23 No date: Snoring No date: Stomach ulcer PAST SURGICAL HISTORY 04/08/2023: 48 HOUR PH STUDY Comment: Dr. Johnson No date: BACK SURGERY HX Comment: spinal fusion with ORIF and second surgery to remove hardware. x 2 2002: BACK SURGERY HX Comment: Fusion at T9 2014: BACK SURGERY HX Comment: L5-S1 transforaminal Lumbar Interbody fusion 2013: BLADDER SURGERY HX 07/30/2016: CHOLECYSTECTOMY 11/14/2015: COLONOSCOPY FLX DX W/COLLJ SPEC WHEN PFRMD Comment: Colonoscopy with mac 2013: CYSTOSCOPY,DIL BLADDER,LOCAL ANESTH 01/30/2013: EGD 11/14/2015: EGD 11/14/2015: EGD 04/08/2023: EGD WITH BIOPSY(S) Comment: 5 cm hiatal hernia; Dr. Johnson 2014: ELBOW SURGERY HX; Left 11/21/2015: ESOPHAGEAL MANOMETRY 04/08/2023: ESOPHAGEAL MANOMETRY Comment: Dr. Carbone 2002: HAND SURGERY HX; Left 1978: KNEE SURGERY HX; Left 2000: LAMINECTOMY,LUMBAR 08/02/2023: LAPS RPR PARAESPHGL HRNA INCL FUNDPLSTY W/O MESH; N/A Comment: Robotic Toupet; Dr. Johnson 2015: S SPINAL CORD STIMULATOR, 2011: SHOULDER SURGERY HX; Right 2013: SINUS SURGERY HX Social History Tobacco Use Smoking status: Never Smokeless tobacco: Never Vaping Use Vaping Use: Never used Substance Use Topics Alcohol use: No Drug use: Never Health Maintenance Depression Screening Never done Anxiety Screening Never done Hepatitis C Screening Never done HIV Screening Never done Lipid Screening Never done Shingrix Vaccine(1 of 2) Never done Prostate Cancer Screening Discussion Never done Colorectal Cancer Screening due on 11/14/2020 RSV Vaccine(1 - 1-dose 60+ series) Never done Covid-19 Vaccine(2022-24 season) Never done Immunization History Administered Date(s) Administered tetanus diphtheria pertussis (Tdap) vaccine, age 7+ yr (ADACEL, BOOSTRIX) 12/12/2019 Current Outpatient Medications Medication Sig Dispense Refill ondansetron (ZOFRAN) 8 mg tablet Take 1 tablet by mouth two times a day. 60 tablet 2 celecoxib (CELEBREX) 200 mg capsule Take 1 capsule by mouth once daily. 30 capsule 2 JATENZO 237 mg capsule tiZANidine HCl (ZANAFLEX) 4 mg capsule TAKE 1 CAPSULE BY MOUTH TWICE A DAY NEEDED acetaminophen (TYLENOL ARTHRITIS ORAL) Take by mouth as needed. No current facility-administered medications for this visit. ALLERGIES Allergen Reactions Cephalexin Monohydr* Unknown Keflex Keflex [Cephalexin] Rash Penicillins Rash Tetracycline Rash Physical Exam: There were no vitals taken for this visit. Impression: Long COVID syndrome All of his labs are negative. Therefore, I do not think that we are dealing with any systemic rheumatologic autoimmune diseases. I think that long COVID syndrome is the best explanation for all of his symptoms. Recommendations/Plan Plan discussed with patient Discussed with him on how I diagnose him with long COVID syndrome. Discussed with him regarding pathogenesis, natural history and outcome of long COVID syndrome. Discussed that most patients will eventually recover although the process can be very long. Discussed that there is no specific treatment for long COVID syndrome. Our main focus would be symptomatic management. His main concerns/symptoms include loss of taste and smell, facial and ear swelling jose in the morning, nausea and pain. I will treat him with [id number] Zofran to help with nausea. If this does not help, I will refer him to GI later. I will also give him Celebrex to help with pain and inflammation (he tried Mobic in the past and could not tolerate due to GI upset). Return Visit: I ask him to send me a [employer] message after 2 or 3 weeks to let me know how well they help with his symptoms. I spent a total of 40 minutes on the date of the service which included preparing to see the patient, [id number] patient care, completing clinical documentation, obtaining and/or reviewing separately obtained history, performing a medically appropriate examination, counseling and educating the pat ient/family/caregiver, and ordering medications, tests, or procedures. Cheyanne Orozco MD Referring Provider:Cheyanne Orozco PCP: Henok Watkins MD Answers submitted by the patient for this visit: Review of Systems Rheumatology (Submitted on 05/04/2024) Fever : No Recent unintentional weight change: Yes Eye pain: No Eye redness: Yes Vision Disturbance: Yes Eye Dryness: Yes Nosebleeds: No Sores in your mouth: No Trouble Swallowing: No Dry Mouth: Yes Chest pain: No Leg Swelling: No A cough: No Shortness of breath: No Pain with breathing: No Heartburn: No Abdominal pain: No Diarrhea: No Black tarry stools: No Pain or burning with urination: Yes Joint pain or stiffness: Yes Muscle weakness: Yes Muscle aches: Yes Joint swelling: Yes Morning Stiffness in Joints: Yes A rash: No Skin Color Changes: No Hair Loss: No Nail Changes: No Headaches: Yes Numbness: Yes Memory Loss: No Swollen Glands: No documented in this encounterUniversity [facility]als [facility]08-09-2024 NoteHNO ID: [id number] Author: CHEYANNE OROZCO MD Service: ? Author Type: Physician Type: Progress Notes Filed: 05/04/2024 09:13 Note Text: VIRTUAL VISIT PROGRESS NOTE This is a virtual visit using [employer] Video Visit. It required patient-provider interaction for the medical decision making as documented below. I have communicated my name and active licensure. The patient's identity and physical location were verified at the time of this visit. Either the patient or their legal shipping services sales representative has been informed of the risks and benefits of -- and alternatives to -- treatment through a remote evaluation and consents to proceed with the evaluation remotely. MD Albino Wright May 03, 2024 Referring Provider:Cheyanne Orozco PCP: Henok Watkins MD Chief Complaint: Patient presents with: Recheck Background Rheumatologic History: He has been dealing with diffuse joint pain, myalgia, nausea and flulike symptoms since his COVID infection in April 2022. This is the third time that he had COVID. The first 2 times did not cause persistent symptoms. His infection was quite severe with high-grade fever and he was out for about a week. He was not hospitalized or required oxygen though. He also lost his taste and smell they are gradually coming back. His main concern is nausea that is usually at the worst in the morning. It is difficult for him to eat or drink anything in the morning. Better with lunch and dinner. Muscle and joint pain are also worse in the morning. Light physical activity can be helpful but too much activities can also make the pain worse again. He also describes swelling of his throat and ears in the morning. No rash, photosensitivity, recurrent oral ulcer, pleurisy, sicca or other CTD symptoms. He has a background history of chronic back pain as a result of injury years ago. He is status post multiple surgeries. He is using pain pump. I first saw him 04/19/24 Based on the temporal relationship between COVID infection and the onset of his symptoms, I have a concern that he is dealing with long COVID syndrome. However, long COVID syndrome is essentially at diagnosis of exclusion and we need to rule out everything else first. With the persistent polyarthralgia, I think that systemic rheumatic autoimmune diseases/inflammatory arthritis has to be ruled out. I will obtain a complete set of serologies as well as inflammatory markers. Interim History: Patient returns for follow up, last visit Visit date not found. All labs negative including normal sed rate and CRP. PAST MEDICAL HISTORY No date: Abdominal pain No date: Arthritis Comment: back No date: Dysphagia Comment: feeling food get stuck No date: Fibromyalgia No date: GERD (gastroesophageal reflux disease) 04/08/2023: Hiatal hernia Comment: approx 5 cm No date: History of angina No date: Paraesophageal hernia with gastroesophageal reflux Comment: surgically repaired 08/02/23 No date: Snoring No date: Stomach ulcer PAST SURGICAL HISTORY 04/08/2023: 48 HOUR PH STUDY Comment: Dr. Johnson No date: BACK SURGERY HX Comment: spinal fusion with ORIF and second surgery to remove hardware. x 2 2002: BACK SURGERY HX Comment: Fusion at T9 2014: BACK SURGERY HX Comment: L5-S1 transforaminal Lumbar Interbody fusion 2013: BLADDER SURGERY HX 07/30/2016: CHOLECYSTECTOMY 11/14/2015: COLONOSCOPY FLX DX W/COLLJ SPEC WHEN PFRMD Comment: Colonoscopy with mac 2013: CYSTOSCOPY,DIL BLADDER,LOCAL ANESTH 01/30/2013: EGD 11/14/2015: EGD 11/14/2015: EGD 04/08/2023: EGD WITH BIOPSY(S) Comment: 5 cm hiatal hernia; Dr. Johnson 2014: ELBOW SURGERY HX; Left 11/21/2015: ESOPHAGEAL MANOMETRY 04/08/2023: ESOPHAGEAL MANOMETRY Comment: Dr. Carbone 2002: HAND SURGERY HX; Left 1978: KNEE SURGERY HX; Left 2000: LAMINECTOMY,LUMBAR 08/02/2023: LAPS RPR PARAESPHGL HRNA INCL FUNDPLSTY W/O MESH; N/A Comment: Robotic Toupet; Dr. Johnson 2015: S SPINAL CORD STIMULATOR, 2011: SHOULDER SURGERY HX; Right 2012: SINUS SURGERY HX Social History Tobacco Use Smoking status: Never Smokeless tobacco: Never Vaping Use Vaping Use: Never used Substance Use Topics Alcohol use: No Drug use: Never Health Maintenance Depression Screening Never done Anxiety Screening Never done Hepatitis C Screening Never done HIV Screening Never done Lipid Screening Never done Shingrix Vaccine(1 of 2) Never done Prostate Cancer Screening Discussion Never done Colorectal Cancer Screening due on 11/14/2020 RSV Vaccine(1 - 1-dose 60+ series) Never done Covid-19 Vaccine(2022- season) Never done Immunization History Administered Date(s) Administered tetanus diphtheria pertussis (Tdap) vaccine, age 7+ yr (ADACEL, BOOSTRIX) 12/12/2019 Current Outpatient Medications Medication Sig Dispense Refill ondansetron (ZOFRAN) 8 mg tablet Take 1 tablet by mouth t (more content not included)...[facility]07-25-2024 Instructions* Patient Instructions* Cheyanne Orozco MD - 04/19/2024 1:35 PM EDT Follow up May 04 at 8.20 zoom call documented in this encounterUniversity [facility]07-[facility] History of Present illness Narrative* Cheyanne Orozco MD - 04/19/2024 1:00 PM EDT Cheyanne Orozco MD Albino Washburn April 18, 2024 Referring Provider: PCP: Henok Watkins MD Chief Complaint: Patient presents with: New HPI:Albino Washburn is a 59 year old male who comes here today for joint pain and flu-like symptoms. He has been dealing with diffuse joint pain, myalgia, nausea and flulike symptoms since his COVID infection in April 2022. This is the third time that he had COVID. The first 2 times did not cause persistent symptoms. His infection was quite severe with high-grade fever and he was out for about a week. He was not hospitalized or required oxygen though. He also lost his taste and smell they are gradually coming back. His main concern is nausea that is usually at the worst in the morning. It is difficult for him to eat or drink anything in the morning. Better with lunch and dinner. Muscle and joint pain are also worse in the morning. Light physical activity can be helpful but toomuch activities can also make the pain worse again. He also describes swelling of his throat and ears in the morning. No rash, photosensitivity, recurrent oral ulcer, pleurisy, sicca or other CTD symptoms. He has a background history of chronic back pain as a result of injury years ago. He is status postmultiple surgeries. He is using pain pump. PAST MEDICAL HISTORY Diagnosis Date Abdominal pain Arthritis back Dysphagia feeling food get stuck Fibromyalgia GERD (gastroesophageal reflux disease) Hiatal hernia 04/08/2023 approx 5 cm History of angina Paraesophageal hernia with gastroesophageal reflux surgically repaired 08/02/23 Snoring Stomach ulcer PAST SURGICAL HISTORY Procedure Laterality Date 48 HOUR PH STUDY 04/08/2023 Dr. Johnson BACK SURGERY HX spinal fusion with ORIF and second surgery to remove hardware. x 2 BACK SURGERY HX 2002 Fusion at T9 BACK SURGERY HX 2013 L5-S1 transforaminal Lumbar Interbody fusion BLADDER SURGERY HX 2012 CHOLECYSTECTOMY 07/30/2016 COLONOSCOPY FLX DX W/COLLJ SPEC WHEN PFRMD 11/14/2015 Colonoscopy with mac CYSTOSCOPY,DIL BLADDER,LOCAL ANESTH 2013 EGD 01/30/2013 EGD 11/14/2015 EGD 11/14/2015 EGD WITH BIOPSY(S) 04/08/2023 5 cm hiatal hernia; Dr. Johnson ELBOW SURGERY HX Left 2013 ESOPHAGEAL MANOMETRY 11/21/2015 ESOPHAGEAL MANOMETRY 04/08/2023 Dr. Carbone HAND SURGERY HX Left 2002 KNEE SURGERY HX Left 1979 LAMINECTOMY,LUMBAR 2000 LAPS RPR PARAESPHGL HRNA INCL FUNDPLSTY W/O MESH N/A 08/02/2023 Robotic Toupet; Dr. Johnson S SPINAL CORD STIMULATOR, 2015 SHOULDER SURGERY HX Right 2011 SINUS SURGERY HX 2013 Social History Tobacco Use Smoking status: Never Smokeless tobacco: Never Vaping Use Vaping Use: Never used Substance Use Topics Alcohol use: No Drug use: Never Health Maintenance: Depression Screening Never done Anxiety Screening Never done Hepatitis C Screening Never done HIV Screening Never done Lipid Screening Never done Shingrix Vaccine(1 of 2) Never done Prostate Cancer Screening Discussion Never done Colorectal Cancer Screening due on 11/14/2020 RSV Vaccine(1 - 1-dose 60+ series) Never done Covid-19 Vaccine(2022- season) Never done Immunization History Administered Date(s) Administered tetanus diphtheria pertussis (Tdap) vaccine, age 7+ yr (ADACEL, BOOSTRIX) 12/12/2019 Current Outpatient Medications Medication Sig Dispense Refill JATENZO 237 mg capsule tiZANidine HCl (ZANAFLEX) 4 mg capsule TAKE 1 CAPSULE BY MOUTH TWICE A DAY NEEDED acetaminophen (TYLENOL ARTHRITIS ORAL) Take by mouth as needed. No current facility-administered medications for this visit. ALLERGIES Allergen Reactions Cephalexin Monohydr* Unknown Keflex Keflex [Cephalexin] Rash Penicillins Rash Tetracycline Rash Physical Exam: BP 143/80 Pulse 61 Temp (Src) 97.9 (Temporal) Resp 16 Wt 177 lb 11.2 oz (80.6kg) SpO2 97% General: Not pale, no jaundice, not in acute distress Head: Normocephalic, atraumatic Eyes: No redeye, no discharge ENT: No oral/nasal ulcer Neck: No lymphadenopathy Lungs: Normal breath sound, no adventitious sound Abdomen: Soft, not tender CV: Normal S1 S2, no murmur, no rub, pulse regular Skin: No rash, no malar rash, no telangiectasia, no pitting nail/onycholysis, no gross periungual telangiectasia Neuro: Grossly intact, motor power 5 all Joints [place] and Missy nodes observed on both hands but no active synovitis Labs: Serology: CRP: No results found for: CCPABG RF: Rheumatoid Factor (IU/mL) Date Value 09/17/2013 <10.0 ESR: Sed Rate, Westergren (mm/hr) Date Value 09/17/2013 1 CRP CRP (mg/dL) Date Value 09/17/2013 <0.29 Quantiferon:No components found for: QTBA Cr: No components found for: CR CBC: Imaging: Impression: 59 year old male presents [facility], 2024. Polyarthralgia and myalgia Chronic nausea History of COVID infection Based on the temporal relationship between COVID infection and the onset of his symptoms, I have a concern that he is dealing with long COVID syndrome. However, long COVID syndrome is essentially at diagnosis of exclusion and we need to rule out everything else first. With the persistent polyarthralgia, I think that systemic rheumatic autoimmune diseases/inflammatory arthritis has to be ruled out. I will obtain a complete set of serologies as well as inflammatory markers. Recommendations/Plan Plan discussed with patient Return Visit: Follow up May 04 at 8.20 zoom call I spent a total of 50 minutes on the date of the service which included preparing to see the patient, [id number] patient care, completing clinical documentation, obtaining and/or reviewing separately obtained history, performing a medically appropriate examination, counseling and educating the pat ient/family/caregiver, and ordering medications, tests, or procedures. Cheyanne Orozco MD Referring Provider: PCP: Henok Watkins MD documented in this encounterUniversity Hospitals [facility]07-25-2024 NoteHNO ID: [id number] Author: CHEYANNE OROZCO MD Service: ? Author Type: Physician Type: Progress Notes Filed: 04/19/2024 14:46 Note Text: MD Albino Wright April 18, 2024 Referring Provider: PCP: Henok Watkins MD Chief Complaint: Patient presents with: New HPI:Albino Washburn is a 59 year old male who comes here today for joint pain and flu-like symptoms. He has been dealing with diffuse joint pain, myalgia, nausea and flulike symptoms since his COVID infection in April 2022. This is the third time that he had COVID. The first 2 times did not cause persistent symptoms. His infection was quite severe with high-grade fever and he was out for about a week. He was not hospitalized or required oxygen though. He also lost his taste and smell they are gradually coming back. His main concern is nausea that is usually at the worst in the morning. It is difficult for him to eat or drink anything in the morning. Better with lunch and dinner. Muscle and joint pain are also worse in the morning. Light physical activity can be helpful but too much activities can also make the pain worse again. He also describes swelling of his throat and ears in the morning. No rash, photosensitivity, recurrent oral ulcer, pleurisy, sicca or other CTD symptoms. He has a background history of chronic back pain as a result of injury years ago. He is status post multiple surgeries. He is using pain pump. PAST MEDICAL HISTORY Diagnosis Date Abdominal pain Arthritis back Dysphagia feeling food get stuck Fibromyalgia GERD (gastroesophageal reflux disease) Hiatal hernia 04/08/2023 approx 5 cm History of angina Paraesophageal hernia with gastroesophageal reflux surgically repaired 08/02/23 Snoring Stomach ulcer PAST SURGICAL HISTORY Procedure Laterality Date 48 HOUR PH STUDY 04/08/2023 Dr. Johnson BACK SURGERY HX spinal fusion with ORIF and second surgery to remove hardware. x 2 BACK SURGERY HX 2002 Fusion at T9 BACK SURGERY HX 2013 L5-S1 transforaminal Lumbar Interbody fusion BLADDER SURGERY HX 2013 CHOLECYSTECTOMY 07/30/2016 COLONOSCOPY FLX DX W/COLLJ SPEC WHEN PFRMD 11/14/2015 Colonoscopy with mac CYSTOSCOPY,DIL BLADDER,LOCAL ANESTH 2012 EGD 01/30/2013 EGD 11/14/2015 EGD 11/14/2015 EGD WITH BIOPSY(S) 04/08/2023 5 cm hiatal hernia; Dr. Johnson ELBOW SURGERY HX Left 2014 ESOPHAGEAL MANOMETRY 11/21/2015 ESOPHAGEAL MANOMETRY 04/08/2023 Dr. Carbone HAND SURGERY HX Left 2002 KNEE SURGERY HX Left 1978 LAMINECTOMY,LUMBAR 2000 LAPS RPR PARAESPHGL HRNA INCL FUNDPLSTY W/O MESH N/A 08/02/2023 Robotic Toupet; Dr. Syed Michelle SPINAL CORD STIMULATOR, 2015 SHOULDER SURGERY HX Right 2011 SINUS SURGERY HX 2013 Social History Tobacco Use Smoking status: Never Smokeless tobacco: Never Vaping Use Vaping Use: Never used Substance Use Topics Alcohol use: No Drug use: Never Health Maintenance: Depression Screening Never done Anxiety Screening Never done Hepatitis C Screening Never done HIV Screening Never done Lipid Screening Never done Shingrix Vaccine(1 of 2) Never done Prostate Cancer Screening Discussion Never done Colorectal Cancer Screening due on 11/14/2020 RSV Vaccine(1 - 1-dose 60+ series) Never done Covid-19 Vaccine(2022-24 season) Never done Immunization History Administered Date(s) Administered tetanus diphtheria pertussis (Tdap) vaccine, age 7+ yr (ADACEL, BOOSTRIX) 12/12/2019 Current Outpatient Medications Medication Sig Dispense Refill JATENZO 237 mg capsule tiZANidine HCl (ZANAFLEX) 4 mg capsule TAKE 1 CAPSULE BY MOUTH TWICE A DAY NEEDED acetaminophen (TYLENOL ARTHRITIS ORAL) Take by mouth as needed. No current facility-administered medications for this visit. ALLERGIES Allergen Reactions Cephalexin Monohydr* Unknown Keflex Keflex [Cephalexin] Rash Penicillins Rash Tetracycline Rash Physical Exam: BP 143/80 Pulse 61 Temp (Src) 97.9 (Temporal) Resp 16 Wt 177 lb 11.2 oz (80.6kg) SpO2 97% General: Not pale, no jaundice, not in acute distress Head: Normocephalic, atraumatic Eyes: No redeye, no discharge ENT: No oral/nasal ulcer Neck: No lymphadenopathy Lungs: Normal breath sound, no adventitious sound Abdomen: Soft, not tender CV: Normal S1 S2, no murmur, no rub, pulse regular Skin: No rash, no malar rash, no telangiectasia, no pitting nail/onycholysis, no gross periungual telangiectasia Neuro: Grossly intact, motor power 5 all Joints [place] and Missy nodes observed on both hands but no active synovitis Labs: Serology: CRP: No results found for: CCPABG RF: Rheumatoid Factor (IU/mL) Date Value 09/17/2013 <10.0 ESR: Sed Rate, Westergren (mm/hr) Date Value 09/17/2013 1 CRP CRP (mg/dL) Date Value 09/17/2013 <0.29 Quantiferon:No components found for: QTBA Cr: No components found for: CR CBC: Imaging: (more content not included)...[facility]02-19-2024 Note HNO ID: [id number] Author: RADHA JOHNSON MD Service: ? Author Type: Physician Type: Progress Notes Filed: 11/14/2023 10:19 Note Text: Patient presents with: Follow Up HPI: Patient is a 58 year old male who presents to general surgery clinic for follow up after robotic paraesophageal hernia repair with toupet fundoplication on 08/02/23. Having small amount of heartburn after coffee but otherwise doing well and does not have severe heartburn. Sleeps at an incline if he eats too late in the evening. Believes some of his abdominal discomforts are due to food allergies. Stopped taking PPI and pepcid a month or so ago. PAST MEDICAL HISTORY Diagnosis Date Abdominal pain Arthritis back Dysphagia feeling food get stuck Fibromyalgia GERD (gastroesophageal reflux disease) Hiatal hernia 04/08/2023 approx 5 cm History of angina Paraesophageal hernia with gastroesophageal reflux surgically repaired 08/02/23 Snoring Stomach ulcer PAST SURGICAL HISTORY Procedure Laterality Date 48 HOUR PH STUDY 04/08/2023 Dr. Johnson BACK SURGERY HX spinal fusion with ORIF and second surgery to remove hardware. x 2 BACK SURGERY HX 2002 Fusion at T9 BACK SURGERY HX 2013 L5-S1 transforaminal Lumbar Interbody fusion BLADDER SURGERY HX 2012 CHOLECYSTECTOMY 07/30/2016 COLONOSCOPY FLX DX W/COLLJ SPEC WHEN PFRMD 11/14/2015 Colonoscopy with mac CYSTOSCOPY,DIL BLADDER,LOCAL ANESTH 2012 EGD 01/30/2013 EGD 11/14/2015 EGD 11/14/2015 EGD WITH BIOPSY(S) 04/08/2023 5 cm hiatal hernia; Dr. Johnson ELBOW SURGERY HX Left 2013 ESOPHAGEAL MANOMETRY 11/21/2015 ESOPHAGEAL MANOMETRY 04/08/2023 Dr. Carbone HAND SURGERY HX Left 2002 KNEE SURGERY HX Left 1978 LAMINECTOMY,LUMBAR 2000 LAPS RPR PARAESPHGL HRNA INCL FUNDPLSTY W/O MESH N/A 08/02/2023 Robotic Toupet; Dr. Johnson S SPINAL CORD STIMULATOR, 2015 SHOULDER SURGERY HX Right 2011 SINUS SURGERY HX 2013 FAMILY HISTORY Problem Relation Age of Onset Arthritis Mother rheumatoid other (spinal problems) Mother hep c other (scarlet fever) Mother Prostate Cancer Father other (heart mumur) Brother other (food allergies) Other children Colon Cancer No Family History Social History Tobacco Use Smoking status: Never Smokeless tobacco: Never Vaping Use Vaping Use: Never used Substance Use Topics Alcohol use: No Drug use: Never Current Outpatient Medications Medication Sig terbinafine HCl (LAMISIL) 250 mg tablet Take 1 tablet by mouth every afternoon. BD LUER-TRUNG SYRINGE 3 mL 22 x 1 1/2 as directed. testosterone cypionate (DEPO-TESTOSTERONE) 200 mg/mL injection INJECT 1 ML (200MG) INTRAMUSCULARLY EVERY 2 WEEKS tiZANidine HCl (ZANAFLEX) 4 mg capsule TAKE 1 CAPSULE BY MOUTH TWICE A DAY NEEDED acetaminophen (TYLENOL ARTHRITIS ORAL) Take by mouth as needed. sucralfate (CARAFATE) 1 gram tablet Take 1 tablet by mouth four times daily. (Patient not taking: Reported on 08/15/2023) pregabalin (LYRICA) 100 mg capsule TAKE 1 ORAL THREE TIMES A DAY FOR 28 DAYS (Patient not taking: Reported on 08/15/2023) famotidine (PEPCID) 20 mg tablet Take 20 mg by mouth as needed. (Patient not taking: Reported on 11/14/2023) pantoprazole DR (PROTONIX) 40 mg tablet Take 1 tablet by mouth twice daily. (Patient not taking: Reported on 08/15/2023) No current facility-administered medications for this visit. ALLERGIES Allergen Reactions Cephalexin Monohydr* Unknown Keflex Keflex [Cephalexin] Rash Penicillins Rash Tetracycline Rash REVIEW OF SYSTEMS: GENERAL: No weight loss, malaise or fevers GI: Negative for abdominal pain, nausea , vomiting, diarrhea, and constipation Positive for none PHYSICAL EXAM: BP 124/74 Pulse 94 Ht 5' 10.25 (1.78m) Wt 181 lb 6.4 oz (82.3kg) BMI 25.85 kg/(m2). GENERAL APPEARANCE: Well appearing, alert, in no acute distress, well-hydrated, well nourished.. ABDOMEN: Normal abdominal exam NEURO: Alert, oriented x3, no asterixis, and speech clear and articulate DATA: Diagnostic tests reviewed for today's visit: No new labs ASSESSMENT / PLAN ASSESSMENT/PLAN: 1. Paraesophageal hernia - ICD9: 553.3, ICD10: K44.9 (primary diagnosis) robotic paraesophageal hernia repair with toupet fundoplication on 08/02/23 Had a discussion about trigger foods for heartburn Recommended not eating within 4 hours of sleeping Recommend limiting gum chewing as it can introduce more air into the stomach and cause discomfort 2. Gastroesophageal reflux disease without esophagitis - ICD9: 530.81, ICD10: K21.9 Dc PPI and H2 michael Take H 2blocker prn heartburn or carafate Radha Johnson MD MS Advanced Minimally Invasive and Bariatric Surgery Medical Decision Making: Problems: Moderate: 2+ stable chronic illnesses Risk: Moderate: Drug management [facility] Decision Making [facility]: [facility] of Present illness Narrative* Radha Johnson MD - 11/14/2023 9:45 AM EST Patient presents with: Follow Up HPI: Patient is a 58 year old male who presents to general surgery clinic for follow up after robotic paraesophageal hernia repair with toupet fundoplication on 08/02/23. Having small amount of heartburn after coffee but otherwise doing well and does not have severe heartburn. Sleeps at an incline if he eats too late in the evening. Believes some of his abdominal discomforts are due to food allergies. Stopped taking PPI and pepcid a month or so ago. PAST MEDICAL HISTORY Diagnosis Date Abdominal pain Arthritis back Dysphagia feeling food get stuck Fibromyalgia GERD (gastroesophageal reflux disease) Hiatal hernia 04/08/2023 approx 5 cm History of angina Paraesophageal hernia with gastroesophageal reflux surgically repaired 08/02/23 Snoring Stomach ulcer PAST SURGICAL HISTORY Procedure Laterality Date 48 HOUR PH STUDY 04/08/2023 Dr. Johnson BACK SURGERY HX spinal fusion with ORIF and second surgery to remove hardware. x 2 BACK SURGERY HX 2002 Fusion at T9 BACK SURGERY HX 2013 L5-S1 transforaminal Lumbar Interbody fusion BLADDER SURGERY HX 2013 CHOLECYSTECTOMY 07/30/2016 COLONOSCOPY FLX DX W/COLLJ SPEC WHEN PFRMD 11/14/2015 Colonoscopy with mac CYSTOSCOPY,DIL BLADDER,LOCAL ANESTH 2013 EGD 01/30/2013 EGD 11/14/2015 EGD 11/14/2015 EGD WITH BIOPSY(S) 04/08/2023 5 cm hiatal hernia; Dr. Johnson ELBOW SURGERY HX Left 2013 ESOPHAGEAL MANOMETRY 11/21/2015 ESOPHAGEAL MANOMETRY 04/08/2023 Dr. Carbone HAND SURGERY HX Left 2002 KNEE SURGERY HX Left 1979 LAMINECTOMY,LUMBAR 2000 LAPS RPR PARAESPHGL HRNA INCL FUNDPLSTY W/O MESH N/A 08/02/2023 Robotic Toupet; Dr. Johnson S SPINAL CORD STIMULATOR, 2015 SHOULDER SURGERY HX Right 2010 SINUS SURGERY HX 2013 FAMILY HISTORY Problem Relation Age of Onset Arthritis Mother rheumatoid other (spinal problems) Mother hep c other (scarlet fever) Mother Prostate Cancer Father other (heart mumur) Brother other (food allergies) Other children Colon Cancer No Family History Social History Tobacco Use Smoking status: Never Smokeless tobacco: Never Vaping Use Vaping Use: Never used Substance Use Topics Alcohol use: No Drug use: Never Current Outpatient Medications Medication Sig terbinafine HCl (LAMISIL) 250 mg tablet Take 1 tablet by mouth every afternoon. BD LUER-TRUNG SYRINGE 3 mL 22 x 1 1/2 as directed. testosterone cypionate (DEPO-TESTOSTERONE) 200 mg/mL injection INJECT 1 ML (200MG) INTRAMUSCULARLY EVERY 2 WEEKS tiZANidine HCl (ZANAFLEX) 4 mg capsule TAKE 1 CAPSULE BY MOUTH TWICE A DAY NEEDED acetaminophen (TYLENOL ARTHRITIS ORAL) Take by mouth as needed. sucralfate (CARAFATE) 1 gram tablet Take 1 tablet by mouth four times daily. (Patient not taking: Reported on 08/15/2023) pregabalin (LYRICA) 100 mg capsule TAKE 1 ORAL THREE TIMES A DAY FOR 28 DAYS (Patient not taking: Reported on 08/15/2023) famotidine (PEPCID) 20 mg tablet Take 20 mg by mouth as needed. (Patient not taking: Reported on 11/14/2023) pantoprazole DR (PROTONIX) 40 mg tablet Take 1 tablet by mouth twice daily. (Patient not taking: Reported on 08/15/2023) No current facility-administered medications for this visit. ALLERGIES Allergen Reactions Cephalexin Monohydr* Unknown Keflex Keflex [Cephalexin] Rash Penicillins Rash Tetracycline Rash REVIEW OF SYSTEMS: GENERAL: No weight loss, malaise or fevers GI: Negative for abdominal pain, nausea , vomiting, diarrhea, and constipation Positive for none PHYSICAL EXAM: BP 124/74 Pulse 94 Ht 5' 10.25 (1.78m) Wt 181 lb 6.4 oz (82.3kg) BMI 25.85 kg/(m^2). GENERAL APPEARANCE: Well appearing, alert, in no acute distress, well-hydrated, well nourished.. ABDOMEN: Normal abdominal exam NEURO: Alert, oriented x3, no asterixis, and speech clear and articulate DATA: Diagnostic tests reviewed for today's visit: No new labs ASSESSMENT / PLAN ASSESSMENT/PLAN: 1. Paraesophageal hernia - ICD9: 553.3, ICD10: K44.9 (primary diagnosis) robotic paraesophageal hernia repair with toupet fundoplication on 08/02/23 Had a discussion about trigger foods for heartburn Recommended not eating within 4 hours of sleeping Recommend limiting gum chewing as it can introduce more air into the stomach and cause discomfort 2. Gastroesophageal reflux disease without esophagitis - ICD9: 530.81, ICD10: K21.9 Dc PPI and H2 michael Take H 2blocker prn heartburn or carafate Radha Johnson MD MS Advanced Minimally Invasive and Bariatric Surgery Medical Decision Making: Problems: Moderate: 2+ stable chronic illnesses Risk: Moderate: Drug management Medical Decision Making Level: 4 - Moderate documented in [facility] encounterUniversity [facility] Miscellaneous Notes* Telephone Encounter - Fidelian Olvera RN - 08/26/2023 9:36 AM EST Patient called with a question about how physically active he can be. Albino will be 4 weeks post op next week (Toupet 08/02/23). 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 I told Albino I would recommend lifting more than 20 lbs at this point and he should check how he feels the day after his activity. I recommended that hewait until at least 6 weeks post op for heavy lifting/equipment use. Patient agreed with the plan. Fidelina Olvera RN documented in this encounterUniversity [facility]als [facility]11-20-2023 NoteHNO ID: [id number] Author: Fidelina Olvera RN Service: ? Author Type: Nurse Clinician Type: Progress Notes Filed: 08/15/2023 10:01 AM Note Text: Office visit after lap Toupet procedure on 08/02/23: Swallowing: notes some difficulty if eating too fast, otherwise swallowing liquids, soft foods and pills without difficulty 24 hour diet recall: Breakfast: protein drink he makes with 2 scoops of protein powder and Lactaid milk (he is not sure how much protein in each scoop). Lunch: potatoes Dinner: cream of wheat Voiding/color of urine: reports the urine is mostly light in color Passing flatus: yes Moving bowels: daily formed bowel movements Pain rating/use of medications: complains of some soreness around incisions due to rash Proton pump inhibitor: off Using incentive spirometer: admits he has not used it in a few days but states he had gotten incentive spirometer up to 3500 ml. I patient denies godfrey SOB/DRIVER. I told him he could discontinue it. Physical activity: walking around house doing light activities. Follow up appt confirmation: phone call from statistical programmer in [address] Johnson on 11/14/23 I verbally reviewed expanding the diet to include fish, cheese, mashed AND sweet potatoes. We discussed starting with one new food per meal. I reminded her that the fish needed to not be breaded or fried, but baked and moist. Patient denied any questions and I reinforced we are available if she has any questions. I demonstrated standing up and holding hands overhead to release any food/medications that feel stuck. We discussed the need to return to a liquid diet for 48 hours if something gets stuck to allow time for any swelling at the EG junction to resolve. Patient acknowledged understanding. Fidelina Olvera, [facility]11-20-2023 History of Present illness Narrative* Fidelina Olvera, RN - 08/15/2023 9:52 AM EST Office visit after lap Toupet procedure on 08/02/23: Swallowing: notes some difficulty if eating too fast, otherwise swallowing liquids, soft foods and pills without difficulty 24 hour diet recall: Breakfast: protein drink he makes with 2 scoops of protein powder and Lactaid milk (he is not sure how much protein in each scoop). Lunch: potatoes Dinner: cream of wheat Voiding/color of urine: reports the urine is mostly light in color Passing flatus: yes Moving bowels: daily formed bowel movements Pain rating/use of medications: complains of some soreness around incisions due to rash Proton pump inhibitor: off Using incentive spirometer: admits he has not used it in a few days but states he had gotten incentive spirometer up to 3500 ml. I patient denies godfrey SOB/DRIVER. I told him he could discontinue it. Physical activity: walking around house doing light activities. Follow up appt confirmation: phone call from statistical programmer in [address] Johnson on 11/14/23 I verbally reviewed expanding the diet to include fish, cheese, mashed & sweet potatoes. We discussed starting with one new food per meal. I reminded her that the fish needed to not be breaded orfried, but baked and moist. Patient denied any questions and I reinforced we are available if she has any questions. I demonstrated standing up and holding hands overhead to release any food/medications that feel stuck. We discussed the need to return to a liquid diet for 48 hours if something gets stuck to allow time for any swelling at the EG junction to resolve. Patient acknowledged understanding. Fidelina Olvera RN * Radha Johnson MD - 08/15/2023 8:27 AM EST Patient presents with: Post Op Follow Up HPI: Patient is a 58 year old male who presents to general surgery clinic for follow up after robotic paraesophageal hernia repair with toupet fundoplication on 08/02/23. Itching by incision due to the skin glue that has improved since removing the skin glue. Otherwise doing well, tolerating diet, deniesheartburn or regurg. Some dysphagia that is improving. Stopped taking PPI as he could not swallow pills and did not have heartburn. PAST MEDICAL HISTORY Diagnosis Date Abdominal pain Arthritis back Dysphagia feeling food get stuck Fibromyalgia GERD (gastroesophageal reflux disease) Hiatal hernia 04/08/2023 approx 5 cm History of angina Paraesophageal hernia with gastroesophageal reflux Snoring Stomach ulcer PAST SURGICAL HISTORY Procedure Laterality Date 48 HOUR PH STUDY 04/08/2023 Dr. Johnson BACK SURGERY HX spinal fusion with ORIF and second surgery to remove hardware. x 2 BACK SURGERY HX 2014 L5-S1 transforaminal Lumbar Interbody fusion BLADDER SURGERY HX 2013 CHOLECYSTECTOMY 07/30/2016 Cholecystectomy COLONOSCOPY FLX DX W/COLLJ SPEC WHEN PFRMD 05/18/2013 Colonoscopy COLONOSCOPY FLX DX W/COLLJ SPEC WHEN PFRMD 11/14/2015 Colonoscopy with mac CYSTOSCOPY,DIL BLADDER,LOCAL ANESTH 2012 EGD 01/30/2013 EGD 11/14/2015 EGD 11/14/2015 EGD WITH BIOPSY(S) 04/08/2023 5 cm hiatal hernia; Dr. Johnson ELBOW SURGERY HX Left 2014 ESOPHAGEAL MANOMETRY 11/21/2015 ESOPHAGEAL MANOMETRY 04/08/2023 Dr. Carbone HAND SURGERY HX Left 2002 HERNIA REPAIR HX N/A 08/02/2023 ROBOTIC LAPAROSCOPIC REPAIR PARAESOPHAGEAL HERNIA W/FUNDOPLASTY W/O IMPLANTATION OF MESH KNEE SURGERY HX Left 1978 LAMINECTOMY,LUMBAR 2000 PAST SURGICAL HISTORY OF 2002 Fusion at T9 S SPINAL CORD STIMULATOR, 2014 SHOULDER SURGERY HX Right 2011 SINUS SURGERY HX 2012 FAMILY HISTORY Problem Relation Age of Onset Arthritis Mother rheumatoid other (spinal problems) Mother hep c other (scarlet fever) Mother Prostate Cancer Father other (heart mumur) Brother other (food allergies) Other children Colon Cancer No Family History Social History Tobacco Use Smoking status: Never Smokeless tobacco: Never Vaping Use Vaping Use: Never used Substance Use Topics Alcohol use: No Drug use: Never Current Outpatient Medications Medication Sig sucralfate (CARAFATE) 1 gram tablet Take 1 tablet by mouth four times daily. (Patient taking differently: Take 1 g by mouth as needed.) BD LUER-TRUNG SYRINGE 3 mL 22 x 1 1/2 as directed. testosterone cypionate (DEPO-TESTOSTERONE) 200 mg/mL injection INJECT 1 ML (200MG) INTRAMUSCULARLY EVERY 2 WEEKS tiZANidine HCl (ZANAFLEX) 4 mg capsule TAKE 1 CAPSULE BY MOUTH TWICE A DAY NEEDED famotidine (PEPCID) 20 mg tablet Take 20 mg by mouth as needed. acetaminophen (TYLENOL ARTHRITIS ORAL) Take by mouth as needed. sucralfate (CARAFATE) 1 gram tablet Take 1 tablet by mouth four times daily. (Patient not taking: Reported on 08/15/2023) pregabalin (LYRICA) 100 mg capsule TAKE 1 ORAL THREE TIMES A DAY FOR 28 DAYS (Patient not taking: Reported on 08/15/2023) pantoprazole DR (PROTONIX) 40 mg tablet Take 1 tablet by mouth twice daily. (Patient not taking: Reported on 08/15/2023) No current facility-administered medications for this visit. ALLERGIES Allergen Reactions Cephalexin Monohydr* Unknown Keflex Keflex [Cephalexin] Rash Penicillins Rash Tetracycline Rash REVIEW OF SYSTEMS: GENERAL: No weight loss, malaise or fevers GI: Negative for abdominal pain, nausea , vomiting, diarrhea, constipation, and signs of jaundice Positive for none PHYSICAL EXAM: BP 124/76 Pulse 88 Ht 5' 10.25 (1.78m) Wt 167 lb 3.2 oz (75.8kg) BMI 23.83 kg/(m^2). GENERAL APPEARANCE: Well appearing, alert, in no acute distress, well-hydrated, well nourished.. ABDOMEN: Normal abdominal exam, incision c/d/I, mild rash NEURO: Alert, oriented x3, no asterixis, speech clear and articulate, and THORPE DATA: Diagnostic tests reviewed for today's visit: No new labs ASSESSMENT / PLAN ASSESSMENT/PLAN: 1. Paraesophageal hernia - ICD9: 553.3, ICD10: K44.9 S/p Robotic PEHR with toupet Restart PPI daily Motrin as needed only for itching Ok for benadryl and hydrocortisone cream for itching, skin glue is removed so rash will improve Follow forgut diet Follow up 3 months Radha Johnson MD MS Advanced Minimally Invasive and Bariatric Surgery documented in this encounterUniversity [facility]als [facility]11-20-2023 NoteHNO ID: [id number] Author: Radha Johnson MD Service: ? Author Type: Physician Type: Progress Notes Filed: 08/15/2023 8:41 AM Note Text: Patient presents with: Post Op Follow Up HPI: Patient is a 58 year old male who presents to general surgery clinic for follow up after robotic paraesophageal hernia repair with toupet fundoplication on 08/02/23. Itching by incision due to the skin glue that has improved since removing the skin glue. Otherwise doing well, tolerating diet, denies heartburn or regurg. Some dysphagia that is improving. Stopped taking PPI as he could not swallow pills and did not have heartburn. PAST MEDICAL HISTORY Diagnosis Date Abdominal pain Arthritis back Dysphagia feeling food get stuck Fibromyalgia GERD (gastroesophageal reflux disease) Hiatal hernia 04/08/2023 approx 5 cm History of angina Paraesophageal hernia with gastroesophageal reflux Snoring Stomach ulcer PAST SURGICAL HISTORY Procedure Laterality Date 48 HOUR PH STUDY 04/08/2023 Dr. Johnson BACK SURGERY HX spinal fusion with ORIF and second surgery to remove hardware. x 2 BACK SURGERY HX 2014 L5-S1 transforaminal Lumbar Interbody fusion BLADDER SURGERY HX 2013 CHOLECYSTECTOMY 07/30/2016 Cholecystectomy COLONOSCOPY FLX DX W/COLLJ SPEC WHEN PFRMD 05/18/2013 Colonoscopy COLONOSCOPY FLX DX W/COLLJ SPEC WHEN PFRMD 11/14/2015 Colonoscopy with mac CYSTOSCOPY,DIL BLADDER,LOCAL ANESTH 2012 EGD 01/30/2013 EGD 11/14/2015 EGD 11/14/2015 EGD WITH BIOPSY(S) 04/08/2023 5 cm hiatal hernia; Dr. Johnson ELBOW SURGERY HX Left 2014 ESOPHAGEAL MANOMETRY 11/21/2015 ESOPHAGEAL MANOMETRY 04/08/2023 Dr. Carbone HAND SURGERY HX Left 2002 HERNIA REPAIR HX N/A 08/02/2023 ROBOTIC LAPAROSCOPIC REPAIR PARAESOPHAGEAL HERNIA W/FUNDOPLASTY W/O IMPLANTATION OF MESH KNEE SURGERY HX Left 1978 LAMINECTOMY,LUMBAR 2000 PAST SURGICAL HISTORY OF 2002 Fusion at T9 S SPINAL CORD STIMULATOR, 2015 SHOULDER SURGERY HX Right 2011 SINUS SURGERY HX 2013 FAMILY HISTORY Problem Relation Age of Onset Arthritis Mother rheumatoid other (spinal problems) Mother hep c other (scarlet fever) Mother Prostate Cancer Father other (heart mumur) Brother other (food allergies) Other children Colon Cancer No Family History Social History Tobacco Use Smoking status: Never Smokeless tobacco: Never Vaping Use Vaping Use: Never used Substance Use Topics Alcohol use: No Drug use: Never Current Outpatient Medications Medication Sig sucralfate (CARAFATE) 1 gram tablet Take 1 tablet by mouth four times daily. (Patient taking differently: Take 1 g by mouth as needed.) BD LUER-TRUNG SYRINGE 3 mL 22 x 1 1/2 as directed. testosterone cypionate (DEPO-TESTOSTERONE) 200 mg/mL injection INJECT 1 ML (200MG) INTRAMUSCULARLY EVERY 2 WEEKS tiZANidine HCl (ZANAFLEX) 4 mg capsule TAKE 1 CAPSULE BY MOUTH TWICE A DAY NEEDED famotidine (PEPCID) 20 mg tablet Take 20 mg by mouth as needed. acetaminophen (TYLENOL ARTHRITIS ORAL) Take by mouth as needed. sucralfate (CARAFATE) 1 gram tablet Take 1 tablet by mouth four times daily. (Patient not taking: Reported on 08/15/2023) pregabalin (LYRICA) 100 mg capsule TAKE 1 ORAL THREE TIMES A DAY FOR 28 DAYS (Patient not taking: Reported on 08/15/2023) pantoprazole DR (PROTONIX) 40 mg tablet Take 1 tablet by mouth twice daily. (Patient not taking: Reported on 08/15/2023) No current facility-administered medications for this visit. ALLERGIES Allergen Reactions Cephalexin Monohydr* Unknown Keflex Keflex [Cephalexin] Rash Penicillins Rash Tetracycline Rash REVIEW OF SYSTEMS: GENERAL: No weight loss, malaise or fevers GI: Negative for abdominal pain, nausea , vomiting, diarrhea, constipation, and signs of jaundice Positive for none PHYSICAL EXAM: BP 124/76 Pulse 88 Ht 5' 10.25 (1.78m) Wt 167 lb 3.2 oz (75.8kg) BMI 23.83 kg/(m2). GENERAL APPEARANCE: Well appearing, alert, in no acute distress, well-hydrated, well nourished.. ABDOMEN: Normal abdominal exam, incision c/d/I, mild rash NEURO: Alert, oriented x3, no asterixis, speech clear and articulate, and THORPE DATA: Diagnostic tests reviewed for today's visit: No new labs ASSESSMENT / PLAN ASSESSMENT/PLAN: 1. Paraesophageal hernia - ICD9: 553.3, ICD10: K44.9 S/p Robotic PEHR with toupet Restart PPI daily Motrin as needed only for itching Ok for benadryl and hydrocortisone cream for itching, skin glue is removed so rash will improve Follow forgut diet Follow up 3 months Radha Johnson MD MS [facility] Miscellaneous Notes* Telephone Encounter - Fidelina Olvera RN - 08/11/2023 9:00 AM EST I called Albino this morning to follow up on his rash around his incisions. Patient stated I forgot I've had this problem before. When they put the pain pump in I had the same problem around that dressing. Patient states it is red and itching around all the incisions. He started taking OTC Benadrylat night 2 nights ago. He did purchase extra strength Benadryl cream yesterday and reports that therash is not as red today. I recommended that he continue using the Benadryl cream at least twice a day and continue taking the Benadryl at night. I reminded patient about his follow up appointment on08/15/23. Patient thanked me for the call. Fidelina Olvera RN I called patient back to instruct him to remove the glue over the incisions and apply the benadryl cream to the rash where the skin glue was. Patient did not pharmacy picking technician the call x 2. I called patient's and gave her the instructions on removal of skin glue and applying Benadryl cream. Christi said she will make sure he gets that message. He's really trying to do everything by the book. I told herwe appreciate that and we just want to make him comfortable. She thanked me for taking the extra step to contact her. Fidelina Olvera RN documented in this encounterUniversity Hospitals [facility]11-15-2023 Miscellaneous Notes* Telephone Encounter - Fidelina Olvera RN - 08/10/2023 4:37 PM EST I called the patient but was only able to leave him a message stating he could use some topical benadryl cream around the skin glue or he could take oral, OTC benadryl. I asked the patient to return my call tomorrow. Fidelina Olvera RN * Telephone Encounter - Mercy Dong MA - 08/10/2023 3:37 PM EST Phone call from patient stating that he feels that the surgical glue that was used for his surgery is giving him a red rash. He states he has had it for a few days but that it is getting worse. He denies any other symptoms but is requesting that a cream be sent to his pharmacy to help. Mercy Dong MA documented in this encounterUniversity Hospitals [facility] Center11-09-2023 Miscellaneous Notes* Telephone Encounter - Fidelina Olvera RN - 08/04/2023 12:16 PM EST I called patient after hospital discharge home after lap Toupet procedure on 08/02/23: Swallowing: Patient states it still difficult to swallow but better than yesterday. Patient denies any pain with swallowing. Patient has been able to swallow liquids, food and medications. I had at least 3 glasses of water, a protein drink, applesauce and yogurt. Voiding/color of urine: reports urine is light in color Passing flatus: yes Moving bowels: no. Patient did not take any Miralax as instructed. My is going to go out and get some today. Pain rating/use of medications: Patient states he has some shoulder/chest pain. Patient rating abdominal pain as 5-6, it's better than yesterday. I wish I could take the pain medications sooner than every 8 hours. It doesn't last that long. Patient confirmed that he is taking Tylenol between doses of Tramadol. I reminded patient to take the Miralax today as that may help relieve some of the pain. Patient states his abdomen is less distended today. Inspection of incisions: skin glue intact, denies any bruising. Patient showered this morning Using incentive spirometer: Patient reports he was able to get incentive spirometer up to 2000 ml today, which is quite an improvement over yesterday. I reminded the patient that he needs to continueusing the incentive spirometer until he can reach is goal of 3000 ml consistently. Patient agreed with the plan. Physical activity: that's all I have been doing is walking. I don't think I've sat down this morning. I have a 3 story house and I keep moving around and going back and forth to the bathroom. Follow up appt confirmation: 08/15/23 I encouraged patient to call with any questions or concerns before his follow up appointment. Patient thanked me for the call. Fidelina Olvera, RN documented in this encounterUniversity Hospitals Samar[facility] Center11-06-2023 Miscellaneous Notes* Telephone Encounter - Bridgette Baum - 08/01/2023 8:39 AM EST Pt called in this morning stated that he has a sore throat. His has been sick and he's wondering if he is getting what she has. He stated that she has a virus. He wanted to know if we should re schedule his surgery. Please advise. documented in this encounterUniversity Hospitals Samar[facility] Center10-31-2023 History and physical note * Lila Lou APRN.CNP - 07/26/2023 10:40 AM EDT HISTORY AND PHYSICAL EXAMINATION SERVICE DATE: 07/25/2023 SERVICE TIME: 11:02 AM PRIMARY CARE PHYSICIAN: Henok Watkins MD Assessment Patient has the following medical conditions which may affect matty-operative course: Pre-op examination See note for medical conditions which may affect matty-operative course addressed in visit today. GERD (gastroesophageal reflux disease) On Protonix and Pepcid Continue therapy perioperatively Paraesophageal hernia Surgery scheduled with Dr. Johnson 08/02/23 Implantable Devices: hardware in lower back, spinal stimulator, pain pump Pt denies blood thinners. Pt instructed to bring remote for stimulator to day of surgery. (Per pt it is no longer working, battery is depleted.) Bowser Activity Status Index: METS: Run a short distance (8.00 METs) DASI Score: 8 Patient denies any chest pain or undue shortness of breath with the above physical activity. Clinical Frailty Scale: 2. Well ARISCAT Score: Age: 51-80 Preoperative SpO2: >=96% Respiratory infection in the last month: No Preoperative anemia: No Surgical incision: upper abdominal Duration of surgery: >3 hrs Emergency procedure: No ARISCAT Score: 41 ANESTHESIA FINDINGS: Intubation History: No history of difficult intubation. No abnormal airway history Significant Anesthesia Considerations: PONV after back surgery potential postop nausea/vomiting Airway History: No history of difficult airway No abnormal airway history I - PHYSICAL EVALUATION AIRWAY Patient intubated: No. DENTAL Dental findings: teeth intact. II - ANESTHESIA PLAN Anesthetic Plan: general Beta Michael Monitoring Plan Post Procedure Analgesic Plan None ordered per surgeon. ARISCAT risk index interpretation 0 to 25 points: Low risk: 1.6% pulmonary complication rate 26 to 44 points: Intermediate risk: 13.3% pulmonary complication rate 45 to 123 points: High risk: 42.1% pulmonary complication rate Assessment/Plan Gastroesophageal reflux disease without esophagitis [K21.9] Paraesophageal hernia with gastroesophageal reflux [K44.9, K21.9] PLAN Diagnosis: Planned Procedure: Procedure(s): ROBOTIC LAPAROSCOPIC RPR PARAESOPHAGEAL HERNIA W/MESH (N/A) TRANSFUSION BLOOD (N/A) I spent a total of 40 minutes on the date of the service which included preparing to see the patient, [id number] patient care, completing clinical documentation, obtaining and/or reviewing separately obtained history, performing a medically appropriate examination, and counseling and educating the patient/family/caregiver. REASON FOR VISIT: Albino Washburn is a 58 year old male who is scheduled for Procedure(s): ROBOTIC LAPAROSCOPIC RPR PARAESOPHAGEAL HERNIA W/MESH (N/A) TRANSFUSION BLOOD (N/A) at the request of Dr. Radha Johnson for routine H&P. My final recommendation will be communicated back to the requesting physician by way of shared medical record or letter. Subjective The patient has the following: ACTIVE PROBLEM LIST Radiculopathy, Lumbar Region Gerd (Gastroesophageal Reflux Disease) Paraesophageal Hernia Pre-Op Examination Stomach Ulcer COVID-19 Immunization Status Overdue - Covid-19 Vaccine (1) Overdue - never done No completion, postpone, frequency change, or communication history exists for this topic. CHIEF COMPLAINT: The reason for this visit is to perform a comprehensive review of the patient's past medical history, assess their current health status and obtain any additional testing required based on anesthesia guidelines. We will also identify any potential anesthesia problems or contraindications to the planned procedure. HPI: Albino Washburn is a 58 year old male who presents to [facility] for a scheduled hernia repair with Dr. Johnson. Patient reports throat discomfort and acid reflux. Paraesophageal hernia was found in EGD 04/2023. He is taking Protonix and Pepcid, and he states they helped with suppressing acid, but still has discomfort at throat. He is having some problem with swallowing, feeling food get stuck at times. Denies abdominal pain or difficulty with BM. After discussing with surgeon, patient agrees to surgical intervention. Risk and benefits discussed by surgeon. Patient denies any other problems or concerns at this time. REVIEW OF SYSTEMS: General: Negative for: unintentional weight change and fever. Neurological: Negative for: delirium, dementia, seizures, TIA and strokes. Respiratory: Negative for: asthma, COPD, current cough, dyspnea, pneumonia within 6 weeks, URI < 2 weeks and obstructive sleep apnea. Cardiovascular: Negative for: abdominal aortic aneurysm, angina, atrial fibrillation, CAD, chest pain, DVT/PE and recent [place]. GI: See HPI. Positive for: dysphagia and GERD Negative for: hepatitis, liver disease and ETOH >2 drinks/day. : Negative for: flank pain, hematuria, urinary incontinence and renal failure. Endocrine: Negative for: diabetes mellitus, hyperthyroidism, hypothyroidism and hyperparathyroidism. Hematology: Negative for: anemia, factor V Leiden, hemophilia, von Willebrand disease and chronic anti-coagulation/platelet meds. Oncology: No history of CA metastasis, chemo within 30 days, or radiotherapy within 90 days. No history of oncological symptoms or problems. Psych: Negative for: anxiety and depression. Musculoskeletal: Negative for joint pain or swelling, back pain or muscle pain. Skin: Negative for lesions, rash and itching. PAST MEDICAL HISTORY Diagnosis Date Abdominal pain Arthritis back Dysphagia feeling food get stuck Fibromyalgia GERD (gastroesophageal reflux disease) Hiatal hernia 04/08/2023 approx 5 cm History of angina Paraesophageal hernia with gastroesophageal reflux Snoring Stomach ulcer PAST SURGICAL HISTORY Procedure Laterality Date 48 HOUR PH STUDY 04/08/2023 Dr. Johnson BACK SURGERY HX spinal fusion with ORIF and second surgery to remove hardware. x 2 BACK SURGERY HX 2013 L5-S1 transforaminal Lumbar Interbody fusion BLADDER SURGERY HX 2012 CHOLECYSTECTOMY 07/30/2016 Cholecystectomy COLONOSCOPY FLX DX W/COLLJ SPEC WHEN PFRMD 05/18/2013 Colonoscopy COLONOSCOPY FLX DX W/COLLJ SPEC WHEN PFRMD 11/14/2015 Colonoscopy with mac CYSTOSCOPY,DIL BLADDER,LOCAL ANESTH 2013 EGD 01/30/2013 EGD 11/14/2015 EGD 11/14/2015 EGD WITH BIOPSY(S) 04/08/2023 5 cm hiatal hernia; Dr. Johnson ELBOW SURGERY HX Left 2013 ESOPHAGEAL MANOMETRY 11/21/2015 ESOPHAGEAL MANOMETRY 04/08/2023 Dr. Carbone HAND SURGERY HX Left 2002 KNEE SURGERY HX Left 1979 LAMINECTOMY,LUMBAR 2001 PAST SURGICAL HISTORY OF 2002 Fusion at T9 S SPINAL CORD STIMULATOR, 2014 SHOULDER SURGERY HX Right 2010 SINUS SURGERY HX 2013 FAMILY HISTORY Problem Relation Age of Onset Arthritis Mother rheumatoid other (spinal problems) Mother hep c other (scarlet fever) Mother Prostate Cancer Father other (heart mumur) Brother other (food allergies) Other children Colon Cancer No Family History Social History Tobacco Use Smoking status: Never Smokeless tobacco: Never Vaping Use Vaping Use: Never used Substance Use Topics Alcohol use: No Drug use: Never Prior to Admission medications as of 07/26/23 1037 Medication Sig Last Dose Taking sucralfate (CARAFATE) 1 gram tablet TAKE 1 TABLET BY MOUTH 4 TIMES A DAY Patient taking differently: as needed. Taking Yes testosterone cypionate (DEPO-TESTOSTERONE) 200 mg/mL injection INJECT 1 ML (200MG) INTRAMUSCULARLY EVERY 2 WEEKS Taking Yes pregabalin (LYRICA) 100 mg capsule TAKE 1 ORAL THREE TIMES A DAY FOR 28 DAYS Taking Yes tiZANidine HCl (ZANAFLEX) 4 mg capsule TAKE 1 CAPSULE BY MOUTH TWICE A DAY NEEDED Taking Yes famotidine (PEPCID) 20 mg tablet Take 20 mg by mouth as needed. Taking Yes acetaminophen (TYLENOL ARTHRITIS ORAL) Take by mouth as needed. Taking Yes pantoprazole DR (PROTONIX) 40 mg tablet Take 1 tablet by mouth twice daily. Taking Yes BD LUER-TRUNG SYRINGE 3 mL 22 x 1 1/2 as directed. No medication comments found. ALLERGIES Allergen Reactions Cephalexin Monohydr* Unknown Keflex Keflex [Cephalexin] Rash Penicillins Rash Tetracycline Rash Objective PHYSICAL EXAM: General: alert and oriented and healthy appearance. Pertinent negatives noted - not distressed. Skin: normal color, no rash or lesions. HEENT: EOM intact and pupils equal round. No additional findings for patient's neck. Cardiovascular: regular rate and rhythm, normal S1 and S2, no rub, murmurs, or gallop. Respiratory: normal breath sounds, no wheezes or crackles. No chest wall deformity or tenderness. Abdomen: bowel sounds present and soft. Pertinent negatives noted - not tender. Extremities: no deformity, no edema or tenderness, no joint swelling or clubbing. Neurological: normal cognition and motor skills. Gait normal. No weakness or sensory deficit. PAIN ASSESSMENT: Pain Pain Level: 3 Pain Location: Throat Frequency: Intermittent VITALS: BP 121/77 Pulse 61 Temp 98.8 Resp 16 Ht 5' 11 (1.80m) Wt 177 lb (80.3kg) SpO2 97% BMI 24.70 kg/(m^2). Diagnostic tests reviewed for today's visit: Lab Value Units Date High Low HB 12.7 g/dL 05/09/2023 17.0 13.0 HCT 40.5 % 05/09/2023 51.0 39.0 WBC No results within date range. PLT No results within date range. NA 138 mmol/L 05/09/2023 144 136 K 4.1 mmol/L 05/09/2023 5.1 3.7 GLUC 97 mg/dL 05/09/2023 99 74 BUN 8 mg/dL 05/09/2023 24 9 CREAT 0.77 mg/dL 05/09/2023 1.22 0.73 PTSEC No results within date range. INR No results within date range. APTT No results within date range. ALT No results within date range. AST No results within date range. TBILI No results within date range. TSH No results within date range. Lab Value Units Date High Low HCGQT No results within date range. UHCG No results within date range. HCG, BODY* No results within date range. Lab Value Units Date High Low ABORHD No results within date range. ABSCREEN No results within date range. No results found for: HBA1C No results found for this or any previous visit (from the past 8760 hour(s)). No results found for this or any previous visit (from the past 70774 hour(s)). Prepared for Surgery: CONSULTS: Patient does not require consults for optimization at this time Planned Anesthetic: general The Following Tests/Procedures Have Been Initiated: No orders of the defined types were placed in this encounter. Instructions Given to Patient: Instructions located in the after visit summary. Patient given verbal and written preop instructions and voices comprehension and compliance. SIGNATURE: Lila Lou APRN.CNP PATIENT NAME: Albino Washburn DATE: July 25, 2023 TIME: 2:34 PM PAGER/CONTACT #: documented in this encounterUniversity Hospitals [facility]10-30-2023 Instructions* Patient Instructions* Lila Lou APRN.CNP - 07/25/2023 2:33 PM EDT PATIENT PREOPERATIVE INSTRUCTIONS Your surgeon has scheduled for your procedure at this surgery center: [facility]: [phone], [address] [id number] Please enter through the main entrance and proceed to the blue elevators. The surgery hunker center is located to the left of the blue elevator. Please read below carefully for your personalized instructions. Surgery Date: 08/02/23 Your surgeon's office will provide you with your ARRIVAL TIME for surgery. - If you have not received an arrival time by the afternoon before your surgery date, please followup with your surgeon's office. - If you are scheduled for Tuesday surgery, please make sure you have your arrival time by Tuesday afternoon. - Please be aware that emergency situations arise, which may delay or change your surgical time. Ifthis happens, your surgeon's office will notify you as soon as possible and regret any inconvenience. Dietary Restrictions: - Nothing to eat or drink after midnight except for a sip of water with approved medications. Please stop ALL clear liquids 2 hours prior to your ARRIVAL TIME. This is important because otherwise your surgery may have to be cancelled. Blood Thinning Medications: - Stop NSAIDS (Ibuprofen, Advil, Aleve, Motrin, Celebrex, Mobic, etc.) 7 days before surgery, or asdirected by your surgeon. You may take Tylenol (Acetaminophen) or any of your pain medications that do not contain aspirin orNSAIDS as needed. IF YOU TAKE ANY OF THE FOLLOWING BLOOD THINNERS, PLEASE CONTACT YOUR SURGEON AND THE PHYSICIAN WHO PRESCRIBES IT FOR YOU IN ORDER TO GET PERIOPERATIVE INSTRUCTIONS SOON POSSIBLE. BLOOD THINNERS: Aspirin , Coumadin, Plavix, Eliquis, Pradaxa, Xarelto, Lovenox, Brilinta, Effient, Savaysa, Arixtra, etc - Stop Vitamin E, fish oil, multivitamins, Marijuana, CBD oil and other over the counter herbals and dietary supplements 7 days before surgery. - This would not apply to cancer patients who are prescribed Marinol or any other prescription formon marijuana or CBD. Medications: Approved medications to take the morning of surgery with a sip of water: BP, HCTZ, Heart, thyroid, psych, seizure, and pain medications excluding NSAIDS. Use inhalers as prescribed. Please bring inhalers. Phentermine (Ionamin) - hold 4 days prior to surgery Preoperative Instructions for Patients with Diabetes Mellitus: Preoperative Instructions for Patients with Diabetes Mellitus: Please follow up with the provider that manages your diabetes and how to prepare you for surgery. Do not take the following medications Morning of surgery: Trajenta, Metformin, Actos/Pioglitazone and Amaryl/Glimepiride. For the following Medications, please HOLD 2 DAYS PRIOR TO SURGERY: Glucotrol/Glipizide, Januvia/Sitagliptin, Glyburide, Prandin/Repaglinide, Starlix/Nateglinide, Symlin/Pramlintide For the following Medications, please HOLD 3 DAYS PRIOR TO SURGERY: Canagliflozin/Invokana, Dapagliflozin/Farxiga, Empagliflozin/Jardiance, Invokamet/ canagliflozin and metformin, Xigduo XR/ dapagliglozin and metformin, Glyxambi/ empagliflozin and metformin, Syndardy/ empagliflozin and metformin For the following Medications, please HOLD 4 DAYS PRIOR TO SURGERY: Ertugliflozin/Steglatro For the following Medications, please HOLD 7 DAYS PRIOR TO SURGERY: GLP-1 AGONIST: Adlyxin (lixisenatide), Bydureon BCise (exenatide suspension), Byetta (exenatide), Mounjaro (tirzepatide), Ozempic (semaglutide injection), Rybelsus (semaglutide tablets), Tanzeum (albiglutide), Trulicity (dulaglutide), Victoza (liraglutide), Wegovy (semaglutide), Saxenda (liraglutide) Insulin Medication Instructions: Please follow up with the provider that manages your Insulin and how to prepare you for surgery. If you start any new medications after today's visit, please contact the surgeon's office. Important Reminders: - If you have a stimulator, implant or pump that requires a remote, please bring the remote with you day of surgery. - If you use CPAP/BIPAP, bring the machine with you to the surgery center. - If you are prescribed inhalers for breathing, continue using them AND bring them to the surgery center. - Candy, mints, gum and tobacco products are NOT permitted the morning of surgery. - Hearing aids, dentures and glasses may be worn the morning of surgery. - NO jewelry, body piercings, makeup, hairpins or contacts are to be worn the day of surgery. - Oral hygiene and a shower or bath is required the evening before or the morning of surgery. - NO lotion, creams, powders or deodorants on the skin the day of surgery. - Wear loose, comfortable clothing that will accommodate bandages. - Your length of stay will be determined by your surgeon. - You will need to have someone else (Family or friend) to drive you home once discharged from the hospital. You cannot drive yourself home after surgery. - YOU MUST HAVE A RESPONSIBLE HIDE SALTER TAKE YOU HOME. A TITLE CHECKER, CAB OR UBER HIDE SALTER CANNOT BE MADEA RESPONSIBLE HIDE SALTER. - If you are undergoing an outpatient procedure you must have someone drive you home and stay with you for the first 24 hours. Your ride home must be at least 18 years old or older. Your surgery may be cancelled if you do not have someone to drive you home or take care of you. - You cannot stay in a hotel alone after an outpatient surgery. - It is recommended patients have a 72-hour period between getting their vaccine and the date of surgery. Visitation: Visitors to any [facility] facility: Any individual who is sick should not visit. Visitors to patients with COVID-19 must follow these guidelines, which include wearing a mask, eye protection, gown and gloves. [facility] [place] Visitation hours: 7 AM to 9 PM. Pre-Surgery Unit - Patients may have up to 2 visitors at a time. PACU recovery Unit - Patients may have up to 1-2 visitors at a time. [facility] [place] Pre-Surgery area - 1 visitor at a time due to limited space. PACU recovery area - No visitors due to limited space unless patient is a minor due to limited space. If you develop symptoms such as a fever, cold, or flu, or have other changes to your health within TWO DAYS of scheduled surgery or the morning of surgery, please contact the surgeon's office. Personal Belongings: - Leave ALL valuables and money at home or with family members. - You will need a form of ID and insurance card to check in the morning of surgery. - If you do not have a copy of advance directives on file with us, please bring a copy with you on the day of surgery. If you already have an Advance Directive, please fax a copy to [phone] or email to for it to be added to your chart. If you do not have an Advance Directive, you can find the appropriate form and more information at [email or web address]. We recommend that youcomplete the Advance Directive form found on the website and bring it with you the day of your surgery. It can be witnessed and scanned into your chart that day. IF you are having a TOTAL KNEE, HIP REPLACEMENT OR ORTHOPEDIC SURGERY: - Orthopedic patients at [facility] listed as outpatient, please bring walker into the building. - Orthopedic patients at [facility] listed as to be admitted, please leave walkers in the car or with a family member. - [facility]opedic patients at [facility] [place], please bring the walker into the building day of surgery. Mak provided Lila Lou APRN.CNP 07/25/23 documented in this encounterUniversity Hospitals Samaritan Medical Center08-21-2023 Miscellaneous Notes* Telephone Encounter - Bridgette Baum - 05/16/2023 10:32 AM EDT Pt called in today and canceled his surgery because he woke up very ill. He has a fever with hot and cold sweats. I informed him the next avail OR date to r/s would be 08/02/23. He stated that he willtalk that over with his and make sure they don't have anything going on then he will call backmy personal line to confirm. documented in this encounterUniversity Hospitals Samaritan Medical Center08-14-2023 History and physical note * Mian Fabian PA - 05/09/2023 2:20 PM EDT HISTORY AND PHYSICAL EXAMINATION SERVICE DATE: 05/09/2023 SERVICE TIME: 2:35 PM PRIMARY CARE PHYSICIAN: Henok Watkins MD REASON FOR VISIT: Albino Washburn is a 58 year old male who is scheduled for Procedure(s): ROBOTIC LAPAROSCOPIC RPR PARAESOPHAGEAL HERNIA W/O FUNDOPLASTY W/ MESH (Left) TRANSFUSION BLOOD (N/A) at the request of Dr. Radha Johnson for routine H&P. My final recommendation will be communicated back to the requesting physician by way of shared medical record or letter. Subjective The patient has the following: ACTIVE PROBLEM LIST Radiculopathy, Lumbar Region Gerd (Gastroesophageal Reflux Disease) Paraesophageal Hernia Pre-Op Examination Stomach Ulcer COVID-19 Immunization Status Overdue - COVID-19 VACCINE (1) Overdue - never done No completion, postpone, frequency change, or communication history exists for this topic. CHIEF COMPLAINT: The reason for this visit is To perform a comprehensive review of the patients past medical history, assess their current health status and obtain any additional testing required based on anesthesia guidelines. To assess and identify potential anesthesia problems, particularly those that may suggest potential complications or contraindications to the planned procedure. HPI: Patient presents for Procedure(s): ROBOTIC LAPAROSCOPIC RPR PARAESOPHAGEAL HERNIA W/O FUNDOPLASTY W/ MESH (Left) TRANSFUSION BLOOD (N/A). Pt states issues with GERD since he was in his 20s. Pt states current 2/10 pain in the upper abdomen. Pt states recurrent nausea that he connects to long covid. Pt states constipation due to medications. Pt denies vomiting, diarrhea. Patient denies any other problems or concerns at this time. Risksand benefits of the procedure discussed by Surgeon and patient agreed to proceed with planned procedure. REVIEW OF SYSTEMS: General: No weight loss, malaise or fevers. Neurological: Negative for: headaches, seizures and strokes. Respiratory: Negative for: asthma, COPD, current cough, dyspnea, tobacco use and obstructive sleep apnea. Cardiovascular: Negative for: AICD/PPM, angina, anticoagulation therapy, atrial fibrillation, CAD, chest pain, CHF,DVT/PE, hyperlipidemia and hypertension. GI: See HPI. : Negative for: frequent urination, hematuria and urgency. Endocrine: Negative for: diabetes mellitus, hyperthyroidism and hypothyroidism. Hematology: Negative for: anemia, bruises/bleeds easily and chronic anti- coagulation/platelet meds. Oncology: No history of CA metastasis, chemo within 30 days, or radiotherapy within 90 days. No history of oncological symptoms or problems. Psych: Negative for: anxiety and depression. Musculoskeletal: Negative for joint pain or swelling, back pain or muscle pain. Skin: Negative for lesions, rash and itching. PAST MEDICAL HISTORY Diagnosis Date Abdominal pain Arthritis back Dysphagia throat muscles do not work Fibromyalgia GERD (gastroesophageal reflux disease) Hiatal hernia 04/08/2023 approx 5 cm History of angina Snoring Stomach ulcer PAST SURGICAL HISTORY Procedure Laterality Date 48 HOUR PH STUDY 04/08/2023 Dr. Johnson BACK SURGERY HX spinal fusion with ORIF and second surgery to remove hardware. x 2 BACK SURGERY HX 2013 L5-S1 transforaminal Lumbar Interbody fusion BLADDER SURGERY HX 2012 CHOLECYSTECTOMY 07/30/2016 Cholecystectomy COLONOSCOPY FLX DX W/COLLJ SPEC WHEN PFRMD 05/18/2013 Colonoscopy COLONOSCOPY FLX DX W/COLLJ SPEC WHEN PFRMD 11/14/2015 Colonoscopy with mac CYSTOSCOPY,DIL BLADDER,LOCAL ANESTH 2012 EGD 01/30/2013 EGD 11/14/2015 EGD 11/14/2015 EGD WITH BIOPSY(S) 04/08/2023 5 cm hiatal hernia; Dr. Johnson ELBOW SURGERY HX Left ESOPHAGEAL MANOMETRY 11/21/2015 ESOPHAGEAL MANOMETRY 04/08/2023 Dr. Carbone HAND SURGERY HX Left KNEE SURGERY HX Left LAMINECTOMY,LUMBAR 2000 PAST SURGICAL HISTORY OF Fusion at T9 REPAIR ROTATOR CUFF,ACUTE Right x 2 S SPINAL CORD STIMULATOR, 2015 SHOULDER SURGERY HX Right 2011 SINUS SURGERY HX 2012 FAMILY HISTORY Problem Relation Age of Onset Arthritis Mother rheumatoid other (spinal problems) Mother hep c other (heart mumur) Brother other (food allergies) Other children Colon Cancer No Family History Social History Tobacco Use Smoking status: Never Smokeless tobacco: Never Vaping Use Vaping Use: Never used Substance Use Topics Alcohol use: No Drug use: Never Prior to Admission medications as of 05/09/23 1411 Medication Sig Last Dose Taking sucralfate (CARAFATE) 1 gram tablet TAKE 1 TABLET BY MOUTH 4 TIMES A DAY Taking Yes BD LUER-TURNG SYRINGE 3 mL 22 x 1 1/2 as directed. Taking Yes testosterone cypionate (DEPO-TESTOSTERONE) 200 mg/mL injection INJECT 1 ML (200MG) INTRAMUSCULARLY EVERY 2 WEEKS Taking Yes pregabalin (LYRICA) 100 mg capsule TAKE 1 ORAL THREE TIMES A DAY FOR 28 DAYS Taking Yes tiZANidine HCl (ZANAFLEX) 4 mg capsule TAKE 1 CAPSULE BY MOUTH TWICE A DAY NEEDED Taking Yes famotidine (PEPCID) 20 mg tablet Take 20 mg by mouth twice daily. Taking Yes acetaminophen (TYLENOL ARTHRITIS ORAL) Take by mouth. Taking Yes pantoprazole DR (PROTONIX) 40 mg tablet Take 1 tablet by mouth twice daily. Taking Yes meloxicam (MOBIC) 15 mg tablet Take 1 tablet by mouth once daily. No medication comments found. ALLERGIES Allergen Reactions Cephalexin Monohydr* Unknown Keflex Keflex [Cephalexin] Rash Penicillins Rash Tetracycline Rash Objective PHYSICAL EXAM: General: alert and oriented and healthy appearance. Pertinent negatives noted - not distressed. Skin: normal color, no rash or lesions. HEENT: EOM intact and pupils equal round. Cardiovascular: regular rate and rhythm, normal S1 and S2, no rub, murmurs, or gallop. Respiratory: normal breath sounds, no wheezes or crackles. No chest wall deformity or tenderness. Abdomen: bowel sounds present. Pertinent negatives noted - no abnormal bowel sounds. Extremities: no deformity, no edema or tenderness, no joint swelling or clubbing. Neurological: normal cognition and motor skills. Gait normal. No weakness or sensory deficit. PAIN ASSESSMENT: Pain Pain Level: 2 Frequency: Continuous VITALS: BP 133/79 Pulse 68 Temp 99.1 Resp 18 Ht 5' 10 (1.78m) Wt 181 lb (82.1kg) SpO2 99% BMI 25.97 kg/(m^2). Diagnostic tests reviewed for today's visit: Lab Value Units Date High Low HB No results within date range. HCT No results within date range. WBC No results within date range. PLT No results within date range. NA No results within date range. K No results within date range. GLUC No results within date range. BUN No results within date range. CREAT No results within date range. PTSEC No results within date range. INR No results within date range. APTT No results within date range. ALT No results within date range. AST No results within date range. TBILI No results within date range. TSH No results within date range. Lab Value Units Date High Low HCGQT No results within date range. UHCG No results within date range. HCG, BODY* No results within date range. Lab Value Units Date High Low ABORHD No results within date range. ABSCREEN No results within date range. No results found for: HBA1C No results found for this or any previous visit (from the past 8760 hour(s)). No results found for this or any previous visit (from the past 12517 hour(s)). Assessment Patient has the following medical conditions which may affect matty-operative course: Pre-op examination Please see A&P for list of pertinent health issues. GERD (gastroesophageal reflux disease) Pantoprazole 40mg. Continue as prescribed. Bowser Activity Status Index: METS: Climb a flight of stairs or walk up a hill (5.50 METs) DASI Score: 5.5 Patient denies any chest pain or undue shortness of breath with the above physical activity. Clinical Frailty Scale: 2. Well ARISCAT Score: Age: 51-80 Preoperative SpO2: >=96% Respiratory infection in the last month: No Preoperative anemia: No Surgical incision: peripheral Duration of surgery: >3 hrs Emergency procedure: No ARISCAT Score: 26 ANESTHESIA FINDINGS: Intubation History: No history of difficult intubation Significant Anesthesia Considerations: none Airway History: No history of difficult airway I - PHYSICAL EVALUATION AIRWAY Patient intubated: No. DENTAL Dental findings: teeth intact. II - ANESTHESIA PLAN Anesthetic Plan: general Beta Michael Monitoring Plan Post Procedure Analgesic Plan Prepared for Surgery: CONSULTS: Patient does not require consults for optimization at this time Planned Anesthetic: general The Following Tests/Procedures Have Been Initiated: Orders Placed This Encounter HEMOGLOBIN (HGB) Standing Status: Future Standing Expiration Date: 07/09/2023 HEMATOCRIT (HCT) Standing Status: Future Standing Expiration Date: 07/09/2023 BASIC METABOLIC PNL Standing Status: Future Standing Expiration Date: 07/09/2023 Type and Screen, 30 day Standing Status: Future Standing Expiration Date: 07/09/2023 Order Specific Question: Hospital of Planned Surgery or Procedure: Answer: [facility] Implantable Devices: Pain pump, Tens unit in lower back, Hardware in lower back, Spinal stimulator. The Following Tests/Procedures Have Been Initiated: H&H, BMP ordered per KATHARINE. Assessment/Plan Gastroesophageal reflux disease without esophagitis [K21.9] Paraesophageal hernia [K44.9] PLAN Diagnosis: Planned Procedure: Procedure(s): ROBOTIC LAPAROSCOPIC RPR PARAESOPHAGEAL HERNIA W/O FUNDOPLASTY W/ MESH (Left) TRANSFUSION BLOOD (N/A) I spent a total of 50 minutes on the date of the service which included preparing to see the patient, [id number] patient care, completing clinical documentation, performing a medically appropriate examination, and counseling and educating the patient/family/caregiver. Instructions Given to Patient: Instructions located in the after visit summary. Patient given verbal and written preop instructions and voices comprehension and compliance. SIGNATURE: FLORY Carl PATIENT NAME: Albino Washburn DATE: May 09, 2023 TIME: 12:39 PM PAGER/CONTACT #: documented in this encounterUniversity Hospitals [facility]ar[facility]08-14-2023 Instructions* Patient Instructions* Mian Fabian PA - 05/09/2023 12:39 PM EDT PATIENT PREOPERATIVE INSTRUCTIONS Your surgeon has scheduled for your procedure at this surgery center: [facility]: [phone], [address] [id number] Please enter through the main entrance and proceed to the blue elevators. The surgery welcome center is located to the left of the blue elevator. Current Outpatient Medications on File Prior to Visit Medication Sig sucralfate (CARAFATE) 1 gram tablet TAKE 1 TABLET BY MOUTH 4 TIMES A DAY Continue as prescribed. testosterone cypionate (DEPO-TESTOSTERONE) 200 mg/mL injection INJECT 1 ML (200MG) INTRAMUSCULARLY EVERY 2 WEEKS Continue as prescribed. pregabalin (LYRICA) 100 mg capsule TAKE 1 ORAL THREE TIMES A DAY FOR 28 DAYS Continue as prescribed. tiZANidine HCl (ZANAFLEX) 4 mg capsule TAKE 1 CAPSULE BY MOUTH TWICE A DAY NEEDED Continue as prescribed. famotidine (PEPCID) 20 mg tablet Take 20 mg by mouth twice daily. Continue as prescribed. acetaminophen (TYLENOL ARTHRITIS ORAL) Take by mouth. Continue as prescribed. pantoprazole DR (PROTONIX) 40 mg tablet Take 1 tablet by mouth twice daily. Continue as prescribed. meloxicam (MOBIC) 15 mg tablet Take 1 tablet by mouth once daily. Hold 7 days. No current facility-administered medications on file prior to visit. Please read below carefully for your personalized instructions. Arrival Time for Surgery: DATE: 05/16/23 - Your surgeon's office will call you with your ARRIVAL TIME for surgery the afternoon before surgery with a scheduled arrival time. If you are scheduled for a Tuesday surgery they will call you Tuesday for your arrival time. - Please be aware that emergency situations arise, which may delay or change your surgical time. Ifthis happens, your surgeon's office will notify you as soon as possible and regret any inconvenience. Requirement for Vaccinations : 72-hour period between getting vaccine and date of surgery. Dietary Restrictions: - Nothing to eat after midnight. - You may have 12 ounces of clear liquids ( water, Gatorade, apple juice, carbonated beverage, clear tea or black coffee) until 4 hours before your surgery. This is important because if you do, your surgery may have to be cancelled Blood Thinning Medications: - Stop NSAIDS (Ibuprofen, Advil, Aleve, Motrin, Celebrex, Mobic, etc.) 7 days before surgery, as directed by your surgeon. You may take Tylenol (Acetaminophen) or any of your pain medications that do not contain aspirin orNSAIDS as needed. IF YOU TAKE ANY OF THE FOLLOWING BLOOD THINNERS, PLEASE CONTACT YOUR SURGEON AND THE PHYSICIAN WHO PRESCRIBES IT FOR YOU IN ORDER TO GET PERIOPERATIVE INSTRUCTIONS SOON POSSIBLE. BLOOD THINNERS: Aspirin , Coumadin, Plavix, Eliquis, Pradaxa, Xarelto, Lovenox, Brilinta, Effient, Savaysa, Arixtra, etc - Stop Vitamin E, fish oil, multivitamins, Marijuana, CBD oil and other over the counter herbals and dietary supplements 7 days before surgery. -This would not apply to cancer patients who are prescribed Marinol or any other prescription form on marijuana or CBD. -exception Dr. Stock and Dr. Edward want their patients npo at midnight. Medications: Approved medications to take the morning of surgery with a sip of water: BP, HCTZ, Heart, thyroid, psych, seizure, and pain medications excluding NSAIDS. Use inhalers as prescribed. Please bring inhalers. Pain Medications: Tylenol for pain as needed and if you are not allergic to. If you start any new medications after today's visit, please contact the surgeon's office. Important Reminders: - If you use CPAP/BIPAP, bring the machine with you to the surgery center. - If you are prescribed inhalers for breathing, continue using them AND bring them to the surgery center. - Candy, mints, gum and tobacco products are NOT permitted the morning of surgery. - Hearing aids, dentures and glasses may be worn the morning of surgery. - NO jewelry, body piercings, makeup, hairpins or contacts are to be worn the day of surgery. -Oral hygiene and a shower or bath is required the evening before or the morning of surgery. Use the [employer] body wash supplied to you along with the instruction. - NO lotion, creams, powders or deodorants on the skin the day of surgery -Wear loose, comfortable clothing that will accommodate bandages. -Your length of stay will be determined by your surgeon - You will need to have someone else (Family or friend) drive you home once discharged from the hospital. You are not allowed to drive yourself home after surgery. - YOU MUST HAVE A RESPONSIBLE HIDE SALTER TAKE YOU HOME. A TITLE CHECKER, CAB OR UBER HIDE SALTER CANNOT BE MADEA RESPONSIBLE HIDE SALTER. - You cannot stay in a hotel alone after outpatient surgery. You will not be permitted to have yoursurgery, if you do not have someone to take care of you. CCAG: Given COVID 19 pandemic, one visitor is allowed in the hospital. They may wait in the surgerywaiting room while you are in surgery but must wear a mask. Only one visitor will be permitted to visit you while your admitted after surgery. If you develop symptoms such as a fever, cold, or flu, or have other changes to your health within TWO DAYS of scheduled surgery or the morning of surgery, please contact the surgery center above. Personal Belongings: - Leave ALL valuables and money at home or with family members. - You will need a form of ID and insurance card to check in the morning of surgery. - You will have to wear a hospital gown during your stay but if you wish to bring undergarments forafter surgery you may. Ambulatory surgery center [place]- orthopedic patients needing a walker should bring the walker into the building day of surgery. [facility] into the [facility]. Orthopedic patients having [place] [facility] listed as to be admitted should leave their walkers in the car or with a family member. Barbaraiclearaceli provided FLORY Carl 05/09/23 documented in this encounterUniversity Hospitals [facility]08-08-2023 History of Present illness Narrative* Bridgette Baum - 05/03/2023 3:26 PM EDT Robotic assisted laparoscopic paraesophageal hernia repair with possible mesh and possible Toupet fundoplication, possible blood transfusion PST documented in this encounterUniversity Hospitals [facility]ar[facility]07-14-2023 Miscellaneous Notes* Telephone Encounter - Aundrea Grullon RN - 04/08/2023 3:31 PM EDT Patient called in with a question regarding his medications while the narayanan is collecting data. I advised him that he cannot start his PPI's or OTC heartburn medications yet. He then remembered aftertalking with his that the doctor told him that he can start them again on Tuesday. Aundrea Grullon RN April 08, 2023 3:33 PM documented in this encounterUniversity Hospitals [facility]ar[facility]06-12-2023 Miscellaneous Notes* Telephone Encounter - Vianey Santos Ma - 03/07/2023 8:52 AM EDT Patient phones requesting refills as follows: Requested Prescriptions Pending Prescriptions Disp Refills sucralfate (CARAFATE) 1 gram tablet [Pharmacy Med Name: SUCRALFATE 1 GM TABLET] 120 tablet 2 Sig: TAKE 1 TABLET BY MOUTH 4 TIMES A DAY Please review and advise. Vianey Santos Ma documented in this encounterUniversity Hospitals Samaritan [facility] Center05-17-2023 Instructions* Patient Instructions* Lauryn Mandel PA-C - 02/09/2023 11:37 AM EDT Recommend high protein, high fiber diet. Promotion of salivation through oral lozenges/chewing gum Drink plenty of water Avoid NSAIDs (such as Advil, Ibuprofen, Excedrin, Mobic), tobacco, alcohol, carbonated beverages, caffeine, chocolate, tomato based sauces, spicy/fatty foods, and peppermint Avoid eating less than 3 hours before bed. Elevate the head of the bed 6 inches, or invest in a wedge pillow. Laying on left side with head elevated may help alleviate reflux symptoms. documented in this encounterUniversity Hospitals Samar[facility] Center05-17-2023 History of Present illness Narrative* Lauryn Mandel PA-C - 02/09/2023 11:12 AM EDT CHIEF COMPLAINT: Patient presents with: Reflux HPI Albino Washburn is a 57 year old male here today for Reflux Patient tells me that he is still having issues with GERD. Patient on Protonix 40 mg BID for many years. Notes burning up into his throat and choking on acid at bedtime. Feels like his reflux is going into his lungs. Never took the Buspar, didn't feel like he needs this. Last OV with Dr. Joseph 03/09/2022: PLAN: -Increase PPI to twice daily -Stop famotidine -Start on BuSpar 10 mg 3 times daily increase to 20 mg 3 times daily after 2 weeks -Advised to use gentle laxatives (MiraLAX 1-2 times a day to have 1-2 bowel movements a day) -Check H. pylori stool antigen -We will determine about further treatments and other tests after few weeks This office note has been created using [employer], a speech recognition software program, and may contain errors including punctuation, grammar, spelling, gender, and inappropriate words or phrases that pertain to the sytem. Anna Joseph MD Current Outpatient Medications Medication Sig BD LUER-TRUNG SYRINGE 3 mL 22 x 1 1/2 as directed. testosterone cypionate (DEPO-TESTOSTERONE) 200 mg/mL injection INJECT 1 ML (200MG) INTRAMUSCULARLY EVERY 2 WEEKS pregabalin (LYRICA) 100 mg capsule TAKE 1 ORAL THREE TIMES A DAY FOR 28 DAYS tiZANidine HCl (ZANAFLEX) 4 mg capsule TAKE 1 CAPSULE BY MOUTH TWICE A DAY NEEDED famotidine (PEPCID) 20 mg tablet Take 20 mg by mouth twice daily. meloxicam (MOBIC) 15 mg tablet Take 1 tablet by mouth once daily. pantoprazole DR (PROTONIX) 40 mg tablet Take 1 tablet by mouth twice daily. acetaminophen (TYLENOL ARTHRITIS ORAL) Take by mouth. (Patient not taking: Reported on 02/09/2023) No current facility-administered medications for this visit. ALLERGIES Allergen Reactions Cephalexin Monohydr* Unknown Keflex Keflex [Cephalexin] Rash Penicillins Rash Tetracycline Rash Social History Tobacco Use Smoking status: Never Smokeless tobacco: Never Vaping Use Vaping Use: Never used Substance Use Topics Alcohol use: No Drug use: Never PAST MEDICAL HISTORY Diagnosis Date Abdominal pain Arthritis back Dysphagia throat muscles do not work Fibromyalgia GERD (gastroesophageal reflux disease) Hiatal hernia History of angina Snoring Stomach ulcer PAST SURGICAL HISTORY Procedure Laterality Date CHOLECYSTECTOMY 07/30/2016 Cholecystectomy COLONOSCOPY FLX DX W/COLLJ SPEC WHEN PFRMD 05/18/2013 Colonoscopy COLONOSCOPY FLX DX W/COLLJ SPEC WHEN PFRMD 11/14/2015 Colonoscopy with mac EGD 11/14/2015 ESOPHAGEAL MANOMETRY 11/21/2015 ESOPHAGOGASTRODUODENOSCOPY TRANSORAL DIAGNOSTIC 01/30/2013 EGD ESOPHAGOGASTRODUODENOSCOPY TRANSORAL DIAGNOSTIC 11/14/2015 EGD PAST SURGICAL HISTORY OF spinal fusion with ORIF and second surgery to remove hardware. x 2 PAST SURGICAL HISTORY OF left elbow PAST SURGICAL HISTORY OF rotary cuff right x 2 PAST SURGICAL HISTORY OF knee left PAST SURGICAL HISTORY OF hand left PAST SURGICAL HISTORY OF Fusion at T9 PAST SURGICAL HISTORY OF Right shoulder FAMILY HISTORY Problem Relation Age of Onset Arthritis Mother rheumatoid other (spinal problems) Mother hep c other (heart mumur) Brother other (food allergies) Other children Colon Cancer No Family History REVIEW OF SYSTEMS Review of Systems HENT: Positive for sore throat, trouble swallowing and voice change. Respiratory: Positive for chest tightness and shortness of breath. Gastrointestinal: Positive for nausea. Heartburn All other systems reviewed and are negative. PHYSICAL EXAM BP 132/80 Pulse 74 Ht 5' 11 (1.80m) Wt 202 lb 4.8 oz (91.8kg) BMI 28.23 kg/(m^2). Physical Exam Constitutional: Appearance: Normal appearance. He is normal weight. HENT: Head: Normocephalic and atraumatic. Eyes: General: No scleral icterus. Extraocular Movements: Extraocular movements intact. Conjunctiva/sclera: Conjunctivae normal. Pupils: Pupils are equal, round, and reactive to light. Cardiovascular: Rate and Rhythm: Normal rate and regular rhythm. Pulses: Normal pulses. Heart sounds: Normal heart sounds. Pulmonary: Effort: Pulmonary effort is normal. Breath sounds: Normal breath sounds. Abdominal: General: Abdomen is flat. Bowel sounds are normal. Palpations: Abdomen is soft. Tenderness: There is no abdominal tenderness. Musculoskeletal: General: Normal range of motion. Cervical back: Normal range of motion and neck supple. Skin: General: Skin is warm and dry. Coloration: Skin is not jaundiced. Neurological: General: No focal deficit present. Mental Status: He is alert and oriented to person, place, and time. Psychiatric: Mood and Affect: Mood normal. Behavior: Behavior normal. Thought Content: Thought content normal. Judgment: Judgment normal. Assessment/Plan (K21.9) Gastroesophageal reflux disease, unspecified whether esophagitis present (primary encounterdiagnosis) 1. Gastroesophageal reflux disease, unspecified whether esophagitis present -- Patient with ongoing GERD symptoms despite on Pantoprazole 40 mg BID. Waking up choking on acid. -- Patient has tried Omeprazole 40 mg BID, Nexium 40 mg BID, Prevacid 30 mg BID. Consider trial of Dexilant. -- Will add Carafate as needed for his burning, recommend taking a dose at bedtime. -- Will plan EGD w/ Narayanan testing, consider antireflux surgery - EGD - THERAPEUTIC, EUS, OR TUBE INTERVENTIONS; Future - PH NARAYANAN INSERT ON MEDS; Future Follow up in office PRN. Recommended to please call office/go to ER if fever, chills, chest pain, SOB, diarrhea, nausea, emesis, worsening abdominal pain, dehydration occurs I spent a total of 25 minutes on the date of the service which included preparing to see the patient, [id number] patient care, completing clinical documentation, obtaining and/or reviewing separately obtained history, performing a medically appropriate examination, counseling and educating the pat ient/family/caregiver, and ordering medications, tests, or procedures. Lauryn Mandel PA-C February 09, 2023 11:32 AM documented in this encounterUniversity Hospitals [facility]ar[facility]06-21-2022 Miscellaneous Notes* Telephone Encounter - Vianey Santos Ma - 03/16/2022 7:42 AM EDT Pt needs a new prescription for Buspirone 20mg TID. Was on 10mg TID and increased to 20mg TID after2 weeks. [facility] Vianey Santos Ma documented in this encounterUniversity Hospitals Samar[facility]06-15-2022 Miscellaneous Notes* Telephone Encounter - Suzette Shore MA - 03/10/2022 7:57 AM EDT Patient phones requesting refills as follows: Needed new script Pending Prescriptions Disp Refills BUSPIRONE 10 MG TABLET 180 tablet 0 Sig: Take 1 tablet by mouth three times daily. Increase to 20mg TID after 2 weeks ADDY: No Please review and advise. Suzette Shore MA documented in this encounterUniversity Hospitals [facility]ar[facility] Center06-14-2022 History of Present illness Narrative* Anna Joseph MD - 03/09/2022 8:13 AM EDT CHIEF COMPLAINT: Patient presents with: Nausea: Abdominal pain. Labs 03/02/22 in [place] This consult was requested by Self for an opinion regarding nausea. My final recommendations will be communicated to the requesting health care provider by way of the shared medical record for internal providers or letter via the [employer] for external providers. HPI: Albino Washburn is a 57 year old male who presents for Nausea (Abdominal pain. Labs 03/02/22 in [place]). GERD For a long time Used to be on zantac Now on protonix and famotidine Tried to reduce it but this has not worked Worsening symptoms in the past few months Coming with severe nausea and pain in the epigastric area Worse in am Pain after eating the first meal Some bloating Never goes away Carafate helped in the past Has pain pump for the back for 1 year Meloxicam and Lyrica for years He moves his bowels once a day Eating greasy food could make his symptoms worse EGD 01/26/2013-hiatal hernia Esophageal manometry 06/15/2013-findings concerning for scleroderma Colonoscopy 11/14/2015 - Diverticulosis in the sigmoid colon and in the descending colon. - Two 5 mm polyps in the rectum and at 20 cm proximal to the anus. - No specimens collected. EGD 11/14/2015 - Normal esophagus. Biopsied. - Normal stomach. Biopsied. - Normal examined duodenum. Esophageal manometry 11/21/2015 Normal high resolution esophageal manometry. No evidence of distal esophageal spasm/scleroderma/achalasia Record Review: [facility] / Outside records reviewed. PAST MEDICAL HISTORY Diagnosis Date Abdominal pain Arthritis back Dysphagia throat muscles do not work Fibromyalgia GERD (gastroesophageal reflux disease) Hiatal hernia History of angina Snoring Stomach ulcer PAST SURGICAL HISTORY Procedure Laterality Date CHOLECYSTECTOMY 07/30/2016 Cholecystectomy COLONOSCOPY FLX DX W/COLLJ SPEC WHEN PFRMD 05/18/2013 Colonoscopy COLONOSCOPY FLX DX W/COLLJ SPEC WHEN PFRMD 11/14/2015 Colonoscopy with mac EGD 11/14/2015 ESOPHAGEAL MANOMETRY 11/21/2015 ESOPHAGOGASTRODUODENOSCOPY TRANSORAL DIAGNOSTIC 01/30/2013 EGD ESOPHAGOGASTRODUODENOSCOPY TRANSORAL DIAGNOSTIC 11/14/2015 EGD PAST SURGICAL HISTORY OF spinal fusion with ORIF and second surgery to remove hardware. x 2 PAST SURGICAL HISTORY OF left elbow PAST SURGICAL HISTORY OF rotary cuff right x 2 PAST SURGICAL HISTORY OF knee left PAST SURGICAL HISTORY OF hand left PAST SURGICAL HISTORY OF Fusion at T9 PAST SURGICAL HISTORY OF Right shoulder Allergies: ALLERGIES Allergen Reactions Cephalexin Monohydr* Unknown Keflex Keflex [Cephalexin] Rash Penicillins Rash Tetracycline Rash Medications: famotidine (PEPCID) 20 mg tablet Take 20 mg by mouth twice daily. acetaminophen (TYLENOL ARTHRITIS ORAL) Take by mouth. testosterone 1.62 % (20.25 mg/1.25 gram) glpk Apply as directed. meloxicam (MOBIC) 15 mg tablet Take 1 tablet by mouth once daily. pantoprazole DR (PROTONIX) 40 mg tablet Take 1 tablet by mouth twice daily. pregabalin (LYRICA) 50 mg capsule Take 50 mg by mouth. oxyCODONE-acetaminophen (PERCOCET) 7.5-325 mg tablet Take 1 tablet by mouth three times daily. tiZANidine HCl (ZANAFLEX) 4 mg capsule TAKE 1 CAPSULE BY MOUTH TWICE A DAY NEEDED busPIRone (BUSPAR) 10 mg tablet Take 1 tablet by mouth three times daily. Increase to 20mg TID FAMILY HISTORY Problem Relation Age of Onset Arthritis Mother rheumatoid other (spinal problems) Mother hep c other (heart mumur) Brother other (food allergies) Other children Colon Cancer No Family History Employer And Job Title: None on file Years Of Education Completed: Not specified Marital Status: with 7 children Social History Tobacco Use Smoking status: Never Smoker Smokeless tobacco: Never Used Vaping Use Vaping Use: Never used Substance Use Topics Alcohol use: No Drug use: Never Review of Systems: Review of Systems Constitutional: Positive for appetite change. Gastrointestinal: Positive for abdominal pain and nausea. Heartburn All other systems reviewed and are negative. Are you taking any blood thinners? No Physical Examination: BP 116/72 Pulse 67 Ht 5' 11 (1.80m) Wt 202 lb (91.6kg) BMI 28.19 kg/(m^2). Physical Exam General: Alert, oriented, No acute distress. Skin: No rash; warm. Head: Normocephalic, atraumatic. Eyes: EOMI, PERRLA. Lymph: No cervical lymphadenopathy. Thyroid: Neck supple. No thyromegaly. Heart: S1, S2. No murmurs, gallops or rubs. Lungs: Clear to auscultation bilaterally. No wheezes or crackles. Abdomen: Soft, diffusely tender, nondistended. Bowel sounds are normal. No organomegaly. Pain pump in place Musculoskeletal: No joint swelling or effusion. Extremities: No cyanosis, clubbing or edema. Mental: Mood appropriate. Not depressed. Neuro: Cranial nerves II through XII intact. ASSESSMENT: History of helicobacter infection (primary encounter diagnosis) Generalized abdominal pain Bloating Chronic narcotic use Nausea Gastroesophageal reflux disease, unspecified whether esophagitis present Diverticulosis PLAN: -Increase PPI to twice daily -Stop famotidine -Start on BuSpar 10 mg 3 times daily increase to 20 mg 3 times daily after 2 weeks -Advised to use gentle laxatives (MiraLAX 1-2 times a day to have 1-2 bowel movements a day) -Check H. pylori stool antigen -We will determine about further treatments and other tests after few weeks This office note has been created using [employer], a speech recognition software program, and may contain errors including punctuation, grammar, spelling, gender, and inappropriate words or phrases that pertain to the sytem. Anna Joseph MD Office Visit on 03/09/22 [facility] BY EIA,STOOL Return in about 7 weeks (around 04/27/2022). Anna Joseph MD DATE: 03/09/22 TIME: 8:18 AM [facility] History of Past illness Narrative* Problem Noted Date Resolved Date Dysphagia 11/14/2015 Overview: throat muscles do not work documented as of this encounter (statuses as of 03/09/2022) [facility] of Past illness Narrative* Problem Noted Date Resolved Date Dysphagia 11/14/2015 Overview: throat muscles do not work documented as of this encounter (statuses as of 03/10/2022) [facility] History of Past illness Narrative* Problem Noted Date Resolved Date Dysphagia 11/14/2015 Overview: throat muscles do not work documented as of this encounter (statuses as of 03/16/2022) [facility] History of Past illness Narrative* Problem Noted Date Resolved Date Dysphagia 11/14/2015 Overview: throat muscles do not work documented as of this encounter (statuses as of 02/09/2023) [address]19-2016 History of Past illness Narrative* Problem Noted Date Resolved Date Dysphagia 11/14/2015 Overview: throat muscles do not work documented as of this encounter (statuses as of 03/07/2023) [place] [id number] History of Past illness Narrative* Problem Noted Date Diagnosed Date Resolved Date Dysphagia 11/14/2015 Overview: throat muscles do not work documented as of this encounter (statuses as of 04/09/2023) [facility] of Past illness Narrative* Problem Noted Date Diagnosed Date Resolved Date Dysphagia 11/14/2015 Overview: throat muscles do not work documented as of this encounter (statuses as of 05/04/2023) [facility] History of Past illness Narrative* Problem Noted Date Diagnosed Date Resolved Date Dysphagia 11/14/2015 Overview: throat muscles do not work documented as of this encounter (statuses as of 05/10/2023) [place] [id number] History of Past illness Narrative* Problem Noted Date Diagnosed Date Resolved Date Dysphagia 11/14/2015 Overview: throat muscles do not work documented as of this encounter (statuses as of 05/16/2023) [place] [id number] History of Past illness Narrative* Problem Noted Date Diagnosed Date Resolved Date Dysphagia 11/14/2015 Overview: throat muscles do not work documented as of this encounter (statuses as of 07/26/2023) [place] [id number] History of Past illness Narrative* Problem Noted Date Diagnosed Date Resolved Date Dysphagia 11/14/2015 Overview: throat muscles do not work documented as of this encounter (statuses as of 08/02/2023) [facility] of Past illness Narrative* Problem Noted Date Diagnosed Date Resolved Date Dysphagia 11/14/2015 Overview: throat muscles do not work documented as of this encounter (statuses as of 08/04/2023) [place] [id number] History of Past illness Narrative* Problem Noted Date Diagnosed Date Resolved Date Dysphagia 11/14/2015 Overview: throat muscles do not work documented as of this encounter (statuses as of 08/11/2023) [address]19-2016 History of Past illness Narrative* Problem Noted Date Diagnosed Date Resolved Date Dysphagia 11/14/2015 Overview: throat muscles do not work documented as of this encounter (statuses as of 08/15/2023) [facility] of Past illness Narrative* Problem Noted Date Diagnosed Date Resolved Date Dysphagia 11/14/2015 Overview: throat muscles do not work documented as of this encounter (statuses as of 08/26/2023) [facility] of Past illness Narrative* Problem Noted Date Diagnosed Date Resolved Date Dysphagia 11/14/2015 Overview: throat muscles do not work documented as of this encounter (statuses as of 11/14/2023) [facility] noteNo assessment information availableWMercy Health [facility] Work Phone: Evaluation note* Diagnosis History of Helicobacter infection- Primary Personal history of other infectious and parasitic disease Generalized abdominal pain Abdominal pain, generalized Bloating Flatulence, eructation, and gas pain Chronic narcotic use Nausea Nausea alone Gastroesophageal reflux disease, unspecified whether esophagitis present Diverticulosis Diverticulosis of colon (without mention of hemorrhage) documented in this encounter [facility] note* Diagnosis Onset Date Resolution Status Paresthesia of left upper extremity acute Paresthesia of right upper extremity [facility] Work Phone: Evaluation note* Diagnosis Onset Date Resolution Status Bilateral carpal tunnel syndrome noneactive Bilateral carpal tunnel syndrome [facility] Work Phone: Evaluation note* Diagnosis Gastroesophageal reflux disease, unspecified whether esophagitis present- Primary documented in this encounter [facility] note* Diagnosis Gastroesophageal reflux disease, unspecified whether esophagitis present Gastroesophageal reflux disease, unspecified whether esophagitis present documented in this encounter [facility] note* Diagnosis Gastroesophageal reflux disease without esophagitis- Primary Esophageal reflux Paraesophageal hernia Diaphragmatic hernia without mention of obstruction or gangrene Gastroesophageal reflux disease without esophagitis Esophageal reflux Paraesophageal hernia Diaphragmatic hernia without mention of obstruction or gangrene documented in this encounter [facility] note* Diagnosis Preop examination- Primary Preoperative examination, unspecified Gastroesophageal reflux disease without esophagitis Esophageal reflux Pre-op examination Preoperative examination, unspecified Paraesophageal hernia [K44.9] Diaphragmatic hernia without mention of obstruction or gangrene Gastroesophageal reflux disease without esophagitis Esophageal reflux Paraesophageal hernia Diaphragmatic hernia without mention of obstruction or gangrene documented in this encounter [facility] note* Diagnosis Pre-op examination Preoperative examination, unspecified Gastroesophageal reflux disease without esophagitis Esophageal reflux Paraesophageal hernia Diaphragmatic hernia without mention of obstruction or gangrene Gastroesophageal reflux disease without esophagitis Esophageal reflux Paraesophageal hernia with gastroesophageal reflux documented in this encounter [facility] note* Diagnosis Paraesophageal hernia- Primary Diaphragmatic hernia without mention of obstruction or gangrene documented in this encounter [facility] note* Diagnosis Paraesophageal hernia- Primary Diaphragmatic hernia without mention of obstruction or gangrene Gastroesophageal reflux disease without esophagitis Esophageal reflux documented in this encounter [facility] note* Diagnosis Polyarthralgia- Primary Pain in joint, multiple sites Myalgia Mylagia and myositis, unspecified COVID-19 virus infection Chronic nausea Nausea alone documented in this encounter [facility] note* Diagnosis Long COVID- Primary documented in this encounter [facility] note* Diagnosis Gastric ulcer, unspecified chronicity, unspecified whether gastric ulcer hemorrhage or perforation present- Primary Gastroesophageal reflux disease, unspecified whether esophagitis present Pre-op examination Preoperative examination, unspecified Hiatal hernia Diaphragmatic hernia without mention of obstruction or gangrene Pre-op examination Preoperative examination, unspecified GERD (gastroesophageal reflux disease) Esophageal reflux Stomach ulcer Gastric ulcer, unspecified as acute or chronic, without mention of hemorrhage, perforation, or obstruction Preop examination- Primary Preoperative examination, unspecified Gastroesophageal reflux disease without esophagitis Esophageal reflux Pre-op examination Preoperative examination, unspecified Paraesophageal hernia [K44.9] Diaphragmatic hernia without mention of obstruction or gangrene Pre-op examination Preoperative examination, unspecified Gastroesophageal reflux disease without esophagitis Esophageal reflux Paraesophageal hernia Diaphragmatic hernia without mention of obstruction or gangrene Long COVID documented in this encounter [facility] note* Diagnosis Onset Date Resolution Status Admit Date Maxillary sinusitis acute February 24, 2025 9:56am [place] [facility] Work Phone: Evaluation note* Diagnosis Gastric ulcer, unspecified chronicity, unspecified whether gastric ulcer hemorrhage or perforation present- Primary Gastroesophageal reflux disease, unspecified whether esophagitis present Pre-op examination Preoperative examination, unspecified Hiatal hernia Diaphragmatic hernia without mention of obstruction or gangrene Pre-op examination Preoperative examination, unspecified GERD (gastroesophageal reflux disease) Esophageal reflux Stomach ulcer Gastric ulcer, unspecified as acute or chronic, without mention of hemorrhage, perforation, or obstruction Preop examination- Primary Preoperative examination, unspecified Gastroesophageal reflux disease without esophagitis Esophageal reflux Pre-op examination Preoperative examination, unspecified Paraesophageal hernia [K44.9] Diaphragmatic hernia without mention of obstruction or gangrene Pre-op examination Preoperative examination, unspecified Gastroesophageal reflux disease without esophagitis Esophageal reflux Paraesophageal hernia Diaphragmatic hernia without mention of obstruction or gangrene Long COVID documented in this encounter [facility] for referral (narrative)* Outpatient Procedure (Routine) - Pending Review Specialty Diagnoses / Procedures Referred By Curt chua Referred To Contact [facility] Diagnoses Gastroesophageal reflux disease, unspecified whether esophagitis present Procedures PH NARAYANAN INSERT ON [employer] GASTROESOPHAG REFLX TEST W/TELEMTRY PH ELTRD Lauryn Mandel PA-C [address] [facility] [place] [address] [facility] [employer] [address] Referral ID Status Reason Start Date Expiration Date Visits Requested Visits Authorized [id number] Pending Review Auto-Generat ed Referral 02/09/2023 02/09/2024 1 1 * Outpatient Procedure (Routine) - Pending Review Specialty Diagnoses / Procedures Referred By Curt chua Referred To [facility] Diagnoses Gastroesophageal reflux disease, unspecified whether esophagitis present Procedures EGD - THERAPEUTIC, EUS, OR TUBE INTERVENTIONS ESOPHAGOGASTRODUODENOSC OPY TRANSORAL DIAGNOSTIC Lauryn Mandel PA-C [address] [place] [address] [facility] [id number] [place] [address] Referral ID Status Reason Start Date Expiration Date Visits Requested Visits Authorized [id number] Pending Review Auto-Generat ed Referral 02/09/2023 02/10/[address] [facility] for referral (narrative)No reason for referral information availableWMercy Health St[facility] Work Phone: Summary Purpose Family History No Family History Records Found Relationship Condition Age at Onset Recorded Date/T dmitri Not Specified Malignant neoplasm of prostate Unknown Advance Directives No Advanced Directives Records Found Advance Directive Response Recorded Date/ Time Advance Directives No July 29, 2016 12:57pm Living Will No March 25, 2021 2:58pm Power of Aircraft Navigator No March 25 2:58pm Advance Directive Response Recorded Date/ Time Advance Directives No July 29, 2016 11:57am Living Will No August 30 1:15pm Power of Aircraft Navigator No August 30, 2022 1:15pm Advance Directive Response Recorded Date/ Time Advance Directives No July 29, 2016 12:57pm Living Will No August 30 2:15pm Power of Aircraft Navigator No August 30, 2022 2:15pm Latest Code Status on File Code Status Date Activated Date Inactivated Comments Full Code 08/02/2023 5:28 PM 08/03/2023 9:37 PM Question Answer Comments Full Code Order Discussed With: Patient Date Activated Date Inactivated Comments 08/02/2023 5:28 PM 08/03/2023 9:37 PM Question Answer Comments Full Code Order Discussed With: Patient Advance Directive Response Recorded Date/ Time Advance Directives No August 10:05am Chief Complaint and Reason for Visit Chief Complaint E-ORDER Chief Complaint E-ORDER E ORDERS Chief Complaint E-ORDER E ORDERS Bilat hands BILAT UPPER PARESTHESIA BILAT UPPER PARESTHESIA Reason for Visit Paresthesia of left upper extremity Paresthesia of right upper extremity Chief Complaint BILAT HANDS bilat hands RT CARPAL TUNNEL RELEASE RT CARPAL TUNNEL RELEASE Reason for Visit Bilateral carpal elisa catina syndrome Bilateral carpal tunnel syndrome Chief Complaint E ORDER Chief Complaint EORDER Chief Complaint Admit Date INT LABSPEC January 28, 2025 9:13am Chief Complaint Admit Date INT LABSPEC January 28, 2025 9:13am HEADACHE, EAR PAIN February 24, 2025 9:56a m Reason for Visit Admit Date Maxillary sinusitis February 24, 2025 9:56a m Chief Complaint Admit Date INT LABSPEC January 28, 2025 9:13am HEADACHE, EAR PAIN February 24, 2025 9:56a m INT LABS March 04, 2025 8:20a m Chief Complaint Admit Date INT LABSPEC January 28, 2025 9:13am HEADACHE, EAR PAIN February 24, 2025 9:56a m INT LABS March 04, 2025 8:20a m PANCREATIS March 26, 2025 1:23p m JUST TALKED WITH DR/NEED ORDER April 01, 2025 1:38pm Reason for Referral Specialty Diagnoses / Procedures Referred By Contjose t Referred To Contact Diagnoses Gastroesophageal reflux disease without esophagitis Paraesophageal hernia Procedures CONSULT TO PRE-SURGICAL TESTING (AG) Rad[facility] Johnson [facility] [address] [place] [id number] Referral ID Status Reason Start Date Expiration Date Visits Requested Visits Authorized [id number] Ref Not Required PCP Requested Referral 05/03/2023 08/01/2023 1 1 Additional Source Comments (unrecognized sect ion and content) No Status Records FoundNo Status Records FoundNo Status Records FoundNo Status Records FoundNo Status Records Found INFORMATION SOURCE (unrecogn ized section and content) DATE CREATED AUTHOR 12/19/2018 [facility] DATE CREATED AUTHOR AUTHOR'S ORGANIZ ATION 08/14/2020 [facility] [place] DATE CREATED AUTHOR AUTHOR'S ORGANIZ ATION 05/06/2024 [facility] DATE CREATED AUTHOR AUTHOR'S ORGANIZ ATION 08/04/2024 [facility] DATE CREATED AUTHOR AUTHOR'S ORGANIZ ATION 05/28/2025 [facility] Goals (unrecognized section and content) Goals may be documented in a n alternate sectionGoals may be documented in an alternate sectionGoals may be documented in an alternate sectionGoals may be documented in an alternate sectionGoals may be documented in an alternate sectionGoals may be documented in an alternate sectionGoals may be documented in an alternate sectionGoals may be documented in an alternate sectionGoals may be documented in an alternate sectionGoals may be documented in an alternate sectionGoals may be documented in an alternate sectionGoals may be documented in an alternate sectionGoals may be documented in an alternate sectionGoals may be documented in an alternate sectionGoals may be documented in an alternate sectionGoals may be documented in an alternate section Source Comments (unrecognize d section and content) In the event this informatio n is protected by the Federal Confidentiality of Alcohol and Drug Abuse Patient Records regulations: The Federal rules restrict any use of the information to criminally investigate or prosecute any alcohol or drug abuse patient.[facility] Center[facility] the event this information is protected by the Federal Confidentiality of Alcohol and Drug Abuse Patient Records regulations: The Federal rules restrict any use of the information to criminally investigate or prosecute any alcohol or drug abuse patient.[facility] CenterIn the event this information is protected by the Federal Confidentiality of Alcohol and Drug Abuse Patient Records regulations: The Federal rules restrict any use of the information to criminally investigate or prosecute any alcohol or drug abuse patient.[facility] CenterIn the event this information is protected by the Federal Confidentiality of Alcohol and Drug Abuse Patient Records regulations: The Federal rules restrict any use of the information to criminally investigate or prosecute any alcohol or drug abuse patient.[facility] CenterIn the event this information is protected by the Federal Confidentiality of Alcohol and Drug Abuse Patient Records regulations: The Federal rules restrict any use of the information to criminally investigate or prosecute any alcohol or drug abuse patient.[facility] CenterIn the event this information is protected by the Federal Confidentiality of Alcohol and Drug Abuse Patient Records regulations: The Federal rules restrict any use of the information to criminally investigate or prosecute any alcohol or drug abuse patient.[facility] CenterIn the event this information is protected by the Federal Confidentiality of Alcohol and Drug Abuse Patient Records regulations: The Federal rules restrict any use of the information to criminally investigate or prosecute any alcohol or drug abuse patient.[facility] CenterIn the event this information is protected by the Federal Confidentiality of Alcohol and Drug Abuse Patient Records regulations: The Federal rules restrict any use of the information to criminally investigate or prosecute any alcohol or drug abuse patient.[facility] CenterIn the event this information is protected by the Federal Confidentiality of Alcohol and Drug Abuse Patient Records regulations: The Federal rules restrict any use of the information to criminally investigate or prosecute any alcohol or drug abuse patient.[facility] CenterIn the event this information is protected by the Federal Confidentiality of Alcohol and Drug Abuse Patient Records regulations: The Federal rules restrict any use of the information to criminally investigate or prosecute any alcohol or drug abuse patient.[facility] CenterIn the event this information is protected by the Federal Confidentiality of Alcohol and Drug Abuse Patient Records regulations: The Federal rules restrict any use of the information to criminally investigate or prosecute any alcohol or drug abuse patient.[facility] CenterIn the event this information is protected by the Federal Confidentiality of Alcohol and Drug Abuse Patient Records regulations: The Federal rules restrict any use of the information to criminally investigate or prosecute any alcohol or drug abuse patient.[facility] CenterIn the event this information is protected by the Federal Confidentiality of Alcohol and Drug Abuse Patient Records regulations: The Federal rules restrict any use of the information to criminally investigate or prosecute any alcohol or drug abuse patient.[facility] CenterIn the event this information is protected by the Federal Confidentiality of Alcohol and Drug Abuse Patient Records regulations: The Federal rules restrict any use of the information to criminally investigate or prosecute any alcohol or drug abuse patient.[facility] CenterIn the event this information is protected by the Federal Confidentiality of Alcohol and Drug Abuse Patient Records regulations: The Federal rules restrict any use of the information to criminally investigate or prosecute any alcohol or drug abuse patient.[facility] CenterIn the event this information is protected by the Federal Confidentiality of Alcohol and Drug Abuse Patient Records regulations: The Federal rules restrict any use of the information to criminally investigate or prosecute any alcohol or drug abuse patient.[facility] CenterIn the event this information is protected by the Federal Confidentiality of Alcohol and Drug Abuse Patient Records regulations: The Federal rules restrict any use of the information to criminally investigate or prosecute any alcohol or drug abuse patient.[facility] CenterIn the event this information is protected by the Federal Confidentiality of Alcohol and Drug Abuse Patient Records regulations: The Federal rules restrict any use of the information to criminally investigate or prosecute any alcohol or drug abuse patient.[facility] CenterIn the event this information is protected by the Federal Confidentiality of Alcohol and Drug Abuse Patient Records regulations: The Federal rules restrict any use of the information to criminally investigate or prosecute any alcohol or drug abuse patient.[facility] CenterIn the event this information is protected by the Federal Confidentiality of Alcohol and Drug Abuse Patient Records regulations: The Federal rules restrict any use of the information to criminally investigate or prosecute any alcohol or drug abuse patient.[facility] CenterIn the event this information is protected by the Federal Confidentiality of Alcohol and Drug Abuse Patient Records regulations: The Federal rules restrict any use of the information to criminally investigate or prosecute any alcohol or drug abuse patient.[facility] CenterIn the event this information is protected by the Federal Confidentiality of Alcohol and Drug Abuse Patient Records regulations: The Federal rules restrict any use of the information to criminally investigate or prosecute any alcohol or drug abuse patient.[facility] Reason for Visit (unrecogniz ed section and content) Reason Comments Nausea Abdominal pain. Labs 03/02/22 in [place] Reason Comments Refill Request Reason Comments Reflux Reason Comments Patient Question Reason Comments Patient Update Reason Comments Hospital Follow Up Reason Comments Patient Update Rash Reason Comments Follow Up Reason Comments Post Op Follow Up Reason Comments New Reason Comments Recheck Care Teams (unrecognized sec tion and content) Admissions Rn Relationship Specialty Start Date End Date Henok Watkins MD [address] [place] [address] [id number] PCP - General Family Practice 12/21/12 Admissions Rn Relationship Specialty Start Date End Date Henok Watkins MD [address] [place], [place] [id number] PCP - General Family Practice 12/21/12 Team Status: Active Member Role Status Dates Dr. Carlos Watkins MD Family Provider Active Dr. Carlos Watkins MD Primary Care Provider Activ e Team Status: Inactive Member Role Status Dates Dr. Carlos Watkins MD Primary Care Provider, Attending Provider, Referring Provider Active Team Status: Inactive Member Role Status Dates Dr. Carlos Watkins MD Primary Care Provider, Atte nding Provider Active Team Status: Inactive Member Role Status Dates Dr. Carlos Watkins MD Primary Care Provider Activ e Dr. Ramiro Mraks MD Attending Provider Active Admissions Rn Relationship Specialty Start Date End Date Henok Watkins MD [address] [place], [place] [id number] PCP - General Family Medicine 12/21/12 Admissions Rn Relationship Specialty Start Date End Date Henok Watkins MD [address] [place], [place] [id number] PCP - General Family Medicine 12/21/12 Admissions Rn Relationship Specialty Start Date End Date Henok Watkins MD [address] [place] [address] [place], [place] [id number] PCP - General Family Medicine 12/21/12 Admissions Rn Relationship Specialty Start Date End Date Hneok Watkins MD [address] [place] [address] [place], [place] [id number] PCP - General Family Medicine 12/21/12 Admissions Rn Relationship Specialty Start Date End Date Henok Watkins MD [address] [place] [address] [place] [address] PCP - General Family Medicine 12/21/12 Admissions Rn Relationship Specialty Start Date End Date Henok Watkins MD [address] [place] [address] PCP - General Family Medicine 12/21/12 Autumn Raza [address] [place] [address] Anesthesiology 05/12/23 Admissions Rn Relationship Specialty Start Date End Date Henok Watkins MD [address] [place] [id number] PCP - General Family Medicine 12/21/12 Autumn Raza MD [address] [place] [address] 46[address] Anesthesiology 05/12/23 Admissions Rn Relationship Specialty Start Date End Date Henok Watkins MD [address] [place] [id number] PCP - General Family Medicine 12/21/12 Autumn Raza MD [address] [place] [address] 42230 Anesthesiology 05/12/23 Autumn Raza MD [address] [place] [address] [phone] Anesthesiology 08/01/23 08/01/23 Admissions Rn Relationship Specialty Start Date End Date Henok Watkins MD [address] [place] [address]013 PCP - General Family Medicine 12/21/12 Autumn Raza MD [address] [place] [address] 66383 Anesthesiology 05/12/23 Admissions Rn Relationship Specialty Start Date End Date Henok Watkins MD [address] [place] [address] 11078 PCP - General Family Medicine 12/21/12 Autumn Raza MD [address] [place] [address] 55990 Anesthesiology 05/12/23 Admissions Rn Relationship Specialty Start Date End Date Henok Watkins MD [address] [place] [id number] PCP - General Family Medicine 12/21/12 Autumn Raza MD [address] [place] [address] 58441 Anesthesiology 05/12/23 Admissions Rn Relationship Specialty Start Date End Date Henok Watkins MD [address] [place] [address] 75296 PCP - General Family Medicine 12/21/12 Autumn Raza MD [address] [place] [address] 48487 Anesthesiology 05/12/23 Admissions Rn Relationship Specialty Start Date End Date Henok Watkins MD [address] [place] [address] [id number] PCP - General Family Medicine 12/21/12 Autumn Raza MD [address] [place] [address] 50534 Anesthesiology 05/12/23 Team Status: Active Member Role Status Dates Dr. Henok Watkins MD Family Provider Active Dr. Henok Watkins MD Primary Care Provider Acti ve Team Status: Inactive Member Role Status Dates Dr. Henok Watkins MD Primary Care Provider Acti ve Dr. Ramiro Marks MD Attending Provider, Referring Prov ider Active Admissions Rn Relationship Specialty Start Date End Date Henok Watkins MD [address] [place] [address] PCP - General Family Medicine 12/21/12 Autumn Raza MD [address] [place] [address] 33128 Anesthesiology 05/12/23 Admissions Rn Relationship Specialty Start Date End Date Henok Watkins MD [address] [place] [address] 68453 PCP - General Family Medicine 12/21/12 Autumn Raza MD [address] [place] [address] [phone] Anesthesiology 05/12/23 Admissions Rn Relationship Specialty Start Date End Date Henok Watkins MD [address] [place] [address] 80606 PCP - General Family Medicine 12/21/12 Autumn Raza MD [address] [place] [address] 34578 Anesthesiology 05/12/23 Admissions Rn Relationship Specialty Start Date End Date Henok Watkins MD [address] [place] [address] 33294 PCP - General Family Medicine 12/21/12 Autumn Raza MD [address] [place] [address] Anesthesiology 05/12/23 Team Status: Inactive Member Role Status Dates Dr. Henok aWtkins MD Primary Care Provider Acti ve Start: January 16, 2025 End: January 16, 2025 Tami Sandoval PA-C Attending Provider Active St art: January 16, 2025 End: January 16, 2025 Tami Sandoval PA-C Referring Provider Active St art: January 16, 2025 End: January 16, 2025 Team Status: Inactive Member Role Status Dates Dr. Henok Watkins MD Primary Care Provider Acti ve Start: January 28, 2025 End: January 28, 2025 Dr. Henok Watkins MD Attending Provider Active Start: January 28, 2025 End: January 28, 2025 Dr. Henok Watkins MD Referring Provider Active Start: January 28, 2025 End: January 28, 2025 Team Status: Inactive Member Role Status Dates Dr. Henok Watkins MD Primary Care Provider Acti ve Start: February 24, 2025 End: February 24, 2025 Dr. Henok Watkins MD Referring Provider Active Start: February 24, 2025 End: February 24, 2025 Liban Saini NP, COURT ATTENDANT-C Attending Provider Active S tart: February 24, 2025 End: February 24, 2025 Team Status: Active Member Role Status Dates Dr. Henok Watkins MD Primary Care Provider Acti ve Team Status: Inactive Member Role Status Dates Dr. Henok Watkins MD Primary Care Provider Acti ve Start: March 04, 2025 End: March 04, 2025 Dr. Henok Watkins MD Attending Provider Active Start: March 04, 2025 End: March 04, 2025 Dr. Henok Watkins MD Referring Provider Active Start: March 04, 2025 End: March 04, 2025 Admissions Rn Relationship Specialty Start Date End Date Henok Watkins MD [address] [place] [id number] PCP - General Family Medicine 12/21/12 Autumn Raza MD [address] [place] [address] Anesthesiology 05/12/23 Team Status: Active Member Role/Relationship Status Dates Dr. Henok Watkins MD Primary Care Provider Acti ve Team Status: Inactive Member Role/Relationship Status Dates Dr. Henok Watkins MD Primary Care Provider Acti ve Start: January 16, 2025 End: January 16, 2025 Tami Sandoval PA-C Attending Provider Active St art: January 16, 2025 End: January 16, 2025 Tami Sandoval PA-C Referring Provider Active St art: January 16, 2025 End: January 16, 2025 Team Status: Inactive Member Role/Relationship Status Dates Dr. Henok Watkins MD Primary Care Provider Acti ve Start: January 28, 2025 End: January 28, 2025 Dr. Henok Watkins MD Attending Provider Active Start: January 28, 2025 End: January 28, 2025 Dr. Henok Watkins MD Referring Provider Active Start: January 28, 2025 End: January 28, 2025 Team Status: Inactive Member Role/Relationship Status Dates Dr. Henok Watkins MD Primary Care Provider Acti ve Start: February 24, 2025 End: February 24, 2025 Dr. Henok Watkins MD Referring Provider Active Start: February 24, 2025 End: February 24, 2025 Liban Saini NP, COURT ATTENDANT-C Attending Provider Active S tart: February 24, 2025 End: February 24, 2025 Team Status: Inactive Member Role/Relationship Status Dates Dr. Henok Watkins MD Primary Care Provider Acti ve Start: March 04, 2025 End: March 04, 2025 Dr. Henok Watkins MD Attending Provider Active Start: March 04, 2025 End: March 04, 2025 Dr. Henok Watkins MD Referring Provider Active Start: March 04, 2025 End: March 04, 2025 Team Status: Inactive Member Role/Relationship Status Dates Dr. Henok Watkins MD Primary Care Provider Acti ve Start: March 26, 2025 End: March 26, 2025 Dr. Henok Watkins MD Attending Provider Active Start: March 26, 2025 End: March 26, 2025 Dr. Henok Watkins MD Referring Provider Active Start: March 26, 2025 End: March 26, 2025 Team Status: Active Member Role/Relationship Status Dates Dr. Henok Watkins MD Primary Care Provider Acti ve Start: April 01, 2025 Dr. Henok Watkins MD Attending Provider Active Start: April 01, 2025 Dr. Henok Watkins MD Referring Provider Active Start: April 01, 2025 Team Status: Inactive Member Role/Relationship Status Dates Dr. Henok Watkins MD Primary Care Provider Acti ve Start: April 01, 2025 End: April 01, 2025 Dr. Henok Watkins MD Attending Provider Active Start: April 01, 2025 End: April 01, 2025 Dr. Henok Watkins MD Referring Provider Active Start: April 01, 2025 End: April 01, 2025 FOR RECORDS PERTAINING TO PATIENTS WHO ARE OR HAVE BEEN ENROLLED IN A CHEMICAL DEPENDENCY/SUBSTANCEABUSE PROGRAM, SOME INFORMATION MAY BE OMITTED. This clinical summary was aggregated from multiple sources. Caution should be exercised in using it in the provision of clinical care. This summary normalizes information from multiple sources, and as a consequence, information in this document may materially change the coding, format and clinical context of patient data. In addition, data may be omitted in some cases. CLINICAL DECISIONS SHOULD BE BASED ON THE PRIMARY CLINICAL RECORDS. [facility] [employer] [facility]. provides no warranty or guarantee of the accuracy or completeness of information in this document.
[2025-06-20 08:01] LABS: Amylase 103 U/L (28-100); Anion Gap 11 (5-15); BUN 14 mg/dL (4-19); BUN/Creat Ratio 18.9 RATIO (10-20); Calcium,Total 8.9 mg/dL (7.6-11.0); Carbon Dioxide 27.9 mmol/L (21.0-32.0); Chloride 102 mmol/L (98-108); Glucose 86 mg/dL (70-99); Lipase 27 U/L (13-75); Potassium 3.8 mmol/L (3.3-5.1)
== END 2025-06-20 23:59 | disposition home or self-care (01) ==
LOC: LAB 05:56
PROVIDERS: PCP Family Medicine; Referring Provider Family Medicine; Visit Provider Family Medicine
DX: K85.90 Acute pancreatitis without necrosis or infection, unspecified (principal)
CPT/HCPCS: 36415; 80048; 82150; 83690

== ENCOUNTER → 2025-08-07 | Outpatient (CLI) | payer OTHER, SELFPAY ==
[2025-08-07 09:17] LABS: Hematocrit 45.3 % (40-54); Hemoglobin 15.2 g/dL (13.0-16.5); Immature Granulocytes Count 0.020 X10^3/uL (0.0-0.0); Mean Corp Hgb Conc 33.6 g/dL (32-36); Mean Corpuscular Volume 89.2 fL (80-94); Mean Platelet Vol. 8.9 fl (6.2-12.0); NRBC Flagged by Analyzer 0 % (0-5); Platelet Count 216 K/mm3 (150-450); RBC Distribution Width CV 12.5 % (11.6-14.6); RBC Distribution Width SD 41.3 fl (35.1-43.9); Red Blood Count 5.08 M/mm3 (4.6-6.2); White Blood Count 6.4 K/mm3 (4.4-11.0)
== END | disposition home or self-care (01) ==
LOC: LAB 08:35
PROVIDERS: PCP Family Medicine
DX: E29.1 Testicular hypofunction (principal)
CPT/HCPCS: 36415; 84403; 85025

== ENCOUNTER → 2025-08-26 | Outpatient (CLI) | payer OTHER, SELFPAY ==
[2025-08-26 11:12] LABS: AST(SGOT) 20 U/L (<=37); Alanine Aminotransfer ALT/SGPT 22 U/L (<=46); Albumin, Serum 4.2 g/dL (3.4-4.8); Alkaline Phosphatase 72 U/L (40-129); Anion Gap 6 (5-15); BUN 14 mg/dL (4-19); BUN/Creat Ratio 17.9 RATIO (10-20); Calcium,Total 9.1 mg/dL (7.6-11.0); Carbon Dioxide 32.2 mmol/L (21.0-32.0); Chloride 102 mmol/L (98-108); Globulin 2.3 g/dL (2.2-4.2); Glucose 65 mg/dL (70-99); Potassium 4.8 mmol/L (3.3-5.1); Vitamin B12 430 pg/mL (180-914); Vitamin D,25 Hydroxy 42.4 ng/mL (30-100)
[2025-08-26 11:58] LABS: Amylase 138 U/L (28-100); CRP < 3.00 mg/L (0.0-3.0)
[2025-08-27 13:08] LABS: ANTINUCLEAR ANTIBODIES DIRECT Negative (Negative); Prealbumin 20 mg/dL (10-36)
== END | disposition home or self-care (01) ==
LOC: MFPLAB 08:58
PROVIDERS: PCP Family Medicine; Visit Provider Family Medicine
DX: R10.9 Unspecified abdominal pain (principal); L29.9 Pruritus, unspecified
CPT/HCPCS: 36415; 80053; 82150; 82306; 82607; 84134; 85652; 86038; 86140

== ENCOUNTER → 2025-09-23 | Outpatient (CLI) | payer OTHER, SELFPAY ==
[2025-09-23 11:27] LABS: Vitamin B12 477 pg/mL (180-914)
[2025-09-23 11:48] LABS: Amylase 126 U/L (28-100); CRP < 3.00 mg/L (0.0-3.0); Lipase 44 U/L (13-75)
[2025-09-23 11:55] LABS: FOLATES,SERUM (FOLIC ACID) 34.10 ng/mL (4.60-34.80)
[2025-09-25 14:08] LABS: Anti-Chromatin <0.2 AI (0.0-0.9); Anti-Jo <0.2 AI (0.0-0.9); Anti-dsDNA Ab 1 IU/mL (0-9); SJOGREN'S Anti-SS-A test < 0.2 AI (0.0-0.9); SJOGREN'S Anti-SS-B test < 0.2 AI (0.0-0.9); Vitamin D 1,25-Dihydroxy 29.7 pg/mL (24.8-81.5)
[2025-09-27 12:08] LABS: CMV Acute Antibody IgM < 30.0 AU/mL (0.0-29.9); Cytoplasmic Ab (C-ANCA) <1:20 titer (Neg:<1:20); Dopamine, Pl <10.0 pg/mL (0.0-36.7); EBV Acute VCA IgM 72.4 U/mL (0.0-35.9); EBV-VCA IgG > 600.0 U/mL (0.0-17.9); Epinephrine, Pl 59.0 pg/mL (0.0-55.4); Gastrin, Serum 20 pg/mL (0-115); IgG, Quant 1122 mg/dL (603-1613); Immunoglobulin A 197 mg/dL (61-437); Immunoglobulin G, Subclass 1 475 mg/dL (248-810); Immunoglobulin G, Subclass 2 514 mg/dL (130-555); Immunoglobulin G, Subclass 3 14 mg/dL (15-102); Immunoglobulin G, Subclass 4 10 mg/dL (2-96); Immunoglobulin M 52 mg/dL (20-172); Norepinephrine, Pl 551 pg/mL (115-524); Perinuclear Ab (P-ANCA) <1:20 titer (Neg:<1:20)
== END | disposition home or self-care (01) ==
LOC: LAB 09:44
PROVIDERS: PCP Family Medicine; Referring Provider Internal Medicine Gastroenterology; Visit Provider Internal Medicine Gastroenterology
DX: R74.8 Abnormal levels of other serum enzymes (principal)
CPT/HCPCS: 36415; 82150; 82384; 82607; 82652; 82746; 82784; 82785; 82787; 82941; 83690; 85652; 86037; 86140; 86225; 86235; 86644; 86645; 86664; 86665

== ENCOUNTER → 2025-09-24 | Outpatient (CLI) | payer OTHER, SELFPAY ==
[2025-09-25 12:08] LABS: H. PYLORI STOOL AG Negative (Negative)
[2025-09-27 01:06] LABS: Calprotectin, Stool 61 ug/g (0-120)
== END | disposition home or self-care (01) ==
LOC: LABSPEC 08:42
PROVIDERS: PCP Family Medicine; Referring Provider Internal Medicine Gastroenterology; Visit Provider Internal Medicine Gastroenterology
DX: R74.8 Abnormal levels of other serum enzymes (principal)
CPT/HCPCS: 83993; 87338

== ENCOUNTER → 2025-09-25 | Outpatient (CLI) | payer OTHER, SELFPAY ==
[2025-10-02 12:09] LABS: Dopamine, 24Ur 198 ug/24 hr (0-510); Epinephrine, 24Ur 10 ug/24 hr (0-20); Norepinephrine, 24Ur 67 ug/24 hr (0-135); Norepinephrine, Ur 61 ug/L (Undefined); VMA, 24UR 3.6 mg/24 hr (0.0-7.5); VMA, UR 3.3 mg/L (Undefined)
== END | disposition home or self-care (01) ==
LOC: LABSPEC 09:03
PROVIDERS: PCP Family Medicine; Referring Provider Internal Medicine Gastroenterology; Visit Provider Internal Medicine Gastroenterology
DX: R74.8 Abnormal levels of other serum enzymes (principal)
CPT/HCPCS: 81050; 82384; 84585